=== PATIENT | male | born 1960 | race Caucasian/White ===

== ENCOUNTER 2020-07-24 06:06 | Outpatient (REF) | payer BC, SELFPAY ==
[2020-07-24 12:26] LABS: Prostate Specific Antigen 2.55 ng/mL (<0.05-4.0)
== END 2020-07-24 06:07 | disposition home or self-care (01) ==
LOC: HO.HMGCLDS 06:06
PROVIDERS: PCP Nurse Practitioner Family; Visit Provider Urology
DX: R97.20 Elevated prostate specific antigen [PSA] (principal)
CPT/HCPCS: 84153

== ENCOUNTER → 2020-08-05 09:13 | Outpatient (BNVA) | payer BC, SELFPAY | PROVIDERS: PCP Nurse Practitioner Family; Referring Provider Nurse Practitioner Family; Visit Provider Urology | DX: Z76.89 Persons encountering health services in other specified circumstances (principal) ==

== ENCOUNTER 2020-12-17 10:56 | Outpatient (REF) | payer BC, SELFPAY ==
[2020-12-17 11:29] LABS: COVID-19 Test Negative (Negative); IDNOW Serial# 55D5AD1C
== END 2020-12-17 10:57 | disposition home or self-care (01) ==
LOC: HO.LAB 10:56
PROVIDERS: Visit Provider Internal Medicine
DX: Z20.822 Contact with and (suspected) exposure to COVID-19 (principal)
CPT/HCPCS: 36415; 87635; C9803

== ENCOUNTER 2021-01-27 06:28 | Outpatient (REF) | payer BC, SELFPAY ==
[2021-01-27 11:51] LABS: Alanine Aminotransferase 32 U/L (0-40); Albumin Level 4.3 g/dL (3.5-5.0); Alkaline Phosphatase 68 U/L (39-117); Anion Gap 12 (12-20); Aspartate Amino Transferase 28 U/L (5-37); Bilirubin Total 0.9 mg/dL (0.0-1.0); Blood Urea Nitrogen 18 mg/dL (9-16); Calcium 9.1 mg/dL (8.4-10.2); Carbon Dioxide 26 mmol/L (22-29); Chloride 106 mmol/L (96-108); Cholesterol 188 mg/dL; Estimated Glomerular Filt Rate > 60; Glucose Fasting 105 mg/dL (60-99); HDL Cholesterol 64 mg/dL; LDL Cholesterol Calculated 100 mg/dl; Potassium 4.2 mmol/L (3.3-5.1); Sodium 140 mmol/L (135-145); Triglycerides 121 mg/dL
[2021-01-27 12:09] LABS: Prostate Specific Antigen 2.82 ng/mL (<0.05-4.0)
[2021-01-27 12:15] LABS: Prostate Specific Antigen Scr 2.78 ng/mL (<0.05-4.0); TSH reflex Free T4 1.97 uIU/mL (0.32-4.0)
[2021-01-27 12:16] LABS: HBS Num1 0.12 mIU/mL (0-7.99); HBc Num1 0.09 S/CO (0.00-0.79); Hepatitis A Antibody IgM 0.14 Index (0-0.79); Hepatitis B Core Antibody Nonreactive (Nonreactive); ~HepC Num1 0.07 S/CO (0.00-0.79); ~Hepatitis A Antibody IgM Nonreactive (Nonreactive); ~Hepatitis B Surface Antibody NONREACTIVE (Nonreactive); ~Hepatitis C Antibody Nonreactive (Nonreactive)
[2021-01-27 12:28] LABS: HBsAGNum1 0.19 S/CO (0.00-0.99); Hepatitis B Surface Antigen Negative (Negative)
== END 2021-01-27 06:29 | disposition home or self-care (01) ==
LOC: HO.HMGCLDS 06:28
PROVIDERS: PCP Nurse Practitioner Family; Visit Provider Urology
DX: Z00.00 Encounter for general adult medical examination without abnormal findings (principal); R97.20 Elevated prostate specific antigen [PSA]; N40.1 Benign prostatic hyperplasia with lower urinary tract symptoms; N13.8 Other obstructive and reflux uropathy; Z11.59 Encounter for screening for other viral diseases; Z12.5 Encounter for screening for malignant neoplasm of prostate
CPT/HCPCS: 36415; 80053; 80061; 84153; 84443; 86704; 86706; 86709; 86803; 87340

== ENCOUNTER → 2021-05-25 09:24 | Outpatient (BNVA) | payer BC, SELFPAY | PROVIDERS: PCP Nurse Practitioner Family; Visit Provider Urology ==

== ENCOUNTER 2021-08-04 07:42 | Outpatient (REF) | payer BC, SELFPAY | END 2021-08-04 07:43 | disposition home or self-care (01) | LOC: HO.LAB 07:42 | PROVIDERS: PCP Nurse Practitioner Family; Visit Provider Internal Medicine | DX: Z20.822 Contact with and (suspected) exposure to COVID-19 (principal) | CPT/HCPCS: C9803; U0003; U0005 ==

== ENCOUNTER 2021-11-11 08:28 | Outpatient (REF) | payer BC, SELFPAY ==
[2021-11-11 12:21] LABS: PSA,Total (Free>4and<10) 2.89 ng/mL (0.00-4.00)
== END 2021-11-11 08:29 | disposition home or self-care (01) ==
LOC: HO.HMGCLDS 08:28
PROVIDERS: PCP Nurse Practitioner Family; Visit Provider Urology
DX: Z12.5 Encounter for screening for malignant neoplasm of prostate (principal); N40.1 Benign prostatic hyperplasia with lower urinary tract symptoms; N13.8 Other obstructive and reflux uropathy
CPT/HCPCS: 36415; 84153

== ENCOUNTER → 2021-11-24 10:57 | Outpatient (BNVA) | payer BC, SELFPAY | PROVIDERS: PCP Nurse Practitioner Family; Visit Provider Urology | DX: N40.1 Benign prostatic hyperplasia with lower urinary tract symptoms (principal); N52.9 Male erectile dysfunction, unspecified; N13.8 Other obstructive and reflux uropathy ==

== ENCOUNTER 2022-01-26 06:03 | Outpatient (REF) | payer BC, SELFPAY ==
[2022-01-26 11:36] LABS: Alanine Aminotransferase 52 U/L (0-40); Albumin Level 4.2 g/dL (3.5-5.0); Alkaline Phosphatase 73 U/L (39-117); Anion Gap 11 (12-20); Aspartate Amino Transferase 43 U/L (5-37); Bilirubin Total 1.1 mg/dL (0.0-1.0); Blood Urea Nitrogen 14 mg/dL (9-16); Calcium 9.3 mg/dL (8.4-10.2); Carbon Dioxide 28 mmol/L (22-29); Chloride 106 mmol/L (96-108); Cholesterol 204 mg/dL; Estimated Glomerular Filt Rate > 60; Glucose Fasting 120 mg/dL (60-99); HDL Cholesterol 64 mg/dL; LDL Cholesterol Calculated 121 mg/dl; Potassium 4.3 mmol/L (3.3-5.1); Sodium 141 mmol/L (135-145); Total Protein 7.2 g/dL (6.5-8.0); Triglycerides 97 mg/dL
[2022-01-26 11:44] LABS: Appearance Urine CLOUDY; Color Urine YELLOW; Glucose Urine UA NEG (NEG); Leukocyte Esterase Urine NEG (NEG); Nitrite Urine NEG (NEG); Specific Gravity - Urine 1.025 (1.005-1.025); Urine Blood NEG (NEG); Urine Ketones 5 MG/DL (NEG); Urine Protein NEG (NEG-TRACE)
[2022-01-26 12:04] LABS: TSH reflex Free T4 1.97 uIU/mL (0.32-4.0)
== END 2022-01-26 06:04 | disposition home or self-care (01) ==
LOC: HO.HMGCLDS 06:03
PROVIDERS: Visit Provider Nurse Practitioner Family
DX: Z00.00 Encounter for general adult medical examination without abnormal findings (principal)
CPT/HCPCS: 36415; 80053; 80061; 81003; 84443

== ENCOUNTER 2022-06-22 06:02 | Outpatient (REF) | payer BC, SELFPAY ==
[2022-06-22 11:26] LABS: Appearance Urine Clear; Color Urine Yellow; Glucose Urine UA Negative (Negative); Leukocyte Esterase Urine Negative (Negative); Nitrite Urine Negative (Negative); PH 5.5 (5.0-9.0); Specific Gravity - Urine 1.015 (1.005-1.025); Urine Blood Negative (Negative); Urine Ketones Negative (Negative); Urine Protein Negative (Neg-Trace)
[2022-06-22 11:27] LABS: MANUAL DIFF FLAG NO
[2022-06-22 11:40] LABS: Basophils Absolute Auto 0.1 X10*3/uL (0.0-0.2); Basophils Percent Auto 1.1 % (0-2); Eosinophils Absolute Auto 0.2 X10*3/uL (0.0-0.4); Eosinophils Percent Auto 3.4 % (0-4); Hematocrit 46.4 % (42.0-52.0); Hemoglobin 16.1 g/dl (14.0-18.0); Imm Gran Abs Auto 0.01 X10*3/uL (0.00-0.03); Imm Gran Pct Auto 0.2 % (0.0-0.4); Lymphocytes Absolute Auto 1.6 X10*3/uL (1.2-4.9); Lymphocytes Percent Auto 27.7 % (20-40); Mean Corpuscular HGB Conc 34.7 g/dl (31.0-36.0); Mean Corpuscular Hemoglobin 32.2 pg (27.0-33.0); Mean Corpuscular Volume 92.8 fL (80.0-98.0); Mean Platelet Volume 10.8 fL (9.4-12.4); Monocytes Absolute Auto 0.8 X10*3/uL (0.1-1.2); Monocytes Percent Auto 13.7 % (2-11); Neutrophils Percent Auto 53.9 % (45-73); Platelet Count 178 X10*3/uL (160-400); White Blood Count 5.6 X10*3/uL (4.8-10.8)
[2022-06-22 12:00] LABS: Alanine Aminotransferase 63 U/L (0-40); Albumin Level 4.3 g/dL (3.5-5.0); Alkaline Phosphatase 67 U/L (39-117); Anion Gap 14 (12-20); Aspartate Amino Transferase 52 U/L (5-37); Bilirubin Total 0.8 mg/dL (0.0-1.0); Blood Urea Nitrogen 15 mg/dL (9-16); Calcium 9.4 mg/dL (8.4-10.2); Carbon Dioxide 26 mmol/L (22-29); Chloride 105 mmol/L (96-108); Cholesterol 221 mg/dL; Estimated Glomerular Filt Rate > 60; Glucose Fasting 137 mg/dL (60-99); HDL Cholesterol 66 mg/dL; LDL Cholesterol Calculated 132 mg/dl; Potassium 4.9 mmol/L (3.3-5.1); Sodium 140 mmol/L (135-145); Total Protein 7.2 g/dL (6.5-8.0); Triglycerides 119 mg/dL
[2022-06-22 12:05] LABS: TSH reflex Free T4 2.19 uIU/mL (0.32-4.0)
== END 2022-06-22 06:03 | disposition home or self-care (01) ==
LOC: HO.HMGCLDS 06:02
PROVIDERS: PCP Nurse Practitioner Family; Visit Provider Nurse Practitioner Family
DX: I10 Essential (primary) hypertension (principal)
CPT/HCPCS: 36415; 80053; 80061; 81003; 84443; 85025

== ENCOUNTER 2022-08-15 11:03 | Outpatient (REF) | payer BC, SELFPAY ==
[2022-08-15 14:18] LABS: Estimated Average Glucose 105 mg/dL; Hemoglobin A1c % 5.3 %
[2022-08-15 14:54] LABS: Microalbum/Creatinine Ratio Ur 13.4 ug/mg cr
[2022-08-17 09:03] LABS: Carbohydrate Antigen 19-9 <3 U/mL (<34)
== END 2022-08-15 11:04 | disposition home or self-care (01) ==
LOC: HO.HMGCLDS 11:03
PROVIDERS: PCP Nurse Practitioner Family; Visit Provider Nurse Practitioner Family
DX: E11.9 Type 2 diabetes mellitus without complications (principal); Z80.0 Family history of malignant neoplasm of digestive organs
CPT/HCPCS: 36415; 82043; 83036; 86301

== ENCOUNTER 2022-11-08 09:16 | Outpatient (REF) | payer BC, SELFPAY ==
[2022-11-08 12:32] LABS: Prostate Specific Antigen 3.29 ng/mL (<0.05-4.0)
== END 2022-11-08 09:17 | disposition home or self-care (01) ==
LOC: HO.HMGCLDS 09:16
PROVIDERS: PCP Nurse Practitioner Family; Visit Provider Urology
DX: N40.1 Benign prostatic hyperplasia with lower urinary tract symptoms (principal); N13.8 Other obstructive and reflux uropathy; R97.20 Elevated prostate specific antigen [PSA]; Z12.5 Encounter for screening for malignant neoplasm of prostate
CPT/HCPCS: 36415; 84153

== ENCOUNTER → 2022-11-25 10:21 | Outpatient (BNVA) | payer BC, SELFPAY | PROVIDERS: PCP Nurse Practitioner Family; Visit Provider Urology | DX: Z13.89 Encounter for screening for other disorder (principal) ==

== ENCOUNTER 2023-06-15 08:15 | Outpatient (AMB) | payer BC, SELFPAY ==
--- NOTE | 2023-06-15 08:19 | MHC.PC.OV ---
Vital Signs 06/15/23 08:20 Height 5 ft 8 in Weight 210 lb BMI 31.9 BP 170/92 H Blood Pressure Location Lt brachial Position Sitting Pulse 51 Pulse Source Pulse Oximeter Pulse Oximetry (%) 97 Oxygen Delivery Method Room Air Intake Visit Reasons: 6 Month follow up Allergies erythromycin base [Erythromycin Base] Allergy (Mild, Verified 06/15/23 08:23) RAH,ITCH oxycodone [From Percocet] Allergy (Mild, Verified 06/15/23 08:23) NAUSEA,DIZZINESS acetaminophen [Percocet] Allergy (Unknown, Verified 06/15/23 08:23) nausea/dizziness Medication List - Last Reconciled 06/15/23 by Hal Chacon, HUNTER TRAPPER- alcohol swabs 1 topically; NS amlodipine 10 mg PO DAILY 90 days antiarthritic combination no.2 (glucosamine-chondroitin) mg PO diclofenac sodium 3% 1 appl topical BID FreeStyle Lite Meter (blood-glucose meter) BID NS FreeStyle Lite Strips (blood sugar diagnostic) BID NS ibuprofen 600 mg PO Q6H PRN lancets bid testing lorazepam 0.5 mg PO DAILY PRN 30 days losartan 50 mg (2 x 25 mg) PO DAILY omeprazole 20 mg PO DAILY rosuvastatin (Crestor) 10 mg PO DAILY sildenafil 100 mg PO .as needed PRN 30 days Tobacco use date assessed: 06/15/23 Dental Screening Dental Screen Date: 06/15/23 Did you have a dental visit in the last 12 months?: Yes Did you have a dental problem in the last 6 months where you did not have access to dental care?: No Was dental information given to patient?: Patient has dentist HPI 6 Month follow up HPI Details Pt is a diabetic, on an ARB and a statin. A1C in office today is 5.6. Microalbumin is up to date. Denies polyuria, polydipsia, and neuropathy. Pt denies any signs and symptoms of hypoglycemia and does know how to correct it. Pt reports that his blood sugar has been in the low 100s. Eye exam is scheduled. HTN: Blood pressure is managed with amlodipine 5mg and losartan 50mg. BP is elevated in office and at home. Will increase amlodipine from 5mg to 10mg. Denies chest pain, shortness of breath, headache, dizziness, and blurred vision. Pt has several varicose veins just superior to his right knee. Will refer to vascular. [facility] Medical History (Updated 06/15/23 @ 08:36 by [facility] Osteoarthritis Bursitis of right hip Right tennis elbow PTSD (post-traumatic stress disorder) HURTADO (nonalcoholic steatohepatitis) Surgical History History of meniscectomy of left knee History of repair of rotator cuff Family History Father Cancer of pancreas Mother Cancer of pancreas Sister No problems noted. Daughter No problems noted. Son No problems noted. Son No problems noted. Social History Housing: House Alcohol intake: current Alcohol intake frequency: a few times a month Patient Tobacco Use Status: Never used Tobacco e-Cigarette/Vaping Use: Never Used Second Hand Smoke Exposure: No service: No Current occupational status: retired Cognitive needs: No Hearing needs: No Vision needs: Yes Questionnaire Thrive Questionnaire Date Thrive assessed: 09/21/22 KELLI-7 AMB Questionnaire KELLI-7 Date KELLI - 7 assessed: 09/21/22 Source: Developed by Drs. Augie Kiran, Jia Hamm, aH Pat and colleagues, with an educational cas from [employer] Physical exam (Primary Care) Vital Signs: Last Vital Signs Pulse 51 06/15/23 08:20 BP 170/92 H 06/15/23 08:20 Pulse Ox 97 06/15/23 08:20 Oxygen Delivery Method Room Air 06/15/23 08:20 BMI result Body Mass Index 31.9 Tobacco/Smoking Status: Tobacco use Status Tobacco use date assessed 06/15/23 06/15/23 08:26 Patient Tobacco Use Status Never used Tobacco 06/15/23 08:19 e-Cigarette/Vaping Use Never Used 06/15/23 08:19 Thrive Assessment: Date of Thrive Assessment Date Thrive assessed 09/21/22 06/15/23 08:19 Const General: cooperative Nutritional Appearance: obese Orientation/consciousness: patient oriented x3 Resp Effort & Inspection: normal respiratory effort Auscultation: clear to auscultation bilaterally Cardio Rate: regular rate Rhythm: regular rhythm Heart sounds: S1 normal heart sound present, S2 normal heart sound present and no murmurs Neuro General: patient oriented x3 Extrem Other: bilat feet: + sensation with use of monofilament, onychomycosis noted bilat, RLE just posterior to knee with several varicose veins, TTP Psych Appearance: grossly normal Mental Status: mental status grossly normal Speech and movement: Normal speech and movement present Affect: normal affect Attitude: cooperative Thought process: Normal thought process present Thought content: Normal thought content present Insight: Good insight present (Psych) Judgement: Good judgement present (Psych) Results AMB Hemoglobin A1c AMB Hemoglobin A1c 5.6 % Last Edit by Debbie Medellin CMA on 06/15/23 09:10 Results Reviewed Results Reviewed: Laboratory Last Values Hgb A1c (Clinic) 5.6 % (4.0-6.0) 06/15/23 09:09 Assessment and Plan Assessment & Plan (1) Varicose veins of right lower extremity: Code(s): I83.91 - Asymptomatic varicose veins of right lower extremity (2) HTN (hypertension): Code(s): I10 - Essential (primary) hypertension (3) Diabetes: Code(s): E11.9 - Type 2 diabetes mellitus without complications Plan The patient agreed to the use of a medical language specialist for this encounter. Scribed for JENA Aleman by Tania Cardenas medical language specialist, on 06/15/2023 at 08:30 EST Orders: Orders AMB Hemoglobin A1c Today E11.9 - Type 2 diabetes mellitus without complications Referrals Vascular Surgery Referral I83.91 - Asymptomatic varicose veins of right lower extremity Medications: Changed From amlodipine 5 mg PO DAILY 90 tabs 1RF To amlodipine 10 mg PO DAILY 90 tabs 1RF 90 days Coding Level of Care Code Est Pt Level 3 (53245) Diagnoses Varicose veins of right lower extremity I83.91 HTN (hypertension) I10 Diabetes E11.9
[2023-06-15 08:20] VITALS: BP 170/92; PULSE 51; O2SAT 97; BMI 31.9
== END 2023-06-15 08:54 | disposition home or self-care (01) ==
PROVIDERS: Visit Provider Nurse Practitioner Family
DX: I83.91 Asymptomatic varicose veins of right lower extremity (principal); I10 Essential (primary) hypertension; E11.9 Type 2 diabetes mellitus without complications
CPT/HCPCS: 83036; 99213

== ENCOUNTER 2023-06-19 08:12 | Outpatient (AMB) | payer BC, SELFPAY ==
--- NOTE | 2023-06-19 08:44 | AM.OFFWIN_ITS ---
Intake Vital Signs 3 06/19/23 08:52 Height 5 ft 8 in Weight 97.069 kg BMI 32.5 BP 150/80 H Blood Pressure Location Rt brachial Position Sitting Pulse 75 Pulse Source Pulse Oximeter Temp 98.2 F Temp Source Temporal Artery Scan Pulse Oximetry (%) 96 Oxygen Delivery Method Room Air Intake Visit Reasons: EP, left side of face swelling [phone] Intake Note: patient is here today for crack tooth on left side and its infected Patient Tobacco Use Status: Never used Tobacco Allergies erythromycin base [Erythromycin Base] Allergy (Mild, Verified 06/19/23 08:45) RAH,ITCH oxycodone [From Percocet] Allergy (Mild, Verified 06/19/23 08:45) NAUSEA,DIZZINESS acetaminophen [Percocet] Allergy (Unknown, Verified 06/19/23 08:45) nausea/dizziness Do you need a note to return to daycare/school/sports/work: No HPI EP, left side of face swelling [phone] 2 HPI0 Details Patient presents with pain swelling left cheek and emanating a bothersome tooth. The tooth has bothersome for several weeks but this acute pain redness cheek only been the past 2 days. He denies fever, nasal discharge, bleeding, headache, neurological symptoms. [facility] Medical History (Updated 06/15/23 @ 08:36 by EVER Bingham-[facility] J) Osteoarthritis Bursitis of right hip Right tennis elbow PTSD (post-traumatic stress disorder) HURTADO (nonalcoholic steatohepatitis) Surgical History History of meniscectomy of left knee History of repair of rotator cuff Family History Father Cancer of pancreas Mother Cancer of pancreas Sister No problems noted. Daughter No problems noted. Son No problems noted. Son No problems noted. Social History Housing: House Alcohol intake: current Alcohol intake frequency: a few times a month Patient Tobacco Use Status: Never used Tobacco e-Cigarette/Vaping Use: Never Used Second Hand Smoke Exposure: No service: No Current occupational status: retired Cognitive needs: No Hearing needs: No Vision needs: Yes Review of Systems Const Reports as per HPI and Reports no additional complaints Eyes Reports no additional complaints ENT Reports no additional complaints and Reports as per HPI Skin/Breast Denies lesions Neuro Reports no additional complaints and Reports as per HPI Physical Exam Vital Signs: Last Vital Signs Temp 98.2 F 06/19/23 08:52 Pulse 75 06/19/23 08:52 BP 150/80 H 06/19/23 08:52 Pulse Ox 96 06/19/23 08:52 Oxygen Delivery Method Room Air 06/19/23 08:52 BMI result Body Mass Index 32.5 Const General: cooperative, comfortable and no acute distress Orientation/consciousness: patient oriented x3 HEENT Face images: 2 1. Area rubor edema and tenderness Mouth: Normal oral and palatal mucosa present Teeth and gingiva: abnormal tooth and associated gingiva (Anterior two upper molars are severely decayed) Teeth image: 2 1. Significant decay of ?12. And 13 Throat: Yes posterior oropharynx normal Eyes Other: No pain with extraocular movement or evidence preseptal cellulitis Pupils: Equal, round and reactive pupils present EOM: EOMs intact bilaterally Neck Neck: Yes no lymphadenopathy Resp Effort & Inspection: normal respiratory effort Auscultation: clear to auscultation bilaterally Cardio Rate: regular rate Rhythm: regular rhythm Heart sounds: S1 normal heart sound present and S2 normal heart sound present Neuro General: patient oriented x3 Cranial nerves: Yes Equal, round and reactive pupils present Assessment & Plan Assessment & Plan (1) Facial cellulitis: Code(s): L03.211 - Cellulitis of face Plan: Will start patient on course of Augmentin for cellulitis. Strongly advised patient to call dentist today to be seen this week for treatment for tooth decay as this will continue to recur frequently until dental issue is treated. ER if fever, chills, neck stiffness, headache vision changes pain with extraocular movement or any worsening of symptoms occurs. Medications: New 2 amoxicillin-pot clavulanate 875-125 mg 1 tab PO Q12H 10 days 20 tabs 0RF Coding Level of Care Code Est Pt Level 3 (35648) Diagnoses Facial cellulitis L03.211
[2023-06-19 08:52] VITALS: BP 150/80; PULSE 75; TEMP 36.8; O2SAT 96; BMI 32.5
== END 2023-06-19 10:12 | disposition home or self-care (01) ==
PROVIDERS: PCP Nurse Practitioner Family; Visit Provider Physician Assistant
DX: L03.211 Cellulitis of face (principal)
CPT/HCPCS: 99213

== ENCOUNTER 2023-07-25 06:06 | Outpatient (REF) | payer BC, SELFPAY ==
[2023-07-25 11:16] LABS: MANUAL DIFF FLAG NO
[2023-07-25 11:24] LABS: Basophils Absolute Auto 0.1 X10*3/uL (0.0-0.2); Eosinophils Absolute Auto 0.2 X10*3/uL (0.0-0.4); Eosinophils Percent Auto 3.1 % (0-4); Hematocrit 46.1 % (42.0-52.0); Hemoglobin 16.2 g/dl (14.0-18.0); Imm Gran Abs Auto 0.02 X10*3/uL (0.00-0.03); Imm Gran Pct Auto 0.3 % (0.0-0.4); Lymphocytes Absolute Auto 1.6 X10*3/uL (1.2-4.9); Lymphocytes Percent Auto 26.7 % (20-40); Mean Corpuscular HGB Conc 35.1 g/dl (31.0-36.0); Mean Corpuscular Hemoglobin 32.3 pg (27.0-33.0); Mean Corpuscular Volume 91.8 fL (80.0-98.0); Monocytes Absolute Auto 0.7 X10*3/uL (0.1-1.2); Monocytes Percent Auto 11.2 % (2-11); Neutrophils Absolute Auto 3.5 x10*3/uL (2.0-8.3); Neutrophils Percent Auto 57.7 % (45-73); Platelet Count 193 X10*3/uL (160-400); Red Blood Count 5.02 X10*6/uL (4.60-5.80); Red Cell Distribution Width 11.7 % (11.0-16.0); White Blood Count 6.1 X10*3/uL (4.8-10.8)
[2023-07-25 11:28] LABS: Estimated Average Glucose 111 mg/dL; Hemoglobin A1c % 5.5 % (<6.0)
[2023-07-25 11:31] LABS: Appearance Urine Clear; Color Urine Yellow; Glucose Urine UA Negative (Negative); Leukocyte Esterase Urine Negative (Negative); Nitrite Urine Negative (Negative); PH 6.5 (5.0-9.0); Urine Blood Negative (Negative); Urine Ketones Negative (Negative); Urine Protein Negative (Neg-Trace)
[2023-07-25 12:00] LABS: Alanine Aminotransferase 47 U/L (0-40); Albumin Level 4.1 g/dL (3.5-5.0); Alkaline Phosphatase 66 U/L (39-117); Anion Gap 11 (12-20); Aspartate Amino Transferase 39 U/L (5-37); Blood Urea Nitrogen 14 mg/dL (9-16); Carbon Dioxide 27 mmol/L (22-29); Chloride 106 mmol/L (96-108); Cholesterol 171 mg/dL (<200); Estimated Glomerular Filt Rate > 60; Glucose Fasting 139 mg/dL (60-99); HDL Cholesterol 76 mg/dL (>40); LDL Cholesterol Calculated 78 mg/dL (<100); Potassium 3.9 mmol/L (3.3-5.1); Sodium 140 mmol/L (135-145); TSH reflex Free T4 2.84 uIU/mL (0.32-4.0); Total Protein 7.3 g/dL (6.5-8.0); Triglycerides 86 mg/dL (<150)
== END 2023-07-25 06:07 | disposition home or self-care (01) ==
LOC: HO.HMGCLDS 06:06
PROVIDERS: PCP Nurse Practitioner Family; Visit Provider Nurse Practitioner Family
DX: E11.9 Type 2 diabetes mellitus without complications (principal)
CPT/HCPCS: 36415; 80053; 80061; 81003; 83036; 84443; 85025

== ENCOUNTER 2023-09-14 09:14 | Outpatient (AMB) | payer BC, SELFPAY ==
[2023-09-14 09:32] VITALS: BMI 31.9
--- NOTE | 2023-09-14 09:32 | MHC.OFFVIS ---
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 Has not tried compression socks. 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 Complaints include pain over varicosities, swelling of lower extremities, cramping, fatigue, and heaviness of the lower extremities. 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 It is noted more so in right t leg. Patient denies any previous venous surgery or injections. Patient denies any history of DVT/ PE. Patient denies any history of phlebitis. Trial of compression includes - [id number] They now present for vascular evaluation regarding their varicose veins. [facility] Medical History Osteoarthritis Bursitis of right hip Right tennis elbow PTSD (post-traumatic stress disorder) HURTADO (nonalcoholic steatohepatitis) Surgical History History of meniscectomy of left knee History of repair of rotator cuff Family History Father Cancer of pancreas Mother Cancer of pancreas Sister No problems noted. Daughter No problems noted. Son No problems noted. Son No problems noted. Social History Housing: House Alcohol intake: current Alcohol intake frequency: a few times a month Patient Tobacco Use Status: Never used Tobacco e-Cigarette/Vaping Use: Never Used Second Hand Smoke Exposure: No service: No Current occupational status: retired Cognitive needs: No Hearing needs: No Vision needs: Yes Review of Systems Const Reports as per HPI ENT Reports no additional complaints Card Denies chest pain, Denies chest pain at rest and Denies chest pain with activity Resp Denies chest congestion and Denies cough GI Reports no additional complaints Musc Details: pain over varicosities, aching of lower extremities, swelling, cramping, heaviness and tiredness, itching Denies abnormal gait Skin/Breast Reports pruritus and Denies wounds Neuro Reports no additional complaints and Denies abnormal gait Psych Denies no additional complaints Physical Exam Vital Signs: BMI result Body Mass Index 31.9 Const General: cooperative, healthy appearing and comfortable Orientation/consciousness: oriented to person, oriented to place and oriented to time Neck Carotids: no bruits Chest Chest palpation & inspection: normal inspection of the chest and normal palpation of entire chest wall Resp Effort & Inspection: normal respiratory effort and able to speak in complete sentences Cardio Rate: regular rate Heart sounds: S1 normal heart sound present and S2 normal heart sound present Peripheral pulses: Peripheral pulses 2+ throughout GI Inspection: Yes normal to inspection Skin Other: +2 edema, large rope-like varicosities greater than 4 mm CEAP Classification C4 - skin color changes Ep - Etiology Primary As - superficial veins P - reflux General skin exam: dry skin Neuro General: oriented to person, oriented to place and oriented to time Extrem Right lower extremity: full ROM, normal capillary refill and edema Left lower extremity: full ROM, normal capillary refill and edema Psych Mental Status: mental status grossly normal Assessment & Plan Assessment & Plan (1) Varicose veins of right lower extremity with inflammation: Code(s): I83.11 - Varicose veins of right lower extremity with inflammation Plan: In short, the patient has evidence of venous insufficiency. I have discussed the pathophysiology with the patient. In addition I have provided informational material regarding venous disease to the patient. We have discussed conservative measures including compression, elevation, and exercise. I have also provided a handout regarding appropriate use of compression stockings and where to purchase good compression stockings as well. I have taken the liberty of ordering venous insufficiency testing with the patient. They will follow up with me after testing. The patient had an opportunity to ask questions regarding the treatment plan. All questions were answered. Imaging studies, laboratory studies and physical exam results were discussed and reviewed in detail. No major barriers to understanding were identified. The patient expressed understanding and agreement with the above treatment plan. The patient is aware they should contact our office by phone for worsening of the current condition or the appearance of new symptoms. Thank you for allowing me to participate in the vascular care of this patient. If you have any questions or concerns regarding the treatment for the above condition please do not hesitate to contact me. The office telephone contact is [phone]. This note is constructed using voice recognition software. While every effort has been made to ensure accuracy, crystal flat grinder errors may have been included. Thank you for allowing me to participate in the care of your patient. Yours sincerely, Kelton King MD, FACS, R.P.V.I. Orders: Orders US venous insuf bilat 1 Week I83.11 - Varicose veins of right lower extremity with inflammation Coding Level of Care Code Est Pt Level 4 (40616) Diagnoses Varicose veins of right lower extremity with inflammation I83.11
== END 2023-09-14 10:08 | disposition home or self-care (01) ==
PROVIDERS: PCP Nurse Practitioner Family; Visit Provider Surgery Vascular Surgery
DX: I83.11 Varicose veins of right lower extremity with inflammation (principal)
CPT/HCPCS: 99213

== ENCOUNTER → 2023-09-14 09:14 | Outpatient (BNVA) | payer BC, SELFPAY | PROVIDERS: PCP Nurse Practitioner Family; Visit Provider Surgery Vascular Surgery ==

== ENCOUNTER 2023-09-20 12:34 | Outpatient (REF) | payer BC, SELFPAY ==
--- NOTE | ~2023-09-20 | US_ITS ---
EXAMINATION: US LOWER EXTREMITY VENOUS (REFLUX EXAM), BILATERAL CLINICAL INDICATION: Varicose veins of the right lower extremity COMPARISON: None. TECHNIQUE: Color flow triplex imaging and compression Doppler was performed to evaluate both the deep and the superficial systems bilaterally. To evaluate the superficial system, the examination was performed in the upright position. Color-flow Doppler ultrasound and compression ultrasound were utilized. In addition, maneuvers were utilized to demonstrate reflux. FINDINGS: RIGHT: 1. DEEP VENOUS ULTRASOUND OF THE RIGHT LOWER EXTREMITY: Common Femoral Vein: Compressible, normal respiratory variation and augmented flow. Popliteal Vein: Compressible, normal augmentation. Deep Venous Reflux: There is no evidence of reflux in the deep system in either the common femoral vein or the popliteal vein. There is no evidence of a Mayers's cyst. 2. SUPERFICIAL ULTRASOUND WITH DOPPLER OF RIGHT LOWER EXTREMITY: RIGHT GREAT SAPHENOUS VEIN: Saphenofemoral Junction: 5 mm. No reflux. Proximal Thigh: 1 mm. No reflux. Mid Thigh: 1 mm. No reflux. Above Knee: 1 mm. No reflux. Below Knee: 1 mm. No reflux. Mid Calf: 2 mm. 2392 ms reflux. Ankle: 3 mm. 2800 ms reflux. DUPLICATED GREAT SAPHENOUS VEIN: Yes, with abnormal reflux noted at and below the knee. RIGHT SMALL SAPHENOUS VEIN: Proximal: 2 mm. No reflux. Distal: 2 mm. No reflux. PERFORATORS: Mid calf: 3 mm. No reflux. LEFT: 1. DEEP VENOUS ULTRASOUND OF THE LEFT LOWER EXTREMITY: Common Femoral Vein: Compressible, normal respiratory variation and augmented flow. Popliteal Vein: Compressible, normal augmentation. Deep Venous Reflux: There is no evidence of reflux in the deep system in either the common femoral vein or the popliteal vein. There is no evidence of a Mayers's cyst. 2. SUPERFICIAL ULTRASOUND WITH DOPPLER OF LEFT LOWER EXTREMITY: LEFT GREAT SAPHENOUS VEIN: Saphenofemoral Junction: 5 mm. No reflux. Proximal Thigh: 4 mm. No reflux. Mid Thigh: 3 mm. No reflux. Above Knee: 3 mm. No reflux. Below Knee: 3 mm. 2612 ms reflux. Mid Calf: 2 mm. No reflux. Ankle: 2 mm. No reflux. DUPLICATED GREAT SAPHENOUS VEIN: None LEFT SMALL SAPHENOUS VEIN: Proximal: 2 mm. No reflux. Distal: 1 mm. No reflux. PERFORATORS: None VARICOSE VEINS: Distal thigh: 3 mm. 2440 ms reflux. Proximal calf: 3 mm. 2500 ms reflux. Popliteal fossa: 5 mm. 1948 ms reflux. Distal calf: 3 mm. No reflux. US/ venous insuf bilat IMPRESSION: 1. Abnormal venous reflux within the right great saphenous vein at the mid calf and ankle. 2. Abnormal venous reflux within a right duplicated great saphenous vein at the level of the knee. 3. Left lower extremity varicose veins at the distal thigh, popliteal fossa, and catheter with abnormal reflux. Abnormal lower extremity venous reflux times: Superficial and deep calf veins: >500 ms Femoropopliteal veins: >1000 ms Perforating veins: >350 ms Labalexa N, Melinda J, Spencer L, Arleen AK, Rick SS, Sb Azeveod M, Talib WH. Definition of venous reflux in lower-extremity veins.J Vasc Surg. 2003; [phone].
== END 2023-09-20 12:35 | disposition home or self-care (01) ==
LOC: HO.US 12:34
PROVIDERS: PCP Nurse Practitioner Family; Visit Provider Surgery Vascular Surgery
DX: I83.11 Varicose veins of right lower extremity with inflammation (principal)
CPT/HCPCS: 93970

== ENCOUNTER → 2023-10-03 08:48 | Outpatient (REF) | payer BC, SELFPAY | LOC: HO.SL 08:48 | PROVIDERS: PCP Nurse Practitioner Family; Visit Provider Nurse Practitioner Family | DX: G47.33 Obstructive sleep apnea (adult) (pediatric) (principal) | CPT/HCPCS: 95806 ==

== ENCOUNTER → 2023-10-03 12:03 | Outpatient (BNV) | payer BC, SELFPAY | PROVIDERS: PCP Nurse Practitioner Family; Visit Provider Internal Medicine | DX: G47.33 Obstructive sleep apnea (adult) (pediatric) (principal) | CPT/HCPCS: 95806 ==

== ENCOUNTER 2023-10-31 09:04 | Outpatient (AMB) | payer BC, SELFPAY ==
[2023-10-31 09:06] VITALS: BMI 31.9
--- NOTE | 2023-10-31 09:06 | MHC.OFFVIS ---
Intake Vital Signs 10/31/23 09:06 Height 5 ft 8 in Weight 210 lb BMI 31.9 Intake Visit Reasons: follow up [facility] 09/20/2023 Intake Note: Patient here for a follow up done on September 20, 2023. States leg pain has gone down but is still present. No swelling , discoloration. Accompanied by: Self / Same As Patient Allergies erythromycin base [Erythromycin Base] Allergy (Mild, Verified 10/31/23 09:08) RAH,ITCH oxycodone [From Percocet] Allergy (Mild, Verified 10/31/23 09:08) NAUSEA,DIZZINESS acetaminophen [Percocet] Allergy (Unknown, Verified 10/31/23 09:08) nausea/dizziness HPI follow up [facility] 09/20/2023 HPI Details Very pleasant 63-year-old gentleman presents for follow-up regarding venous disease. Reports that he does not have any significant swelling he had more so pain down the right lower extremity. Actually received a hip injection at [facility] and appears to be doing significantly better with that. He now presents for follow-up with venous insufficiency testing. [facility] Medical History Osteoarthritis Bursitis of right hip Right tennis elbow PTSD (post-traumatic stress disorder) HURTADO (nonalcoholic steatohepatitis) Surgical History History of meniscectomy of left knee History of repair of rotator cuff Family History Father Cancer of pancreas Mother Cancer of pancreas Sister No problems noted. Daughter No problems noted. Son No problems noted. Son No problems noted. Social History Housing: House Alcohol intake: current Alcohol intake frequency: a few times a month Patient Tobacco Use Status: Never used Tobacco e-Cigarette/Vaping Use: Never Used Second Hand Smoke Exposure: No service: No Current occupational status: retired Cognitive needs: No Hearing needs: No Vision needs: Yes Review of Systems Const Reports as per HPI ENT Reports no additional complaints Card Denies chest pain, Denies chest pain at rest and Denies chest pain with activity Resp Denies chest congestion and Denies cough GI Reports no additional complaints Musc Details: pain over varicosities, aching of lower extremities, swelling, cramping, heaviness and tiredness, itching Denies abnormal gait Skin/Breast Reports pruritus and Denies wounds Neuro Reports no additional complaints and Denies abnormal gait Psych Denies no additional complaints Physical Exam Vital Signs: BMI result Body Mass Index 31.9 Const General: cooperative, healthy appearing and comfortable Orientation/consciousness: oriented to person, oriented to place and oriented to time Neck Carotids: no bruits Chest Chest palpation & inspection: normal inspection of the chest and normal palpation of entire chest wall Resp Effort & Inspection: normal respiratory effort and able to speak in complete sentences Cardio Rate: regular rate Heart sounds: S1 normal heart sound present and S2 normal heart sound present Peripheral pulses: Peripheral pulses 2+ throughout GI Inspection: Yes normal to inspection Skin Other: +1 edema CEAP Classification C4 - skin color changes Ep - Etiology Primary As - superficial veins P - reflux General skin exam: dry skin Neuro General: oriented to person, oriented to place and oriented to time Extrem Right lower extremity: full ROM, normal capillary refill and edema Left lower extremity: full ROM, normal capillary refill and edema Psych Mental Status: mental status grossly normal Results Reviewed Results Reviewed: Brief summary of venous insufficiency testing is as follows: right great saphenous vein: Minimally positive at calf right small saphenous vein: negative right accessory vein: none present left great saphenous vein: Focally positive at knee left small saphenous vein: negative left accessory vein: none present Please note there is no evidence of any venous aneurysms or significant tortuosity Assessment & Plan Assessment & Plan (1) Right leg pain: Code(s): M79.604 - Pain in right leg Plan: In short patient has right lower extremity pain and discomfort. It appears to be more orthopedic in nature. He does have palpable arterial pulses and venous insufficiency testing is essentially negative. This does not appear to be vascular in nature. We did discuss routine conservative measures including compression elevation and exercise. He will follow up with us on an as-needed basis. Thank you for allowing us to assist in his care. Coding Level of Care Code Est Pt Level 4 (77644) Diagnoses Right leg pain M79.604
== END 2023-10-31 10:00 | disposition home or self-care (01) ==
PROVIDERS: PCP Nurse Practitioner Family; Visit Provider Surgery Vascular Surgery
DX: M79.604 Pain in right leg (principal)
CPT/HCPCS: 99213

== ENCOUNTER → 2023-10-31 09:04 | Outpatient (BNVA) | payer BC, SELFPAY | PROVIDERS: PCP Nurse Practitioner Family; Visit Provider Surgery Vascular Surgery ==

== ENCOUNTER 2024-01-01 06:08 | Outpatient (REF) | payer BC, SELFPAY ==
[2024-01-01 11:45] LABS: Prostate Specific Antigen 3.79 ng/mL (<0.05-4.0)
== END 2024-01-01 06:09 | disposition home or self-care (01) ==
LOC: HO.HMGCLDS 06:08
PROVIDERS: PCP Nurse Practitioner Family; Visit Provider Urology
DX: N40.1 Benign prostatic hyperplasia with lower urinary tract symptoms (principal); N13.8 Other obstructive and reflux uropathy; Z12.5 Encounter for screening for malignant neoplasm of prostate
CPT/HCPCS: 36415; 84153

== ENCOUNTER 2024-01-05 10:06 | Outpatient (AMB) | payer BC, SELFPAY ==
--- NOTE | 2024-01-05 10:23 | MHC.OFFVIS ---
Intake Visit Reasons: 1Y PSA/PVR(pending)Confirmed Allergies erythromycin base [Erythromycin Base] Allergy (Mild, Verified 10/31/23 09:08) RAH,ITCH oxycodone [From Percocet] Allergy (Mild, Verified 10/31/23 09:08) NAUSEA,DIZZINESS acetaminophen [Percocet] Allergy (Unknown, Verified 10/31/23 09:08) nausea/dizziness PFSH Medical History Osteoarthritis Bursitis of right hip Right tennis elbow PTSD (post-traumatic stress disorder) HURTADO (nonalcoholic steatohepatitis) Surgical History History of meniscectomy of left knee History of repair of rotator cuff Family History Father Cancer of pancreas Mother Cancer of pancreas Sister No problems noted. Daughter No problems noted. Son No problems noted. Son No problems noted. Social History Housing: House Alcohol intake: current Alcohol intake frequency: a few times a month Patient Tobacco Use Status: Never used Tobacco e-Cigarette/Vaping Use: Never Used Second Hand Smoke Exposure: No service: No Current occupational status: retired Cognitive needs: No Hearing needs: No Vision needs: Yes Coding
--- NOTE | 2024-01-05 10:28 | A.OFFVIS_ITS ---
Intake Visit Reasons: 1Y PSA(SET) Intake Note: Patient is Present for Follow Up Urology Medication: Sildenafil Antibiotic Allergies: Erthromycin Blood Thinners: None Allergies erythromycin base [Erythromycin Base] Allergy (Mild, Verified 01/05/24 10:32) RAH,ITCH oxycodone [From Percocet] Allergy (Mild, Verified 01/05/24 10:32) NAUSEA,DIZZINESS acetaminophen [Percocet] Allergy (Unknown, Verified 01/05/24 10:32) nausea/dizziness Medication List - Last Reconciled 01/05/24 by Ulysses Randhawa MD alcohol swabs 1 topically; NS amlodipine 10 mg PO DAILY 90 days amoxicillin-pot clavulanate 875-125 mg 1 tab PO Q12H 10 days antiarthritic combination no.2 (glucosamine-chondroitin) mg PO diclofenac sodium 3% 1 appl topical BID finasteride 5 mg PO DAILY 90 days FreeStyle Lite Meter (blood-glucose meter) BID NS FreeStyle Lite Strips (blood sugar diagnostic) BID NS ibuprofen 600 mg PO Q6H PRN lancets bid testing lorazepam 0.5 mg PO DAILY PRN 30 days losartan 50 mg PO DAILY omeprazole 20 mg PO DAILY rosuvastatin (Crestor) 10 mg PO DAILY sildenafil 100 mg PO .as needed PRN 30 days HPI Comments Details: Vinny is a pleasant male. He is a patient of Dr. Ward. He is seen for the following urologic conditions - elevated PSA - erectile dysfunction Yearly follow-up PSA continues with slow rise Recommend trial of finasteride for six-month ALVARADO 2+ Bladder ultrasound Elevated PSA/Abnormal ALVARADO: He presents for further evaluation of rising PSA. Current management is observation. Laboratory investigations include 06/22 2.8 up from 1.4 12/22 1.9, 07/24 2.5, 12/23 1.9, 05/25 2.8, 11/23 2.9, 11/24 3.3, 11/25 3.8 Individualized Prostate Cancer Risk Calculator < 5% high risk, Would like to continue with observation and understands and accepts the risks of a possible delay in diagnosis. Overall symptoms are mild. Associated conditions diabetes No dyslipidemia Yes dysuria Yes erectile dysfunction Yes Therapeutic plan will be continued surveillance. Erectile dysfunction Prior therapy sildenafil 100 mg Medication currently effective [facility] Medical History Osteoarthritis Bursitis of right hip Right tennis elbow PTSD (post-traumatic stress disorder) HURTADO (nonalcoholic steatohepatitis) Surgical History History of meniscectomy of left knee History of repair of rotator cuff Family History Father Cancer of pancreas Mother Cancer of pancreas Sister No problems noted. Daughter No problems noted. Son No problems noted. Son No problems noted. Social History Housing: House Alcohol intake: current Alcohol intake frequency: a few times a month Patient Tobacco Use Status: Never used Tobacco e-Cigarette/Vaping Use: Never Used Second Hand Smoke Exposure: No service: No Current occupational status: retired Cognitive needs: No Hearing needs: No Vision needs: Yes Review of Systems Const Denies chills and Denies fever(s) Card Reports no additional complaints and Denies syncope Resp Denies cough GI Denies abdominal pain and Denies heartburn Reports as per HPI and Denies change in libido Neuro Denies syncope Psych Denies change in libido Endo Denies change in libido Physical Exam Const General: cooperative, healthy appearing, comfortable and no acute distress Orientation/consciousness: patient oriented x3 HEENT Face and sinus: Yes normal facial exam Mouth: moist mucous membranes Neck Neck: Yes normal visual inspection, Yes full ROM and Yes trachea midline Chest Chest palpation & inspection: normal inspection of the chest Resp Effort & Inspection: normal respiratory effort, able to speak in complete sentences and no respiratory distress GI Inspection: Yes normal to inspection Rectal Exam - Male: Yes normal sphincter tone and Yes prostate normal Male General Exam: Yes normal external exam Penis: normal penis and circumcised Meatus: meatus normal Scrotum: scrotum normal Testes: Testes normal Back/Spine/Pelvis Cervical Spine: normal cervical lordosis Thoracic/Lumbar Spine: thoracic and lumbar spine normal to inspection Skin General skin exam: no rashes or lesions noted Neuro General: patient oriented x3, gait normal, tone normal and moves all extremities Extrem General: Yes normal to inspection and Yes capillary refill normal Assessment & Plan Assessment & Plan (1) Erectile dysfunction: Code(s): N52.9 - Male erectile dysfunction, unspecified Category: Medical (2) BPH w urinary obs/LUTS: Code(s): N40.1 - Benign prostatic hyperplasia with lower urinary tract symptoms; N13.8 - Other obstructive and reflux uropathy Category: Medical Plan Six-month follow-up PSA Orders: Orders PSA,Total (Free>4and<10) 6 Months R97.20 - Elevated prostate specific antigen [PSA] US bladder Today N13.8 - Other obstructive and reflux uropathy, N40.1 - Benign prostatic hyperplasia with lower urinary tract symptoms, R39.12 - Poor urinary stream Medications: New finasteride 5 mg PO DAILY 90 tabs 1RF 90 days N13.8 - Other obstructive and reflux uropathy, N40.1 - Benign prostatic hyperplasia with lower urinary tract symptoms, R33.9 - Retention of urine, unspecified Patient Instructions: Imaging studies, laboratory and physical exam results were discussed and reviewed in detail. No major barriers to patient understanding were identified. An opportunity to ask questions regarding the treatment plan was provided. All questions were answered. The patient expressed understanding and agreement with the above treatment plan. The patient is aware they should contact our office by phone for worsening of their current condition or the appearance of new urologic symptoms. Compliance is encouraged with any medications and followup testing that is ordered. It is a privilege to participate in the urologic care of your patient. If you have any questions or concerns regarding treatment for the above conditions, or other urologic issues, please do not hesitate to contact me. The office telephone contact is [phone]. This note is constructed using voice recognition software. While every effort has been made to ensure accuracy door to door salesperson errors may have been included. Yours sincerely, Dr Ulysses Randhawa MD, [facility] - Urology Providers of Expert, Compassionate Care for the Genitourinary System Coding Level of Care Code Est Pt Level 4 (52645) Diagnoses Erectile dysfunction N52.9 BPH w urinary obs/LUTS N40.1; N13.8
== END 2024-01-05 11:02 | disposition home or self-care (01) ==
PROVIDERS: Visit Provider Urology
DX: N52.9 Male erectile dysfunction, unspecified (principal); N40.1 Benign prostatic hyperplasia with lower urinary tract symptoms; N13.8 Other obstructive and reflux uropathy
CPT/HCPCS: 99213

== ENCOUNTER → 2024-01-05 10:06 | Outpatient (BNVA) | payer BC, SELFPAY | PROVIDERS: Visit Provider Urology ==

== ENCOUNTER 2024-01-10 12:09 | Outpatient (AMB) | payer BC, SELFPAY ==
--- NOTE | 2024-01-10 12:15 | MHC.OFFWIV ---
Intake Vital Signs 01/10/24 12:16 Height 5 ft 8 in BP 140/78 H Blood Pressure Location Rt brachial Position Sitting Pulse 78 Pulse Source Pulse Oximeter Temp 98.0 F Temp Source Oral Pulse Oximetry (%) 98 Oxygen Delivery Method Room Air Intake Visit Reasons: EST/lumps on left hand/ back of neck (lobby) Intake Note: pt is here for lumps with puss, hx of mersa Patient Tobacco Use Status: Never used Tobacco Allergies erythromycin base [Erythromycin Base] Allergy (Mild, Verified 01/10/24 12:17) RAH,ITCH oxycodone [From Percocet] Allergy (Mild, Verified 01/10/24 12:17) NAUSEA,DIZZINESS acetaminophen [Percocet] Allergy (Unknown, Verified 01/10/24 12:17) nausea/dizziness Do you need a note to return to daycare/school/sports/work: No HPI HPI Comments History of Present Illness Details 63-year-old male presents today complaining of lesions present on his wrists posterior neck and anterior thigh. Patient states he was exposed to MRSA by family members. Denies any unusual exposure working in the [employer]. [facility] Medical History Osteoarthritis Bursitis of right hip Right tennis elbow PTSD (post-traumatic stress disorder) HURTADO (nonalcoholic steatohepatitis) Surgical History History of meniscectomy of left knee History of repair of rotator cuff Family History Father Cancer of pancreas Mother Cancer of pancreas Sister No problems noted. Daughter No problems noted. Son No problems noted. Son No problems noted. Social History Housing: House Alcohol intake: current Alcohol intake frequency: a few times a month Patient Tobacco Use Status: Never used Tobacco e-Cigarette/Vaping Use: Never Used Second Hand Smoke Exposure: No service: No Current occupational status: retired Cognitive needs: No Hearing needs: No Vision needs: Yes Review of Systems Const All systems reviewed & are unremarkable except as noted in HPI and below Physical Exam Vital Signs: Last Vital Signs Temp 98.0 F 01/10/24 12:16 Pulse 78 01/10/24 12:16 BP 140/78 H 01/10/24 12:16 Pulse Ox 98 01/10/24 12:16 Oxygen Delivery Method Room Air 01/10/24 12:16 Const General: healthy appearing and no acute distress Skin Rashes: rashes noted (Bilateral wrists posterior neck. Papules present) Assessment & Plan Assessment & Plan (1) MRSA (methicillin resistant Staphylococcus aureus): Code(s): A49.02 - Methicillin resistant Staphylococcus aureus infection, unspecified site Plan: The patient is put on doxycycline to treat the MRSA. I discussed hygiene and proper disposal of all close gloves etc.. He also asked for antibiotics for dental prophylaxis which was ordered. Plan See plan Medications: New doxycycline hyclate 100 mg PO BID 14 caps 0RF 7 days amoxicillin 500 mg PO ONCE 4 caps 0RF 1 day Coding Level of Care Code Est Pt Level 3 (03580) Diagnoses MRSA (methicillin resistant Staphylococcus aureus) A49.02
[2024-01-10 12:16] VITALS: BP 140/78; PULSE 78; TEMP 36.7; O2SAT 98
== END 2024-01-10 12:43 | disposition home or self-care (01) ==
PROVIDERS: PCP Nurse Practitioner Family; Visit Provider Physician Assistant Medical
DX: A49.02 Methicillin resistant Staphylococcus aureus infection, unspecified site (principal)
CPT/HCPCS: 99213

== ENCOUNTER 2024-02-07 10:22 | Outpatient (AMB) | payer BC, SELFPAY ==
--- NOTE | 2024-02-07 10:26 | MHC.PC.OV ---
Vital Signs 02/07/24 10:29 Height 5 ft 8 in Weight 208 lb 4 oz BMI 31.7 BP 120/86 Blood Pressure Location Lt brachial Position Sitting Pulse 53 Pulse Source Pulse Oximeter Pulse Oximetry (%) 97 Oxygen Delivery Method Room Air Intake Visit Reasons: Derm referral Intake Note: Patient here to discuss bumps that have been present for a few weeks. Allergies erythromycin base [Erythromycin Base] Allergy (Mild, Verified 02/07/24 11:08) RAH,ITCH oxycodone [From Percocet] Allergy (Mild, Verified 02/07/24 11:08) NAUSEA,DIZZINESS acetaminophen [Percocet] Allergy (Unknown, Verified 02/07/24 11:08) nausea/dizziness Medication List - Last Reconciled 02/07/24 by EVER Bingham-FRANCISCO J alcohol swabs 1 topically; NS amlodipine 10 mg PO DAILY 90 days amoxicillin-pot clavulanate 875-125 mg 1 tab PO Q12H 10 days antiarthritic combination no.2 (glucosamine-chondroitin) mg PO betamethasone valerate 0.1% 1 appl topical DAILY PRN cephalexin 500 mg PO BID 10 days diclofenac sodium 3% 1 appl topical BID doxycycline hyclate 100 mg PO BID 7 days finasteride 5 mg PO DAILY 90 days FreeStyle Lite Meter (blood-glucose meter) BID NS FreeStyle Lite Strips (blood sugar diagnostic) BID NS ibuprofen 600 mg PO Q6H PRN lancets bid testing lorazepam 0.5 mg PO DAILY PRN 30 days losartan 50 mg PO DAILY omeprazole 20 mg PO DAILY rosuvastatin (Crestor) 10 mg PO DAILY sildenafil 100 mg PO .as needed PRN 30 days Tobacco use date assessed: 02/07/24 Fall risk assessment: No Falls in past year Last assessed Fall Risk: 02/07/24 Dental Screening Dental Screen Date: 02/07/24 Did you have a dental visit in the last 12 months?: Yes Did you have a dental problem in the last 6 months where you did not have access to dental care?: No Was dental information given to patient?: Patient has dentist HPI Derm referral HPI Details HTN: Blood pressure is stable, managed with amlodipine 10mg and losartan 50mg. Denies chest pain, shortness of breath, headache, dizziness, and blurred vision. Pt reports skin lesions to his face, back of neck, and hands. He reports noticing these on his hand 5-6 weeks ago. Pt reports that these do periodically itch. He reports that when squeezed there is white drainage. Pt was recently treated with an antibiotic for these, with minimal relief, and they are still present. Will send cephalexin and betamethsone. Will also refer to derm. EKG shows multifocal PVCs. Will refer to cardiology. Denies any SOB, CP, dizziness, DING, or blurred vision. [facility] Medical History Osteoarthritis Bursitis of right hip Right tennis elbow PTSD (post-traumatic stress disorder) HURTADO (nonalcoholic steatohepatitis) Surgical History History of meniscectomy of left knee History of repair of rotator cuff Family History Father Cancer of pancreas Mother Cancer of pancreas Sister No problems noted. Daughter No problems noted. Son No problems noted. Son No problems noted. Social History Housing: House Alcohol intake: current Alcohol intake frequency: a few times a month Patient Tobacco Use Status: Never used Tobacco e-Cigarette/Vaping Use: Never Used Second Hand Smoke Exposure: No service: No Current occupational status: retired Cognitive needs: No Hearing needs: No Vision needs: Yes Questionnaire PHQ-9 Over the last 2 weeks, how often have you been bothered by any of the following problems? 91968 - PHQ-9 Billing: Patient declined-do not bill Source: Developed by Drs. Augie Kiran, Jia Hamm, Ha Pat and colleagues, with an educational cas from [employer]. Thrive Questionnaire Date Thrive assessed: 02/07/24 I am a: Patient What is your living situation today?: I choose not to answer this question Within the past 12 months, did the food you bought not last and you didn't have the money to get more?: I choose not to answer this question Within the past 12 months, did you worry whether your food would run out before you got money to buy more?: I choose not to answer this question Do you have trouble paying for medicines?: I choose not to answer this question Do you have trouble getting transportation to medical appointments?: I choose not to answer this question Do you have trouble paying your heating and electricity bill?: I choose not to answer this question Do you have trouble taking care of your child, family member or friend?: I choose not to answer this question Do you have trouble with day-to-day activities such as bathing, preparing meals, shopping, managing finances, etc.?: I choose not to answer this question Are you currently unemployed and looking for a job?: I choose not to answer this question Are you interested in more education?: I choose not to answer this question Currently or been in a relationship where the following occur: I choose not to answer this question THRIVE Score: 0 KELLI-7 AMB Questionnaire KELLI-7 Date KELLI - 7 assessed: 02/07/24 Source: Developed by Drs. Augie Kiran, Jia Hamm, Ha Pat and colleagues, with an educational cas from [employer]. KELLI-7 Assessment Billing KELLI-7 Assessment Tool: pt declined-do not bill Review of Systems Const Reports as per HPI Physical exam (Primary Care) Vital Signs: Last Vital Signs Pulse 53 02/07/24 10:29 BP 120/86 02/07/24 10:29 Pulse Ox 97 02/07/24 10:29 Oxygen Delivery Method Room Air 02/07/24 10:29 BMI result Body Mass Index 31.7 Tobacco/Smoking Status: Tobacco use Status Tobacco use date assessed 02/07/24 02/07/24 10:33 Patient Tobacco Use Status Never used Tobacco 02/07/24 10:28 e-Cigarette/Vaping Use Never Used 02/07/24 10:28 Thrive Assessment: Date of Thrive Assessment Date Thrive assessed 02/07/24 02/07/24 10:34 Currently or been in a relationship where the following occur: I choose not to answer this question Const General: cooperative Nutritional Appearance: obese Orientation/consciousness: patient oriented x3 Resp Effort & Inspection: normal respiratory effort Auscultation: clear to auscultation bilaterally Cardio Rate: regular rate Rhythm: regular rhythm Heart sounds: S1 normal heart sound present, S2 normal heart sound present and Murmur heart sound present systolic Skin Other: left dorsal hand with mostly singular papular lesions/pustules, very dry BLE, ankle region with excessive dry patches Neuro General: patient oriented x3 Psych Appearance: grossly normal Mental Status: mental status grossly normal Speech and movement: Normal speech and movement present Affect: normal affect Attitude: cooperative Thought process: Normal thought process present Thought content: Normal thought content present Insight: Good insight present (Psych) Judgement: Good judgement present (Psych) Assessment and Plan Assessment & Plan (1) Skin lesion: Code(s): L98.9 - Disorder of the skin and subcutaneous tissue, unspecified Plan: derm referral, oral antibiotic, betamethasone (2) Systolic murmur: Code(s): R01.1 - Cardiac murmur, unspecified Plan: echo and ekg ordered (3) HTN (hypertension): Code(s): I10 - Essential (primary) hypertension Plan: Stable, EKG done in office (4) Multifocal PVCs: Code(s): I49.3 - Ventricular premature depolarization Plan: referring to cardio Plan The patient agreed to the use of a medical office professional instructor for this encounter. Scribed for JENA Aleman by Tania Cardenas medical office professional instructor, on 02/07/2024 at 10:45 EST. Orders: Orders CA echo transthoracic complete Today R01.1 - Cardiac murmur, unspecified AMB EKG-In Office Today I10 - Essential (primary) hypertension Referrals Dermatology Referral L98.9 - Disorder of the skin and subcutaneous tissue, unspecified Cardiology Referral I49.3 - Ventricular premature depolarization Medications: New cephalexin 500 mg PO BID 10 days 20 tabs 0RF betamethasone valerate 0.1% 1 appl topical DAILY PRN 45 grams 0RF skin irritation Discontinued doxycycline hyclate Discontinued Reason: Doctor's Order 100 mg PO BID 7 days 14 caps 0RF amoxicillin-pot clavulanate 875-125 mg Discontinued Reason: Doctor's Order 1 tab PO Q12H 10 days 20 tabs 0RF Coding Level of Care Code Est Pt Level 3 (53047) Diagnoses Skin lesion L98.9 Systolic murmur R01.1 HTN (hypertension) I10 Multifocal PVCs I49.3
[2024-02-07 10:29] VITALS: BP 120/86; PULSE 53; O2SAT 97; BMI 31.7
== END 2024-02-07 12:42 | disposition home or self-care (01) ==
PROVIDERS: PCP Nurse Practitioner Family; Visit Provider Nurse Practitioner Family
DX: L98.9 Disorder of the skin and subcutaneous tissue, unspecified (principal); R01.1 Cardiac murmur, unspecified; I10 Essential (primary) hypertension; I49.3 Ventricular premature depolarization
CPT/HCPCS: 99213

== ENCOUNTER → 2024-03-04 08:47 | Outpatient (REF) | payer BC, SELFPAY ==
--- NOTE | 2024-03-04 08:50 | CA_ITS ---
Transthoracic Echocardiogram Patient (Last, First, Middle): Joe Hampton H Gender: Male Date of : 1960 Age: 63 Procedure Date: 03/04/2024 Procedure Type: Transthoracic Echocardiogram Location: OP Height: 172.72 cm Weight: 93.9 kg BSA: 2.07 m2 Heart Rate: 57 bpm BP: 128 / 65 mmHg Pressure Steamer Tender: JOSH Referring MD: Hal Chacon [facility] Symptoms: R01.1 - Cardiac murmur, unspecified Study Quality: Fair w/Contrast ECG Rhythm: Arrhythmia Conclusions: - The left ventricular systolic function is normal. The visually estimated ejection fraction is between 65-70%. - No obvious valvular pathology seen on this study. - There is mild dilatation of the ascending aorta measuring 4.00 cm. - Small plaque is seen in the sino tubular ridge. Findings Procedure Information Contrast agent, definity, is being given per protocol without apparent complications. Left Ventricle Normal left ventricular cavity size. There is mildly increased left ventricular wall thickness. The left ventricular systolic function is normal. The visually estimated ejection fraction is between 65-70%. There is no evidence of regional wall motion abnormalities. Diastolic function is normal for age. Right Ventricle Mildly increased right ventricular cavity size. There is normal right ventricular systolic function. Atria The left atrium is normal in size. The right atrium is mildly dilated. Aortic Valve There is a normal trileaflet aortic valve. There is no aortic valve stenosis. There is no aortic valve regurgitation. Mitral Valve The mitral valve appears normal. There is mild mitral annular calcification. There is no mitral valve regurgitation. There is no mitral valve stenosis. Pulmonic Valve The pulmonic valve is likely normal. Tricuspid Valve There is mild tricuspid valve regurgitation. There is no evidence of pulmonary hypertension. Great Vessels The aortic arch is normal in size. There is mild dilatation of the ascending aorta measuring 4.00 cm. Small plaque is seen in the sino tubular ridge. Venous The inferior vena cava is mildly dilated and collapses greater than 50% with inspiration. Pericardium/Pleural There is no evidence of pericardial effusion. Prior Study Comparison No significant change compared to prior study dated: 11/10/2018. Recommendations, Care & Conclusions No obvious valvular pathology seen on this study. Measurements 2D Linear Measurements IVSd: 1.07 0.6-0.9/0.6-1.0 cm LVIDd: 4.64 3.9-5.3/4.2-5.9 cm LVIDd Index: 2.24 2.4-3.2/2.2-3.1 cm/m2 LVIDs: 2.85 2.0-3.6 cm LVPWd: 1.13 0.7-1.1 cm LA Diam: 3.20 2.7-3.8/3.0-4.0 cm LAIDs Index: 1.55 1.5-2.3 cm/m2 LV Mass: 228.92 67-162/88-224 g LV Mass Index: 110.59 43-95/49-115 g/m2 LVOT Diam: 2.10 3.0+(-)1.3 cm 2D Systolic Function EF 4C: 55.10 >55% EF 2C: 57.70 >55% Mitral Valve MV Pk E: 0.90 MV PK A: 0.84 MV Decel Time: 189.00 E/A: 1.10 E'Lateral: 11.20 E'Medial: 9.03 E/E' Med: 10.00 E/E' Lat: 8.00 PHT: 55.00 MVA PHT: 4.00 Decel Wake: 4.75 Aortic Valve AoV Pk Miguel Angel: 1.90 AoV Mn Miguel Angel: 1.23 AoV VTI: 0.39 AoV Pk Grad: 14.00 Aov Mn Grad: 7.00 CHAYITO Cont.VTI: 2.36 LVOT LVOT Pk Miguel Angel: 1.26 LVOT Mn Miguel Angel: 0.88 LVOT VTI: 0.27 LVOT Pk Grad: 6.00 LVOT Mn Grad: 3.00 LVOT Diam: 2.10 LVOT Area: 3.46 Diastolic Function MV Pk E: 0.90 MV Pk A: 0.84 E/A: 1.10 E'Medial: 9.03 E/E' Med: 10.00 E' Laterial: 11.20 E/E' Lat: 8.00 Right Ventricle TAPSE (mm): 23.90 TVS' Miguel Angel: 18.50 Tricuspid Valve TR Pk Miguel Angel: 2.18 TR Pk Grad: 19.00 RA Press: 8.00 RVSP: 27.00 Great Vessels Aorta Sinus of Valsalva: 3.90 2.0-3.5 cm Ao Asc: 4.00 2.1-3.4 cm Ao Arch: 3.10 Pulmonary Valve PV Pk Miguel Angel: 1.47 Peak PV Grad: 9.00 Updated in Other Vendor System with Status of Final Myron Juarez MD electronically signed on 03/04/2024 10:26:56 AM with status of Final
== END ==
LOC: HO.CARD 08:47
PROVIDERS: PCP Nurse Practitioner Family; Visit Provider Nurse Practitioner Family
DX: R01.1 Cardiac murmur, unspecified (principal)
CPT/HCPCS: 93306; Q9957

== ENCOUNTER → 2024-03-04 08:50 | Outpatient (BNV) | payer BC, SELFPAY | PROVIDERS: PCP Nurse Practitioner Family; Visit Provider Internal Medicine | DX: I36.1 Nonrheumatic tricuspid (valve) insufficiency (principal); I34.81 Nonrheumatic mitral (valve) annulus calcification | CPT/HCPCS: 93306 ==

== ENCOUNTER 2024-03-13 07:48 | Outpatient (AMB) | payer BC, SELFPAY ==
--- NOTE | 2024-03-13 07:51 | A.OFFPC_ITS ---
Vital Signs 03/13/24 07:54 Height 5 ft 8 in Weight 214 lb BMI 32.5 BP 132/84 Blood Pressure Location Lt brachial Position Sitting Pulse 62 Pulse Source Pulse Oximeter Pulse Oximetry (%) 98 Oxygen Delivery Method Room Air Intake Visit Reasons: PE Intake Note: pt is here for annual PE. Colonoscopy 05/07/20 Allergies erythromycin base [Erythromycin Base] Allergy (Mild, Verified 03/13/24 09:10) RAH,ITCH oxycodone [From Percocet] Allergy (Mild, Verified 03/13/24 09:10) NAUSEA,DIZZINESS Medication List - Last Reconciled 03/13/24 by Hal Chacon, UPHOLSTERY CLEANER-BC alcohol swabs 1 topically; NS amlodipine 10 mg PO DAILY 90 days amoxicillin 2,000 mg (4 x 500 mg) PO ONCE 1 day antiarthritic combination no.2 (glucosamine-chondroitin) mg PO atorvastatin 20 mg PO BEDTIME betamethasone valerate 0.1% 1 appl topical DAILY PRN finasteride 5 mg PO DAILY 90 days FreeStyle Lite Meter (blood-glucose meter) BID NS FreeStyle Lite Strips (blood sugar diagnostic) BID NS ibuprofen 600 mg PO Q6H PRN lancets bid testing lorazepam 0.5 mg PO DAILY PRN 30 days losartan 50 mg PO DAILY omeprazole 20 mg PO DAILY sildenafil 100 mg PO .as needed PRN 30 days Tobacco use date assessed: 03/13/24 Fall risk assessment: No Falls in past year Last assessed Fall Risk: 03/13/24 Dental Screening Dental Screen Date: 03/13/24 Did you have a dental visit in the last 12 months?: Yes Did you have a dental problem in the last 6 months where you did not have access to dental care?: No Was dental information given to patient?: Patient has dentist HPI PE HPI Details Pt is here for a PE. Will order labs. Colon screen is up to date. PSA is up to date. Pt is a diabetic, on an ARB and a statin. A1C in office today is 5.8. Due for microalbumin. Denies polyuria, polydipsia, and neuropathy. Pt denies any signs and symptoms of hypoglycemia and does know how to correct it. Pt follows up with urology. He will be following up with cardiology next month. Family Hx of pancreatic ca: Ca 19-9 neg (2021). Will order MRI of abdomen, pt does not want a referral for possible genetic testing, currently. Dyslipidemia: Stopping rosuvastatin and adding atorvastatin. Pt has a ? scrotal cyst on exam. Will order US. [facility] Medical History Osteoarthritis Bursitis of right hip Right tennis elbow PTSD (post-traumatic stress disorder) HURTADO (nonalcoholic steatohepatitis) Surgical History History of meniscectomy of left knee History of repair of rotator cuff Family History Father Cancer of pancreas Mother Cancer of pancreas Sister No problems noted. Daughter No problems noted. Son No problems noted. Son No problems noted. Social History Housing: House Alcohol intake: current Alcohol intake frequency: a few times a month Patient Tobacco Use Status: Never used Tobacco e-Cigarette/Vaping Use: Never Used Second Hand Smoke Exposure: No service: No Current occupational status: retired Cognitive needs: No Hearing needs: No Vision needs: Yes Questionnaire PHQ-9 Over the last 2 weeks, how often have you been bothered by any of the following problems? 53479 - PHQ-9 Billing: Patient declined-do not bill Source: Developed by Drs. Augie Kiran, Ha Rivera and colleagues, with an educational cas from [email or web address]. Thrive Questionnaire Date Thrive assessed: 02/07/24 KELLI-7 AMB Questionnaire KELLI-7 Date KELLI - 7 assessed: 02/07/24 Source: Developed by Drs. Augie Kiran, Ha Rivera and colleagues, with an educational cas from [email or web address]. KELLI-7 Assessment Billing KELLI-7 Assessment Tool: pt declined-do not bill Review of Systems Const Denies chills and Denies fever(s) Eyes Denies blurry vision ENT Denies vertigo, Denies dizziness and Denies sore throat Card Denies chest pain at rest, Denies chest pain with activity, Denies diaphoresis, Denies dyspnea and Denies dyspnea on exertion Resp Denies cough, Denies dyspnea, Denies dyspnea on exertion and Denies wheezing GI Denies abdominal pain, Denies melena, Denies hematochezia, Denies constipation, Denies diarrhea and Denies loose stools Denies hematuria Musc Denies numbness and Denies tingling Skin/Breast Denies lesions Neuro Denies vertigo, Denies dizziness, Denies numbness and Denies tingling Psych Denies anxiety, Denies depression, Denies homicidal ideation, Denies suicidal ideation and Denies other (substance abuse) Aller/Immun Denies wheezing Physical exam (Primary Care) Vital Signs: Last Vital Signs Pulse 62 03/13/24 07:54 BP 132/84 03/13/24 07:54 Pulse Ox 98 03/13/24 07:54 Oxygen Delivery Method Room Air 03/13/24 07:54 BMI result Body Mass Index 32.5 Tobacco/Smoking Status: Tobacco use Status Tobacco use date assessed 03/13/24 03/13/24 07:59 Patient Tobacco Use Status Never used Tobacco 03/13/24 07:51 e-Cigarette/Vaping Use Never Used 03/13/24 07:51 Thrive Assessment: Date of Thrive Assessment Date Thrive assessed 02/07/24 03/13/24 07:51 Const General: cooperative Nutritional Appearance: well nourished Orientation/consciousness: patient oriented x3 HENMT Head: Yes normal to inspection, Yes normocephalic and Yes atraumatic Ears: TM's normal bilaterally Eyes General: appearance normal, both eyes and all related structures Alignment and Position: alignment normal and position normal Neck Neck: Yes normal visual inspection and Yes no lymphadenopathy Thyroid: Thyroid normal Resp Effort & Inspection: normal respiratory effort Auscultation: clear to auscultation bilaterally Cardio Rate: regular rate Rhythm: regular rhythm Heart sounds: S1 normal heart sound present, S2 normal heart sound present and Murmur heart sound present systolic GI Palpation (GI): Soft to palpation and nontender Auscultation: normal bowel sounds Other: ? scrotal cyst above left testicle Male General Exam: Yes normal external exam Penis: normal penis Scrotum: testes descended bilaterally and no inguinal hernias Skin Rashes: no rashes Neuro General: patient oriented x3, moves all extremities, no focal motor deficits and deep tendon reflexes 2+ bilaterally Romberg Test: Negative Extrem Other: bilat feet: + sensation with use of monofilament, feet intact, swelling to right knee, + dorsalis pedis pulses bilat Psych Appearance: grossly normal Mental Status: mental status grossly normal Speech and movement: Normal speech and movement present Affect: normal affect Attitude: cooperative Thought process: Normal thought process present Thought content: Normal thought content present Insight: Good insight present (Psych) Judgement: Good judgement present (Psych) Results AMB Hemoglobin A1c AMB Hemoglobin A1c 5.8 % Last Edit by Dani Joe CMA on 03/13/24 08:14 Assessment and Plan Assessment & Plan (1) Encounter for routine adult physical exam with abnormal findings: Code(s): Z00.01 - Encounter for general adult medical examination with abnormal findings Plan: Labs ordered (2) Diabetes: Code(s): E11.9 - Type 2 diabetes mellitus without complications Plan: Labs ordered (3) Family history of pancreatic cancer: Code(s): Z80.0 - Family history of malignant neoplasm of digestive organs Plan: MRI ordered (4) Scrotal mass: Code(s): N50.89 - Other specified disorders of the male genital organs Plan: US ordered Plan The patient agreed to the use of a medical office rep for this encounter. Scribed for JENA Aleman by Tania Cardenas medical office rep, on 03/13/2024 at 08:20 EST. Orders: Orders Complete Blood Count Auto Diff Today E11.9 - Type 2 diabetes mellitus without complications, Z00.01 - Encounter for general adult medical examination with abnormal findings UA CC w/rflx Micro + Cult Today E11.9 - Type 2 diabetes mellitus without complications, Z00.01 - Encounter for general adult medical examination with abnormal findings Microalbumin, Random (w Creat) Today E11.9 - Type 2 diabetes mellitus without complications, Z00.01 - Encounter for general adult medical examination with abnormal findings Carbohydrate Antigen 19-9 Today Z80.0 - Family history of malignant neoplasm of digestive organs MR abdomen wo/w con Today Z80.0 - Family history of malignant neoplasm of digestive organs US scrotum Today N50.89 - Other specified disorders of the male genital organs Comprehensive [place]. Panel Fast Today E11.9 - Type 2 diabetes mellitus without complications, Z00.01 - Encounter for general adult medical examination with abnormal findings TSH reflex Free T4 Today E11.9 - Type 2 diabetes mellitus without complications, Z00.01 - Encounter for general adult medical examination with abnormal findings Lipid Panel Today E11.9 - Type 2 diabetes mellitus without complications, Z00.01 - Encounter for general adult medical examination with abnormal findings AMB Hemoglobin A1c Today E11.9 - Type 2 diabetes mellitus without complications Medications: New atorvastatin 20 mg PO BEDTIME 90 tabs 0RF amoxicillin take 4 tabs approx 1 hr before any dental procedure 2,000 mg (4 x 500 mg) PO ONCE 4 caps 3RF 1 day Refilled lorazepam 0.5 mg PO DAILY PRN 30 tabs 2RF anxiety 30 days Discontinued rosuvastatin (Crestor) Discontinued Reason: Doctor's Order 10 mg PO DAILY 90 tabs 1RF Coding Level of Care Code Est Pt Prev Care 40-64y(40287) Diagnoses Encounter for routine adult physical exam with abnormal findings Z00.01 Diabetes E11.9 Family history of pancreatic cancer Z80.0 Scrotal mass N50.89
[2024-03-13 07:54] VITALS: BP 132/84; PULSE 62; O2SAT 98; BMI 32.5
== END 2024-03-13 08:43 | disposition home or self-care (01) ==
PROVIDERS: Visit Provider Nurse Practitioner Family
DX: Z00.01 Encounter for general adult medical examination with abnormal findings (principal); E11.9 Type 2 diabetes mellitus without complications; Z80.0 Family history of malignant neoplasm of digestive organs; N50.89 Other specified disorders of the male genital organs
CPT/HCPCS: 83036; 99214; 99396

== ENCOUNTER 2024-03-18 10:18 | Outpatient (REF) | payer BC, SELFPAY ==
--- NOTE | ~2024-03-18 | US_ITS ---
EXAMINATION: US SCROTUM CLINICAL INFORMATION: Evaluate for left scrotal cyst. COMPARISON: None available. TECHNIQUE: A sonogram of the scrotum was performed assessing ortega-scale appearance and color Doppler flow. Spectral Doppler analysis of the arterial and venous flow were performed in the testes bilaterally. FINDINGS: RIGHT: Right testicle measures 4.6 x 2.2 x 3.2 cm, volume 17 mL. No focal testicular parenchymal lesions are visualized. Spectral Doppler analysis of the arterial and venous flow is normal in the right testis. Right epididymal head is normal in size. No right varicocele is seen. Small right hydrocele. LEFT: Left testicle measures 4.7 x 2.1 x 3.2 cm, volume 16.5 mL. No focal testicular parenchymal lesions are visualized. Spectral Doppler analysis of the arterial and venous flow is normal in the left testis. Left epididymal head is normal in size. Left varicocele is seen. No left hydrocele. US/US scrotum IMPRESSION: Small right hydrocele. Left varicocele.
== END 2024-03-18 10:19 | disposition home or self-care (01) ==
LOC: HO.HMGCX 10:18
PROVIDERS: PCP Nurse Practitioner Family; Visit Provider Nurse Practitioner Family
DX: N50.89 Other specified disorders of the male genital organs (principal)
CPT/HCPCS: 76870

== ENCOUNTER 2024-04-09 06:39 | Outpatient (REF) | payer BC, SELFPAY ==
[2024-04-09 10:20] LABS: MANUAL DIFF FLAG NO
[2024-04-09 10:24] LABS: Appearance Urine Clear; Color Urine Yellow; Glucose Urine UA Negative (Negative); Leukocyte Esterase Urine Negative (Negative); Nitrite Urine Negative (Negative); PH 6.5 (5.0-9.0); Specific Gravity - Urine 1.015 (1.005-1.025); Urine Blood Negative (Negative); Urine Ketones Negative (Negative); Urine Protein Negative (Neg-Trace)
[2024-04-09 10:27] LABS: Basophils Percent Auto 0.3 % (0-2); Eosinophils Absolute Auto 0.1 X10*3/uL (0.0-0.4); Eosinophils Percent Auto 0.6 % (0-4); Hematocrit 44.9 % (42.0-52.0); Hemoglobin 15.8 g/dl (14.0-18.0); Imm Gran Abs Auto 0.14 X10*3/uL (0.00-0.03); Imm Gran Pct Auto 1.3 % (0.0-0.4); Lymphocytes Absolute Auto 2.3 X10*3/uL (1.2-4.9); Lymphocytes Percent Auto 20.9 % (20-40); Mean Corpuscular HGB Conc 35.2 g/dl (31.0-36.0); Mean Corpuscular Hemoglobin 32.2 pg (27.0-33.0); Mean Corpuscular Volume 91.6 fL (80.0-98.0); Mean Platelet Volume 10.7 fL (9.4-12.4); Monocytes Percent Auto 8.8 % (2-11); Neutrophils Absolute Auto 7.4 x10*3/uL (2.0-8.3); Neutrophils Percent Auto 68.1 % (45-73); Platelet Count 211 X10*3/uL (160-400); White Blood Count 10.9 X10*3/uL (4.8-10.8)
[2024-04-09 11:34] LABS: Alanine Aminotransferase 46 U/L (0-40); Albumin Level 4.2 g/dL (3.5-5.0); Alkaline Phosphatase 79 U/L (39-117); Anion Gap 14 (12-20); Aspartate Amino Transferase 24 U/L (5-37); Bilirubin Total 0.9 mg/dL (0.0-1.0); Blood Urea Nitrogen 18 mg/dL (9-16); Calcium 9.5 mg/dL (8.4-10.2); Carbon Dioxide 27 mmol/L (22-29); Chloride 104 mmol/L (96-108); Cholesterol 172 mg/dL (<200); Estimated Glomerular Filt Rate > 60; Glucose Fasting 129 mg/dL (60-99); HDL Cholesterol 88 mg/dL (>40); LDL Cholesterol Calculated 69 mg/dL (<100); Potassium 4.3 mmol/L (3.3-5.1); Sodium 141 mmol/L (135-145); TSH reflex Free T4 2.98 uIU/mL (0.32-4.0); Triglycerides 76 mg/dL (<150)
[2024-04-09 11:35] LABS: Creatinine Urine 71.43 mg/dL; Microalbum/Creatinine Ratio Ur 33.5 ug/mg cr (<30)
[2024-04-10 08:58] LABS: Carbohydrate Antigen 19-9 10 U/mL (<34)
== END 2024-04-09 06:40 | disposition home or self-care (01) ==
LOC: HO.HMGCLDS 06:39
PROVIDERS: PCP Nurse Practitioner Family; Visit Provider Nurse Practitioner Family
DX: Z00.01 Encounter for general adult medical examination with abnormal findings (principal); E11.9 Type 2 diabetes mellitus without complications; Z80.0 Family history of malignant neoplasm of digestive organs
CPT/HCPCS: 36415; 80053; 80061; 81003; 82043; 82570; 84443; 85025; 86301

== ENCOUNTER 2024-04-10 09:47 | Outpatient (REF) | payer BC, SELFPAY | END 2024-04-10 09:48 | disposition home or self-care (01) | LOC: HO.MRI 09:47 | PROVIDERS: PCP Nurse Practitioner Family; Visit Provider Nurse Practitioner Family | DX: Z13.89 Encounter for screening for other disorder (principal) ==

== ENCOUNTER 2024-04-27 07:19 | Outpatient (REF) | payer BC, SELFPAY ==
[2024-04-27 07:31] LABS: MANUAL DIFF FLAG NO
[2024-04-27 07:59] LABS: Basophils Percent Auto 0.2 % (0-2); Eosinophils Percent Auto 0.1 % (0-4); Hematocrit 45.2 % (42.0-52.0); Hemoglobin 15.9 g/dl (14.0-18.0); Imm Gran Abs Auto 0.06 X10*3/uL (0.00-0.03); Imm Gran Pct Auto 0.6 % (0.0-0.4); Lymphocytes Absolute Auto 1.3 X10*3/uL (1.2-4.9); Lymphocytes Percent Auto 12.6 % (20-40); Mean Corpuscular HGB Conc 35.2 g/dl (31.0-36.0); Mean Corpuscular Hemoglobin 32.5 pg (27.0-33.0); Mean Corpuscular Volume 92.4 fL (80.0-98.0); Monocytes Absolute Auto 0.8 X10*3/uL (0.1-1.2); Monocytes Percent Auto 7.5 % (2-11); Platelet Count 179 X10*3/uL (160-400); Red Blood Count 4.89 X10*6/uL (4.60-5.80); Red Cell Distribution Width 11.7 % (11.0-16.0); White Blood Count 10.1 X10*3/uL (4.8-10.8)
[2024-04-27 08:24] LABS: Alanine Aminotransferase 40 U/L (0-40); Albumin Level 4.3 g/dL (3.5-5.0); Alkaline Phosphatase 78 U/L (39-117); Aspartate Amino Transferase 24 U/L (5-37); Bilirubin Direct 0.2 mg/dL (0.0-0.5); Bilirubin Total 0.5 mg/dL (0.0-1.0); Total Protein 7.2 g/dL (6.5-8.0)
== END 2024-04-27 07:20 | disposition home or self-care (01) ==
LOC: HO.LAB 07:19
PROVIDERS: PCP Nurse Practitioner Family; Visit Provider Nurse Practitioner Gerontology
DX: B35.4 Tinea corporis (principal)
CPT/HCPCS: 36415; 80076; 85025

== ENCOUNTER 2024-05-02 08:17 | Outpatient (AMB) | payer BC, SELFPAY ==
[2024-05-02 08:26] VITALS: BP 128/56; PULSE 64; BMI 32.0
--- NOTE | 2024-05-02 08:26 | MHC.OFFVIS ---
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 Research Geneticist Required: No Accompanied by: Self / Same As Patient Allergies erythromycin base [Erythromycin Base] Allergy (Mild, Verified 03/13/24 09:10) RAH,ITCH oxycodone [From Percocet] Allergy (Mild, Verified 03/13/24 09:10) NAUSEA,DIZZINESS Medication List - Last Reconciled 05/02/24 by Myron Juarez MD alcohol swabs 1 topically; NS amlodipine 10 mg PO DAILY 90 days amoxicillin 2,000 mg (4 x 500 mg) PO ONCE 1 day antiarthritic combination no.2 (glucosamine-chondroitin) mg PO atorvastatin 20 mg PO BEDTIME betamethasone valerate 0.1% 1 appl topical DAILY PRN finasteride 5 mg PO DAILY 90 days FreeStyle Lite Meter (blood-glucose meter) BID NS FreeStyle Lite Strips (blood sugar diagnostic) BID NS ibuprofen 600 mg PO Q6H PRN lancets bid testing lorazepam 0.5 mg PO DAILY PRN 30 days losartan 50 mg PO DAILY omeprazole 20 mg PO DAILY sildenafil 100 mg PO .as needed PRN 30 days HPI Comments Details: Vinayak is here for consultation regarding PVCs. He does not have any known cardiac issues including coronary artery disease or myocardial infarction or cardiomyopathy or in fact any other cardiac concerns. Within limits of her activity, no anginal-type symptoms or any other symptoms of cardiac type. He seems to be on medications for hypertension. He states he is a prediabetic. Earlier this year, he underwent sleep study that showed severe sleep apnea. Then started CPAP. [facility] Medical History Osteoarthritis Bursitis of right hip Right tennis elbow PTSD (post-traumatic stress disorder) HURTADO (nonalcoholic steatohepatitis) Surgical History History of meniscectomy of left knee History of repair of rotator cuff Family History Father Cancer of pancreas Mother Cancer of pancreas Sister No problems noted. Daughter No problems noted. Son No problems noted. Son No problems noted. Social History Housing: House Alcohol intake: current Alcohol intake frequency: a few times a month Patient Tobacco Use Status: Never used Tobacco e-Cigarette/Vaping Use: Never Used Second Hand Smoke Exposure: No service: No Current occupational status: retired Cognitive needs: No Hearing needs: No Vision needs: Yes Review of Systems Const Denies chills, Denies daytime sleepiness, Denies fatigue, Denies fever(s), Denies poor appetite, Denies snoring, Denies stops breathing during sleep, Denies weakness, Denies weight gain and Denies weight loss Eyes Denies loss of vision ENT Denies dizziness and Denies hearing loss Card Denies chest pain, Denies irregular heart rhythm, Denies claudication, Denies leg edema, Denies lightheadedness, Denies palpitations, Denies dyspnea on exertion and Denies orthopnea Resp Denies cough, Denies excessive phlegm production, Denies dyspnea on exertion, Denies snoring and Denies wheezing GI Denies abdominal pain, Denies hematochezia, Denies change in bowel habits, Denies nausea and Denies vomiting Denies dysuria and Denies urinary frequency Musc Denies arthralgias, Denies muscle weakness, Denies numbness and Denies other Skin/Breast Denies nail changes and Denies rash Neuro Denies Abnormal speech present, Denies dizziness, Denies loss of vision, Denies memory loss, Denies numbness and Denies weakness Psych Denies depression and Denies memory loss Endo Denies fatigue and Denies palpitations Alfredito/Lymph Denies easy bruising Aller/Immun Denies wheezing Physical Exam Vital Signs: Last Vital Signs Pulse 64 05/02/24 08:26 BP 128/56 L 05/02/24 08:26 BMI result Body Mass Index 32.0 Const General: comfortable and no acute distress Orientation/consciousness: patient oriented x3 HEENT Other: Unremarkable Head: Yes normal to inspection Neck Neck: Yes normal visual inspection Chest Chest palpation & inspection: normal inspection of the chest Resp Auscultation: clear to auscultation bilaterally Cardio Palpation: normal PMI Heart sounds: S1 normal heart sound present, S2 normal heart sound present, no gallops, Murmur heart sound present systolic I/ and at the right sternal border and no rubs GI Palpation (GI): Soft to palpation Back/Spine/Pelvis Other: unremarkable Skin General skin exam: no rashes or lesions noted Neuro General: patient oriented x3 Speech: No Abnormal speech present Extrem General: Yes normal to inspection Psych Mental Status: mental status grossly normal Assessment & Plan Assessment & Plan (1) PVC (premature ventricular contraction): Code(s): I49.3 - Ventricular premature depolarization Category: Medical Plan EKG with underlying sinus bradycardia at 58/Min; PVCs, varying morphology; normal OH and corrected QT. Echocardiogram with LVEF of 65-70%. No wall motion abnormalities. Ascending aortic size 4 cm which may be acceptable for his body surface area. Small plaque in sinotubular ridge. Pathophysiology of premature ventricular contractions discussed. In his case, could be related to weight and obstructive sleep apnea. Fortunately, he has started CPAP which should help. Will plan on an exercise stress perfusion imaging study for further evaluation. Holter for PVC burden. Follow-up after the above. Orders: Orders CA stress test Today I49.3 - Ventricular premature depolarization, R07.2 - Precordial pain NM cardiolite stress test Today I49.3 - Ventricular premature depolarization, R07.2 - Precordial pain ECG 3 day holter monitor Today I49.3 - Ventricular premature depolarization Coding Level of Care Code New Pt Level 4 (47621) Diagnoses PVC (premature ventricular contraction) I49.3
== END 2024-05-02 08:49 | disposition home or self-care (01) ==
PROVIDERS: PCP Nurse Practitioner Family; Visit Provider Internal Medicine
DX: I49.3 Ventricular premature depolarization (principal)
CPT/HCPCS: 99214

== ENCOUNTER → 2024-05-02 08:17 | Outpatient (BNVA) | payer BC, SELFPAY | PROVIDERS: PCP Nurse Practitioner Family; Visit Provider Internal Medicine ==

== ENCOUNTER → 2024-06-11 07:44 | Outpatient (REF) | payer BC, SELFPAY ==
--- NOTE | ~2024-06-11 | NM_ITS ---
EXERCISE MYOCARDIAL PERFUSION STUDY INDICATION: Precordial chest pain to evaluate for myocardial ischemia TECHNIQUE: The patient was brought in for an exercise perfusion study on 06/11/2024. Patient performed exercise as per Prasanna protocol and was injected 30 mCi of sestamibi once target heart rate was achieved. Images were obtained using the SPECT gamma camera interlaced with the gating device. Images were obtained in supine position. Resting perfusion study was performed on 06/14/2024. Patient was administered 30 mCi of sestamibi intravenously at rest. Images were then obtained in supine position. Images obtained without without CT attenuation. Total DLP 110 mGy-cm. Images were processed with the software and compared side to side in short axis, horizontal long axis and vertical long axis views. FINDINGS: Raw images were reviewed The stress perfusion study showed nonattenuated images show mildly reduced uptake in the basal and mid inferior as well as the basal and mid anteroseptal wall of the LV myocardium. Remainder of the LV myocardium is normally perfused. Attenuated corrected images show mildly reduced uptake in the distal anterior, apical and distal septal and mid anteroseptal reduced uptake. Inferior wall uptake as normalized. Remainder of the LV myocardium is normally perfused. The gated study shows normal LV systolic function with calculated LVEF of 65%. LV cavity is normal in size. The gated study shows normal systolic wall thickening and contraction of segments. Resting study shows nonattenuated images show improved uptake in the basal and mid inferior wall as well as improved uptake in the anteroseptal wall of the LV myocardium. Attenuated corrected images show improved uptake in the distal inferior, apical as well as within the anteroseptal wall of the LV myocardium.. Gating at rest reveals normal systolic wall motion with ejection fraction at 58%. The findings are consistent with mild intensity reversible defect of the anteroseptal wall suggestive of ischemia. Reversible inferior wall defect may be due to attenuation artifact. NM/NM cardiolite stress test IMPRESSION: 1. Myocardial perfusion imaging study shows mild intensity anteroseptal wall ischemia. 2. Gated LVEF is 65%. 3. Transient ischemic dilatation not present. EKG revealed no ischemia detected but frequent PVC noted. Electronically signed by: Indra Tovar MD 06/14/2024 05:12 PM EDT
--- NOTE | 2024-06-11 07:49 | HM_ITS ---
* Total monitoring time 3 days. * Underlying rhythm is sinus with an average rate of 61/Min. About 65% of the time, rate < 60/Min. * Frequent supraventricular ectopy with a burden of 3.9%. * Frequent ventricular ectopy with a burden of 5.5%. Rare couplets, triplets, bigeminy, trigeminy. 8 short runs; longest 4 beats. * No significant pauses or high-grade AV blocks. * No patient markers or diary events. MTDD
--- NOTE | 2024-06-11 07:49 | CA_ITS ---
Acquisition Time: 2024-06-11 07:44:00 Total Exercise Time: 00:06:51 Test Indications: PVC'S Medications: SEE H Protocol: ROYAL Max HR: 137 BPM 87% of Pred: 156 BPM Max BP: 190/090 mmHG Max Work Load: 8.2 METS Exercise stress test with exercise 6 min 51 sec of Royal protocol, achieving 89% MPHR, without anginal symptoms, with frequent isolated PVCs, cuplet, and one multifocal 4 beat NSVT, with normotensive response to exercise, without EKG changes meeting criteria for ischemia. Nuclear images pending. Test reviewed with Dr Tovar Referred By: Myron Juarez Overread By: FEDERICA SOLANO
== END ==
LOC: HO.CARD 07:44
PROVIDERS: PCP Nurse Practitioner Family; Visit Provider Internal Medicine
DX: R07.2 Precordial pain (principal); I49.3 Ventricular premature depolarization
CPT/HCPCS: 78452; 93017; 93242; A9500

== ENCOUNTER → 2024-06-11 07:49 | Outpatient (BNV) | payer BC, SELFPAY | PROVIDERS: PCP Nurse Practitioner Family; Visit Provider Nurse Practitioner Family | DX: I47.10 Supraventricular tachycardia, unspecified (principal); I49.3 Ventricular premature depolarization | CPT/HCPCS: 78452; 93016; 93018; 93244 ==

== ENCOUNTER 2024-06-24 06:11 | Outpatient (REF) | payer BC, SELFPAY ==
[2024-06-24 10:55] LABS: PSA,Total (Free>4and<10) 1.73 ng/mL (0.00-4.00)
== END 2024-06-24 06:12 | disposition home or self-care (01) ==
LOC: HO.HMGCLDS 06:11
PROVIDERS: PCP Nurse Practitioner Family; Visit Provider Urology
DX: R97.20 Elevated prostate specific antigen [PSA] (principal); Z12.5 Encounter for screening for malignant neoplasm of prostate
CPT/HCPCS: 36415; 84153

== ENCOUNTER 2024-07-01 10:41 | Outpatient (REF) | payer BC, SELFPAY ==
--- NOTE | ~2024-07-01 | US_ITS ---
EXAMINATION: US PELVIS LIMITED (BLADDER) CLINICAL INFORMATION: Poor urinary stream. COMPARISON: None available. TECHNIQUE: Real-time imaging of the bladder. FINDINGS: PROSTATE: The prostate measures 2.5 x 2.5 x 3.3 cm for a volume of 10.8 cc. BLADDER: Well distended and normal. Bilateral ureteral jets are demonstrated. Prevoid bladder volume is 478 mL. Postvoid bladder volume is 40 mL. US/US bladder IMPRESSION: 1. Normal-appearing prostate. 2. 40 mL postvoid residual. Electronically signed by: Elliott Gonzalez MD 08/01/2024 11:26 PM EST
== END 2024-07-01 10:42 | disposition home or self-care (01) ==
LOC: HO.US 10:41
PROVIDERS: PCP Nurse Practitioner Family; Visit Provider Urology
DX: R39.12 Poor urinary stream (principal); N40.1 Benign prostatic hyperplasia with lower urinary tract symptoms; N13.8 Other obstructive and reflux uropathy
CPT/HCPCS: 76857

== ENCOUNTER 2024-07-05 08:28 | Outpatient (AMB) | payer BC, SELFPAY ==
--- NOTE | 2024-07-05 08:00 | MHC.OFFVIS ---
Intake Visit Reasons: 6m/US/PSA(set) Intake Note: Patient is Present for Follow Up Bladder Ultrasound/PSA Results Urology Medication: Sildenafil, Finasteride Antibiotic Allergies: Erythromycin Blood Thinners: None Bladder Ultrasound: 07/01/24 Recent PSA: 06/24/24 PSA 1.73 Laboratory Scientist Required: No Accompanied by: Self / Same As Patient Allergies erythromycin base [Erythromycin Base] Allergy (Mild, Verified 07/05/24 08:03) RAH,ITCH oxycodone [From Percocet] Allergy (Mild, Verified 07/05/24 08:03) NAUSEA,DIZZINESS HPI Comments Details: Vinny is a pleasant male. He is a patient of Dr. Ward. He is seen for the following urologic conditions - elevated PSA - erectile dysfunction Six-month follow-up PSA dropped from 3.8 to 1.7 Repeat labs in 6 months to ensure stability ALVARADO 2+ Bladder ultrasound Demonstrated penile constriction band Elevated PSA/Abnormal ALVARADO: He presents for further evaluation of rising PSA. Current management is observation. Laboratory investigations include 06/22 2.8 up from 1.4 12/22 1.9, 07/24 2.5, 12/23 1.9, 05/25 2.8, 11/23 2.9, 11/24 3.3, 11/25 3.8, 06/27 1.7 Individualized Prostate Cancer Risk Calculator < 5% high risk, Would like to continue with observation and understands and accepts the risks of a possible delay in diagnosis. Overall symptoms are mild. Associated conditions diabetes No dyslipidemia Yes dysuria Yes erectile dysfunction Yes Therapeutic plan will be continued surveillance. Erectile dysfunction Prior therapy sildenafil 100 mg Medication currently effective Does have some trouble maintaining erection Penile constriction band demonstrate PFSH Medical History Osteoarthritis Bursitis of right hip Right tennis elbow PTSD (post-traumatic stress disorder) HURTADO (nonalcoholic steatohepatitis) Surgical History History of meniscectomy of left knee History of repair of rotator cuff Family History Father Cancer of pancreas Mother Cancer of pancreas Sister No problems noted. Daughter No problems noted. Son No problems noted. Son No problems noted. Social History Housing: House Alcohol intake: current Alcohol intake frequency: a few times a month Patient Tobacco Use Status: Never used Tobacco e-Cigarette/Vaping Use: Never Used Second Hand Smoke Exposure: No service: No Current occupational status: retired Cognitive needs: No Hearing needs: No Vision needs: Yes Review of Systems Const Denies chills and Denies fever(s) Card Reports no additional complaints and Denies syncope Resp Denies cough GI Denies abdominal pain and Denies heartburn Reports as per HPI and Denies change in libido Neuro Denies syncope Psych Denies change in libido Endo Denies change in libido Physical Exam Const General: cooperative, healthy appearing, comfortable and no acute distress Orientation/consciousness: patient oriented x3 HEENT Face and sinus: Yes normal facial exam Mouth: moist mucous membranes Neck Neck: Yes normal visual inspection, Yes full ROM and Yes trachea midline Chest Chest palpation & inspection: normal inspection of the chest Resp Effort & Inspection: normal respiratory effort, able to speak in complete sentences and no respiratory distress GI Inspection: Yes normal to inspection Back/Spine/Pelvis Cervical Spine: normal cervical lordosis Thoracic/Lumbar Spine: thoracic and lumbar spine normal to inspection Skin General skin exam: no rashes or lesions noted Neuro General: patient oriented x3, gait normal, tone normal and moves all extremities Extrem General: Yes normal to inspection and Yes capillary refill normal Results AMB Urinalysis, Automated UA Leukoctes 0 Neeta/uL Last Edit by BRIANNA Servin on 07/05/24 09:19 UA Nitrite Negative Last Edit by BRIANNA Servin on 07/05/24 09:19 UA Urobilinogen 0.2 mg/dL Last Edit by BRIANNA Servin on 07/05/24 09:19 UA Protein 0 mg/dL Last Edit by BRIANNA Servin on 07/05/24 09:19 UA pH 6.0 Last Edit by BRIANNA Servin on 07/05/24 09:19 UA Blood 0 Dixon/uL Last Edit by BRIANNA Servin on 07/05/24 09:19 UA Specific [place] 1.010 Last Edit by BRIANNA Servin on 07/05/24 09:19 UA Ketone Negative Last Edit by BRIANNA Servin on 07/05/24 09:19 UA Bilirubin 0 mg/dL Last Edit by BRIANNA Servin on 07/05/24 09:19 UA Glucose 0 mg/dL Last Edit by BRIANNA Servin on 07/05/24 09:19 Assessment & Plan Assessment & Plan (1) BPH w urinary obs/LUTS: Code(s): N40.1 - Benign prostatic hyperplasia with lower urinary tract symptoms; N13.8 - Other obstructive and reflux uropathy Category: Medical (2) Erectile dysfunction: Code(s): N52.9 - Male erectile dysfunction, unspecified Category: Medical (3) Increased prostate specific antigen (PSA) velocity: Code(s): R97.20 - Elevated prostate specific antigen [PSA] Category: Medical Plan Six-month follow-up repeat PSA Orders: Orders AMB Urinalysis Automated Today Z13.9 - Encounter for screening, unspecified Prostate Specific Antigen 6 Months R97.20 - Elevated prostate specific antigen [PSA] Patient Instructions: Imaging studies, laboratory and physical exam results were discussed and reviewed in detail. No major barriers to patient understanding were identified. An opportunity to ask questions regarding the treatment plan was provided. All questions were answered. The patient expressed understanding and agreement with the above treatment plan. The patient is aware they should contact our office by phone for worsening of their current condition or the appearance of new urologic symptoms. Compliance is encouraged with any medications and followup testing that is ordered. It is a privilege to participate in the urologic care of your patient. If you have any questions or concerns regarding treatment for the above conditions, or other urologic issues, please do not hesitate to contact me. The office telephone contact is [phone]. This note is constructed using voice recognition software. While every effort has been made to ensure accuracy costing analyst errors may have been included. Yours sincerely, Dr Ulysses Randhawa MD, [facility] - Urology Providers of Expert, Compassionate Care for the Genitourinary System Coding Level of Care Code Est Pt Level 4 (83260) Diagnoses BPH w urinary obs/LUTS N40.1; N13.8 Erectile dysfunction N52.9 Increased prostate specific antigen (PSA) velocity R97.20
== END 2024-07-05 09:16 | disposition home or self-care (01) ==
LOC: HO.HUSH 08:29
PROVIDERS: PCP Nurse Practitioner Family; Visit Provider Urology
DX: N40.1 Benign prostatic hyperplasia with lower urinary tract symptoms (principal); N13.8 Other obstructive and reflux uropathy; N52.9 Male erectile dysfunction, unspecified; R97.20 Elevated prostate specific antigen [PSA]; Z13.9 Encounter for screening, unspecified
CPT/HCPCS: 99214

== ENCOUNTER → 2024-07-05 08:28 | Outpatient (BNVA) | payer BC, SELFPAY | PROVIDERS: PCP Nurse Practitioner Family; Visit Provider Urology | DX: N40.1 Benign prostatic hyperplasia with lower urinary tract symptoms (principal); N13.8 Other obstructive and reflux uropathy; R97.20 Elevated prostate specific antigen [PSA]; N52.9 Male erectile dysfunction, unspecified | CPT/HCPCS: 81003 ==

== ENCOUNTER 2024-09-11 09:49 | Outpatient (AMB) | payer BC, SELFPAY ==
--- NOTE | 2024-09-11 10:02 | A.OFFPC_ITS ---
Vital Signs 09/11/24 10:05 Height 5 ft 8 in Weight 214 lb BMI 32.5 BP 124/78 Blood Pressure Location Rt brachial Position Sitting Pulse 66 Pulse Source Pulse Oximeter Pulse Oximetry (%) 98 Intake Visit Reasons: 6M F/U Allergies erythromycin base [Erythromycin Base] Allergy (Mild, Verified 09/11/24 10:05) RAH,ITCH oxycodone [From Percocet] Allergy (Mild, Verified 09/11/24 10:05) NAUSEA,DIZZINESS Medication List - Last Reconciled 09/11/24 by JENA Bingham alcohol swabs 1 topically; NS amlodipine 10 mg PO DAILY 90 days amoxicillin 2,000 mg (4 x 500 mg) PO ONCE 1 day antiarthritic combination no.2 (glucosamine-chondroitin) mg PO atorvastatin 20 mg PO BEDTIME betamethasone valerate 0.1% 1 appl topical DAILY PRN finasteride 5 mg PO DAILY 90 days FreeStyle Lite Meter (blood-glucose meter) BID NS FreeStyle Lite Strips (blood sugar diagnostic) BID NS ibuprofen 600 mg PO Q6H PRN lancets bid testing lorazepam 0.5 mg PO DAILY PRN 30 days losartan 50 mg PO DAILY omeprazole 20 mg PO DAILY sildenafil 100 mg PO .as needed PRN 30 days Tobacco use date assessed: 09/11/24 Fall risk assessment: No Falls in past year Last assessed Fall Risk: 09/11/24 Dental Screening Dental Screen Date: 09/11/24 Did you have a dental visit in the last 12 months?: Yes Did you have a dental problem in the last 6 months where you did not have access to dental care?: No Was dental information given to patient?: Patient has dentist HPI 6M F/U HPI Details Here for follow-up for diabetes. He is currently on a statin and Arb. He currently reports intermittent neuropathy to his bilateral lower extremities. 6.5 A1c today. Patient denies any polyuria, polydipsia. [facility] Medical History Osteoarthritis Bursitis of right hip Right tennis elbow PTSD (post-traumatic stress disorder) HURTADO (nonalcoholic steatohepatitis) Surgical History History of meniscectomy of left knee History of repair of rotator cuff Family History Father Cancer of pancreas Mother Cancer of pancreas Sister No problems noted. Daughter No problems noted. Son No problems noted. Son No problems noted. Social History Housing: House Alcohol intake: current Alcohol intake frequency: a few times a month Patient Tobacco Use Status: Never used Tobacco e-Cigarette/Vaping Use: Never Used Second Hand Smoke Exposure: No service: No Current occupational status: retired Cognitive needs: No Hearing needs: No Vision needs: Yes Questionnaire PHQ-9 Over the last 2 weeks, how often have you been bothered by any of the following problems? 1. Little interest or pleasure in doing things: not at all 2. Feeling down, depressed, or hopeless: not at all 3. Trouble falling or staying asleep, or sleeping too much: not at all 4. Feeling tired or having little energy: not at all 5. Poor appetite or overeating: not at all 6. Feeling bad about yourself - or that you are a failure or have let yourself or your family down: not at all 7. Trouble concentrating on things, such as reading the newspaper or watching television: not at all 8. Moving or speaking so slowly that other people could have noticed. Or the opposite - being so fidgety or restless that you have been moving around a lot more than usual: not at all 9. Thoughts that you would be better off or of hurting yourself in some way: not at all Total score: 0 Depression Screening Interpretation: Negative Depression Screening Done: Yes 52564 - PHQ-9 Billing: Yes Source: Developed by Drs. Augie Kiran, Jia Hamm, Ha Pat and colleagues, with an educational cas from [employer]. Thrive Questionnaire Date Thrive assessed: 09/10/24 I am a: Patient What is your living situation today?: I have a steady place to live Within the past 12 months, did the food you bought not last and you didn't have the money to get more?: Never true Within the past 12 months, did you worry whether your food would run out before you got money to buy more?: Never true Do you have trouble paying for medicines?: No Do you have trouble getting transportation to medical appointments?: No Do you have trouble paying your heating and electricity bill?: No Do you have trouble taking care of your child, family member or friend?: No Do you have trouble with day-to-day activities such as bathing, preparing meals, shopping, managing finances, etc.?: No Are you currently unemployed and looking for a job?: No Are you interested in more education?: No Please select the resources that you would like help with: None Currently or been in a relationship where the following occur: No concerns reported THRIVE Score: 0 AUDIT C Alcohol Use Questionnaire (AUDIT-C) 1. How often do you have a drink containing alcohol?: 4 or more times a week 2. How many drinks containing alcohol do you have on a typical day when you are drinking?: 1 or 2 3. How often do you have six or more drinks on one occasion?: Monthly Total Score: 6 Score Reviewed/Action Taken: Yes KELLI-7 AMB Questionnaire KELLI-7 Date KELLI - 7 assessed: 09/11/24 Feeling nervous, anxious, or on edge: 0 = Not at all Not being able to stop or control worryin = Not at all Worrying too much about different things: 0 = Not at all Trouble relaxin = Not at all Being so restless that it is hard to sit still: 0 = Not at all Becoming easily annoyed or irritable: 0 = Not at all Feeling afraid as if something awful might happen: 0 = Not at all Total KELLI-7 score (0-4 normal; 5-9 mild; 10-14 moderate; 15-21 severe): 0 Source: Developed by Drs. Augie Kiran, Jia Hamm, Ha Pat and colleagues, with an educational cas from [employer]. KELLI-7 Assessment Billing KELLI-7 Assessment Tool: KELLI-7 Assessment 60117 Physical exam (Primary Care) Vital Signs: Last Vital Signs Pulse 66 09/11/24 10:05 BP 124/78 09/11/24 10:05 Pulse Ox 98 09/11/24 10:05 BMI result Body Mass Index 32.5 Tobacco/Smoking Status: Tobacco use Status Tobacco use date assessed 09/11/24 09/11/24 10:08 Patient Tobacco Use Status Never used Tobacco 09/11/24 10:08 e-Cigarette/Vaping Use Never Used 09/11/24 10:08 PHQ-9: PHQ-9 Score PHQ-9: Total score 0 09/11/24 10:52 Depression Screening Interpretation: Negative Thrive Assessment: Date of Thrive Assessment Date Thrive assessed 09/10/24 09/11/24 10:08 Currently or been in a relationship where the following occur: No concerns reported Const General: cooperative, healthy appearing, comfortable, no acute distress and well developed Resp Effort & Inspection: normal respiratory effort Auscultation: clear to auscultation bilaterally Cardio Rate: regular rate Rhythm: regular rhythm Heart sounds: S1 normal heart sound present, S2 normal heart sound present and no murmurs Extrem Other: Positive sensation and of the use of monofilament. Feet are intact bilat. Psych Appearance: grossly normal Mental Status: mental status grossly normal Speech and movement: Normal speech and movement present Affect: normal affect Attitude: cooperative Thought process: Normal thought process present Thought content: Normal thought content present Insight: Good insight present (Psych) Judgement: Good judgement present (Psych) Results AMB Hemoglobin A1c AMB Hemoglobin A1c 6.5 % Last Edit by Mukesh Pulido CMA on 09/11/24 10: 22 Results Reviewed Results Reviewed: Laboratory Last Values Hgb A1c (Clinic) 6.5 % (4.0-6.0) H 09/11/24 10:21 Coding Level of Care Code Est Pt Level 3 (19942) Diagnoses Diabetes E11.9 Additional Codes KELLI-7 Assessment Billing - KELLI-7 Assessment Tool: KELLI-7 Assessment 45942 ([id number]) PHQ-9 - 70648 - PHQ-9 Billing: Yes ([id number]) Assessment & Plan Assessment & Plan (1) Diabetes: Code(s): E11.9 - Type 2 diabetes mellitus without complications Category: Medical Plan * Patient is currently controlled. Encouraged him to get his labs in the near future fasting. Orders: Orders Comprehensive [place]. Panel Fast Today E11.9 - Type 2 diabetes mellitus without complications UA CC w/rflx Micro + Cult Today E11.9 - Type 2 diabetes mellitus without complications Lipid Panel Today E11.9 - Type 2 diabetes mellitus without complications AMB Hemoglobin A1c Today Z13.9 - Encounter for screening, unspecified Complete Blood Count Auto Diff Today E11.9 - Type 2 diabetes mellitus without complications TSH reflex Free T4 Today E11.9 - Type 2 diabetes mellitus without complications Medications: Discontinued amoxicillin take 4 tabs approx 1 hr before any dental procedure Discontinued Reason: Doctor's Order 2,000 mg (4 x 500 mg) PO ONCE 1 day 4 caps 3RF
[2024-09-11 10:05] VITALS: BP 124/78; PULSE 66; O2SAT 98; BMI 32.5
== END 2024-09-11 10:43 | disposition home or self-care (01) ==
PROVIDERS: PCP Nurse Practitioner Family; Visit Provider Nurse Practitioner Family
DX: Z13.9 Encounter for screening, unspecified (principal); E11.9 Type 2 diabetes mellitus without complications

== ENCOUNTER → 2024-09-11 09:49 | Outpatient (BNVA) | payer BC, SELFPAY | PROVIDERS: PCP Nurse Practitioner Family; Visit Provider Nurse Practitioner Family | DX: E11.9 Type 2 diabetes mellitus without complications (principal) | CPT/HCPCS: 83036; 96127 ==

== ENCOUNTER 2024-09-26 09:16 | Outpatient (AMB) | payer BC, SELFPAY ==
[2024-09-26 09:46] VITALS: BP 140/82; PULSE 78; BMI 32.9
--- NOTE | 2024-09-26 09:46 | A.OFFVIS_ITS ---
Vital Signs 09/26/24 09:46 Height 5 ft 8 in Weight 216 lb 7.903 oz BMI 32.9 BP 140/82 H Blood Pressure Location Lt brachial Position Sitting Pulse 78 Pulse Source Pulse Oximeter Intake Visit Reasons: F/U after testing Intake Note: f/up after testing Time Piece Repairer Required: No Accompanied by: Self / Same As Patient Allergies erythromycin base [Erythromycin Base] Allergy (Mild, Verified 09/11/24 10:05) RAH,ITCH oxycodone [From Percocet] Allergy (Mild, Verified 09/11/24 10:05) NAUSEA,DIZZINESS Medication List - Last Reconciled 09/26/24 by Suki Swenson, [employer] alcohol swabs 1 topically; NS amlodipine 10 mg PO DAILY 90 days antiarthritic combination no.2 (glucosamine-chondroitin) mg PO atorvastatin 20 mg PO BEDTIME betamethasone valerate 0.1% 1 appl topical DAILY PRN finasteride 5 mg PO DAILY 90 days FreeStyle Lite Meter (blood-glucose meter) BID NS FreeStyle Lite Strips (blood sugar diagnostic) BID NS ibuprofen 600 mg PO Q6H PRN lancets bid testing lorazepam 0.5 mg PO DAILY PRN 30 days losartan 50 mg PO DAILY omeprazole 20 mg PO DAILY sildenafil 100 mg PO .as needed PRN 30 days HPI HPI F/U after testing: Details: Joe is a 64-year-old male with past medical history of hypertension, obesity, severe sleep apnea treated with CPAP who has undergone cardiac evaluation for PVCs. He recently had a Holter monitor and stress test and now presents for follow-up. Today he reports he has been feeling well with no concerning symptoms. He will feel brief heart palpitations but they do not cause him concern. He says it is not often that he notices it. No chest discomfort at rest or with activity. No shortness of breath, PND, orthopnea or edema. No lightheadedness, presyncope, syncope, falls. He reports good activity tolerance and goes to the gym a few times weekly and does cardio and lifts weights. He tolerates this activity well. He takes his meds as directed. [facility] Medical History Osteoarthritis Bursitis of right hip Right tennis elbow PTSD (post-traumatic stress disorder) HURTADO (nonalcoholic steatohepatitis) Surgical History History of meniscectomy of left knee History of repair of rotator cuff Family History Father Cancer of pancreas Mother Cancer of pancreas Sister No problems noted. Daughter No problems noted. Son No problems noted. Son No problems noted. Social History Housing: House Alcohol intake: current Alcohol intake frequency: a few times a month Patient Tobacco Use Status: Never used Tobacco e-Cigarette/Vaping Use: Never Used Second Hand Smoke Exposure: No service: No Current occupational status: retired Cognitive needs: No Hearing needs: No Vision needs: Yes Review of Systems Const All systems reviewed & are unremarkable except as noted in HPI and below Denies chills, Denies fatigue, Denies fever(s), Denies frequent falls, Denies weakness, Denies weight gain and Denies weight loss ENT Denies dizziness Card Denies chest pain, Denies leg edema, Denies lightheadedness, Denies palpitations, Denies dyspnea and Denies dyspnea on exertion Resp Denies cough, Denies dyspnea and Denies dyspnea on exertion GI Denies hematochezia Musc Denies abnormal gait, Denies muscle weakness, Denies numbness, Denies radiating pain into limb and Denies tingling Neuro Denies abnormal gait, Denies dizziness, Denies frequent falls, Denies numbness, Denies tingling and Denies weakness Endo Denies fatigue and Denies palpitations Physical Exam Vital Signs: Last Vital Signs Pulse 78 09/26/24 09:46 BP 140/82 H 09/26/24 09:46 BMI result Body Mass Index 32.9 Const General: cooperative, healthy appearing, comfortable and no acute distress Orientation/consciousness: patient oriented x3 HEENT Head: Yes normal to inspection Eyes Sclerae: sclerae normal Neck Neck: Yes normal visual inspection and Yes no JVD Carotids: normal carotid upstroke Chest Chest palpation & inspection: normal inspection of the chest Resp Effort & Inspection: normal respiratory effort Auscultation: clear to auscultation bilaterally, no crackles, no rales, no rhonchi and no wheezes Cardio Jugular venous distension: no JVD Rate: regular rate Rhythm: regular rhythm Heart sounds: S1 normal heart sound present, S2 normal heart sound present, no gallops, no murmurs and no rubs Peripheral pulses: Peripheral pulses 2+ throughout GI Inspection: Yes normal to inspection Skin General skin exam: no rashes or lesions noted Neuro General: patient oriented x3 Extrem General: Yes normal to inspection, No no pedal edema and No calf tenderness Psych Appearance: grossly normal Mental Status: mental status grossly normal Speech and movement: Normal speech and movement present Assessment & Plan Assessment & Plan (1) PVC (premature ventricular contraction): Code(s): I49.3 - Ventricular premature depolarization Category: Medical Plan: Cardiac evaluation for PVCs. EKG done on 02/07/2024 showing sinus bradycardia with 2 PVCs and 1 Pac on the tracing, rate 58. Echocardiogram done 03/04/2024 showing EF 65-70%, no regional wall motion abnormalities, ascending aorta 4 cm. Holter monitor done 06/11/2024 for 3 days shows sinus rhythm with average heart rate 61, 65% less than 60 beats per minute, PACs 3.9%, PVCs 5.5% with brief runs, longest 4 beats. Nuclear stress test done 06/11/2024 showing mild intensity anterior septal wall ischemia, EF 65%. Results previously reviewed by Dr. Juarez and thought to be possibly artifact. Today he reports that he has been feeling well with no concerning symptoms. He will feel very brief palpitations periodically. He drinks 2 caffeinated beverages per day. He has good exercise tolerance and asymptomatic when doing exercises. All test results reviewed with him in detail. Will avoid the use of rate slowing medications at this time as he runs a slow average heart rate and his palpitations are not overly bothersome. Instructed to maintain good hydration, limit caffeine to 1-2 per day. Can you exercise as tolerated. Instructed to notify this office if he does start with any new chest discomfort or shortness of breath during exertion. Continue use of CPAP nightly. Cardiology follow-up 6 months, sooner if needed to reassess symptoms. (2) PAC (premature atrial contraction): Code(s): I49.1 - Atrial premature depolarization Category: Medical Plan: As above (3) Sleep apnea: Comment: using CPAP Code(s): G47.30 - Sleep apnea, unspecified Category: Medical Plan: Compliant with CPAP (4) Abnormal nuclear stress test: Code(s): R94.39 - Abnormal result of other cardiovascular function study Category: Medical Plan: As above Plan Time spent on chart review, documentation, interview and assessment Coding Level of Care Code Est Pt Level 4 (88761) Complex EM visit Add On G2211 Diagnoses PVC (premature ventricular contraction) I49.3 PAC (premature atrial contraction) I49.1 Sleep apnea G47.30 Abnormal nuclear stress test R94.39 Time Spent (min) 28
== END 2024-09-26 10:11 | disposition home or self-care (01) ==
PROVIDERS: PCP Nurse Practitioner Family; Visit Provider Nurse Practitioner Family
DX: I49.3 Ventricular premature depolarization (principal); I49.1 Atrial premature depolarization; G47.30 Sleep apnea, unspecified; R94.39 Abnormal result of other cardiovascular function study
CPT/HCPCS: 99214

== ENCOUNTER 2024-10-25 06:02 | Outpatient (REF) | payer BC, SELFPAY ==
[2024-10-25 10:06] LABS: MANUAL DIFF FLAG NO
[2024-10-25 10:10] LABS: Basophils Percent Auto 0.2 % (0-2); Hematocrit 45.8 % (42.0-52.0); Hemoglobin 16.4 g/dl (14.0-18.0); Imm Gran Abs Auto 0.09 X10*3/uL (0.00-0.03); Imm Gran Pct Auto 0.8 % (0.0-0.4); Lymphocytes Absolute Auto 1.3 X10*3/uL (1.2-4.9); Lymphocytes Percent Auto 11.8 % (20-40); Mean Corpuscular HGB Conc 35.8 g/dl (31.0-36.0); Mean Corpuscular Hemoglobin 32.5 pg (27.0-33.0); Mean Corpuscular Volume 90.7 fL (80.0-98.0); Mean Platelet Volume 10.3 fL (9.4-12.4); Monocytes Absolute Auto 1.1 X10*3/uL (0.1-1.2); Monocytes Percent Auto 9.8 % (2-11); Neutrophils Absolute Auto 8.7 x10*3/uL (2.0-8.3); Neutrophils Percent Auto 77.4 % (45-73); Platelet Count 221 X10*3/uL (160-400); Red Blood Count 5.05 X10*6/uL (4.60-5.80); Red Cell Distribution Width 12.5 % (11.0-16.0); White Blood Count 11.2 X10*3/uL (4.8-10.8)
[2024-10-25 10:30] LABS: Alanine Aminotransferase 52 U/L (0-40); Albumin Level 4.3 g/dL (3.5-5.0); Alkaline Phosphatase 81 U/L (39-117); Anion Gap 11 (12-20); Aspartate Amino Transferase 33 U/L (5-37); Bilirubin Total 0.9 mg/dL (0.0-1.0); Blood Urea Nitrogen 16 mg/dL (9-16); Calcium 9.5 mg/dL (8.4-10.2); Carbon Dioxide 27 mmol/L (22-29); Chloride 107 mmol/L (96-108); Cholesterol 179 mg/dL (<200); Estimated Glomerular Filt Rate > 60; Glucose Fasting 167 mg/dL (60-99); HDL Cholesterol 91 mg/dL (>40); LDL Cholesterol Calculated 74 mg/dL (<100); Potassium 4.5 mmol/L (3.3-5.1); Sodium 140 mmol/L (135-145); Total Protein 7.6 g/dL (6.5-8.0); Triglycerides 70 mg/dL (<150)
[2024-10-25 10:48] LABS: TSH reflex Free T4 1.69 uIU/mL (0.32-4.0)
[2024-10-25 11:17] LABS: Appearance Urine Clear; Color Urine Yellow; Glucose Urine UA 250 mg/dL (Negative); Leukocyte Esterase Urine Negative (Negative); Nitrite Urine Negative (Negative); Specific Gravity - Urine 1.015 (1.005-1.025); Urine Blood Negative (Negative); Urine Ketones Negative (Negative); Urine Protein Negative (Neg-Trace)
== END 2024-10-25 06:03 | disposition home or self-care (01) ==
LOC: HO.HMGCLDS 06:02
PROVIDERS: PCP Nurse Practitioner Family; Visit Provider Nurse Practitioner Family
DX: E11.9 Type 2 diabetes mellitus without complications (principal)
CPT/HCPCS: 36415; 80053; 80061; 81003; 84443; 85025

== ENCOUNTER 2024-11-04 10:15 | Outpatient (REF) | payer BC, SELFPAY ==
--- OUTSIDE RECORDS SUMMARY | 2024-11-04 11:48 | XMS_ITS | Data Portability ---
Author Organization [place] - [facility], [facility] Address [address] [place] [address] Care Team Providers Care Sales Developer Name Role Phone FRANCISCAJOHNY PEDRO Primary Care Provider Assessment No assessment recorded. Plan of Treatment Reminders Order Date Submit Date Provider Last Modified By Organization Details Last Modified Time Details Appointments RECHECK 15 2024 09:30A M Juliet Mckeon [email or web address] mclain Not available Not available Not available Lab None recorded. Referral None recorded. Procedures None recorded. Surgeries None recorded. Imaging XR, knee, 4 or more view - 307 4v 2023 024 [email or web address] [facility], [address] [place] [address], [address], 04/23/2024 09:25:50 Medication Orders amoxicill in 500 [address] [facility] #[id number], [address] [place], [address], 07/15/2024 09:56:50 Patient TargetsNo targets recorded. Patient InstructionsNo instructions recorded. Reason for Referral None Reported. Results Created Date Observation Date Name Description Value Unit Range Abnormal Flag Note LastModifiedBy Organization Detail LastModifiedTime 04/02/20 24 04/02/2024 XR, knee, 4 or more view [email or web address] ?Encry pted=s hAaTro YD8dLq bEUv6g %2BXZw aYqtaq 0bqfl% 2Fg9IQ a4ajBk vP9nXo QUaueC m3YtLR FvZlgJ JJ8mAn HZtai3 5n2981 AC0Koa HWAVKD eUC8mr 84%3D INTERFACE [facility] [address], [place], [address], 04/02/2024 13:06:16 04/02/20 24 04/02/2024 XR, knee, 4 or more view [email or web address] ?Encry pted=s hAaTro YD8dLq bEUv6g %2BXZw aYqtaq 0bqfl% 2Fg9IQ a4ajBk vP9nXo QUaueC m3YtLR FvZlgJ JJ8mAn HZtai3 3y0678 AC0Koa HWAVKD eUC8mr 84%3D INTERFACE [facility] [address], [place], [address], 04/02/2024 13:06:18 Result Notes None recorded. Procedures Surgical History Date Name Laterality Status Provider Name and Address Organization Details Recorded Time 10/21/19 25 Hip Kenalog 1cc Injection, L/R completed Juliet Jacobsen PA-C [address] [facility], [place], [address], [facility] 10/21/2024 09:31:04 10/21/19 25 JZKNEE INJ completed Juliet Jacobsen PA-C [address] [facility], [place], [address], [facility] 10/21/2024 09:30:48 10/21/19 25 JZ Knee Aspiration completed Juliet Jacobsen PA-C [address], [place], [address], [facility] 10/21/2024 09:30:56 07/15/20 24 JZKNEE INJ completed Juliet Jacobsen PA-C [address], [place], [address], [facility] 07/15/2024 10:03:59 07/15/20 24 JZHip Inj completed Juliet Jacobsen PA-C [address] [facility], [place], [address], [facility] 07/15/2024 10:03:41 04/26/20 24 Lateral Epicondylitis Celestone 1cc Injection, L/R completed Lino Mcneill PA-C [address] [facility], [place], [address], [facility] 04/26/2024 12:30:12 04/02/20 24 JZKNEE INJ completed Juliet Jacobsen PA-C [address] [facility], [place], [address], [facility] 04/02/2024 14:00:47 04/02/20 24 JZHip Inj completed Juliet Jacobsen PA-C [address] [facility], [place], [address], [facility] 04/02/2024 14:00:54 12/15/19 24 Hip Kenalog 2cc Injection, L/R completed Joe Liz PA-C [address] [facility], [place], [address], [facility] 12/15/2023 13:10:34 Imaging Results Imaging Date Name Status LastModified by Organiz ation Details LastModified Time 04/02/2024 XR, knee, 4 or more view completed [facility] [address], [place], [address], 04/02/2024 13:06:16 04/02/2024 XR, knee, 4 or more view completed INTERFACE [facility] [address], [place], [address], 04/02/2024 13:06:18 Procedure Notes None recorded. Medical Equipment None Reported. Allergies Allergen ID Allergen Name Allergen Category Reaction Reaction Severity Criticality Documentation Date Start Date Code Code System Note Provider Name and Address Organization Details Recorded Time 92424 acetamino phen / oxycodone medicatio n Not available Not available Not available 11/06/20232012 71502 3 RxNorm Aller gyRea ction : 'Skin React ion'; Not Available [facility] 4 15:13:15 91798 erythromy lupis medicatio n Not available Not available Not available 11/06/20232012 4053 RxNorm Aller gyRea ction : 'Skin React ion'; Not Available [facility] 4 15:13:15 Medications Name Sig Start Date Stop Date Status Note LastModified by Organization Details LastModified Time losartan 50 mg tablet TAKE 1 TABLET BY MOUTH EVERY DAY active Not Available Not Available No t Available amoxicillin 500 mg capsule TAKE 4 CAPSULES BY MOUTH 1 HOUR PRIOR TO PROCEDURE active Not Available Not Available No t Available doxycycline hyclate 100 mg capsule TAKE 1 CAPSULE BY MOUTH TWICE A DAY FOR 1 WEEK active Not Available Not Available No t Available atorvastati n 20 mg tablet TAKE 1 TABLET (20 MG) ORALLY AT BEDTIME active Not Available Not Available No t Available amlodipine 5 mg tablet Take 1 tablet every day by oral route. 12/11 completed Not Available Not Available Not Available terbinafine HCl 250 mg tablet TAKE 1 TABLET DAILY X2 WEEKS active Not Available Not Available No t Available lorazepam 0.5 mg tablet TAKE 1 TABLET BY MOUTH EVERY DAY NEEDED FOR ANXIETY FOR 30 DAYS active Not Available Not Available No t Available betamethaso ne valerate 0.1 % topical cream USE 1 APPLICATI ON TOPICALLY DAILY NEEDED FOR SKIN IRRITATIO N active Not Available Not Available No t Available amlodipine 10 mg tablet TAKE 1 TABLET BY MOUTH EVERY DAY active Not Available Not Available No t Available losartan 25 mg tablet Take 1 tablet every day by oral route. 12/11 completed Not Available Not Available Not Available cephalexin 500 mg tablet TAKE 1 TABLET BY MOUTH TWICE A DAY FOR 10 DAYS active Not Available Not Available No t Available ibuprofen 600 mg tablet TAKE 1 TABLET EVERY 6 HOURS NEEDED FOR PAIN active Not Available Not Available No t Available ketoconazol e 2 % topical cream APPLY TWICE A DAY TO AFFECTED AREAS OF RASH UNTIL RESOLVED. active Not Available Not Available No t Available finasteride 5 mg tablet TAKE 1 TABLET BY MOUTH EVERY DAY active Not Available Not Available No t Available amoxicillin 875 mg-helga m clavulanate 125 mg tablet TAKE 1 TABLET BY MOUTH EVERY 12 HOURS FOR 10 DAYS 12/11 completed Not Available Not Available Not Available rosuvastati n 10 mg tablet TAKE 1 TABLET BY MOUTH EVERY DAY active Not Available Not Available No t Available chlorhexidi ne gluconate 0.12 % mouthwash SWISH 15 ML IN MOUTH AND SPIT TWICE DAILY FOR 14 DAYS. START DAY AFTER PROCEDURE . active Not Available Not Available No t Available rosuvastati n active Not Available Not Available Not Available Flowflex COVID-19 Antigen Home Test kit FOLLOW INSTRUCTI ONS INCLUDED WITH THE PACKAGE. 12/11 completed Not Available Not Available Not Available Vitals Date Recorded Body height Body mass index (BMI) Body weight Provider Name and Address Organization Details Last Updated DateTime 12/15/2023 170.18 cm 32.9 kg/m2 98645.4 g RAMAN DESOUZA [facility] 12/15/2023 10:10:48 Date Recorded Body height Provider Name an d Address Organization Details Last Updated DateTime 04/02/2024 170.18 cm KATELYN SWANN [facility] 04/02/2024 12:55:11 Date Recorded Body height Body mass index (BMI) Body weight Provider Name and Address Organization Details Last Updated DateTime 04/26/2024 170.18 cm 33.5 kg/m2 98096.77 g GEOVANNY REYES [facility] 04/26/2024 08:43:25 Date Recorded Body height Body mass index (BMI) Body weight Provider Name and Address Organization Details Last Updated DateTime 07/15/2024 170.18 cm 33.5 kg/m2 91830.77 g CAREN BAIRES [facility] 07/15/2024 09:37:19 Date Recorded Body height Body mass index (BMI) Body weight Provider Name and Address Organization Details Last Updated DateTime 10/21/2024 170.18 cm 33.5 kg/m2 02337.77 g Vandana Huerta [facility] 10/21/2024 09:08:13 Social History None recorded. Functional Status None recorded. Mental Status None recorded. Family History Nothing Reported. Medical History No medical history recorded. Past Encounters Encounter ID Performer Location Encounter Start Date Encounter Closed Date Diagnosis/Indication Diagnosis SNOMED-CT Code Diagnosis ICD10 Code Diagnosis Note [id number] Brandon Duong PA-C [facility] [address] [place] [address] 12/12/2023 09:24:49 01/03/2024 07:38:28 Lateral epicondylitis of right humerus 2340533300 89669 M77.11 [id number] Joe Liz PA-C [facility] [address] [place] [address] 12/15/2023 09:43:51 12/15/2023 13:17:19 Trochanteric bursitis of right hip 4910149670 39710 M70.61 [id number] Juliet dee PA-C [facility] [address] [place] [address] 04/02/2024 12:43:49 04/23/2024 09:25:50 Pain of right knee joint 1596192149 81901 M25.561 Osteoarthr itis of right knee joint 9212064392 13078 M17.11 Trochanter ic bursitis of right hip 8289262855 11771 M70.61 [id number] Lino Mcneill PA-C [facility] [address] [place] [address] 04/26/2024 08:34:50 05/30/2024 12:13:54 [id number] Juliet dee PA-C [facility] [address] [place] [address] 07/15/2024 09:14:19 08/09/2024 11:41:15 History of total knee arthroplasty 5291374281 105 Z96.652 Pain of ri ght knee joint 5081967297 68441 M25.561 Osteoarthr itis of right knee joint 5594124346 20161 M17.11 Trochanter ic bursitis of right hip 0489341747 05536 M70.61 [id number] Juliet dee PA-C [facility] [address] [place] [address] 10/21/2024 08:10:47 10/29/2024 14:20:06 Osteoarthritis of right knee joint 6799831459 44522 M17.11 Trochanter ic bursitis of right hip 4191847715 87860 M70.61 Health Concerns Section Related Observation LastModified by Organization Detai ls LastModified Time None Recorded Concern Status LastModified by Organization Details LastModified Time None Recorded Advance Directives Directive None Recorded Payers Encounter Date Sequence Insurance Name Policy Number Policy Rios Covered Member ID Rios Member ID Guarantor Name 12/15/2023 1 [place] [id number] Gricelda K Sabourin [id number] [address] [place] 04/02/2024 1 [place] [id number] Gricelda K Sabourin [id number] Joe Sabgladys 04/26/2024 1 [place] [id number] Gricelda K Sabourin [id number] Joe Sabgladys 07/15/2024 1 [place] [id number] Gricelda K Sabourin [id number] Joe Sabpatrickin 10/21/2024 1 [place] [id number] Gricelda K Sabourin [id number] [place] Notes Date Note Type Note Provider Name and Address Organization Details Recorded Time 12/15/2023 text/html I am seeing the patient today under the supervision of Dr. Petersen who was available but who did not see the patient. HPI:Patient is a 63-year-old male who presents to the office today for evaluation of his right hip. Patient previously seen by 1 of the providers in our office for right hip pain. He was given a trochanteric bursal injection which provided him with good relief up until the last couple of weeks. Denies any new injuries or falls. Continues to experience pain on the lateral aspect of the hip. Denies any groin pain. Past family, medical, social history and review of systems has been reviewed, updated and is located in the patient? s chart. Examination:Well appearing 63-year-old male in no acute distress. He is alert and oriented x3. He ambulates with a symmetric gait. Right hip reveals no erythema, warmth,Ecchymosis, or swelling. Mild tenderness palpation over the greater trochanter. Near full range of motion of the hip in all directions with no discomfort. Hip strength 5/5 against resistance in all directions. Negative KP test. Negative Stinchfield test. Calf is soft and nontender. Impression:Right hip trochanteric bursitis Plan:We discussed the role of conservative management including medications, physical therapy, injection. At this point the patient was to proceed with injection. Please see procedure note.I did encouraged the patient to continue utilizing anti-inflammatory medications over the next couple of weeks to help reduce inflammation in the hip. They will follow up with us as scheduled. Joe Liz PA-C [address] [place] [address] [address], [place], [address], [facility] 12/15/2023 13:11:01 04/02/2024 text/html I am seeing the patient today under the supervision of Dr. Jose who was available but who did not see the patient.HPI: 63-year-old male presents for evaluation of right knee pain and follow-up regarding right hip pain. He has a known history of right knee osteoarthritis and right hip trochanteric bursitis. He has had excellent relief in the past with cortisone injections. He was concerned recently because he saw his PCP who noted that the right knee appeared swollen. He has remained active despite his knee and hip pain. He golfs several times per week.Past family, medical, social history and review of systems have been reviewed and updated on the medical history sheet saved to the patient's chart. Review of systems is negative except as noted above and/or on the medical history sheet.Examination: The patient is well appearing and in no apparent distress. Alert and oriented x3. Right hip exam with focal tenderness palpation over right greater trochanter. Otherwise full pain-free hip range of motion and 5/5 strength. Right knee exam with medial joint line tenderness to palpation. Mild effusion. Otherwise, 0-125? ? ? flexion ROM is full, stability intact both anterior, posterior, and varus/valgus stress at both 0 and 30 degrees of flexion. No meniscal tenderness. Negative Jyoti's maneuver. No crepitus, 5/5 strength. Peripheral vascular, lymphatic examination, skin, neurological, coordination, sensation are within normal limits unless otherwise noted above.X-rays ordered, obtained and reviewed at [facility] 4 views of the right knee demonstrate end-stage degenerative changes right knee medial and patellofemoral compartments with joint space narrowing, gxxg-mf-isgv articulation, subchondral sclerosis, osteophyte formation.Impression: 63-year-old male with end-stage right knee osteoarthritis and symptomatic right hip trochanteric bursitisPlan: Findings discussed with the patient. He would like to try cortisone injections today for his right hip trochanteric bursa and his right knee osteoarthritis. He understands that these could be repeated once every 3 months as needed. He will monitor his symptoms and follow up as needed. He did have some questions about his lateral epicondylitis today and he is going to schedule follow-up in that regard, requesting a cortisone injection for his elbow. Questions answered.Act[employer] speech recognition coffee sommelier software was used to create portions of this document. An attempt at proofreading has been made to minimize errors. Please call for corrections. Juliet Jacobsen PA-C [address] [place] [address] [address], [place], [address], [facility] 04/02/2024 14:01:42 04/26/2024 text/html I am seeing the patient today under the supervision of dr Lindsey who was available but who did not see the patient. DX: Right Lateral epicondylitis Status post cortisone injection 02/21/2023 HPI:63-year-old male here for orthopedic consultation. He is complaining of right lateral elbow pain when he plays golf. Anti-inflammatories take the edge. He had a cortisone injection previously, which helped. Past family, medical, social history and review of systems has been reviewed, updated and is located in the patient? s chart. Examination: Alert and oriented ? ? 3 . No acute distress. Nonantalgic gait.Right Elbow reveals no soft tissue swelling. The patient is tender over the lateral epicondyle. Lateral elbow pain with wrist extension, resisted wrist extension and resisted forearm supination. No Tenderness medially or over the olecranon process. Left elbow ROM full. Full pronation/supination. No evidence of varus/valgus instability. No radiocapitellar crepitus. No medial or lateral epicondylar tenderness. No evidence for effusion, no evidence of mechanical symptoms or locking. Intact median, radial and ulnar nerve both motor and sensory function. Negative Tinel at the level of the elbow. X-rays ordered, obtained and reviewed at [facility] Impression/Plan: Findings and situation were discussed with the patient. Treatment options were discussed. The patient would like to proceed with a cortisone injection. Under aseptic technique, 6 mg of Celestone, and 1 cc of 1% plain Lidocaine were injected into the right lateral epicondylar region. The patient tolerated the procedure well. Patient follow-up in 6 weeks for reexamination if no improvement. Lino Mcneill PA-C [address] [place] [address] [address], [place], [address], [facility] 04/26/2024 12:30:22 07/15/2024 text/html I am seeing the patient today under the supervision of Dr. Degroot who was available but who did not see the patient.HPI: 63-year-old male presents for evaluation of right knee pain and follow-up regarding right hip pain. He has a known history of right knee osteoarthritis and right hip trochanteric bursitis. He has had excellent relief in the past with cortisone injections. He notes that his right knee is swollen. He has had recurrent effusions. He has remained active despite his knee and hip pain. He golfs several times per week.Past family, medical, social history and review of systems have been reviewed and updated on the medical history sheet saved to the patient's chart. Review of systems is negative except as noted above and/or on the medical history sheet.Examination: The patient is well appearing and in no apparent distress. Alert and oriented x3. Right hip exam with focal tenderness palpation over right greater trochanter. Otherwise full pain-free hip range of motion and 5/5 strength. Right knee exam with medial joint line tenderness to palpation. Mild effusion. Otherwise, 0-125? ? ? flexion ROM is full, stability intact both anterior, posterior, and varus/valgus stress at both 0 and 30 degrees of flexion. No meniscal tenderness. Negative Jyoti's maneuver. No crepitus, 5/5 strength. Peripheral vascular, lymphatic examination, skin, neurological, coordination, sensation are within normal limits unless otherwise noted above.X-rays ordered, obtained and reviewed at [facility] 4 views of the right knee demonstrate end-stage degenerative changes right knee medial and patellofemoral compartments with joint space narrowing, vfsw-es-xszy articulation, subchondral sclerosis, osteophyte formation.Impression: 63-year-old male with end-stage right knee osteoarthritis and symptomatic right hip trochanteric bursitisPlan: Findings discussed with the patient. He would like to try cortisone injections today for his right hip trochanteric bursa and his right knee osteoarthritis. He would also like for his right knee to be aspirated. He understands that these could be repeated once every 3 months as needed. He will follow up in 3 months for a scheduled recheck for possible repeat cortisone injections versus further discussion of surgery. Questions answered.[employer] speech recognition coffee sommelier software was used to create portions of this document. An attempt at proofreading has been made to minimize errors. Please call for corrections. Juliet Jacobsen PA-C [address] [place] [address] [address] [facility], [place], [address], [facility] 07/15/2024 10:04:37 10/21/2024 text/html I am seeing the patient today under the supervision of Dr. Chowdhury who was available but who did not see the patient.HPI: 63-year-old male presents for evaluation of right knee pain and follow-up regarding right hip pain. He has a known history of right knee osteoarthritis and right hip trochanteric bursitis. He has had excellent relief in the past with cortisone injections. He notes that his right knee is swollen. He has had recurrent effusions. He has remained active despite his knee and hip pain. He Goes to the gym regularly and has been golfing at some indoor golf simulators.Past family, medical, social history and review of systems have been reviewed and updated on the medical history sheet saved to the patient's chart. Review of systems is negative except as noted above and/or on the medical history sheet.Examination: The patient is well appearing and in no apparent distress. Alert and oriented x3. Right hip exam with focal tenderness palpation over right greater trochanter. Otherwise full pain-free hip range of motion and 5/5 strength. Right knee exam with medial joint line tenderness to palpation. Mild effusion. Otherwise, 0-125? ? ? flexion ROM is full, stability intact both anterior, posterior, and varus/valgus stress at both 0 and 30 degrees of flexion. No meniscal tenderness. Negative Jyoti's maneuver. No crepitus, 5/5 strength. Peripheral vascular, lymphatic examination, skin, neurological, coordination, sensation are within normal limits unless otherwise noted above.X-rays ordered, obtained and reviewed at [facility] 4 views of the right knee demonstrate end-stage degenerative changes right knee medial and patellofemoral compartments with joint space narrowing, aqhv-un-oofs articulation, subchondral sclerosis, osteophyte formation.Impression: 63-year-old male with end-stage right knee osteoarthritis and symptomatic right hip trochanteric bursitisPlan: Findings discussed with the patient. He would like to try cortisone injections today for his right hip trochanteric bursa and his right knee osteoarthritis. He would also like for his right knee to be aspirated. He understands that these could be repeated once every 3 months as needed. He will follow up in 3 months for a scheduled recheck for possible repeat cortisone injections versus further discussion of surgery. Questions answered.[facility] speech recognition coffee sommelier software was used to create portions of this document. An attempt at proofreading has been made to minimize errors. Please call for corrections. Juliet Jacobsen PA-C [address], [place], [address], [facility] 10/21/2024 09:31:54
[2024-11-04 13:07] LABS: MANUAL DIFF FLAG NO
[2024-11-04 13:14] LABS: Basophils Percent Auto 0.3 % (0-2); Eosinophils Absolute Auto 0.1 X10*3/uL (0.0-0.4); Eosinophils Percent Auto 0.4 % (0-4); Hematocrit 44.3 % (42.0-52.0); Hemoglobin 15.5 g/dl (14.0-18.0); Imm Gran Abs Auto 0.13 X10*3/uL (0.00-0.03); Lymphocytes Absolute Auto 2.3 X10*3/uL (1.2-4.9); Lymphocytes Percent Auto 17.2 % (20-40); Mean Corpuscular Hemoglobin 32.2 pg (27.0-33.0); Mean Corpuscular Volume 91.9 fL (80.0-98.0); Mean Platelet Volume 10.6 fL (9.4-12.4); Monocytes Absolute Auto 1.1 X10*3/uL (0.1-1.2); Monocytes Percent Auto 7.9 % (2-11); Neutrophils Absolute Auto 9.7 x10*3/uL (2.0-8.3); Neutrophils Percent Auto 73.2 % (45-73); Platelet Count 208 X10*3/uL (160-400); Red Blood Count 4.82 X10*6/uL (4.60-5.80); White Blood Count 13.3 X10*3/uL (4.8-10.8)
== END 2024-11-04 10:16 | disposition home or self-care (01) ==
LOC: HO.HMGCLDS 10:15
PROVIDERS: PCP Nurse Practitioner Family; Visit Provider Nurse Practitioner Family
DX: D72.829 Elevated white blood cell count, unspecified (principal)
CPT/HCPCS: 36415; 85025

== ENCOUNTER 2024-11-06 10:33 | Outpatient (REF) | payer BC, SELFPAY ==
--- NOTE | ~2024-11-06 | XR_ITS ---
EXAMINATION: XR CHEST 2 VIEWS HISTORY: D72.829 - Elevated white blood cell count, unspecified COMPARISON: There are no prior studies for comparison. FINDINGS: PA and lateral views of the chest are submitted. The lungs are expanded and clear. There is no pleural effusion, pneumothorax, or pulmonary vascular congestion. The heart is normal in size. The aorta is tortuous. There is degenerative disc disease of the spine. XR/XR chest 2V IMPRESSION: Clear lungs. Electronically signed by: Augie Nguyen MD 11/08/2024 01:50 PM EST
--- OUTSIDE RECORDS SUMMARY | 2024-11-06 12:31 | XMS_ITS | Data Portability ---
Author Organization [place] - [facility] Address [address] [place] [address] Care Team Providers Care Medical Bill Processor Name Role Phone FRANCISCAJOHNY PEDRO Primary Care [...] more view - 307 4v 2023 024 [email or web address] [facility], [address] [place] [address], [id number], 04/23/2024 09:25:50 Medication Orders amoxicill in 500 mg capsule 2023 024 [facility][id number], [address] [place], [address], 07/15/2024 09:56:50 Patient TargetsNo targets recorded. Patient InstructionsNo instructions recorded. Reason for Referral None Reported. Results Created Date Observation Date Name Description Value Unit Range Abnormal Flag Note LastModifiedBy Organization Detail LastModifiedTime 04/02/20 24 04/02/2024 XR, knee, 4 or more view http:/ [email or web address] ?Encry pted=s hAaTro YD8dLq bEUv6g %2BXZw aYqtaq 0bqfl% 2Fg9IQ a4ajBk vP9nXo QUaueC m3YtLR FvZlgJ JJ8mAn HZtai3 7r1362 AC0Koa HWAVKD eUC8mr 84%3D INTERFACE [facility] [address], [place], [address], 04/02/2024 13:06:16 04/02/20 24 04/02/2024 XR, knee, 4 or more view [email or web address]:/ [email or web address] ?Encry pted=s hAaTro YD8dLq bEUv6g %2BXZw aYqtaq 0bqfl% 2Fg9IQ a4ajBk vP9nXo QUaueC m3YtLR FvZlgJ JJ8mAn HZtai3 8a1430 AC0Koa HWAVKD eUC8mr 84%3D INTERFACE [facility] [address], [place], [address], 04/02/2024 13:06:18 Result Notes None recorded. Procedures Surgical History Date Name Laterality Status Provider Name and Address Organization Details Recorded Time 10/21/19 25 Hip Kenalog 1cc Injection, L/R completed Juliet Jacobsen PA-C [address] [facility] [place], [place], [address], [facility] 10/21/2024 09:31:04 10/21/19 25 JZKNEE INJ completed Juliet Jacobsen PA-C [address] [facility] [place], [place], [address], [facility] 10/21/2024 09:30:48 10/21/19 25 JZ Knee Aspiration completed Juliet Jacobsen PA-C [address], [place], [address], [facility] 10/21/2024 09:30:56 07/15/20 24 JZKNEE INJ completed Juliet Jacobsen PA-C [address], [place], [address], [facility] 07/15/2024 10:03:59 07/15/20 24 JZHip Inj completed Juliet Jacobsen PA-C [address] [facility] [place], [place], [address], [facility] 07/15/2024 10:03:41 04/26/20 24 Lateral Epicondylitis Celestone 1cc Injection, L/R completed Lino Mcneill PA-C [address] [facility] [place], [place], [address], [facility] 04/26/2024 12:30:12 04/02/20 24 JZKNEE INJ completed Juliet Jacobsen PA-C [address] [facility] [place], [place], [address], [facility] 04/02/2024 14:00:47 04/02/20 24 JZHip Inj completed Juliet Jacobsen PA-C [address] [facility] [place], [place], [address], [facility] 04/02/2024 14:00:54 12/15/19 24 Hip Kenalog 2cc Injection, L/R completed Joe Liz PA-C [address] [facility] [place], [place], [address], [facility] 12/15/2023 13:10:34 Imaging Results Imaging Date Name Status LastModified by Organiz ation Details LastModified Time 04/02/2024 XR, knee, 4 or more view completed INTERFACE [facility] [address], [place], [address], 04/02/2024 13:06:16 04/02/2024 XR, knee, 4 or more view completed INTERFACE [facility] [address], [place], [address], 04/02/2024 13:06:18 Procedure Notes None recorded. Medical Equipment None Reported. Allergies Allergen ID Allergen Name Allergen Category Reaction Reaction Severity Criticality Documentation Date Start Date Code Code System Note Provider Name and Address Organization Details Recorded Time 02524 acetamino phen / oxycodone medicatio n Not available Not available Not available 11/06/20232012 73746 3 RxNorm Aller gyRea ction : 'Skin React ion'; Not Available [facility] 4 15:13:15 19986 erythromy lupis medicatio n Not available Not available Not available 11/06/20232012 4053 RxNorm Aller gyRea ction : 'Skin React ion'; Not Available [facility] 4 15:13:15 Medications Name Sig Start Date [...] Updated DateTime 12/15/2023 170.18 cm 32.9 kg/m2 81941.4 g RAMAN DESOUZA [facility] 12/15/2023 10:10:48 Date Recorded Body height Provider Name an d Address Organization Details Last Updated DateTime 04/02/2024 170.18 cm KATELYN SWANN [facility] 04/02/2024 12:55:11 Date Recorded Body height Body mass index (BMI) Body weight Provider Name and Address Organization Details Last Updated DateTime 04/26/2024 170.18 cm 33.5 kg/m2 91769.77 g GEOVANNY REYES [facility] 04/26/2024 08:43:25 Date Recorded Body height Body mass index (BMI) Body weight Provider Name and Address Organization Details Last Updated DateTime 07/15/2024 170.18 cm 33.5 kg/m2 70661.77 g CAREN BAIRES [facility] 07/15/2024 09:37:19 Date Recorded Body height Body mass index (BMI) Body weight Provider Name and Address Organization Details Last Updated DateTime 10/21/2024 170.18 cm 33.5 kg/m2 39326.77 g Vandana Huerta [facility] 10/21/2024 09:08:13 Social History None recorded. Functional Status None recorded. Mental Status None recorded. Family History Nothing Reported. Medical History No medical history recorded. Past Encounters Encounter ID Performer Location Encounter Start Date Encounter Closed Date Diagnosis/Indication Diagnosis SNOMED-CT Code Diagnosis ICD10 Code Diagnosis Note [id number] Brandon Duong PA-C [facility] [address] [place], [place] [address] 12/12/2023 09:24:49 01/03/2024 07:38:28 Lateral epicondylitis of right humerus 2441644194 86781 M77.11 [id number] Joe Liz PA-C [facility] [address] [place], [place] [address] 12/15/2023 09:43:51 12/15/2023 13:17:19 Trochanteric bursitis of right hip 3266693540 22643 M70.61 [id number] Juliet dee PA-C [facility] [address] [place], [place] [address] 04/02/2024 12:43:49 04/23/2024 09:25:50 Pain of right knee joint 0092456355 67630 M25.561 Osteoarthr itis of right knee joint 4018667299 42229 M17.11 Trochanter ic bursitis of right hip 9457429795 12682 M70.61 [id number] Lino Mcneill PA-C [facility] [address] [place], [place] [address] 04/26/2024 08:34:50 05/30/2024 12:13:54 [id number] Juliet dee PA-C [facility] [address] [place], [place] [address] 07/15/2024 09:14:19 08/09/2024 11:41:15 History of total knee arthroplasty 9794280369 105 Z96.652 Pain of ri ght knee joint 8158762407 61752 M25.561 Osteoarthr itis of right knee joint 6561803498 91276 M17.11 Trochanter ic bursitis of right hip 0374942969 46913 M70.61 [id number] Juliet dee PA-C [facility] [address] [place] [address] 10/21/2024 08:10:47 10/29/2024 14:20:06 Osteoarthritis of right knee joint 9843807873 42577 M17.11 Trochanter ic bursitis of right hip 9009195539 54473 M70.61 Health Concerns Section Related Observation LastModified by Organization Detai ls LastModified Time None Recorded Concern Status LastModified by Organization Details LastModified Time None Recorded Advance Directives Directive None Recorded Payers Encounter Date Sequence Insurance Name Policy Number Policy Rios Covered Member ID Rios Member ID Guarantor Name 12/15/2023 1 [place] [id number] Gricelda K Sabourin [id number] [address] [place] 04/02/2024 1 [place] [id number] Gricelda K Sabourin [id number] Joe Sabgladys 04/26/2024 1 [place] [id number] Gricelda K Sabourin [id number] Joe Sabgladys 07/15/2024 1 [place] [id number] Gricelda K Sabourin [id number] 62 Joe Sabpatrickin 10/21/2024 1 [place] [id number] Gricelda K Sabourin [id number] [address] [place] Notes Date Note Type [...] with us as scheduled. Joe Liz PA-C [address] [place] [address] [address], [place], [address], [facility] 12/15/2023 13:11:01 04/02/2024 text/html [...] line tenderness to palpation. Mild effusion. Otherwise, 0-125?? flexion ROM is full, stability intact both anterior, posterior, and varus/valgus stress at both 0 and 30 degrees of flexion. No meniscal tenderness. Negative Jyoti's maneuver. No crepitus, 5/5 strength. Peripheral vascular, lymphatic examination, skin, neurological, coordination, sensation are within normal limits unless otherwise noted above.X-rays ordered, obtained and reviewed at [facility] 4 views of the right knee demonstrate end-stage degenerative changes right knee medial and patellofemoral compartments with joint space narrowing, jrkw-dn-rcqk articulation, subchondral sclerosis, osteophyte formation.Impression: 63-year-old male [...] a cortisone injection for his elbow. Questions answered.[employer] speech recognition wine cellar worker software was used to create portions of this document. An attempt at proofreading has been made to minimize errors. Please call for corrections. Juliet Jacobsen PA-C [address] [place] [address] [address], [place], [address], [facility] [place] [facility] 04/02/2024 14:01:42 04/26/2024 text/html I am seeing [...] s chart. Examination: Alert and oriented ? 3 . No acute distress. Nonantalgic [...] elbow. X-rays ordered, obtained and reviewed at [facility] Impression/Plan: Findings and situation were discussed with [...] reexamination if no improvement. Lino Mcneill PA-C [address] [facility] [address], [place], [address], [facility] [place] [facility] 04/26/2024 12:30:22 07/15/2024 text/html I am seeing [...] line tenderness to palpation. Mild effusion. Otherwise, 0-125?? flexion ROM is full, stability intact both anterior, posterior, and varus/valgus stress at both 0 and 30 degrees of flexion. No meniscal tenderness. Negative Jyoti's maneuver. No crepitus, 5/5 strength. Peripheral vascular, lymphatic examination, skin, neurological, coordination, sensation are within normal limits unless otherwise noted above.X-rays ordered, obtained and reviewed at [facility] 4 views of the right knee demonstrate end-stage degenerative changes right knee medial and patellofemoral compartments with joint space narrowing, kxft-un-wlwa articulation, subchondral sclerosis, osteophyte formation.Impression: 63-year-old male [...] injections versus further discussion of surgery. Questions answered.[employer] speech recognition wine cellar worker software was used to create portions of this document. An attempt at proofreading has been made to minimize errors. Please call for corrections. Juliet Jacobsen PA-C [address] [place] [address] [address] [facility] [place], [place], [address], [facility] 07/15/2024 10:04:37 10/21/2024 text/html I am seeing [...] line tenderness to palpation. Mild effusion. Otherwise, 0-125?? flexion ROM is full, stability intact both anterior, posterior, and varus/valgus stress at both 0 and 30 degrees of flexion. No meniscal tenderness. Negative Jyoti's maneuver. No crepitus, 5/5 strength. Peripheral vascular, lymphatic examination, skin, neurological, coordination, sensation are within normal limits unless otherwise noted above.X-rays ordered, obtained and reviewed at [facility] 4 views of the right knee demonstrate end-stage degenerative changes right knee medial and patellofemoral compartments with joint space narrowing, jwqd-oo-nbcb articulation, subchondral sclerosis, osteophyte formation.Impression: 63-year-old male [...] injections versus further discussion of surgery. Questions answered.[employer] [facility] speech recognition wine cellar worker software was used to create portions of this document. An attempt at proofreading has been made to minimize errors. Please call for corrections. Juliet Jacobsen PA-C [address] [place] [address] [address], [place], [address], [facility] [place] [facility] 10/21/2024 09:31:54
[2024-11-06 13:20] LABS: Appearance Urine Clear; Color Urine Yellow; Glucose Urine UA Negative (Negative); Leukocyte Esterase Urine Negative (Negative); Nitrite Urine Negative (Negative); PH 6.5 (5.0-9.0); Urine Blood Negative (Negative); Urine Ketones Negative (Negative); Urine Protein Negative (Neg-Trace)
[2024-11-06 13:31] LABS: Basophils Absolute Auto 0.1 X10*3/uL (0.0-0.2); Basophils Percent Auto 0.4 % (0-2); Eosinophils Absolute Auto 0.1 X10*3/uL (0.0-0.4); Eosinophils Percent Auto 0.7 % (0-4); Hematocrit 46.4 % (42.0-52.0); Hemoglobin 16.1 g/dl (14.0-18.0); Imm Gran Abs Auto 0.12 X10*3/uL (0.00-0.03); Imm Gran Pct Auto 1.1 % (0.0-0.4); Lymphocytes Percent Auto 17.5 % (20-40); MANUAL DIFF FLAG NO; Mean Corpuscular HGB Conc 34.7 g/dl (31.0-36.0); Mean Corpuscular Hemoglobin 32.1 pg (27.0-33.0); Mean Corpuscular Volume 92.4 fL (80.0-98.0); Mean Platelet Volume 10.7 fL (9.4-12.4); Monocytes Percent Auto 8.6 % (2-11); Neutrophils Absolute Auto 8.2 x10*3/uL (2.0-8.3); Neutrophils Percent Auto 71.7 % (45-73); Platelet Count 184 X10*3/uL (160-400); Red Blood Count 5.02 X10*6/uL (4.60-5.80); Red Cell Distribution Width 12.1 % (11.0-16.0); White Blood Count 11.4 X10*3/uL (4.8-10.8)
[2024-11-06 13:53] LABS: Alanine Aminotransferase 64 U/L (0-40); Albumin Level 4.3 g/dL (3.5-5.0); Alkaline Phosphatase 69 U/L (39-117); Anion Gap 12 (12-20); Aspartate Amino Transferase 33 U/L (5-37); Blood Urea Nitrogen 21 mg/dL (9-16); Calcium 9.6 mg/dL (8.4-10.2); Carbon Dioxide 26 mmol/L (22-29); Chloride 107 mmol/L (96-108); Estimated Glomerular Filt Rate > 60; Glucose Random 140 mg/dL (60-115); Potassium 5.1 mmol/L (3.3-5.1); Sodium 140 mmol/L (135-145); Total Protein 7.6 g/dL (6.5-8.0)
== END 2024-11-06 10:34 | disposition home or self-care (01) ==
LOC: HO.HMGCX 10:33
PROVIDERS: PCP Nurse Practitioner Family; Visit Provider Nurse Practitioner Family
DX: D72.829 Elevated white blood cell count, unspecified (principal); R82.90 Unspecified abnormal findings in urine
CPT/HCPCS: 36415; 71046; 80053; 81003; 85025; 87086

== ENCOUNTER → 2024-11-06 11:02 | Outpatient (BNV) | payer BC, SELFPAY | PROVIDERS: PCP Nurse Practitioner Family; Visit Provider Radiology Diagnostic Radiology | DX: D72.829 Elevated white blood cell count, unspecified (principal) | CPT/HCPCS: 71046 ==

== ENCOUNTER 2024-11-13 11:09 | Outpatient (REF) | payer BC, SELFPAY ==
--- OUTSIDE RECORDS SUMMARY | 2024-11-13 13:09 | XMS_ITS | Data Portability ---
Author Organization [place] - [facility], [facility] Address [address] [place] [address] Care Team Providers Care Cadastral Surveyor Name Role Phone FRANCISCAJOHNY PEDRO Primary Care [...] more view - [phone] 4v 2023 024 [email or web address] [facility], [address] [place] [address], [address], 04/23/2024 09:25:50 Medication Orders amoxicill in 500 mg capsule 2023 024 [facility] #[id number], [address] [place], [address], 07/15/2024 09:56:50 Patient TargetsNo targets recorded. Patient InstructionsNo instructions recorded. Reason for Referral None Reported. Results Created Date Observation Date Name Description Value Unit Range Abnormal Flag Note LastModifiedBy Organization Detail LastModifiedTime 04/02/20 24 04/02/2024 XR, knee, 4 or more view http:/ [email or web address] ?Encry pted=s hAaTro YD8dLq bEUv6g %2BXZw aYqtaq 0bqfl% 2Fg9IQ a4ajBk vP9nXo QUaueC m3YtLR FvZlgJ JJ8mAn HZtai3 5f8794 AC0Koa HWAVKD eUC8mr 84%3D INTERFACE [facility] [address], [place], [address], 04/02/2024 13:06:16 04/02/20 24 04/02/2024 XR, knee, 4 or more view http:/ [email or web address] ?Encry pted=s hAaTro YD8dLq bEUv6g %2BXZw aYqtaq 0bqfl% 2Fg9IQ a4ajBk vP9nXo QUaueC m3YtLR FvZlgJ JJ8mAn HZtai3 3h1758 AC0Koa HWAVKD eUC8mr 84%3D INTERFACE [facility] [address], [place], [address], 04/02/2024 13:06:18 Result Notes None recorded. Procedures Surgical History Date Name Laterality Status Provider Name and Address Organization Details Recorded Time 10/21/19 25 Hip Kenalog 1cc Injection, L/R completed Juliet Jacobsen PA-C [address] [facility], [place], [address], [facility] 10/21/2024 09:31:04 10/21/19 25 JZKNEE INJ completed Juliet Jacobsen PA-C [address] [facility], [place], [address], [facility] 10/21/2024 09:30:48 10/21/19 25 JZ Knee Aspiration completed Juliet Jacobsen PA-C [address], [place], [address], [facility] 10/21/2024 09:30:56 07/15/20 24 JZKNEE INJ completed Juliet Jacobsen PA-C [address], [place], [address], [facility] 07/15/2024 10:03:59 07/15/20 24 JZHip Inj completed Juliet Jacobsen PA-C [address] [facility], [place], [address], [facility] 07/15/2024 10:03:41 04/26/20 24 Lateral Epicondylitis Celestone 1cc Injection, L/R completed Lino Mcneill PA-C [address] [facility], [place], [address], [facility] 04/26/2024 12:30:12 04/02/20 24 JZKNEE INJ completed Juliet Jacobsen PA-C [address] [facility], [place], [address], [facility] 04/02/2024 14:00:47 04/02/20 24 JZHip Inj completed Juliet Jacobsen PA-C [address] [facility], [place], [address], [facility] 04/02/2024 14:00:54 12/15/19 24 Hip Kenalog 2cc Injection, L/R completed Joe Liz PA-C [address] [facility], [place], [address], [facility] 12/15/2023 13:10:34 Imaging Results Imaging Date Name Status LastModified by Organiz ation Details LastModified Time 04/02/2024 XR, knee, 4 or more view completed INTERFACE [facility] [address], [place], [address], 04/02/2024 13:06:16 04/02/2024 XR, knee, 4 or more view completed INTERFACE [facility] [address], [place], [address], 04/02/2024 13:06:18 Procedure Notes None recorded. Medical Equipment None Reported. Allergies Allergen ID Allergen Name Allergen Category Reaction Reaction Severity Criticality Documentation Date Start Date Code Code System Note Provider Name and Address Organization Details Recorded Time 25776 acetamino phen / oxycodone medicatio n Not available Not available Not available 11/06/20232012 86520 3 RxNorm Aller gyRea ction : 'Skin React ion'; Not Available [facility] 4 15:13:15 60215 erythromy lupis medicatio n Not available Not available Not available 11/06/20232012 4053 RxNorm Aller gyRea ction : 'Skin React ion'; Not Available [facility] 4 15:13:15 Medications Name Sig Start Date [...] Updated DateTime 12/15/2023 170.18 cm 32.9 kg/m2 21653.4 g RAMAN DESOUZA [facility] 12/15/2023 10:10:48 Date Recorded Body height Provider Name an d Address Organization Details Last Updated DateTime 04/02/2024 170.18 cm KATELYN SWANN [facility] 04/02/2024 12:55:11 Date Recorded Body height Body mass index (BMI) Body weight Provider Name and Address Organization Details Last Updated DateTime 04/26/2024 170.18 cm 33.5 kg/m2 41778.77 g GEOVANNY REYES [facility] 04/26/2024 08:43:25 Date Recorded Body height Body mass index (BMI) Body weight Provider Name and Address Organization Details Last Updated DateTime 07/15/2024 170.18 cm 33.5 kg/m2 94921.77 g CAREN BAIRES [facility] 07/15/2024 09:37:19 Date Recorded Body height Body mass index (BMI) Body weight Provider Name and Address Organization Details Last Updated DateTime 10/21/2024 170.18 cm 33.5 kg/m2 61240.77 g Vandana Huerta [facility] 10/21/2024 09:08:13 Social History None recorded. Functional Status None recorded. Mental Status None recorded. Family History Nothing Reported. Medical History No medical history recorded. Past Encounters Encounter ID Performer Location Encounter Start Date Encounter Closed Date Diagnosis/Indication Diagnosis SNOMED-CT Code Diagnosis ICD10 Code Diagnosis Note [id number] Brandon Duong PA-C [facility] [address] [place] [address] 12/12/2023 09:24:49 01/03/2024 07:38:28 Lateral epicondylitis of right humerus [id number] 65763 M77.11 [id number] Joe Liz PA-C [facility] [address] [place] [address] 12/15/2023 09:43:51 12/15/2023 13:17:19 Trochanteric bursitis of right hip 3845749003 53366 M70.61 [id number] Juliet dee PA-C [facility] [address] [place] [address] 04/02/2024 12:43:49 04/23/2024 09:25:50 Pain of right knee joint 1463825967 90473 M25.561 Osteoarthr itis of right knee joint 9142779547 32557 M17.11 Trochanter ic bursitis of right hip 5844231485 89420 M70.61 [id number] Lino Mcneill PA-C [facility] [address] [place] [address] 04/26/2024 08:34:50 05/30/2024 12:13:54 [id number] Juliet dee PA-C [facility] [address] [place] [address] 07/15/2024 09:14:19 08/09/2024 11:41:15 History of total knee arthroplasty 8709822660 105 Z96.652 Pain of ri ght knee joint 1887630034 17859 M25.561 Osteoarthr itis of right knee joint 2880790994 53931 M17.11 Trochanter ic bursitis of right hip 5487908488 97843 M70.61 [id number] Juliet dee PA-C [facility] [address] [place] [address] 10/21/2024 08:10:47 10/29/2024 14:20:06 Osteoarthritis of right knee joint 4878981853 07613 M17.11 Trochanter ic bursitis of right hip 6216163324 46995 M70.61 Health Concerns Section Related Observation LastModified by Organization Detai ls LastModified Time None Recorded Concern Status LastModified by Organization Details LastModified Time None Recorded Advance Directives Directive None Recorded Payers Encounter Date Sequence Insurance Name Policy Number Policy Rios Covered Member ID Rios Member ID Guarantor Name 12/15/2023 1 [place] [id number] Gricelda K Sabourin [id number] [address] Sab[address] 04/02/2024 1 [place] [id number] Gricelda K Sabourin [id number] Joe Sabgladys 04/26/2024 1 [place] [id number] Gricelda K Sabourin [id number] Joe Sabgladys 07/15/2024 1 [place] [id number] Gricelda K Sabourin [id number] Joe Sabpatrickin 10/21/2024 1 [place] [id number] Gricelda K Sabourin [id number] Joe [place] Notes Date Note Type [...] with us as scheduled. Joe Liz PA-C [address] [place] [address] [address], [place], [address], [facility] 12/15/2023 13:11:01 04/02/2024 text/html [...] noted above.X-rays ordered, obtained and reviewed at [facility] 4 views of the right knee demonstrate end-stage degenerative changes right knee medial and patellofemoral compartments with joint space narrowing, xiak-sw-nozf articulation, subchondral sclerosis, osteophyte formation.Impression: 63-year-old male [...] a cortisone injection for his elbow. Questions answered.[employer] speech recognition maid cleaning cooking software was used to create portions of this document. An attempt at proofreading has been made to minimize errors. Please call for corrections. Juliet Jacobsen PA-C [address] [place] [address] [address], [place], [address], [facility] 04/02/2024 14:01:42 04/26/2024 text/html I am seeing [...] elbow. X-rays ordered, obtained and reviewed at [facility] Impression/Plan: Findings and situation were discussed [...] reexamination if no improvement. Lino Mcneill PA-C [address] [place] [address] [address], [place], [address], [facility] [place] 04/26/2024 12:30:22 07/15/2024 text/html [...] noted above.X-rays ordered, obtained and reviewed at [facility] 4 views of the right knee demonstrate end-stage degenerative changes right knee medial and patellofemoral compartments with joint space narrowing, fjvy-gh-bopu articulation, subchondral sclerosis, osteophyte formation.Impression: 63-year-old male [...] injections versus further discussion of surgery. Questions answered.[employer] speech recognition maid cleaning cooking software was used to create portions of this document. An attempt at proofreading has been made to minimize errors. Please call for corrections. Juliet Jacobsen PA-C [address] [place] [address] [address] [facility], [place], [address], [facility] 07/15/2024 10:04:37 10/21/2024 text/html I am seeing [...] noted above.X-rays ordered, obtained and reviewed at [facility] 4 views of the right knee demonstrate end-stage degenerative changes right knee medial and patellofemoral compartments with joint space narrowing, hihz-ld-news articulation, subchondral sclerosis, osteophyte formation.Impression: 63-year-old male [...] injections versus further discussion of surgery. Questions answered.[employer] [facility] speech recognition maid cleaning cooking software was used to create portions of this document. An attempt at proofreading has been made to minimize errors. Please call for corrections. Juliet Jacobsen PA-C [address] [facility] [address], [place], [address], [facility] 10/21/2024 09:31:54
--- OUTSIDE RECORDS SUMMARY | 2024-11-13 13:09 | XMS_ITS | Continuity of Care Document ---
Author Organization [facility], [facility] 3rd floor Address [address] [place] [address] Care Team Providers Care Thermostat Mechanic Name Role Phone DIANAPEDRO GALVAN Primary Care Provider Assessment No assessment recorded. Plan of Treatment Reminders Order Date Submit Date Provider Last Modified By Organization Details Last Modified Time Details Appointments RECHECK 15 2024 09:30A M Juliet thakur PA-C Not available Not available Not available Lab None recorded . Referral None recorded . Procedures None recorded . Surgeries None recorded . Imaging None recorded . Medication Orders None recorded . Patient TargetsNo targets recorded. Patient InstructionsNo instructions recorded. Reason for Referral None Reported. Procedures Surgical History Date Name Laterality Status Provider Name and Address Organization Details Recorded Time 10/21/19 25 Hip Kenalog 1cc Injection, L/R completed Juliet Jacobsen PA-C [address], [place], [address], [facility] 10/21/2024 09:31:04 10/21/19 25 JZKNEE INJ completed Juliet Jacobsen PA-C [address], [place], [address], [facility] 10/21/2024 09:30:48 10/21/19 25 JZ Knee Aspiration completed Juliet Jacobsen PA-C [address], [place], [address], [facility] 10/21/2024 09:30:56 07/15/20 24 JZKNEE INJ completed Juliet Jacobsen PA-C [address], [place], [address], [facility] 07/15/2024 10:03:59 07/15/20 24 JZHip Inj completed Juliet Jacobsen PA-C [address], [place], [address], [facility] 07/15/2024 10:03:41 04/26/20 24 Lateral Epicondylitis Celestone 1cc Injection, L/R completed Lino Mcneill PA-C [address], [place], [address], [facility] 04/26/2024 12:30:12 04/02/20 24 JZKNEE INJ completed Juliet Jacobsen PA-C [address], [place], [address], [facility] 04/02/2024 14:00:47 04/02/20 24 JZHip Inj completed Juliet Jacobsen PA-C [address], [place], [address], [facility] 04/02/2024 14:00:54 12/15/19 24 Hip Kenalog 2cc Injection, L/R completed Joe Liz PA-C [address], [place], [address], [facility] 12/15/2023 13:10:34 Imaging Results None recorded. Procedure Notes None recorded. Medical Equipment None Reported. Allergies Allergen ID Allergen Name Allergen Category Reaction Reaction Severity Criticality Documentation Date Start Date Code Code System Note Provider Name and Address Organization Details Recorded Time 45971 acetamino phen / oxycodone medicatio n Not available Not available Not available 11/06/20232012 51877 3 RxNorm Aller gyRea ction : 'Skin React ion'; Not Available [facility] 15:13:15 68416 erythromy lupis medicatio n Not available Not available Not available 11/06/20232012 4053 RxNorm Aller Chip ction : 'Skin React ion'; Not Available [facility] 4 15:13:15 Medications Name Sig Start Date [...] Not Available No t Available amoxicillin 875 mg-potassiu m clavulanate 125 mg tablet TAKE 1 [...] Updated DateTime 10/21/2024 170.18 cm 33.5 kg/m2 88886.77 g Vandana Huerta [place] [facility] 10/21/2024 09:08:13 Social History None recorded. Functional Status None recorded. Mental Status None recorded. Family History Nothing Reported. Medical History No medical history recorded. Past Encounters Encounter ID Performer Location Encounter Start Date Encounter Closed Date Diagnosis/Indication Diagnosis SNOMED-CT Code Diagnosis ICD10 Code Diagnosis [id number] [facility] [address] [facility] [place] [address] 10/21/2024 08:10:47 10/29/2024 14:20:06 Osteoarthritis of right knee joint [id number] 58979 M17.11 Trochanter ic bursitis of right hip 2211556465 34022 M70.61 Health Concerns Section Related Observation LastModified by Organization Detai ls LastModified Time None Recorded Concern Status LastModified by Organization Details LastModified Time None Recorded Payers Encounter Date Sequence Insurance Name Policy Number Policy Rios Covered Member ID Rios Member ID Guarantor Name 10/21/2024 1 [employer] [id number] Gricelda Hampton [id number] Joe [place] Notes Date Note Type Note Provider Name and Address Organization Details Recorded Time 10/21/2024 text/html I am seeing the patient [...] noted above.X-rays ordered, obtained and reviewed at [facility] 4 views of the right knee demonstrate end-stage degenerative changes right knee medial and patellofemoral compartments with joint space narrowing, prjp-gr-novu articulation, subchondral sclerosis, osteophyte formation.Impression : 63-year-old male with end-stage right knee osteoarthritis [...] injections versus further discussion of surgery. Questions answered.[employer] speech recognition sap business objects developer software was used to create portions of this document. An attempt at proofreading has been made to minimize errors. Please call for corrections. Juliet Jacobsen PA-C [address] [facility] [address] [facility], [place], [address], [facility] 10/21/2024 09:31:54
[2024-11-13 13:46] LABS: MANUAL DIFF FLAG NO
[2024-11-13 13:53] LABS: Basophils Percent Auto 0.3 % (0-2); Eosinophils Absolute Auto 0.1 X10*3/uL (0.0-0.4); Eosinophils Percent Auto 0.7 % (0-4); Hematocrit 43.1 % (42.0-52.0); Hemoglobin 15.2 g/dl (14.0-18.0); Imm Gran Abs Auto 0.06 X10*3/uL (0.00-0.03); Imm Gran Pct Auto 0.7 % (0.0-0.4); Lymphocytes Absolute Auto 1.8 X10*3/uL (1.2-4.9); Lymphocytes Percent Auto 19.9 % (20-40); Mean Corpuscular HGB Conc 35.3 g/dl (31.0-36.0); Mean Corpuscular Hemoglobin 31.9 pg (27.0-33.0); Mean Corpuscular Volume 90.4 fL (80.0-98.0); Mean Platelet Volume 10.6 fL (9.4-12.4); Monocytes Absolute Auto 0.8 X10*3/uL (0.1-1.2); Monocytes Percent Auto 8.7 % (2-11); Neutrophils Absolute Auto 6.4 x10*3/uL (2.0-8.3); Neutrophils Percent Auto 69.7 % (45-73); Platelet Count 158 X10*3/uL (160-400); Red Blood Count 4.77 X10*6/uL (4.60-5.80); Red Cell Distribution Width 11.9 % (11.0-16.0); White Blood Count 9.1 X10*3/uL (4.8-10.8)
[2024-11-13 14:04] LABS: Alanine Aminotransferase 57 U/L (0-40); Alkaline Phosphatase 60 U/L (39-117); Anion Gap 12 (12-20); Aspartate Amino Transferase 36 U/L (5-37); Blood Urea Nitrogen 16 mg/dL (9-16); Calcium 9.4 mg/dL (8.4-10.2); Carbon Dioxide 25 mmol/L (22-29); Chloride 107 mmol/L (96-108); Estimated Glomerular Filt Rate > 60; Glucose Random 126 mg/dL (60-115); Potassium 4.4 mmol/L (3.3-5.1); Sodium 140 mmol/L (135-145); Total Protein 7.1 g/dL (6.5-8.0)
== END 2024-11-13 11:10 | disposition home or self-care (01) ==
LOC: HO.HMGCLDS 11:09
PROVIDERS: PCP Nurse Practitioner Family; Visit Provider Nurse Practitioner Family
DX: D72.829 Elevated white blood cell count, unspecified (principal); Z80.0 Family history of malignant neoplasm of digestive organs; R74.8 Abnormal levels of other serum enzymes
CPT/HCPCS: 36415; 80053; 85025

== ENCOUNTER 2025-02-12 06:04 | Outpatient (REF) | payer BC, SELFPAY ==
[2025-02-12 11:09] LABS: Prostate Specific Antigen 5.81 ng/mL (<0.05-4.0)
== END 2025-02-12 06:05 | disposition home or self-care (01) ==
LOC: HO.HMGCLDS 06:04
PROVIDERS: PCP Nurse Practitioner Family; Visit Provider Urology
DX: R97.20 Elevated prostate specific antigen [PSA] (principal); Z12.5 Encounter for screening for malignant neoplasm of prostate
CPT/HCPCS: 36415; 84153

== ENCOUNTER 2025-02-25 09:12 | Outpatient (AMB) | payer BC, SELFPAY ==
--- NOTE | 2025-02-25 09:12 | A.OFFVIS_ITS ---
Intake Visit Reasons: follow up/PSA Intake Note: Patient is Present for Follow Up tele health follow up psa Urology Medication: Sildenafil, Finasteride Antibiotic Allergies: Erythromycin Blood Thinners: None psa 02/12/25 : 5.81 Feed Manager Required: No Accompanied by: Self / Same As Patient Allergies erythromycin base (Erythromycin Base) Allergy (Mild, Verified 09/11/24 10:05) RAH,ITCH oxycodone (From Percocet) Allergy (Mild, Verified 09/11/24 10:05) NAUSEA,DIZZINESS HPI Comments Details: Vinny is a pleasant male. He is a patient of Dr. Ward. He is seen for the following urologic conditions - elevated PSA - erectile dysfunction Telemedicine Evaluation 15 min Consultation [facility] [place] Video Six-month follow-up PSA has bounced back up to 5.8 from 1.7 ALVARADO 2+ Bladder ultrasound Elevated PSA/Abnormal ALVARADO: He presents for further evaluation of rising PSA. Current management is observation. Laboratory investigations include 06/22 2.8 up from 1.4 12/22 1.9, 07/24 2.5, 12/23 1.9, 05/25 2.8, 11/23 2.9, 11/24 3.3, 11/25 3.8, 06/27 1.7, 02/26 5.8 Individualized Prostate Cancer Risk Calculator < 5% high risk, Would like to continue with observation and understands and accepts the risks of a possible delay in diagnosis. Overall symptoms are mild. Associated conditions diabetes No dyslipidemia Yes dysuria Yes erectile dysfunction Yes Therapeutic plan will be continued surveillance. Erectile dysfunction Prior therapy sildenafil 100 mg Medication currently effective Does have some trouble maintaining erection Penile constriction band demonstrated PFSH Medical History (Updated 02/25/25 @ 09:25 by Ulysses Randhawa MD) Osteoarthritis of right knee Osteoarthritis Bursitis of right hip Right tennis elbow PTSD (post-traumatic stress disorder) HURTADO (nonalcoholic steatohepatitis) Surgical History History of meniscectomy of left knee History of repair of rotator cuff Family History Father Cancer of pancreas Mother Cancer of pancreas Sister No problems noted. Daughter No problems noted. Son No problems noted. Son No problems noted. Social History Housing: House Alcohol intake: current Alcohol intake frequency: a few times a month Patient Tobacco Use Status: Never used Tobacco e-Cigarette/Vaping Use: Never Used Second Hand Smoke Exposure: No service: No Current occupational status: retired Cognitive needs: No Hearing needs: No Vision needs: Yes Review of Systems Const All systems reviewed & are unremarkable except as noted in HPI and below Reports no additional complaints Resp Reports no additional complaints GI Reports no additional complaints Reports as per HPI Musc Reports no additional complaints Physical Exam Telemedicine evaluation Appropriate responses Regular breathing rate and rhythm HEENT Head: Yes normal to inspection Ears: hearing grossly normal bilaterally Eyes General: appearance normal, both eyes and all related structures Neck Neck: Yes normal visual inspection Chest Chest palpation & inspection: normal inspection of the chest Resp Effort & Inspection: normal respiratory effort and able to speak in complete sentences Telehealth Telehealth Telehealth Platform: [facility] Location of provider rendering services: practice address Location of patient: address on file Patient Identification confirmed using: Name, : Yes Telehealth method: video Patient verbally consented to treatment: Yes Patient verbally consented to billing insurance company: Yes Patient informed of any privacy concerns related to visit: Yes Minutes spent on Phone/Video with Pt.: 15 Assessment & Plan Assessment & Plan (1) Elevated PSA: Code(s): R97.20 - Elevated prostate specific antigen [PSA] Category: Medical Plan Prostate MRI 6 week follow-up tele Orders: Orders MR Prostate wo/w con Today R97.20 - Elevated prostate specific antigen [PSA] Patient Instructions: This note is constructed using voice recognition software. While every effort has been made to ensure accuracy chip drier errors may have been included. Imaging studies, laboratory and physical exam results were discussed and reviewed in detail. No major barriers to patient understanding were identified. An opportunity to ask questions regarding the treatment plan was provided. All questions were answered. The patient expressed understanding and agreement with the above treatment plan. The patient is aware they should contact our office by phone for worsening of their current condition or the appearance of new urologic symptoms. Compliance is encouraged with any medications and followup testing that is ordered. It is a privilege to participate in the urologic care of your patient. If you have any questions or concerns regarding treatment for the above conditions, or other urologic issues, please do not hesitate to contact me. The office telephone contact is [phone]. Sincerely, Dr Ulysses Randhawa MD, [facility] - Urology Compassionate Specialist Care for the Genitourinary System Coding Level of Care Code Tele Est Pt Level 3 (02484) Complex EM visit Add On G2211 Diagnoses Elevated PSA R97.20
--- OUTSIDE RECORDS SUMMARY | 2025-02-25 09:47 | XMS_ITS | Data Portability ---
Author Organization [place] - [facility], [facility] Address [address] [place] [address] Care Team Providers Care Supervisor [employer] Name Role Phone PEDRO FRANKS Primary Care Provider Assessment No assessment recorded. Plan of Treatment Reminders Order Date Submit Date Provider Last Modified By Organization Details Last Modified Time Details Appointments RECHECK 15 2024 08:30A Jonathan Liz PA-C Not available Not available Not available Lab None recorded. Referral None recorded. Procedures None recorded. Surgeries None recorded. Imaging XR, knee, 4 or more view - 307 4v 2023 024 [facility], [address] [place] [address] [address], [place], [address], 04/23/2024 09:25:50 Medication Orders amoxicill in 500 mg capsule 2023 024 [facility][id number], [address] [place], [address], 07/15/2024 09:56:50 Patient TargetsNo targets recorded. Patient InstructionsNo instructions recorded. Reason for Referral None Reported. Results Created Date Observation Date Name Description Value Unit Range Abnormal Flag Note LastModifiedBy Organization Detail LastModifiedTime 04/02/20 24 04/02/2024 XR, knee, 4 or more view http:/ [email or web address] ?Encry pted=s hAaTro YD8dLq bEUv6g %2BXZw aYqtaq 0bqfl% 2Fg9IQ a4ajBk vP9nXo QUaueC m3YtLR FvZlgJ JJ8mAn HZtai3 0r8835 AC0Koa HWAVKD eUC8mr 84%3D INTERFACE [facility] [address] [facility] [facility] [address] [address] [facility] [address], [place], [address], 04/02/2024 13:06:16 04/02/20 24 04/02/2024 XR, knee, 4 or more view http:/ [email or web address] ?Encry pted=s hAaTro YD8dLq bEUv6g %2BXZw aYqtaq 0bqfl% 2Fg9IQ a4ajBk vP9nXo QUaueC m3YtLR FvZlgJ JJ8mAn HZtai3 4e0057 AC0Koa HWAVKD eUC8mr 84%3D INTERFACE [facility] [address] [facility] [address], [place], [address], 04/02/2024 13:06:18 Result Notes Documentation Provider Name and Address Organization Details Recorded Time Xr, Knee, 4 Or More View : [email or web address] Encrypted=brNpLzhDZ3fXwyU Uv6g%3EPOwpUygww2foym%2Fg 4GSt9zaSaxN3uXbAXjncTk8Gt KGAhBpwXHL6sYiPRbat77p389 1YL6JsiBNGVLYtVR0gc23%3D Not Available [facility] 04/02/2024 13:0 6:16 Xr, Knee, 4 Or More View : [email or web address] Encrypted=jySeTugPO7jTefW Uv6g%2VHWwjRbljn4rmlw%2Fg 1BCd5exLbkB4vVeCZbbmAb1Zh SWJmBwlBVT2iNgIAouu12x787 6LV0RrdNWGMWSaXK0nj46%3D Not Available [facility] 04/02/2024 13:0 6:18 Problems Name Problem SNOMED Code Status Onset Date Resolution Date Notes Provider Name and Address Organization Details Recorded Time Osteoarthri tis of right knee joint 1215934042512 00 Active 2024 Juliet Mckeon tte, PA-C [address], [place], [address], [facility] 16:40:00 Trochanteri c bursitis of right hip 8869609617927 00 Active 2024 Juliet Mckeon tte, PA-C [address], [place], [address], [facility] 16:40:00 Problem Notes None recorded. Procedures Surgical History Date Name Laterality Status Provider Name and Address Organization Details Recorded Time 01/16/20 25 Hip Kenalog 1cc Injection, L/R completed Juliet Jacobsen PA-C [address], [place], [address], [facility] 01/15/2025 16:40:39 01/16/20 25 JZKNEE INJ completed Juliet Jacobsen PA-C [address], [place], [address], [facility] 01/15/2025 16:40:39 01/16/20 25 JZ Knee Aspiration completed Juliet Jacobsen PA-C [address], [place], [address], [facility] 01/15/2025 16:40:52 10/21/19 25 Hip Kenalog 1cc Injection, L/R completed Juliet Jacobsen PA-C [address], [place], [address], [facility] 10/21/2024 09:31:04 10/21/19 25 JZKNEE INJ completed Juliet Jacobsen PA-C [address], [place], [address], [facility] 10/21/2024 09:30:48 10/21/19 25 JZ Knee Aspiration completed Juliet Jacobsen PA-C [address] [facility], [place], [address], [facility] 10/21/2024 09:30:56 07/15/20 24 JZKNEE INJ completed Juliet Jacobsen PA-C [address] [facility], [place], [address], [facility] 07/15/2024 10:03:59 07/15/20 24 JZHip Inj completed Juliet Jacobsen PA-C [address] [facility], [place], [address], [facility] 07/15/2024 10:03:41 04/26/20 24 Lateral Epicondylitis Celestone 1cc Injection, L/R completed Lino Mcneill PA-C [address] [facility], [place], [address], [facility] 04/26/2024 12:30:12 04/02/20 24 JZKNEE INJ completed Juliet Jacobsen PA-C [address] [facility], [place], [address], [facility] 04/02/2024 14:00:47 04/02/20 24 JZHip Inj completed Juliet Jacobsen PA-C [address] [facility], [place], [address], [facility] 04/02/2024 14:00:54 12/15/19 24 Hip Kenalog 2cc Injection, L/R completed Joe Liz PA-C [address] [facility], [place], [address], [facility] 12/15/2023 13:10:34 Imaging Results None recorded. Procedure Notes None recorded. Medical Equipment None Reported. Allergies Allergen ID Allergen Name Allergen Category Reaction Reaction Severity Criticality Documentation Date Start Date Code Code System Note Provider Name and Address Organization Details Recorded Time 23492 acetamino phen / oxycodone medicatio n Not available Not available Not available 11/06/20232012 01585 3 RxNorm Aller gyRea ction : 'Skin React ion'; Not Available [facility] 4 15:13:15 78804 erythromy lupis medicatio n Not available Not available Not available 11/06/20232012 4053 RxNorm Aller gyRea ction : 'Skin React ion'; Not Available [facility] 4 15:13:15 Medications Name Sig Start Date [...] n 20 mg tablet TAKE 1 TABLET BY MOUTH EVERYDAY AT BEDTIME active Not Available Not Available No t Available amlodipine 5 mg tablet Take 1 tablet every day by oral route. 12/11 completed Not Available Not Available Not Available terbinafine HCl 250 mg tablet TAKE 1 TABLET DAILY X2 WEEKS active Not Available Not Available No t Available lorazepam 0.5 mg tablet TAKE 1 TABLET ORALLY DAILY NEEDED FOR ANXIETY FOR 30 DAYS active [...] Not Available Not Available No t Available metformin ER 500 mg tablet,exte nded release 24 hr TAKE 1 TABLET BY MOUTH EVERY DAY active Not Available Not Available No t Available finasteride 5 mg tablet TAKE 1 TABLET BY MOUTH EVERY DAY active Not Available Not Available No t Available amoxicillin 875 mg-helga johansen clavulanate 125 mg tablet TAKE 1 TABLET [...] Updated DateTime 10/21/2024 170.18 cm 33.5 kg/m2 60429.77 g Vandana Huerta [facility] 10/21/2024 09:08:13 Date Recorded Body height Body mass index (BMI) Body weight Provider Name and Address Organization Details Last Updated DateTime 01/15/2025 170.18 cm 33.5 kg/m2 40677.77 g TAYLER ANDRES [facility] 01/15/2025 09:25:29 Date Recorded Body height Provider Name an d Address Organization Details Last Updated DateTime 04/02/2024 170.18 cm KATELYN SWANN [facility] 04/02/2024 12:55:11 Date Recorded Body height Body mass index (BMI) Body weight Provider Name and Address Organization Details Last Updated DateTime 04/26/2024 170.18 cm 33.5 kg/m2 68070.77 g GEOVANNY REYES [facility] 04/26/2024 08:43:25 Date Recorded Body height Body mass index (BMI) Body weight Provider Name and Address Organization Details Last Updated DateTime 07/15/2024 170.18 cm 33.5 kg/m2 66971.77 g CAREN BAIRES [facility] 07/15/2024 09:37:19 Social History None recorded. Functional Status None recorded. Mental Status None recorded. Family History Nothing Reported. Medical History No medical history recorded. Past Encounters Encounter ID Performer Location Encounter Start Date Encounter Closed Date Diagnosis/Indication Diagnosis SNOMED-CT Code Diagnosis ICD10 Code Diagnosis Note [id number] Brandon Doung PA-C [facility] [address] [place], [place] [address] 12/12/2023 09:24:49 01/03/2024 07:38:28 Lateral epicondylitis of right humerus 1561041037 59753 M77.11 [id number] CARL[facility] [address] [place], [place] [address] 12/15/2023 09:43:51 12/15/2023 13:17:19 Trochanteric bursitis of right hip 1103296728 26464 M70.61 [id number] Juliet dee PA-C [facility] [address] [place], [place] [address] 04/02/2024 12:43:49 04/23/2024 09:25:50 Pain of right knee joint 7769632219 16984 M25.561 Osteoarthr itis of right knee joint 5612529880 28627 M17.11 Trochanter ic bursitis of right hip 3395638141 37274 M70.61 [id number] Lino Mcneill PA-C [facility] [address] [place] [address] 04/26/2024 08:34:50 05/30/2024 12:13:54 [id number] Juliet dee PA-C [facility] [address] [place] [address] 07/15/2024 09:14:19 08/09/2024 11:41:15 History of total knee arthroplasty 7158347637 105 Z96.652 Pain of ri ght knee joint 7882092749 53818 M25.561 Osteoarthr itis of right knee joint 1670462062 76469 M17.11 Trochanter ic bursitis of right hip 0724363309 96147 M70.61 [id number] CARLOS [facility] [address] [place] [address] 10/21/2024 08:10:47 10/29/2024 14:20:06 Osteoarthritis of right knee joint 4014422133 42482 M17.11 Trochanter ic bursitis of right hip 4941994732 62759 M70.61 [id number] CARL[facility] [address] [place] [address] 01/15/2025 09:12:32 01/23/2025 14:00:28 Osteoarthritis of right knee joint 1574482144 12200 M17.11 Trochanter ic bursitis of right hip 2279760946 71277 M70.61 Health Concerns Section Related Observation LastModified by Organization Detai ls LastModified Time None Recorded Concern Status LastModified by Organization Details LastModified Time None Recorded Advance Directives Directive None Recorded Payers Insurance Date Sequence Insurance Name Policy Number Policy Rios Covered Member ID Rios Member ID Guarantor Name 01/23/2025 1 [place] ([place]) [id number] Gricelda Hampton [id number] Joe Hampton Notes Date Note Type Note Provider Name and Address Organization Details Recorded Time 04/02/2024 text/html I am seeing the patient [...] line tenderness to palpation. Mild effusion. Otherwise, 0-125 flexion ROM is full, stability intact both anterior, posterior, and varus/valgus stress at both 0 and 30 degrees of flexion. No meniscal tenderness. Negative Jyoti's maneuver. No crepitus, 5/5 strength. Peripheral vascular, lymphatic examination, skin, neurological, coordination, sensation are within normal limits unless otherwise noted above.X-rays ordered, obtained and reviewed at [facility] 4 views of the right knee demonstrate end-stage degenerative changes right knee medial and patellofemoral compartments with joint space narrowing, voxk-yl-hqoj articulation, subchondral sclerosis, osteophyte formation.Impression: 63-year-old male [...] a cortisone injection for his elbow. Questions answered.[employer] speech recognition features editor software was used to create portions of this document. An attempt at proofreading has been made to minimize errors. Please call for corrections. Juliet Jacobsen PA-C [address] [place] [address] [address] [facility], [place], [address], [facility] 04/02/2024 14:01:42 04/26/2024 text/html I am [...] reviewed, updated and is located in the patient s chart. Examination: Alert and oriented 3. No acute distress. Nonantalgic gait.Right Elbow reveals [...] elbow. X-rays ordered, obtained and reviewed at [facility] Impression/Plan: Findings and situation were [...] reexamination if no improvement. Lino Mcneill PA-C [address] [place] [address] [address], [place], [address], [facility] 04/26/2024 12:30:22 07/15/2024 text/html [...] line tenderness to palpation. Mild effusion. Otherwise, 0-125 flexion ROM is full, stability intact both anterior, posterior, and varus/valgus stress at both 0 and 30 degrees of flexion. No meniscal tenderness. Negative Jyoti's maneuver. No crepitus, 5/5 strength. Peripheral vascular, lymphatic examination, skin, neurological, coordination, sensation are within normal limits unless otherwise noted above.X-rays ordered, obtained and reviewed at [facility] 4 views of the right knee demonstrate end-stage degenerative changes right knee medial and patellofemoral compartments with joint space narrowing, nuuy-dj-czbb articulation, subchondral sclerosis, osteophyte formation.Impression: 63-year-old male [...] injections versus further discussion of surgery. Questions answered.[employer] speech recognition features editor software was used to create portions of this document. An attempt at proofreading has been made to minimize errors. Please call for corrections. Juliet Jacobsen PA-C [address] [place] [address] [address] [facility], [place], [address], [facility] 07/15/2024 10:04:37 10/21/2024 text/html I am seeing [...] line tenderness to palpation. Mild effusion. Otherwise, 0-125 flexion ROM is full, stability intact both anterior, posterior, and varus/valgus stress at both 0 and 30 degrees of flexion. No meniscal tenderness. Negative Jyoti's maneuver. No crepitus, 5/5 strength. Peripheral vascular, lymphatic examination, skin, neurological, coordination, sensation are within normal limits unless otherwise noted above.X-rays ordered, obtained and reviewed at [facility] 4 views of the right knee demonstrate end-stage degenerative changes right knee medial and patellofemoral compartments with joint space narrowing, dbdc-rq-penn articulation, subchondral sclerosis, osteophyte formation.Impression: 63-year-old male [...] injections versus further discussion of surgery. Questions answered.[facility] speech recognition features editor software was used to create portions of this document. An attempt at proofreading has been made to minimize errors. Please call for corrections. Juliet Jacobsen PA-C [address] [place] [address] [address], [place], [address], [facility] 10/21/2024 09:31:54 01/15/2025 text/html I am seeing the patient today under the supervision of Dr. Jose who was available but who did not see the patient.HPI: 64-year-old male presents for evaluation of right knee [...] to the gym regularly and has been golfing.Past family, medical, social history and review of [...] line tenderness to palpation. Mild effusion. Otherwise, 0-125 flexion ROM is full, stability intact both anterior, posterior, and varus/valgus stress at both 0 and 30 degrees of flexion. No meniscal tenderness. Negative Jyoti's maneuver. No crepitus, 5/5 strength. Peripheral vascular, lymphatic examination, skin, neurological, coordination, sensation are within normal limits unless otherwise noted above.X-rays ordered, obtained and reviewed at [facility] 4 views of the right knee demonstrate end-stage degenerative changes right knee medial and patellofemoral compartments with joint space narrowing, glfh-xr-cjkv articulation, subchondral sclerosis, osteophyte formation.Impression: 64-year-old male with end-stage right knee osteoarthritis and [...] injections versus further discussion of surgery. Questions answered.[facility] speech recognition features editor software was used to create portions of this document. An attempt at proofreading has been made to minimize errors. Please call for corrections. Juliet Jacobsen PA-C [address] [place] [address] [address], [place], [address], [facility] 01/15/2025 16:41:03
== END 2025-02-25 14:20 | disposition home or self-care (01) ==
LOC: HO.HUSH 09:12
PROVIDERS: PCP Nurse Practitioner Family; Visit Provider Urology
DX: R97.20 Elevated prostate specific antigen [PSA] (principal)
CPT/HCPCS: 99213

== ENCOUNTER 2025-03-13 07:51 | Outpatient (AMB) | payer BC, SELFPAY ==
--- OUTSIDE RECORDS SUMMARY | 2025-03-13 07:53 | XMS_ITS | Data Portability ---
Author Organization [place] [facility], [facility] Address [address] [place] [address] Care Team Providers Care Supervisor Packing Room Name Role Phone PEDRO FRANKS Primary Care [...] more view - 307 4v 2023 024 [facility], [address] [place] [address] [address], [address], 04/23/2024 09:25:50 Medication Orders amoxicill in 500 mg capsule 2023 024 [facility] #[id number], [address] [place], [address], 07/15/2024 09:56:50 Patient TargetsNo targets recorded. Patient InstructionsNo instructions recorded. Reason for Referral None Reported. Results Created Date Observation Date Name Description Value Unit Range Abnormal Flag Note LastModifiedBy Organization Detail LastModifiedTime 04/02/20 24 04/02/2024 XR, knee, 4 or more view http:/ [email or web address] ?Encry pted=s hAaTro YD8dLq bEUv6g %2BXZw aYqtaq 0bqfl% 2Fg9IQ a4ajBk vP9nXo QUaueC m3YtLR FvZlgJ JJ8mAn HZtai3 4k6535 AC0Koa HWAVKD eUC8mr 84%3D INTERFACE [facility] [address] [facility] [address], [place], [address], 04/02/2024 13:06:16 04/02/20 24 04/02/2024 XR, knee, 4 or more view http:/ [email or web address] ?Encry pted=s hAaTro YD8dLq bEUv6g %2BXZw aYqtaq 0bqfl% 2Fg9IQ a4ajBk vP9nXo QUaueC m3YtLR FvZlgJ JJ8mAn HZtai3 1d1912 AC0Koa HWAVKD eUC8mr 84%3D INTERFACE [facility] [address] [facility] [address], [place], [address], 04/02/2024 13:06:18 Result Notes Documentation Provider Name and Address Organization Details Recorded Time Xr, Knee, 4 Or More View : [email or web address] Encrypted=bhWhCphMI8qUcoS Uv6g%2KWXqzScskh9ybhy%2Fg 7NVm9ybCbxD2jQnDKetzGq5Hb PRNrZpqTXX2sMhAEpgi94q585 1JS7EtbTBFITLdUK4lp44%3D Not Available [facility] 04/02/2024 13:0 6:16 Xr, Knee, 4 Or More View : [email or web address] Encrypted=cfNvWaaJZ4eKsaW Uv6g%2RXUjzTouid9ynll%2Fg 7AZu5mzCzhO3aSpVZgrnLb8Yz YDIiLceBBQ5xEaVEuql09a935 0UT5AcuDLUMNEaQP5vs71%3D Not Available [facility] 04/02/2024 13:0 6:18 Problems Name Problem SNOMED Code Status Onset Date Resolution Date Notes Provider Name and Address Organization Details Recorded Time Osteoarthri tis of right knee joint 3033804801922 00 Active 2024 Juliet Mckeon tte, PA-C [address], [place], [address], [facility] 16:40:00 Trochanteri c bursitis of right hip 7061102884444 00 Active 2024 Juliet Mckeon tte, PA-C [address], [place], [address], [facility] 16:40:00 Problem Notes None recorded. Procedures Surgical History Date Name Laterality Status Provider Name and Address Organization Details Recorded Time 01/16/20 25 Hip Kenalog 1cc Injection, L/R completed Juliet Jacobsen PA-C [address], [place], [address], [facility] 01/15/2025 16:40:39 01/16/20 25 JZKNEE INJ completed Juliet Jacobsen PA-C [address], [place], [address], [facility] 01/15/2025 16:40:39 01/16/20 25 JZ Knee Aspiration completed Juliet Jacobsen PA-C [address], [place], [address], [facility] 01/15/2025 16:40:52 10/21/19 25 Hip Kenalog 1cc Injection, L/R completed Juliet Jacobsen PA-C [address], [place], [address], [facility] 10/21/2024 09:31:04 10/21/19 25 JZKNEE INJ completed Juliet Jacobsen PA-C [address], [place], [address], [facility] 10/21/2024 09:30:48 10/21/19 25 JZ Knee Aspiration completed Juliet Jacobsen PA-C [address] [facility], [place], [address], [facility] 10/21/2024 09:30:56 07/15/20 24 JZKNEE INJ completed Juliet Jacobsen PA-C [address] [facility], [place], [address], [facility] 07/15/2024 10:03:59 07/15/20 24 JZHip Inj completed Juliet Jacobsen PA-C [address] [facility], [place], [address], [facility] 07/15/2024 10:03:41 04/26/20 24 Lateral Epicondylitis Celestone 1cc Injection, L/R completed Lino Mcneill PA-C [address] [facility], [place], [address], [facility] 04/26/2024 12:30:12 04/02/20 24 JZKNEE INJ completed Juliet Jacobsen PA-C [address] [facility], [place], [address], [facility] 04/02/2024 14:00:47 04/02/20 24 JZHip Inj completed Juliet Jacobsen PA-C [address] [facility], [place], [address], [facility] 04/02/2024 14:00:54 12/15/19 24 Hip Kenalog 2cc Injection, L/R completed Joe Liz PA-C [address] [facility], [place], [address], [facility] 12/15/2023 13:10:34 Imaging Results None recorded. Procedure Notes None recorded. Medical Equipment None Reported. Allergies Allergen ID Allergen Name Allergen Category Reaction Reaction Severity Criticality Documentation Date Start Date Code Code System Note Provider Name and Address Organization Details Recorded Time 10461 acetamino phen / oxycodone medicatio n Not available Not available Not available 11/06/20232012 13898 3 RxNorm Aller gyRea ction : 'Skin React ion'; Not Available [facility] 4 15:13:15 69345 erythromy lupis medicatio n Not available Not available Not available 11/06/20232012 4053 RxNorm Aller gyRea ction : 'Skin React ion'; Not Available [facility] 4 15:13:15 Medications Name Sig Start Date [...] Updated DateTime 10/21/2024 170.18 cm 33.5 kg/m2 88883.77 g Vandana Huerta [facility] 10/21/2024 09:08:13 Date Recorded Body height Body mass index (BMI) Body weight Provider Name and Address Organization Details Last Updated DateTime 01/15/2025 170.18 cm 33.5 kg/m2 77479.77 g TAYLER ANDRES [facility] 01/15/2025 09:25:29 Date Recorded Body height Provider Name an d Address Organization Details Last Updated DateTime 04/02/2024 170.18 cm KATELYN SWANN [facility] 04/02/2024 12:55:11 Date Recorded Body height Body mass index (BMI) Body weight Provider Name and Address Organization Details Last Updated DateTime 04/26/2024 170.18 cm 33.5 kg/m2 86169.77 g GEOVANNY REYES [facility] 04/26/2024 08:43:25 Date Recorded Body height Body mass index (BMI) Body weight Provider Name and Address Organization Details Last Updated DateTime 07/15/2024 170.18 cm 33.5 kg/m2 80324.77 g CAREN BAIRES [facility] 07/15/2024 09:37:19 Social History None recorded. Functional Status None recorded. Mental Status None recorded. Family History Nothing Reported. Medical History No medical history recorded. Past Encounters Encounter ID Performer Location Encounter Start Date Encounter Closed Date Diagnosis/Indication Diagnosis SNOMED-CT Code Diagnosis ICD10 Code Diagnosis Note [id number] Brandon Duong PA-C [facility] [address] [place], [place] [address] 12/12/2023 09:24:49 01/03/2024 07:38:28 Lateral epicondylitis of right humerus 6742915465 03507 M77.11 [id number] CARLOS Lopez [address] [place], [place] [address] 12/15/2023 09:43:51 12/15/2023 13:17:19 Trochanteric bursitis of right hip 2532793573 19655 M70.61 [id number] Juliet dee PA-C [facility] [address] [place], [place] [address] 04/02/2024 12:43:49 04/23/2024 09:25:50 Pain of right knee joint 4439531169 10199 M25.561 Osteoarthr itis of right knee joint 3065475777 22290 M17.11 Trochanter ic bursitis of right hip 9066542041 92180 M70.61 [id number] Lino Mcneill PA-C [facility] [address] [place] [address] 04/26/2024 08:34:50 05/30/2024 12:13:54 [id number] Juliet dee PA-C [facility] [address] [place] [address] 07/15/2024 09:14:19 08/09/2024 11:41:15 History of total knee arthroplasty 5719182874 105 Z96.652 Pain of ri ght knee joint 4224041821 87209 M25.561 Osteoarthr itis of right knee joint 0651694762 61676 M17.11 Trochanter ic bursitis of right hip 6849131263 99716 M70.61 [id number] CARLOS [facility] [address] [place] [address] 10/21/2024 08:10:47 10/29/2024 14:20:06 Osteoarthritis of right knee joint 1190924452 69109 M17.11 Trochanter ic bursitis of right hip 5438208872 64582 M70.61 [id number] CARL[facility] [address] [place] [address] 01/15/2025 09:12:32 01/23/2025 14:00:28 Osteoarthritis of right knee joint 8626179902 00915 M17.11 Trochanter ic bursitis of right hip 6183512537 59896 M70.61 Health Concerns Section Related Observation LastModified by Organization Detai ls LastModified Time None Recorded Concern Status LastModified by Organization Details LastModified Time None Recorded Advance Directives Directive None Recorded Payers Insurance Date Sequence Insurance Name Policy Number Policy Rios Covered Member ID Rios Member ID Guarantor Name 01/23/2025 1 [place] [id number] Gricelda Hampton [id number] Joe Hampton Notes Date Note Type [...] above.X-rays ordered, obtained and reviewed at [facility] 4 views of the right knee demonstrate end-stage degenerative changes right knee medial and patellofemoral compartments with joint space narrowing, cjqg-ii-pnoy articulation, subchondral sclerosis, osteophyte formation.Impression: 63-year-old male [...] a cortisone injection for his elbow. Questions answered.[employer] speech recognition bread stacker software was used to create portions of this document. An attempt at proofreading has been made to minimize errors. Please call for corrections. Juliet Jacobsen PA-C [address] [place] [address] Suite [facility], [place], [address], [facility] [address] [address] [facility] 04/02/2024 14:01:42 04/26/2024 text/html I am [...] X-rays ordered, obtained and reviewed at [facility] Impression/Plan: Findings and situation were discussed [...] reexamination if no improvement. Lino Mcneill PA-C [address] [place] [address] [address], [address], [facility] 04/26/2024 12:30:22 07/15/2024 text/html [...] above.X-rays ordered, obtained and reviewed at [facility] 4 views of the right knee demonstrate end-stage degenerative changes right knee medial and patellofemoral compartments with joint space narrowing, lkje-rx-kpam articulation, subchondral sclerosis, osteophyte formation.Impression: 63-year-old male [...] injections versus further discussion of surgery. Questions answered.[employer] speech recognition bread stacker software was used to create portions of this document. An attempt at proofreading has been made to minimize errors. Please call for corrections. Juliet Jacobsen PA-C [address] [place] [address] Suite [facility], [place], [address], [facility] [address] 07/15/2024 10:04:37 10/21/2024 text/html [...] above.X-rays ordered, obtained and reviewed at [facility] 4 views of the right knee demonstrate end-stage degenerative changes right knee medial and patellofemoral compartments with joint space narrowing, orpz-dt-wwkh articulation, subchondral sclerosis, osteophyte formation.Impression: 63-year-old male [...] versus further discussion of surgery. Questions answered.[facility] speech recognition bread stacker software was used to create portions of this document. An attempt at proofreading has been made to minimize errors. Please call for corrections. Juliet Jacobsen PA-C [address] [place] [address] [address], [place], [address], [facility] [address] 10/21/2024 09:31:54 01/15/2025 text/html [...] above.X-rays ordered, obtained and reviewed at [facility] 4 views of the right knee demonstrate end-stage degenerative changes right knee medial and patellofemoral compartments with joint space narrowing, avrm-qm-abff articulation, subchondral sclerosis, osteophyte formation.Impression: 64-year-old male [...] injections versus further discussion of surgery. Questions answered.[facility] speech recognition bread stacker software was used to create portions of this document. An attempt at proofreading has been made to minimize errors. Please call for corrections. Juliet Jacobsen PA-C [address] [place] [address] [address], [place], [address], [facility] [address] [facility] 01/15/2025 16:41:03
--- OUTSIDE RECORDS SUMMARY | 2025-03-13 07:54 | XMS_ITS | Patient Health Record ---
Author Organization [facility] Address [address] [place] [address] Care Team Providers Care Health Technician Hearing Name Role Phone Augie Toussaint Unavailable [phone] Reason For Referral No Information Plan Of Treatment No Information
--- NOTE | 2025-03-13 08:11 | A.OFFPC_ITS ---
Vital Signs 03/13/25 08:12 Height 5 ft 8 in Weight 215 lb BMI 32.7 BP 138/82 Blood Pressure Location Lt brachial Position Sitting Pulse 64 Pulse Source Pulse Oximeter Pulse Oximetry (%) 98 Oxygen Delivery Method Room Air Intake Visit Reasons: 6m follow up Mobile Crane Operator Required: No Accompanied by: Self / Same As Patient Allergies erythromycin base (Erythromycin Base) Allergy (Mild, Verified 03/13/25 08:25) RAH,ITCH oxycodone (From Percocet) Allergy (Mild, Verified 03/13/25 08:25) NAUSEA,DIZZINESS Medication List - Last Reconciled 03/13/25 by Hal Chacon, DIRECTOR [facility] alcohol swabs 1 topically; NS amlodipine 10 mg PO DAILY 90 days antiarthritic combination no.2 (glucosamine-chondroitin) mg PO atorvastatin 20 mg PO BEDTIME betamethasone valerate 0.1% 1 appl topical DAILY PRN finasteride 5 mg PO DAILY 90 days FreeStyle Lite Meter (blood-glucose meter) BID NS FreeStyle Lite Strips (blood sugar diagnostic) BID NS ibuprofen 600 mg PO Q6H PRN lancets bid testing lorazepam 0.5 mg PO DAILY PRN 30 days losartan 50 mg PO DAILY metformin ER 500 mg PO DAILY 90 days omeprazole 20 mg PO DAILY Tobacco use date assessed: 09/11/24 Fall risk assessment: No Falls in past year Last assessed Fall Risk: 03/13/25 Dental Screening Dental Screen Date: 09/11/24 HPI 6m follow up HPI Details Chief Complaint The patient presents for follow-up care for diabetes management. History of Present Illness The patient is a 64-year-old male presenting with a follow-up visit for diabetes management. He reports an A1c level of 6.5 and states that he feels well overall, maintaining an active lifestyle by golfing regularly. The patient is retired and regularly consults with a administrative processor. He experiences intermittent neuropathy sensations in his feet, which he describes as not constant but occurring occasionally. The monofilament test showed positive sensation, and his feet were intact with dorsalis pedis pulses present bilaterally. The patient has a systolic murmur, and his lungs were clear upon examination. He has been advised to undergo a microalbumin test next month as part of his prev entative care plan. Social History - Employment: Retired - Exercise: Regularly plays golf Health Maintenance - Microalbumin test scheduled for next m onth Review of Systems - Neurological: Reports intermittent viki ropathy sensations in feet Physical Exam General: Cooperative, healthy appearing, comfortable, no acute distress and well developed Orientation: Patient oriented x3 Limitations: No limitations Head: Normal to inspection Ears: Hearing grossly normal bilaterally Nose: Normal external nose present Face and sinus: Normal facial exam Eyes: Appearance normal, both eyes and all related structures Neck: Normal visual inspection and Yes full ROM Respiratory: Normal respiratory effort and able to speak in complete sentences. Clear to auscultation bilaterally Cardiovascular: Regular rate and rhythm. Normal S1 and S2. Faint Systolic murmur present GI: Normal to inspection. Soft to palpation and nontender Skin: No rashes or lesions noted Neuro: Patient oriented x3. Reports some intermittent neuropathy sensations to feet Extremities: Normal to inspection. Positive sensation with use of monofilament, feet were intact, dorsalis pedis pulses present bilaterally Results - Labs: A1c level of 6.5 Plan The patient will continue to manage diabetes with regular follow-ups and monitoring of A1c levels. A microalbumin test is scheduled for next month to assess kidney function as part of preventative care. The patient is advised to maintain his active lifestyle, including regular golfing, and to continue consulting with his administrative processor. GLP-1 agonist we did discuss and may start in the future. Discussion Notes I discussed with the patient the importance of regular monitoring of his diabetes, including A1c levels, and the need for a microalbumin test next month to evaluate kidney function. Patient Instructions - Continue regular follow-ups for diabet es management. - Schedule and complete the microalbumin test next month. - Maintain an active lifestyle, includin g regular golfing. - Continue regular consultations with elidia administrative processor. [facility] Medical History Osteoarthritis of right knee Osteoarthritis Bursitis of right hip Right tennis elbow PTSD (post-traumatic stress disorder) HURTADO (nonalcoholic steatohepatitis) Surgical History History of meniscectomy of left knee History of repair of rotator cuff Family History Father Cancer of pancreas Mother Cancer of pancreas Sister No problems noted. Daughter No problems noted. Son No problems noted. Son No problems noted. Social History Housing: House Alcohol intake: current Alcohol intake frequency: a few times a month Patient Tobacco Use Status: Never used Tobacco e-Cigarette/Vaping Use: Never Used Second Hand Smoke Exposure: No service: No Current occupational status: retired Cognitive needs: No Hearing needs: No Vision needs: Yes Questionnaire Thrive Questionnaire Date Thrive assessed: 09/10/24 I am a: Patient What is your living situation today?: I have a steady place to live Within the past 12 months, did the food you bought not last and you didn't have the money to get more?: Never true Within the past 12 months, did you worry whether your food would run out before you got money to buy more?: Never true Do you have trouble paying for medicines?: No Do you have trouble getting transportation to medical appointments?: No Do you have trouble paying your heating and electricity bill?: No Do you have trouble taking care of your child, family member or friend?: No Do you have trouble with day-to-day activities such as bathing, preparing meals, shopping, managing finances, etc.?: No Are you currently unemployed and looking for a job?: No Are you interested in more education?: No Please select the resources that you would like help with: None Currently or been in a relationship where the following occur: No concerns reported THRIVE Score: 0 KELLI-7 AMB Questionnaire KELLI-7 Date KELLI - 7 assessed: 09/11/24 Source: Developed by Drs. Augie Kiran, Jia Hamm, Ha Pat and colleagues, with an educational cas from [employer]. Physical exam (Primary Care) Vital Signs: Last Vital Signs Pulse 64 03/13/25 08:12 BP 138/82 03/13/25 08:12 Pulse Ox 98 03/13/25 08:12 Oxygen Delivery Method Room Air 03/13/25 08:12 BMI result Body Mass Index 32.7 Tobacco/Smoking Status: Tobacco use Status Tobacco use date assessed 09/11/24 03/13/25 08:14 Patient Tobacco Use Status Never used Tobacco 03/13/25 08:14 e-Cigarette/Vaping Use Never Used 03/13/25 08:14 Thrive Assessment: Date of Thrive Assessment Date Thrive assessed 09/10/24 03/13/25 08:14 Currently or been in a relationship where the following occur: No concerns reported Coding Level of Care Code Est Pt Level 3 (87431) Diagnoses Diabetes E11.9 Assessment & Plan Assessment & Plan (1) Diabetes: Code(s): E11.9 - Type 2 diabetes mellitus without complications Category: Medical Plan . Orders: Orders Complete Blood Count Auto Diff Today E11.9 - Type 2 diabetes mellitus without complications Comprehensive [place]. Panel Fast Today E11.9 - Type 2 diabetes mellitus without complications TSH reflex Free T4 Today E11.9 - Type 2 diabetes mellitus without complications UA CC w/rflx Micro + Cult Today E11.9 - Type 2 diabetes mellitus without complications Lipid Panel Today E11.9 - Type 2 diabetes mellitus without complications Microalbumin, Random (w Creat) Today E11.9 - Type 2 diabetes mellitus without complications
[2025-03-13 08:12] VITALS: BP 138/82; PULSE 64; O2SAT 98; BMI 32.7
== END 2025-03-13 08:44 | disposition home or self-care (01) ==
LOC: HO.HMCC 07:51
PROVIDERS: PCP Nurse Practitioner Family; Visit Provider Nurse Practitioner Family
DX: Z13.9 Encounter for screening, unspecified (principal); E11.9 Type 2 diabetes mellitus without complications

== ENCOUNTER → 2025-03-13 07:51 | Outpatient (BNVA) | payer BC, SELFPAY | PROVIDERS: PCP Nurse Practitioner Family; Visit Provider Nurse Practitioner Family | DX: E11.9 Type 2 diabetes mellitus without complications (principal) | CPT/HCPCS: 83036 ==

== ENCOUNTER → 2025-03-26 08:05 | Outpatient (BNV) | payer BC, SELFPAY | PROVIDERS: PCP Nurse Practitioner Family; Visit Provider Radiology Diagnostic Radiology | DX: R97.20 Elevated prostate specific antigen [PSA] (principal) | CPT/HCPCS: 72197; 76377 ==

== ENCOUNTER 2025-03-26 08:27 | Outpatient (REF) | payer BC, SELFPAY ==
--- NOTE | ~2025-03-26 | MR_ITS ---
EXAMINATION: MR PROSTATE WITHOUT THEN WITH IV CONTRAST, MR CAD HISTORY: R97.20 - Elevated prostate specific antigen [PSA] TECHNIQUE: 1.5T body coil survey of the pelvis was performed. Phase array coil imaging of the prostate was performed in multiplanar high resolution axial, coronal, sagittal fast spin echo T2 and axial T1 weighted imaging sequences. Axial diffusion imaging at intermediate and high field performed with ADC mapping. Next, 10 mL Gadavist was given by intravenous infusion, and dynamic axial imaging performed. 3-D reconstructions and post-processing were performed on an independent workstation by the radiologist for biopsy planning using image fusion. COMPARISON: There are no prior studies available for comparison. CLINICAL DATA: Most recent PSA: 5.81 ng/mL on 02/12/2025. PSA Density: 0.43 ng/mL squared Prostate Biopsy: None reported FINDINGS: Prostate size: 2.8 x 3.7 x 2.5 cm. Calculated prostate volume is 13.5 mL. Hemorrhage: None. Transitional Zone: There is mild heterogeneous nodular hypertrophy of the transitional zone. Peripheral Zone: There is an area of interest on the right with imaging characteristics as follows: Area of interest #1: Location: Right posteromedial peripheral zone at the base versus volume averaging with the fibromuscular stroma (series 7 image 16). DWI PI-RADS v2.1 score: 3 T2 PI-RADS v2.1 score: 3 DCE PI-RADS v2.1 score: - Overall PI-RADS v2.1 score: 3 Capsular contact: yes Extracapsular extension: None Seminal vesicle invasion: None Neurovascular bundle involvement: None Seminal Vesicles/Ejaculatory Ducts: Symmetric and normal in signal and caliber. Pelvic Lymph Nodes: No obturator or internal iliac lymph nodes meeting size criteria for adenopathy. Marrow Signal: Normal marrow signal and enhancement without focal lesion identified. There is enhancement in the soft tissues about the greater trochanter of the right femur which is suggestive of trochanteric bursitis. MR/MR Prostate wo/w con IMPRESSION: Equivocal focus of abnormal signal intensity in the right posteromedial peripheral zone at the base versus volume averaging with the fibromuscular stroma. If imaging guided biopsy is to be performed, sampling of this region is recommended. PI-RADS 3: Intermediate (the presence of clinically significant cancer is equivocal) PI-RADS Assessment Categories PI-RADS 1: Very low (clinically significant cancer is highly unlikely to be present) PI-RADS 2: Low (clinically significant cancer is unlikely to be present) PI-RADS 3: Intermediate (the presence of clinically significant cancer is equivocal) PI-RADS 4: High (clinically significant cancer is likely to be present) PI-RADS 5: Very high (clinically significant cancer is highly likely to be present) [employer]. MR Prostate Imaging Reporting and Data System version 2.1. [email or web address] Electronically signed by: Augie Nguyen MD 03/26/2025 10:04 AM EDT
--- OUTSIDE RECORDS SUMMARY | 2025-03-26 08:45 | XMS_ITS | Patient Health Record ---
Author Organization [facility] Address [address] [place] [address] Care Team Providers Care Fibreglass Lay Up Worker Name Role Phone Augie Toussaint Unavailable [phone] Reason For Referral No Information Plan Of Treatment No Information
--- OUTSIDE RECORDS SUMMARY | 2025-03-26 08:45 | XMS_ITS | Data Portability ---
Author Organization [place] [facility], [facility] Address [address] [place] [address] Care Team Providers Care Pipe Buffer Name Role Phone PEDRO FRANKS Primary Care [...] more view - [phone] 4v 2023 024 [email or web address] [facility], [address] [place] [address] [address], [place], [address], 04/23/2024 09:25:50 Medication Orders amoxicill in 500 mg capsule 2023 024 [facility][id number], [address] [place], [address], 07/15/2024 09:56:50 Patient TargetsNo targets recorded. Patient InstructionsNo instructions recorded. Reason for Referral None Reported. Results Created Date Observation Date Name Description Value Unit Range Abnormal Flag Note LastModifiedBy Organization Detail LastModifiedTime 04/02/20 24 04/02/2024 XR, knee, 4 or more view http:/ [email or web address] ?Encry pted=s hAaTro YD8dLq bEUv6g %2BXZw aYqtaq 0bqfl% 2Fg9IQ a4ajBk vP9nXo QUaueC m3YtLR FvZlgJ JJ8mAn HZtai3 2n4206 AC0Koa HWAVKD eUC8mr 84%3D INTERFACE [facility] [address] [facility] [address], [place], [address], 04/02/2024 13:06:16 04/02/20 24 04/02/2024 XR, knee, 4 or more view http:/ [email or web address] ?Encry pted=s hAaTro YD8dLq bEUv6g %2BXZw aYqtaq 0bqfl% 2Fg9IQ a4ajBk vP9nXo QUaueC m3YtLR FvZlgJ JJ8mAn HZtai3 6g0346 AC0Koa HWAVKD eUC8mr 84%3D INTERFACE [facility] [address] [facility] [address], [place], [address], 04/02/2024 13:06:18 Result Notes Documentation Provider Name and Address Organization Details Recorded Time Xr, Knee, 4 Or More View : [email or web address]? Encrypted=rmRsCvxMG2tBjfZ Uv6g%0MBIfpPzjzz0vuwt%2Fg 5IDa9zdGttR7hFoBQcuvUp1Vs DAHwVkqJZS5bPjIHlyq69d253 5MU4FpiJXEOOMxXT8tl80%3D Not Available [facility] 04/02/2024 13:0 6:16 Xr, Knee, 4 Or More View : [email or web address]? Encrypted=ngIpOjsWO6xSwnF Uv6g%9NVIwnLrfnm3edtn%2Fg 7ABr5etAsxP6tMhTSvwfVo4Hk ZKTnHeuZVF1uWkEXouh49i403 5II5RgkASRBJMwBN4fq72%3D Not Available [facility] 04/02/2024 13:0 6:18 Problems Name Problem SNOMED Code Status Onset Date Resolution Date Notes Provider Name and Address Organization Details Recorded Time Osteoarthri tis of right knee joint 6222586091838 00 Active 2024 Juliet Mckeon tte, PA-C [address], [place], [address], [facility] 16:40:00 Trochanteri c bursitis of right hip 1300440560176 00 Active 2024 Juliet Mckeon tte, PA-C [address], [place], [address], [facility] 16:40:00 Problem Notes None recorded. Procedures Surgical History Date Name Laterality Status Provider Name and Address Organization Details Recorded Time 01/16/20 25 Hip Kenalog 1cc Injection, L/R completed Juliet Jacobsen PA-C [address], [place], [address], [facility] 01/15/2025 16:40:39 01/16/20 25 JZKNEE INJ completed Juliet Jacobsen PA-C [address], [place], [address], [facility] 01/15/2025 16:40:39 01/16/20 25 JZ Knee Aspiration completed Juliet Jacobsen PA-C [address], [place], [address], [facility] 01/15/2025 16:40:52 10/21/19 25 Hip Kenalog 1cc Injection, L/R completed Juliet Jacobsen PA-C [address], [place], [address], [facility] 10/21/2024 09:31:04 10/21/19 25 JZKNEE INJ completed Juliet Jacobsen PA-C [address], [place], [address], [facility] 10/21/2024 09:30:48 10/21/19 25 JZ Knee Aspiration completed Juliet Jacobsen PA-C [address] [facility], [place], [address], [facility] 10/21/2024 09:30:56 07/15/20 24 JZKNEE INJ completed Juliet Jacobsen PA-C [address] [facility], [place], [address], [facility] 07/15/2024 10:03:59 07/15/20 24 JZHip Inj completed Juliet Jacobsen PA-C [address] [facility], [place], [address], [facility] 07/15/2024 10:03:41 04/26/20 24 Lateral Epicondylitis Celestone 1cc Injection, L/R completed Lino Mcneill PA-C [address] [facility], [place], [address], [facility] 04/26/2024 12:30:12 04/02/20 24 JZKNEE INJ completed Juliet Jacobsen PA-C [address] [facility], [place], [address], [facility] 04/02/2024 14:00:47 04/02/20 24 JZHip Inj completed Juliet Jacobsen PA-C [address] [facility], [place], [address], [facility] 04/02/2024 14:00:54 12/15/19 24 Hip Kenalog 2cc Injection, L/R completed Joe Liz PA-C [address] [facility], [place], [address], [facility] 12/15/2023 13:10:34 Imaging Results None recorded. Procedure Notes None recorded. Medical Equipment None Reported. Allergies Allergen ID Allergen Name Allergen Category Reaction Reaction Severity Criticality Documentation Date Start Date Code Code System Note Provider Name and Address Organization Details Recorded Time 14637 acetamino phen / oxycodone medicatio n Not available Not available Not available 11/06/20232012 28295 3 RxNorm Aller gyRea ction : 'Skin React ion'; Not Available [facility] 4 15:13:15 86211 erythromy lupis medicatio n Not available Not available Not available 11/06/20232012 4053 RxNorm Aller gyRea ction : 'Skin React ion'; Not Available [facility] 4 15:13:15 Medications Name Sig Start Date [...] Updated DateTime 10/21/2024 170.18 cm 33.5 kg/m2 77218.77 g Vandana Huerta [facility] 10/21/2024 09:08:13 Date Recorded Body height Body mass index (BMI) Body weight Provider Name and Address Organization Details Last Updated DateTime 01/15/2025 170.18 cm 33.5 kg/m2 83576.77 g TAYLER ANDRES [facility] 01/15/2025 09:25:29 Date Recorded Body height Provider Name an d Address Organization Details Last Updated DateTime 04/02/2024 170.18 cm KATELYN SWANN [facility] 04/02/2024 12:55:11 Date Recorded Body height Body mass index (BMI) Body weight Provider Name and Address Organization Details Last Updated DateTime 04/26/2024 170.18 cm 33.5 kg/m2 84800.77 g GEOVANNY REYES [facility] 04/26/2024 08:43:25 Date Recorded Body height Body mass index (BMI) Body weight Provider Name and Address Organization Details Last Updated DateTime 07/15/2024 170.18 cm 33.5 kg/m2 70715.77 g CAREN BAIRES [facility] 07/15/2024 09:37:19 Social History None recorded. Functional Status None recorded. Mental Status None recorded. Family History Nothing Reported. Medical History No medical history recorded. Past Encounters Encounter ID Performer Location Encounter Start Date Encounter Closed Date Diagnosis/Indication Diagnosis SNOMED-CT Code Diagnosis ICD10 Code Diagnosis Note [id number] Brandon Duong PA-C [facility] [address] [place], [place] [address] 12/12/2023 09:24:49 01/03/2024 07:38:28 Lateral epicondylitis of right humerus 9236898639 26165 M77.11 [id number] CARLOS Lopez [address] [place], [place] [address] 12/15/2023 09:43:51 12/15/2023 13:17:19 Trochanteric bursitis of right hip 2959409364 91703 M70.61 [id number] Juliet dee PA-C [facility] [address] [place], [place] [address] 04/02/2024 12:43:49 04/23/2024 09:25:50 Pain of right knee joint 7500647642 34421 M25.561 Osteoarthr itis of right knee joint 4005195542 81037 M17.11 Trochanter ic bursitis of right hip 7668954081 98096 M70.61 [id number] Lino Mcneill PA-C [facility] [address] [place] [address] 04/26/2024 08:34:50 05/30/2024 12:13:54 [id number] Juliet dee PA-C [facility] [address] [place] [address] 07/15/2024 09:14:19 08/09/2024 11:41:15 History of total knee arthroplasty 7243458472 105 Z96.652 Pain of ri ght knee joint 3627777797 51243 M25.561 Osteoarthr itis of right knee joint 8455076656 77026 M17.11 Trochanter ic bursitis of right hip 2642099186 33336 M70.61 [id number] CARLOS [facility] [address] [place] [address] 10/21/2024 08:10:47 10/29/2024 14:20:06 Osteoarthritis of right knee joint 8111177435 84537 M17.11 Trochanter ic bursitis of right hip 1242226370 78232 M70.61 [id number] CARLOS [facility] [address] [place] [address] 01/15/2025 09:12:32 01/23/2025 14:00:28 Osteoarthritis of right knee joint 5676543941 06194 M17.11 Trochanter ic bursitis of right hip 4180701688 21281 M70.61 Health Concerns Section Related Observation LastModified by Organization Detai ls LastModified Time None Recorded Concern Status LastModified by Organization Details LastModified Time None Recorded Advance Directives Directive None Recorded Payers Insurance Date Sequence Insurance Name Policy Number Policy Rios Covered Member ID Rios Member ID Guarantor Name 01/23/2025 1 [place] [id number] Gricelda Hampton [id number] Joe Hampton Notes Date Note Type [...] noted above.X-rays ordered, obtained and reviewed at [facility] 4 views of the right knee demonstrate end-stage degenerative changes right knee medial and patellofemoral compartments with joint space narrowing, mlxq-gq-knxd articulation, subchondral sclerosis, osteophyte formation.Impression: 63-year-old male [...] a cortisone injection for his elbow. Questions answered.goOutMap speech recognition real estate officer software was used to create portions of this document. An attempt at proofreading has been made to minimize errors. Please call for corrections. Juliet Jacobsen PA-C [address] [place] [address] [address] [facility], [place], [address], [facility] 04/02/2024 14:01:42 04/26/2024 text/html I am [...] elbow. X-rays ordered, obtained and reviewed at [facility] Impression/Plan: Findings and situation were discussed with [...] reexamination if no improvement. Lino Mcneill PA-C [address] [place] [address] [address], [place], [address], [facility] 04/26/2024 12:30:22 07/15/2024 text/html [...] noted above.X-rays ordered, obtained and reviewed at [facility] 4 views of the right knee demonstrate end-stage degenerative changes right knee medial and patellofemoral compartments with joint space narrowing, lvho-rj-vvec articulation, subchondral sclerosis, osteophyte formation.Impression: 63-year-old male [...] injections versus further discussion of surgery. Questions answered.[employer]Out[employer] speech recognition real estate officer software was used to create portions of this document. An attempt at proofreading has been made to minimize errors. Please call for corrections. Juliet Jacobsen PA-C [address] [place] [address] [address] [facility], [place], [address], [facility] 07/15/2024 10:04:37 10/21/2024 text/html [...] noted above.X-rays ordered, obtained and reviewed at [facility] 4 views of the right knee demonstrate end-stage degenerative changes right knee medial and patellofemoral compartments with joint space narrowing, nycg-uj-oimi articulation, subchondral sclerosis, osteophyte formation.Impression: 63-year-old male [...] injections versus further discussion of surgery. Questions answered.[facility] speech recognition real estate officer software was used to create portions of this document. An attempt at proofreading has been made to minimize errors. Please call for corrections. Juliet Jacobsen PA-C [address] [place] [address] [address], [place], [address], [facility] 10/21/2024 09:31:54 01/15/2025 text/html [...] noted above.X-rays ordered, obtained and reviewed at [facility] 4 views of the right knee demonstrate end-stage degenerative changes right knee medial and patellofemoral compartments with joint space narrowing, xait-hq-lhke articulation, subchondral sclerosis, osteophyte formation.Impression: 64-year-old male [...] injections versus further discussion of surgery. Questions answered.[facility] speech recognition real estate officer software was used to create portions of this document. An attempt at proofreading has been made to minimize errors. Please call for corrections. Juliet Jacobsen PA-C [address] [place] [address] [address], [place], [address], [facility] 01/15/2025 16:41:03
== END 2025-03-26 08:28 | disposition home or self-care (01) ==
LOC: HO.MRI 08:27
PROVIDERS: PCP Nurse Practitioner Family; Visit Provider Urology
DX: R97.20 Elevated prostate specific antigen [PSA] (principal)
CPT/HCPCS: 72197; 76377; A9585

== ENCOUNTER 2025-03-27 09:07 | Outpatient (AMB) | payer BC, SELFPAY ==
[2025-03-27 09:28] VITALS: BP 140/62; PULSE 59; BMI 32.4
--- NOTE | 2025-03-27 09:28 | A.OFFVIS_ITS ---
Vital Signs 03/27/25 09:28 Height 5 ft 8 in Weight 212 lb 15.465 oz BMI 32.4 BP 140/62 H Blood Pressure Location Lt brachial Position Sitting Pulse 59 Pulse Source Monitor Intake Visit Reasons: 6m follow up Intake Note: 6 mth f/up Cushion Cover Inspector Required: No Accompanied by: Self / Same As Patient Allergies erythromycin base (Erythromycin Base) Allergy (Mild, Verified 03/13/25 08:25) RAH,ITCH oxycodone (From Percocet) Allergy (Mild, Verified 03/13/25 08:25) NAUSEA,DIZZINESS Medication List - Last Reconciled 03/27/[address] CONDUCTOR-C alcohol swabs 1 topically; NS amlodipine 10 mg PO DAILY 90 days antiarthritic combination no.2 (glucosamine-chondroitin) mg PO atorvastatin 20 mg PO BEDTIME betamethasone valerate 0.1% 1 appl topical DAILY PRN finasteride 5 mg PO DAILY 90 days FreeStyle Lite Meter (blood-glucose meter) BID NS FreeStyle Lite Strips (blood sugar diagnostic) BID NS ibuprofen 600 mg PO Q6H PRN lancets bid testing lorazepam 0.5 mg PO DAILY PRN 30 days losartan 50 mg PO DAILY metformin ER 500 mg PO DAILY 90 days omeprazole 20 mg PO DAILY HPI HPI 6m follow up: Details: Joe is a 64-year-old male with past medical history of hypertension, obesity, borderline DM, severe sleep apnea treated with CPAP, frequent PVCs who presents for follow-up. Today he reports he has been feeling well with no concerning symptoms since last vsiit in Sep. He will feel occassional brief heart palpitations but they do not cause him concern. No chest discomfort at rest or with activity. No shortness of breath, PND, orthopnea or edema. No lightheadedness, presyncope, syncope, falls. He reports good activity tolerance and goes to the gym a few times weekly and does cardio and lifts weights, playing golf. He tolerates this activity well. He takes his meds as directed. [facility] Medical History Osteoarthritis of right knee Osteoarthritis Bursitis of right hip Right tennis elbow PTSD (post-traumatic stress disorder) HURTADO (nonalcoholic steatohepatitis) Surgical History History of meniscectomy of left knee History of repair of rotator cuff Family History Father Cancer of pancreas Mother Cancer of pancreas Sister No problems noted. Daughter No problems noted. Son No problems noted. Son No problems noted. Social History Housing: House Alcohol intake: current Alcohol intake frequency: a few times a month Patient Tobacco Use Status: Never used Tobacco e-Cigarette/Vaping Use: Never Used Second Hand Smoke Exposure: No service: No Current occupational status: retired Cognitive needs: No Hearing needs: No Vision needs: Yes Review of Systems Const Denies chills, Denies fatigue, Denies fever(s), Denies frequent falls, Denies weakness, Denies weight gain and Denies weight loss ENT Denies dizziness Card Denies chest pain, Denies leg edema, Denies lightheadedness, Denies palpitations, Denies dyspnea and Denies dyspnea on exertion Resp Denies cough, Denies dyspnea and Denies dyspnea on exertion GI Denies hematochezia Musc Denies abnormal gait, Denies muscle weakness, Denies numbness, Denies radiating pain into limb and Denies tingling Neuro Denies abnormal gait, Denies dizziness, Denies frequent falls, Denies numbness, Denies tingling and Denies weakness Endo Denies fatigue and Denies palpitations Physical Exam Vital Signs: BMI result Body Mass Index 32.4 Const General: cooperative, healthy appearing, comfortable and no acute distress Orientation/consciousness: patient oriented x3 HEENT Head: Yes normal to inspection Eyes Sclerae: sclerae normal Neck Neck: Yes normal visual inspection and Yes no JVD Carotids: normal carotid upstroke Chest Chest palpation & inspection: normal inspection of the chest Resp Effort & Inspection: normal respiratory effort Auscultation: clear to auscultation bilaterally, no crackles, no rales, no rhonchi and no wheezes Cardio Jugular venous distension: no JVD Rate: regular rate Rhythm: regular rhythm Heart sounds: S1 normal heart sound present, S2 normal heart sound present, no gallops, no murmurs and no rubs Peripheral pulses: Peripheral pulses 2+ throughout GI Inspection: Yes normal to inspection Skin General skin exam: no rashes or lesions noted Neuro General: patient oriented x3 Extrem General: Yes normal to inspection, No no pedal edema and No calf tenderness Psych Appearance: grossly normal Mental Status: mental status grossly normal Speech and movement: Normal speech and movement present Office Procedures EKG Details: today, read by me, sinus bradycardia, 2 PVCs on tracing, rate 59, Qtc 413ms [id number], Complete Assessment & Plan Assessment & Plan (1) PVC (premature ventricular contraction): Code(s): I49.3 - Ventricular premature depolarization Category: Medical Plan: Known hx of frequent PVCs. Echocardiogram done 03/04/2024 showing EF 65-70%, no regional wall motion abnormalities, ascending aorta 4 cm. Holter monitor done 06/11/2024 for 3 days shows sinus rhythm with average heart rate 61, 65% less than 60 beats per minute, PACs 3.9%, PVCs 5.5% with brief runs, longest 4 beats. Nuclear stress test done 06/11/2024 showing mild intensity anterior septal wall ischemia, EF 65%, asymptomatic. He was not started on beta-blockers due to low resting heart rate. EKG today showing sinus bradycardia, 2 PVCs, rate 59. Reviewed alcohol reduction, limited caffeine intake, maintain good hydration, continue use of CPAP, exercise as tolerated. Will recheck Holter prior to next visit. Cardiology follow-up 6 months, sooner if needed. (2) PAC (premature atrial contraction): Code(s): I49.1 - Atrial premature depolarization Category: Medical Plan: As above (3) Abnormal nuclear stress test: Code(s): R94.39 - Abnormal result of other cardiovascular function study Category: Medical Plan: Nuclear stress test mildly abnormal. He does have cardiac risk factors including borderline diabetes. He continues to have PVCs as seen on EKG today. Will check a CTA of the coronary arteries to evaluate for obstructive CAD. Signs and symptoms of angina reviewed with him. (4) Sleep apnea: Comment: using CPAP Code(s): G47.30 - Sleep apnea, unspecified Category: Medical Plan: Compliant with CPAP Plan Time spent on chart review, documentation, interview and assessment Orders: Orders CT Cardiac Coronary Angio Today I49.3 - Ventricular premature depolarization, R94.39 - Abnormal result of other cardiovascular function study Basic Metabolic Panel Today R94.39 - Abnormal result of other cardiovascular function study ECG 3 day holter monitor 09/08/25 I49.1 - Atrial premature depolarization, I49.3 - Ventricular premature depolarization Coding Level of Care Code Est Pt Level 4 (90148) Complex EM visit Add On G2211 Diagnoses PVC (premature ventricular contraction) I49.3 PAC (premature atrial contraction) I49.1 Abnormal nuclear stress test R94.39 Sleep apnea G47.30 CPT Codes EKG - CPT: [id number]-Cdmlkmkwzanidxkci, Complete ([id number]) Time Spent (min) 28
--- OUTSIDE RECORDS SUMMARY | 2025-03-27 09:36 | XMS_ITS | Patient Health Record ---
Author Organization [facility] Address [address] [place] [address] Care Team Providers Care Tobacco Flavorer Name Role Phone Augie Toussaint Unavailable [phone] Reason For Referral No Information Plan Of Treatment No Information
--- OUTSIDE RECORDS SUMMARY | 2025-03-27 09:36 | XMS_ITS | Data Portability ---
Author Organization [place] [facility] Address [address] [place] [address] Care Team Providers Care Dental Service Technician Name Role Phone PEDRO FRANKS Primary Care [...] more view - [phone] 4v 2023 024 [email or web address] [facility], [address] [place] [address] [address], [place], [address], 04/23/2024 09:25:50 Medication Orders amoxicill in 500 mg capsule 2023 024 [facility] #[id number], [address] [place], [address], 07/15/2024 09:56:50 Patient TargetsNo targets recorded. Patient InstructionsNo instructions recorded. Reason for Referral None Reported. Results Created Date Observation Date Name Description Value Unit Range Abnormal Flag Note LastModifiedBy Organization Detail LastModifiedTime 04/02/20 24 04/02/2024 XR, knee, 4 or more view http:/ [email or web address] ?Encry pted=s hAaTro YD8dLq bEUv6g %2BXZw aYqtaq 0bqfl% 2Fg9IQ a4ajBk vP9nXo QUaueC m3YtLR FvZlgJ JJ8mAn HZtai3 2q9252 AC0Koa HWAVKD eUC8mr 84%3D INTERFACE [facility] [address] [facility] [address] [facility] [address], [place], [address], 04/02/2024 13:06:16 04/02/20 24 04/02/2024 XR, knee, 4 or more view http:/ [email or web address] ?Encry pted=s hAaTro YD8dLq bEUv6g %2BXZw aYqtaq 0bqfl% 2Fg9IQ a4ajBk vP9nXo QUaueC m3YtLR FvZlgJ JJ8mAn HZtai3 6c6395 AC0Koa HWAVKD eUC8mr 84%3D INTERFACE [facility] [address] [facility] [address], [place], [address], 04/02/2024 13:06:18 Result Notes Documentation Provider Name and Address Organization Details Recorded Time Xr, Knee, 4 Or More View : [email or web address] Encrypted=zzLiHjvJQ3hKumN Uv6g%9XYMwuEnewf2plcy%2Fg 6PFz2hjOckF5bQfQRxblJo4Zr FKJkXwwRIQ1zJqYGnly42i762 9IK2XwkRMNHMJxSH0rc97%3D Not Available [facility] 04/02/2024 13:0 6:16 Xr, Knee, 4 Or More View : [email or web address] Encrypted=ksDrQotTZ9kEkrX Uv6g%0NQEcbClggm1pcdv%2Fg 4UGo4lsOnvG2oHzEIhmePa9Rn QLZiQipSMU3nNmLLxgt73q605 1KI1YxfFFACATgUU5vl67%3D Not Available [facility] 04/02/2024 13:0 6:18 Problems Name Problem SNOMED Code Status Onset Date Resolution Date Notes Provider Name and Address Organization Details Recorded Time Osteoarthri tis of right knee joint 6228964234931 00 Active 2024 Juliet Mckeon tte, PA-C [address], [place], [address], [facility] 16:40:00 Trochanteri c bursitis of right hip 6514381994956 00 Active 2024 Juliet Mckeon tte, PA-C [address], [place], [address], [facility] 16:40:00 Problem Notes None recorded. Procedures Surgical History Date Name Laterality Status Provider Name and Address Organization Details Recorded Time 01/16/20 25 Hip Kenalog 1cc Injection, L/R completed Juliet Jacobsen PA-C [address], [place], [address], [facility] 01/15/2025 16:40:39 01/16/20 25 JZKNEE INJ completed Juliet Jacobsen PA-C [address], [place], [address], [facility] 01/15/2025 16:40:39 01/16/20 25 JZ Knee Aspiration completed Juliet Jacobsen PA-C [address], [place], [address], [facility] 01/15/2025 16:40:52 10/21/19 25 Hip Kenalog 1cc Injection, L/R completed Juliet Jacobsen PA-C [address], [place], [address], [facility] 10/21/2024 09:31:04 10/21/19 25 JZKNEE INJ completed Juliet Jacobsen PA-C [address], [place], [address], [facility] 10/21/2024 09:30:48 10/21/19 25 JZ Knee Aspiration completed Juliet Jacobsen PA-C [address] [facility], [place], [address], [facility] 10/21/2024 09:30:56 07/15/20 24 JZKNEE INJ completed Juliet Jacobsen PA-C [address] [facility], [place], [address], [facility] 07/15/2024 10:03:59 07/15/20 24 JZHip Inj completed Juliet Jacobsen PA-C [address] [facility], [place], [address], [facility] 07/15/2024 10:03:41 04/26/20 24 Lateral Epicondylitis Celestone 1cc Injection, L/R completed Lino Mcneill PA-C [address] [facility], [place], [address], [facility] 04/26/2024 12:30:12 04/02/20 24 JZKNEE INJ completed Juliet Jacobsen PA-C [address] [facility], [place], [address], [facility] 04/02/2024 14:00:47 04/02/20 24 JZHip Inj completed Juliet Jacobsen PA-C [address] [facility], [place], [address], [facility] 04/02/2024 14:00:54 12/15/19 24 Hip Kenalog 2cc Injection, L/R completed Joe Liz PA-C [address] [facility], [place], [address], [facility] 12/15/2023 13:10:34 Imaging Results None recorded. Procedure Notes None recorded. Medical Equipment None Reported. Allergies Allergen ID Allergen Name Allergen Category Reaction Reaction Severity Criticality Documentation Date Start Date Code Code System Note Provider Name and Address Organization Details Recorded Time 65822 acetamino phen / oxycodone medicatio n Not available Not available Not available 11/06/20232012 86985 3 RxNorm Aller gyRea ction : 'Skin React ion'; Not Available [facility] 4 15:13:15 67761 erythromy lupis medicatio n Not available Not available Not available 11/06/20232012 4053 RxNorm Aller gyRea ction : 'Skin React ion'; Not Available [facility] 4 15:13:15 Medications Name Sig Start [...] Updated DateTime 10/21/2024 170.18 cm 33.5 kg/m2 19949.77 g Vandana Huerta [facility] 10/21/2024 09:08:13 Date Recorded Body height Body mass index (BMI) Body weight Provider Name and Address Organization Details Last Updated DateTime 01/15/2025 170.18 cm 33.5 kg/m2 19436.77 g TAYLER ANDRES [facility] 01/15/2025 09:25:29 Date Recorded Body height Provider Name an d Address Organization Details Last Updated DateTime 04/02/2024 170.18 cm KATELYN SWANN [facility] 04/02/2024 12:55:11 Date Recorded Body height Body mass index (BMI) Body weight Provider Name and Address Organization Details Last Updated DateTime 04/26/2024 170.18 cm 33.5 kg/m2 63225.77 g GEOVANNY REYES [facility] 04/26/2024 08:43:25 Date Recorded Body height Body mass index (BMI) Body weight Provider Name and Address Organization Details Last Updated DateTime 07/15/2024 170.18 cm 33.5 kg/m2 66996.77 g CAREN BAIRES [facility] 07/15/2024 09:37:19 Social History None recorded. Functional Status None recorded. Mental Status None recorded. Family History Nothing Reported. Medical History No medical history recorded. Past Encounters Encounter ID Performer Location Encounter Start Date Encounter Closed Date Diagnosis/Indication Diagnosis SNOMED-CT Code Diagnosis ICD10 Code Diagnosis Note [id number] Brandon Duong PA-C [facility] [address] [place], [place] [address] 12/12/2023 09:24:49 01/03/2024 07:38:28 Lateral epicondylitis of right humerus 9064917925 39259 M77.11 [id number] CARLOS [facility] [address] [place], [place] [address] 12/15/2023 09:43:51 12/15/2023 13:17:19 Trochanteric bursitis of right hip 8308590098 36857 M70.61 [id number] Juliet dee PA-C [facility] [address] [place], [place] [address] 04/02/2024 12:43:49 04/23/2024 09:25:50 Pain of right knee joint 8583820463 83336 M25.561 Osteoarthr itis of right knee joint 2155189488 39182 M17.11 Trochanter ic bursitis of right hip 6220765432 41205 M70.61 [id number] Lino Mcneill PA-C [facility] [address] [place] [address] 04/26/2024 08:34:50 05/30/2024 12:13:54 [id number] Juliet dee PA-C [facility] [address] [place] [address] 07/15/2024 09:14:19 08/09/2024 11:41:15 History of total knee arthroplasty 4916447016 105 Z96.652 Pain of ri ght knee joint 0483466796 69927 M25.561 Osteoarthr itis of right knee joint 3126180150 35529 M17.11 Trochanter ic bursitis of right hip 7836423369 33103 M70.61 [id number] CARLOS [facility] [address] [place] [address] 10/21/2024 08:10:47 10/29/2024 14:20:06 Osteoarthritis of right knee joint 9412746651 62102 M17.11 Trochanter ic bursitis of right hip 2056180712 94540 M70.61 [id number] CARLOS [facility] [address] [place] [address] 01/15/2025 09:12:32 01/23/2025 14:00:28 Osteoarthritis of right knee joint 2069106317 58668 M17.11 Trochanter ic bursitis of right hip 5522048029 96828 M70.61 Health Concerns Section Related Observation LastModified by Organization Detai ls LastModified Time None Recorded Concern Status LastModified by Organization Details LastModified Time None Recorded Advance Directives Directive None Recorded Payers Insurance Date Sequence Insurance Name Policy Number Policy Rios Covered Member ID Rios Member ID Guarantor Name 01/23/2025 1 [employer] ([place]) [id number] Gricelda Hampton [id number] Joe Hampton Notes Date Note Type Note Provider Name and Address Organization Details Recorded Time 04/02/2024 text/html ROS as noted in the HPI I am seeing the patient today under [...] noted above.X-rays ordered, obtained and reviewed at [facility] 4 views of the right knee demonstrate end-stage degenerative changes right knee medial and patellofemoral compartments with joint space narrowing, aroi-ia-bskd articulation, subchondral sclerosis, osteophyte formation.Impression: 63-year-old male [...] a cortisone injection for his elbow. Questions answered.[employer] speech recognition executive pastry chef software was used to create portions of this document. An attempt at proofreading has been made to minimize errors. Please call for corrections. Juliet Jacobsen PA-C [address] [facility] [address] [facility], [place], [address], [facility] 04/02/2024 14:01:42 04/26/2024 text/html I am [...] elbow. X-rays ordered, obtained and reviewed at [facility] Impression/Plan: Findings and situation were discussed with [...] no improvement. Lino Mcneill PA-C [address] [facility] [address], [place], [address], [facility] 04/26/2024 12:30:22 07/15/2024 text/html ROS as noted in the HPI I am seeing the patient today under [...] noted above.X-rays ordered, obtained and reviewed at [facility] 4 views of the right knee demonstrate end-stage degenerative changes right knee medial and patellofemoral compartments with joint space narrowing, usro-du-xyvu articulation, subchondral sclerosis, osteophyte formation.Impression: 63-year-old male [...] injections versus further discussion of surgery. Questions answered.[employer] speech recognition executive pastry chef software was used to create portions of this document. An attempt at proofreading has been made to minimize errors. Please call for corrections. Juliet Jacobsen PA-C [address] [place] [address] Suite [facility], [place], [address], [facility] 07/15/2024 10:04:37 10/21/2024 text/html ROS as noted in the HPI I am seeing the patient today under [...] noted above.X-rays ordered, obtained and reviewed at [facility] 4 views of the right knee demonstrate end-stage degenerative changes right knee medial and patellofemoral compartments with joint space narrowing, whje-gs-yoxg articulation, subchondral sclerosis, osteophyte formation.Impression: 63-year-old male [...] injections versus further discussion of surgery. Questions answered.[facility] speech recognition executive pastry chef software was used to create portions of this document. An attempt at proofreading has been made to minimize errors. Please call for corrections. Juliet Jacobsen PA-C [address] [facility] [address], [place], [address], [facility] 10/21/2024 09:31:54 01/15/2025 text/html ROS as noted in the HPI I am seeing the patient today under [...] noted above.X-rays ordered, obtained and reviewed at [facility] 4 views of the right knee demonstrate end-stage degenerative changes right knee medial and patellofemoral compartments with joint space narrowing, qndz-hv-rsrx articulation, subchondral sclerosis, osteophyte formation.Impression: 64-year-old male [...] injections versus further discussion of surgery. Questions answered.[employer] speech recognition executive pastry chef software was used to create portions of this document. An attempt at proofreading has been made to minimize errors. Please call for corrections. Juliet Jacobsen PA-C [address] [facility] [address], [place], [address], [facility] 01/15/2025 16:41:03
== END 2025-03-27 10:02 | disposition home or self-care (01) ==
LOC: HO.HCS 09:08
PROVIDERS: PCP Nurse Practitioner Family; Visit Provider Nurse Practitioner Family
DX: I49.3 Ventricular premature depolarization (principal); I49.1 Atrial premature depolarization; R94.39 Abnormal result of other cardiovascular function study; G47.30 Sleep apnea, unspecified
CPT/HCPCS: 93010; 99214

== ENCOUNTER → 2025-03-27 09:07 | Outpatient (BNVA) | payer BC, SELFPAY | PROVIDERS: PCP Nurse Practitioner Family; Visit Provider Nurse Practitioner Family | DX: I49.3 Ventricular premature depolarization (principal); I49.1 Atrial premature depolarization; I10 Essential (primary) hypertension; R94.39 Abnormal result of other cardiovascular function study; G47.30 Sleep apnea, unspecified; Z99.89 Dependence on other enabling machines and devices | CPT/HCPCS: 93005 ==

== ENCOUNTER 2025-04-23 15:32 | Outpatient (AMB) | payer BC, SELFPAY ==
--- NOTE | 2025-04-23 15:57 | MHC.OFFVIS ---
Intake Visit Reasons: 6w MRI Intake Note: Patient is Present for 6 mo follow up Urology Medication:Finasteride Antibiotic Allergies: Erythromycin Blood Thinners: None Imaging done : MRI 03/26/25 Odd Piece Checker Required: No Accompanied by: Self / Same As Patient Allergies erythromycin base (Erythromycin Base) Allergy (Mild, Verified 04/23/25 15:59) RAH,ITCH oxycodone (From Percocet) Allergy (Mild, Verified 04/23/25 15:59) NAUSEA,DIZZINESS HPI Comments Details: Vinny is a pleasant male. He is a patient of Dr. Ward. He is seen for the following urologic conditions - elevated PSA - erectile dysfunction PSA bounce MRI performed showing PI-RADS 3-0 equivocal lesion small Continue PSA follow-up with finasteride ALVARADO 2+ Bladder ultrasound Elevated PSA/Abnormal ALVARADO: He presents for further evaluation of rising PSA. Current management is observation. Laboratory investigations include 06/22 2.8 up from 1.4 12/22 1.9, 07/24 2.5, 12/23 1.9, 05/25 2.8, 11/23 2.9, 11/24 3.3, 11/25 3.8, 06/27 1.7, 02/26 5.8 Individualized Prostate Cancer Risk Calculator < 5% high risk, Would like to continue with observation and understands and accepts the risks of a possible delay in diagnosis. Overall symptoms are mild. Associated conditions diabetes No dyslipidemia Yes dysuria Yes erectile dysfunction Yes Therapeutic plan will be continued surveillance. Erectile dysfunction Prior therapy sildenafil 100 mg Medication currently effective Does have some trouble maintaining erection Penile constriction band demonstrated PFSH Medical History Osteoarthritis of right knee Osteoarthritis Bursitis of right hip Right tennis elbow PTSD (post-traumatic stress disorder) HURTADO (nonalcoholic steatohepatitis) Surgical History History of meniscectomy of left knee History of repair of rotator cuff Family History Father Cancer of pancreas Mother Cancer of pancreas Sister No problems noted. Daughter No problems noted. Son No problems noted. Son No problems noted. Social History Housing: House Alcohol intake: current Alcohol intake frequency: a few times a month Patient Tobacco Use Status: Never used Tobacco e-Cigarette/Vaping Use: Never Used Second Hand Smoke Exposure: No service: No Current occupational status: retired Cognitive needs: No Hearing needs: No Vision needs: Yes Review of Systems Const Denies chills and Denies fever(s) Card Reports no additional complaints and Denies syncope Resp Denies cough GI Denies abdominal pain and Denies heartburn Reports as per HPI and Denies change in libido Neuro Denies syncope Psych Denies change in libido Endo Denies change in libido Physical Exam Const General: cooperative, healthy appearing, comfortable and no acute distress Orientation/consciousness: patient oriented x3 HEENT Face and sinus: Yes normal facial exam Mouth: moist mucous membranes Neck Neck: Yes normal visual inspection, Yes full ROM and Yes trachea midline Chest Chest palpation & inspection: normal inspection of the chest Resp Effort & Inspection: normal respiratory effort, able to speak in complete sentences and no respiratory distress GI Inspection: Yes normal to inspection Back/Spine/Pelvis Cervical Spine: normal cervical lordosis Thoracic/Lumbar Spine: thoracic and lumbar spine normal to inspection Skin General skin exam: no rashes or lesions noted Neuro General: patient oriented x3, gait normal, tone normal and moves all extremities Extrem General: Yes normal to inspection and Yes capillary refill normal Assessment & Plan Assessment & Plan (1) Increased prostate specific antigen (PSA) velocity: Code(s): R97.20 - Elevated prostate specific antigen [PSA] Category: Medical Plan Six-month follow-up PSA tele Orders: Orders PSA,Total (Free>4and<10) 6 Months R97.20 - Elevated prostate specific antigen [PSA] Medications: Refilled finasteride 5 mg PO DAILY 90 tabs 1RF 90 days N13.8 - Other obstructive and reflux uropathy, N40.1 - Benign prostatic hyperplasia with lower urinary tract symptoms, R33.9 - Retention of urine, unspecified Patient Instructions: This note is constructed using voice recognition software. While every effort has been made to ensure accuracy senior outside sales representative errors may have been included. Imaging studies, laboratory and physical exam results were discussed and reviewed in detail. No major barriers to patient understanding were identified. An opportunity to ask questions regarding the treatment plan was provided. All questions were answered. The patient expressed understanding and agreement with the above treatment plan. The patient is aware they should contact our office by phone for worsening of their current condition or the appearance of new urologic symptoms. Compliance is encouraged with any medications and followup testing that is ordered. It is a privilege to participate in the urologic care of your patient. If you have any questions or concerns regarding treatment for the above conditions, or other urologic issues, please do not hesitate to contact me. The office telephone contact is [phone]. Sincerely, Dr Ulysses Randhawa MD, [facility] - Urology Compassionate Specialist Care for the Genitourinary System Coding Level of Care Code Est Pt Level 3 (43310) Diagnoses Increased prostate specific antigen (PSA) velocity R97.20
--- OUTSIDE RECORDS SUMMARY | 2025-04-23 16:21 | XMS_ITS | Patient Health Record ---
Author Organization [facility] Address [address] [place] [address] Care Team Providers Care Slot Floor Supervisor Name Role Phone Augie Toussaint Unavailable [phone] Reason For Referral No Information Plan Of Treatment No Information
== END 2025-04-23 16:36 | disposition home or self-care (01) ==
LOC: HO.HUSH 15:32
PROVIDERS: PCP Nurse Practitioner Family; Visit Provider Urology
DX: R97.20 Elevated prostate specific antigen [PSA] (principal)
CPT/HCPCS: 99213

== ENCOUNTER 2025-04-30 06:05 | Outpatient (REF) | payer BC, SELFPAY ==
--- OUTSIDE RECORDS SUMMARY | 2025-04-30 06:08 | XMS_ITS | Patient Health Record ---
Author Organization [facility] Address [address] [place] [address] Care Team Providers Care Truss Driver Helper Name Role Phone Augie Toussaint Unavailable [phone] Reason For Referral No Information Plan Of Treatment No Information
[2025-04-30 10:01] LABS: MANUAL DIFF FLAG NO
[2025-04-30 10:06] LABS: Hematocrit 45.0 % (42.0-52.0); Hemoglobin 15.6 g/dl (14.0-18.0); Imm Gran Abs Auto 0.08 X10*3/uL (0.00-0.03); Imm Gran Pct Auto 0.7 % (0.0-0.4); Lymphocytes Absolute Auto 2.1 X10*3/uL (1.2-4.9); Mean Corpuscular HGB Conc 34.7 g/dl (31.0-36.0); Mean Corpuscular Hemoglobin 31.8 pg (27.0-33.0); Mean Corpuscular Volume 91.8 fL (80.0-98.0); NRBC Abs Auto 0.000 X10*3/uL (0.0-0.012); NRBC Pct Auto 0.0 /100WBC (0.0-0.2); Platelet Count 210 X10*3/uL (160-400); Red Blood Count 4.90 X10*6/uL (4.60-5.80); White Blood Count 10.9 X10*3/uL (4.8-10.8)
[2025-04-30 10:10] LABS: Appearance Urine Clear; Glucose Urine UA Negative (Negative); PH 6.0 (5.0-9.0); Specific Gravity - Urine 1.015 (1.005-1.025)
[2025-04-30 10:34] LABS: Alanine Aminotransferase 37 U/L (0-40); Albumin Level 4.2 g/dL (3.5-5.0); Alkaline Phosphatase 80 U/L (39-117); Anion Gap 11 (12-20); Aspartate Amino Transferase 30 U/L (5-37); Blood Urea Nitrogen 14 mg/dL (9-16); Calcium 9.3 mg/dL (8.4-10.2); Carbon Dioxide 28 mmol/L (22-29); Chloride 105 mmol/L (96-108); Cholesterol 156 mg/dL (<200); Estimated Glomerular Filt Rate > 60; HDL Cholesterol 69 mg/dL (>40); Potassium 4.2 mmol/L (3.3-5.1); Sodium 140 mmol/L (135-145); Total Protein 6.8 g/dL (6.5-8.0); Triglycerides 85 mg/dL (<150)
[2025-04-30 10:47] LABS: Microalbum/Creatinine Ratio Ur 15.3 ug/mg cr (<30)
--- NOTE | 2025-06-04 10:42 | MHC.HEMONCMA ---
I gave Pet Scan order to Ni.
== END 2025-04-30 06:06 | disposition home or self-care (01) ==
LOC: HO.HMGCLDS 06:05
PROVIDERS: PCP Nurse Practitioner Family; Visit Provider Nurse Practitioner Family
DX: E11.9 Type 2 diabetes mellitus without complications (principal); D72.829 Elevated white blood cell count, unspecified
CPT/HCPCS: 36415; 80053; 80061; 81003; 82043; 82570; 84443; 85025

== ENCOUNTER 2025-05-28 15:08 | Outpatient (AMB) | payer BC, SELFPAY ==
[2025-05-28 15:12] VITALS: BP 128/86; PULSE 69; TEMP 36.8; O2SAT 97; BMI 31.2
--- NOTE | 2025-05-28 15:12 | MHC.OFFWIV ---
Intake Vital Signs 05/28/25 15:12 Height 5 ft 8 in Weight 205 lb BMI 31.2 BP 128/86 Blood Pressure Location Lt brachial Position Sitting Pulse 69 Pulse Source Pulse Oximeter Temp 98.3 F Temp Source Oral Pulse Oximetry (%) 97 Oxygen Delivery Method Room Air Intake Visit Reasons: EP-vomiting, acid reflux energy Intake Note: pt presents with worsening indigestion, unable to keep food down, burping, acid reflux with vomiting after discontinuing ozempic approximately 2.5 wks ago; was on ozempic x5 weeks Patient Tobacco Use Status: Never used Tobacco Allergies erythromycin base (Erythromycin Base) Allergy (Mild, Verified 05/28/25 15:12) RAH,ITCH oxycodone (From Percocet) Allergy (Mild, Verified 05/28/25 15:12) NAUSEA,DIZZINESS semaglutide (From Ozempic) Adverse Reaction (Severe, Verified 05/28/25 15:19) Nausea and Vomiting Do you need a note to return to daycare/school/sports/work: No HPI HPI Comments History of Present Illness Details History of Present Illness - The patient is a 64-year-old male presenting with an adverse reaction to Ozempic. - He was on Ozempic for weight loss and stopped it approximately two and a half weeks ago. - While on the medication, he experienced constipation, nausea, diarrhea, headaches, and stomach pain, which resolved after discontinuation. - Post-discontinuation, he reports persistent vomitingon and off, occurring every other day, primarily in the evenings, and difficulty digesting food. - He experiences frequent burping and bloating, with occasional shooting stomach pain. - He has been taking Prilosec daily and Pepto-Bismol tablets for symptom relief. - He reports no blood in vomit and normal stool consistency. - He has lost 14 pounds while on Ozempic. - He has been prescribed ondansetron for nausea yesterday, which provides some relief. - He denies fever, chills, dysuria, hematuria, CP, SOB, melena, or hematochezia. Physical Exam General: Cooperative, healthy appearing, comfortable, no acute distress and well developed Orientation: Patient oriented x3 Limitations: No limitations Respiratory: Normal respiratory effort and able to speak in complete sentences. Clear to auscultation bilaterally. No w/r/r noted. Cardiovascular: Regular rate and rhythm. Normal S1 and S2. No m/r/g noted. GI: Hypoactive BS noted. Normal to inspection. Soft to palpation and nontender, non-distended. No guarding or rebound tenderness noted. Negative [place] and Rovsing noted. Skin: No rashes or lesions noted Patient was informed and verbally consented to the use of an ambient scribe for clinic note documentation during this visit. [facility] Medical History Osteoarthritis of right knee Osteoarthritis Bursitis of right hip Right tennis elbow PTSD (post-traumatic stress disorder) HURTADO (nonalcoholic steatohepatitis) Surgical History History of meniscectomy of left knee History of repair of rotator cuff Family History Father Cancer of pancreas Mother Cancer of pancreas Sister No problems noted. Daughter No problems noted. Son No problems noted. Son No problems noted. Social History Housing: House Alcohol intake: current Alcohol intake frequency: a few times a month Patient Tobacco Use Status: Never used Tobacco e-Cigarette/Vaping Use: Never Used Second Hand Smoke Exposure: No service: No Current occupational status: retired Cognitive needs: No Hearing needs: No Vision needs: Yes Review of Systems Const All systems reviewed & are unremarkable except as noted in HPI and below Physical Exam Vital Signs: Last Vital Signs Temp 98.3 F 05/28/25 15:12 Pulse 69 05/28/25 15:12 BP 128/86 05/28/25 15:12 Pulse Ox 97 05/28/25 15:12 Oxygen Delivery Method Room Air 05/28/25 15:12 BMI result Body Mass Index 31.2 Assessment & Plan Assessment & Plan (1) Vomiting: Code(s): R11.10 - Vomiting, unspecified Qualifiers: Vomiting type: unspecified Nausea presence: with nausea Qualified Code(s): R11.2 - Nausea with vomiting, unspecified Plan Most likely Adverse Reaction To Ozempic vs gastritis vs PUD vs GERD vs h pylori vs pancreatitis plan - will order labs today - Prescribed ondansetron for nausea management. - Continue Prilosec daily for symptom management. - Starr diet as tolerated - drink fluids - Order H. pylori test to confirm infection. - Consider antibiotics if H. pylori infection is confirmed. - will call with the results - follow up with PCP - advised going to the ER if vomiting continues, abd pain, fever, etc. Orders: Orders H pylori Ag Stool Today R11.10 - Vomiting, unspecified Complete Blood Count Auto Diff Today R11.10 - Vomiting, unspecified Comprehensive Met. Panel Today R11.10 - Vomiting, unspecified Coding Level of Care Code Est Pt Level 4 (79478) Diagnoses Nausea and vomiting, unspecified vomiting type R11.2 Vomiting type: unspecified Nausea presence: with nausea
--- OUTSIDE RECORDS SUMMARY | 2025-05-28 17:37 | XMS_ITS | Patient Health Record ---
Author Organization [facility] Address [address] [place] [address] Care Team Providers Care Coater Brake Linings Name Role Phone Augie Toussaint Unavailable [phone] Reason For Referral No Information Plan Of Treatment No Information
== END 2025-05-28 15:45 | disposition home or self-care (01) ==
PROVIDERS: PCP Nurse Practitioner Family; Visit Provider Physician Assistant Medical
DX: R11.2 Nausea with vomiting, unspecified (principal)

== ENCOUNTER 2025-05-29 07:53 | Outpatient (REF) | payer BC, SELFPAY ==
--- OUTSIDE RECORDS SUMMARY | 2025-05-29 07:56 | XMS_ITS | Patient Health Record ---
Author Organization [facility] Address [address] [place] [address] Care Team Providers Care Arts And Crafts Instructor Name Role Phone Augie Toussaint Unavailable [phone] Reason For Referral No Information Plan Of Treatment No Information
[2025-05-29 10:17] LABS: MANUAL DIFF FLAG NO
[2025-05-29 10:27] LABS: Hematocrit 44.3 % (42.0-52.0); Hemoglobin 15.5 g/dl (14.0-18.0); Imm Gran Abs Auto 0.06 X10*3/uL (0.00-0.03); Imm Gran Pct Auto 0.6 % (0.0-0.4); Lymphocytes Absolute Auto 1.7 X10*3/uL (1.2-4.9); Mean Corpuscular HGB Conc 35.0 g/dl (31.0-36.0); Mean Corpuscular Hemoglobin 31.9 pg (27.0-33.0); Mean Corpuscular Volume 91.2 fL (80.0-98.0); NRBC Abs Auto 0.000 X10*3/uL (0.0-0.012); NRBC Pct Auto 0.0 /100WBC (0.0-0.2); Platelet Count 240 X10*3/uL (160-400); Red Blood Count 4.86 X10*6/uL (4.60-5.80); White Blood Count 10.0 X10*3/uL (4.8-10.8)
[2025-05-29 10:57] LABS: Alanine Aminotransferase 27 U/L (0-40); Albumin Level 4.4 g/dL (3.5-5.0); Alkaline Phosphatase 68 U/L (39-117); Anion Gap 12 (12-20); Aspartate Amino Transferase 27 U/L (5-37); Blood Urea Nitrogen 9 mg/dL (9-16); Calcium 9.9 mg/dL (8.4-10.2); Carbon Dioxide 35 mmol/L (22-29); Chloride 101 mmol/L (96-108); Estimated Glomerular Filt Rate > 60; Potassium 4.4 mmol/L (3.3-5.1); Sodium 144 mmol/L (135-145); Total Protein 7.0 g/dL (6.5-8.0)
== END 2025-05-29 07:54 | disposition home or self-care (01) ==
LOC: HO.HMGCLDS 07:53
PROVIDERS: PCP Nurse Practitioner Family; Visit Provider Physician Assistant Medical
DX: R11.10 Vomiting, unspecified (principal)
CPT/HCPCS: 36415; 80053; 85025

== ENCOUNTER 2025-05-29 11:27 | Inpatient (IN) | payer BC, SELFPAY ==
--- NOTE | ~2025-05-29 | CT_ITS ---
CLINICAL HISTORY: p pyloric stent, new stomach soft tissue fullness CT abdomen and pelvis with contrast Comparison: CT/VA/SR - CT ABDOMEN PELVIS WITH IV CONTRAST - 05/29/25 13:05 EDT Findings: CT abdomen: Interval development of extensive consolidation within the lower lobes bilaterally with air bronchograms. Small bilateral pleural effusions. Unilateral left L5 spondylolysis without associated spondylolisthesis. Degenerative change throughout the thoracolumbar spine without acute bony abnormality. 15 mm hypodense lesion within the right lobe of the liver is highly likely metastatic in nature. Cyst within the left lobe of the liver is unchanged. Main portal vein is patent. Spleen, pancreas, gallbladder, adrenal glands, kidneys are unchanged in appearance. Interval placement of metallic wall stent within the distal gastric body extending into the duodenal bulb. Masslike concentric wall thickening of the distal stomach measuring up to 1.8 cm in thickness. Adjacent inflammatory stranding within the mesentery. Additionally, there is a 8.5 x 7.1 cm fluid collection abutting the mid to distal aspect of the greater curvature of the stomach, increased in size since prior study when it measured 3.8 x 5.9 cm in size. This is displacing the stomach anteriorly and resulting in luminal narrowing. There is induration along the omentum with areas of nodularity within the mesentery and along the peritoneal lining concerning for peritoneal carcinomatosis. There scattered free fluid throughout the abdomen and pelvis as well. No free air. No dilated small bowel. CT pelvis: Urinary bladder is decompressed with Avery catheter in place. No colonic dilation. No free air. Small volume free pelvic fluid. IMPRESSION: 1. Metallic wall stent placement within the distal stomach extending into the duodenal bulb as above. This is presumably crossing a malignant stricture with findings concerning for peritoneal carcinomatosis as fully discussed above. 2. Interval increase in size of a fluid collection abutting the greater curvature of the stomach. This may be related to an area of peritoneal carcinomatosis or developing abscess. This document has been electronically signed by: Sixto Pennington MD on 06/06/2025 00:04:14
--- NOTE | ~2025-05-29 | CT_ITS ---
EXAMINATION: CT ABDOMEN AND PELVIS WITH CONTRAST CLINICAL INFORMATION: Epigastric pain and vomiting. COMPARISON: No prior CT. TECHNIQUE: Multidetector volumetric images were obtained from the superior aspect of the liver through the pubic symphysis following administration 85 mL of Omnipaque 350 intravenous contrast. Sagittal and coronal reformatted images were obtained on the technologist's workstation. Oral contrast: No This CT examination was performed using dose optimization techniques as appropriate, variously including the following: *Automated exposure control *Adjustment of mA and/or kV according to patient size (this includes techniques or standardized protocols for targeted exams where dose is matched to indication/reason for exam; i.e. extremities or head) *Use of iterative reconstruction technique FINDINGS: LUNG BASES: Trace right effusion is present. Lung bases are otherwise clear with only minimal dependent atelectasis present. Heart size is normal. No pericardial effusion. Moderate coronary calcifications. The distal esophagus is mildly distended with fluid. There is a 4 mm nodule abutting the major fissure (series 6, image 6). LIVER, GALLBLADDER, AND BILIARY TREE: The liver is normal in size, shape, and attenuation. No intrahepatic biliary ductal dilatation is present. There is a tiny indeterminant hypoattenuating focus in segment 2. Tiny lesion in the dome of the right lobe. There is an indeterminate oval hypoattenuating 1.5 cm lesion in segment 8 (series 3, image 19). No additional hepatic lesions. The gallbladder is unremarkable with no evidence of radiopaque gallstones, gallbladder wall thickening, or obvious pericholecystic inflammatory changes. There is perihepatic ascites. PANCREAS: Mild atrophy. No lesions. SPLEEN: Normal. Mild surrounding ascites noted. Small splenule. ADRENAL GLANDS: Normal. KIDNEYS AND URETERS: The kidneys are normal in size, shape, and attenuation. No hydronephrosis, hydroureter, or calculi seen. No perinephric stranding. There are a few tiny subcentimeter cysts. BLADDER: Normal. GASTROINTESTINAL TRACT: The distal esophagus is mildly distended with fluid. The stomach is very dilated and fluid-filled, with obstruction evident level of the distal antrum and pylorus where there is severe wall thickening and edema present, with a small amount of surrounding fluid and inflammation. Findings are consistent with gastric outlet obstruction. The duodenum is decompressed. There are mild infiltrative changes of the omentum, just inferior to the stomach. The remainder of the small bowel is decompressed and normal in caliber and course. A normal appendix is visualized. The colon is normal in caliber, and course, and demonstrates a few scattered diverticula. There is no rectal abnormality. PERITONEUM: There is no free intraperitoneal air. There is small volume ascites present. There are mild infiltrative changes in the anterior omentum just inferior to the stomach, with minimal nodularity. Early carcinomatosis is not excluded. ABDOMINAL WALL: There are tiny fat-containing inguinal hernias. LYMPH NODES: No abnormal lymphadenopathy is evident. VASCULAR: Mild atheromatous calcification of the aorta and iliac vessels. No aneurysm. PELVIC VISCERA: The prostate and seminal vesicles are unremarkable. OSSEOUS STRUCTURES: No lytic or blastic bone lesions evident. There are mild degenerative changes throughout the spine, most significant at L5-S1. CT/CT abdomen pelvis w IV con IMPRESSION: 1. Gastric outlet obstruction, with severe wall thickening, inflammation and edema of the distal antrum and pylorus. Given the appearance, neoplasm is suspected. This could potentially also represent localized inflammation from peptic disease although this is considered less likely. 2. Small volume ascites surrounding the liver, spleen, and abutting the lesser curvature of the stomach. 3. There are mild infiltrative changes in the anterior omentum just inferior to the stomach, with minimal nodularity. Early carcinomatosis is a consideration. 4. Indeterminate 1.5 cm lesion in segment 8 of the liver, and in segment 2 of the liver. 5. Ancillary findings as discussed. Electronically signed by: Michael Armenta MD 05/29/2025 01:46 PM EDT
--- NOTE | ~2025-05-29 | XR_ITS ---
CLINICAL HISTORY: ET Tube Position 1 view chest x-ray Comparison: CR - XR CHEST 1V - 06/05/25 17:46 EDT Findings: There is consolidation within the right lower lung without change and milder airspace disease within the left lower lung without change. The endotracheal tube tip is 5 cm above the qi. Normal size heart. A right-sided PICC and left-sided central venous port remain in place. No acute fracture. There is soft tissue fullness within the central upper abdomen with possible mass effect on the greater curvature of the stomach. IMPRESSION: 1. The endotracheal tube tip is 5 cm above the qi. 2. Soft tissue fullness within the central upper abdomen with possible mass effect on the greater curvature of the stomach, evaluated in limited fashion. Recommend correlation with physical examination findings and attention to this area at follow-up. CT evaluation may be indicated when appropriate. This document has been electronically signed by: Qi Nick MD on 06/05/2025 20:20:54
--- NOTE | ~2025-05-29 | FL_ITS ---
EXAMINATION: FL GUIDANCE ONLY HISTORY: EGD W/ PLYORIC STENT COMPARISON: Correlation is made with a CT of the abdomen with contrast dated 05/29/2025. TECHNIQUE: Fluoroscopy time: 4 minutes, 0.9 seconds. Cumulative Dose: 90.551 mGy. DAP: 39.389 Gycm2 Images: 6. FINDINGS: Fluoroscopic spot films of the abdomen demonstrate placement of a pyloric stent. FL/FL guidance in OR IMPRESSION: Fluoroscopy during procedure. Please see procedure report for additional information. Electronically signed by: Augie Nguyen MD 06/06/2025 07:09 AM EDT
--- NOTE | ~2025-05-29 | XR_ITS ---
EXAMINATION: XR CHEST CLINICAL INFORMATION: PICC line insertion COMPARISON: None available. TECHNIQUE: Frontal view of the chest was obtained. FINDINGS: AP and oblique views of right chest were obtained. The enteric tube is in stomach. There is a right PICC line that appears coiled in the subclavian/brachiocephalic venous junction. The catheter is functional and can be used. The lungs are expanded and clear. Size enlarged. Pulmonary vascularity is normal. No gross bony vascularity. XR/XR chest 1V IMPRESSION: New right PICC line tip is coiled in the brachiocephalic vein but can be used. The enteric tube tip is in the stomach. Electronically signed by: Claudio Romero MD 06/03/2025 04:16 PM EDT
--- NOTE | ~2025-05-29 | CT_ITS ---
EXAMINATION: CT ABDOMEN PELVIS WITHOUT IV CONTRAST HISTORY: Abdominal pain, decreased bowel sounds lower quadrant COMPARISON: Comparison is made with prior examinations dated 06/05/2025 and 06/06/2025. TECHNIQUE: CT scan of the abdomen and pelvis was performed without contrast using standard departmental protocol. Coronal and sagittal reformatted images were generated and reviewed. Oral contrast material was not administered at the request of the referring physician. This CT exam was performed with one or more of the following dose reduction techniques: automated exposure control, adjustment of the mA and/or kV according to patient size, use of iterative reconstruction technique. DLP: 664 mGy-cm FINDINGS: LOWER CHEST: There are small bilateral pleural effusions with adjacent atelectasis or pneumonia. CARDIOVASCULATURE: The heart is normal in size. There is no pericardial effusion. LIVER: The liver is normal in size and contour. Again seen is a probable 9 mm cyst in the left lobe of the liver. A more ill-defined 1.7 cm hypodensity in the right lobe is suspicious for metastatic disease. GALLBLADDER / BILE DUCTS: There is hyperdense material in the gallbladder likely representing vicarious excretion of contrast material. There is no intra or extrahepatic biliary ductal dilatation. SPLEEN: The spleen is normal in size and has an unremarkable unenhanced appearance. PANCREAS: The pancreas has an unremarkable unenhanced appearance. ADRENAL GLANDS: Unremarkable. KIDNEYS/RETROPERITONEUM: No renal calculi are identified. There is no hydronephrosis. LYMPH NODES: No retroperitoneal lymphadenopathy is identified in the abdomen or pelvis. VASCULATURE: The abdominal aorta is normal in caliber. MESENTERY/PERITONEUM: There is a small amount of ascites in the abdomen and pelvis as seen previously. Infiltration of the omental fat in the upper abdomen is again noted, suspicious for omental caking. There is no free intraperitoneal gas. STOMACH: A stent is again noted in the pylorus. There is a drainage catheter present with its tip in the previously seen perigastric collection. Minimal residual fluid is seen around the catheter tip. The residual collection measures approximately 3.2 x 2.3 x 2.9 cm. SMALL BOWEL: The small bowel is normal in caliber. COLON: The colon is unremarkable. APPENDIX: Normal. URINARY BLADDER/PELVIC ORGANS: There is gas in the urinary bladder which may be due to recent instrumentation or Avery catheter placement. The prostate is normal in size. BONES / SOFT TISSUES: There is degenerative disc disease of the spine. There is bilateral spondylolysis of L5 on the left without spondylolisthesis. CT/CT abdomen pelvis wo IV con IMPRESSION: 1. Pyloric stent in place. Interval placement of a drainage catheter in the previously noted perigastric collection. Minimal residual fluid is seen around the catheter tip. 2. Again seen is a small amount of ascites in the abdomen and pelvis. Infiltration of the omental fat in the upper abdomen is highly suspicious for peritoneal carcinomatosis. 3. 1.7 cm hypodensity in the right lobe of the liver suspicious for metastatic disease. Electronically signed by: Augie Nguyen MD 06/09/2025 08:11 AM EDT
--- NOTE | ~2025-05-29 | CT_ITS ---
CLINICAL HISTORY: Gastric outlet obstruction by posterior gastric mass. PROCEDURES: 1. Limited preprocedure CT of the abdomen. Permanent images saved in PACS. 2. CT-guided drainage of a posterior gastric fluid collection 3. Limited post procedure CT of the abdomen. Permanent images saved in PACS. CLINICIANS: Jeronimo Tristan NP Preprocedural imaging reviewed with Roshan Bashir M.D. MEDICATIONS: -Sedation per field application engineer, and lidocaine 1% 10 mL SQ -Antibiotics: None -For additional details, please see nursing flowsheet. COMPLICATIONS: None ESTIMATED BLOOD LOSS: < 5 ml CONTRAST: None SPECIMENS: A specimen was sent for culture. MODERATE SEDATION TIME: Not applicable. PROCEDURE NOTE: The procedure, risks, benefits, and alternatives were carefully explained to the patient's proxy and written informed consent was obtained. The patient was placed supine on the CT table. A timeout was performed. A limited CT of the abdomen was performed to localize the fluid collection and choose appropriate needle entry and trajectory. The patient was prepped and draped in usual sterile fashion. The skin and subcutaneous tissues were anesthetized with lidocaine. Under CT guidance, a trocar was advanced to the fluid collection through the anterior and posterior stomach wall. Yellow fluid was immediately aspirated. A 0.0035 J wire was inserted through the the trocar needle and coiled in the fluid collection. The trocar needle was then removed over the wire. The tract was then serially dilated. Over the wire, a 6 fr all-purpose drainage catheter was advanced and coiled into the fluid collection under CT guidance. The wire was then removed. A total of 70 ml of yellow ascitic-like fluid was removed and sent for culture. The catheter was secured to the skin with a 2-0 nylon suture and with slack. A DEB bulb was then attached to the drainage catheter. A limited postprocedure CT was then obtained. The patient was stable after the procedure and was transferred to the intensive care unit. The procedure was done with a dedicated nurse for monitoring of vital signs. CT/CT drain peritoneum Impression: CT guided drainage of posterior gastric fluid collection. PLAN: The catheter is to remain in the fluid collection attached to continuous DEB bulb drainage. There was slack left on the catheter so that as the fluid collection and stomach decompressed, the catheter is able to follow the fluid collection as the stomach moves posteriorly. We can attempt to have the patient trial a catheter capping to see the trajectory of the fluid reaccumulating. If there is reaccumulation in a short period of time, we can discuss leaving the catheter in or utilizing an ineternalized catheter communicating from the fluid collection into the stomach itself. This should also be done after a tract has been established from the entry site of the catheter to the stomach which can take anywhere from 7-14 days. This procedure was performed by Jeronimo Tristan NP and supervised by Roshan Bashir M.D.. Electronically signed by: Roshan Bashir MD 06/12/2025 05:52 PM EDT Workstation: [id number]
--- NOTE | ~2025-05-29 | US_ITS ---
History: Patient presents with abdominal mass and suspected metastatic liver pathology. PROCEDURES: 1. Limited preprocedure ultrasound of the abdomen. Permanent images saved in PACS. 2. Ultrasound-guided biopsy of the right liver lesion. 3. Limited preprocedure ultrasound of the abdomen. Permanent images saved in PACS. CLINICIANS: Jeronimo Tristan NP MEDICATIONS: -Sedation per engine oiler, and lidocaine 1% 10 mL SQ -Antibiotics: None -For additional details, please see nursing flowsheet. COMPLICATIONS: None ESTIMATED BLOOD LOSS: < 5 ml CONTRAST: None SPECIMENS: 7 x 20 g cores were sent to pathology MODERATE SEDATION TIME: Not applicable PROCEDURE NOTE: The procedure, risks, benefits, and alternatives were carefully explained to the patient's proxy and written informed consent was obtained. The patient was placed supine on the exam table. A timeout was performed. A limited ultrasound of the abdomen was performed to localize the right-sided liver lesion and choose appropriate needle entry and trajectory. The patient was prepped and draped in usual sterile fashion. The skin and deeper soft tissues were anesthetized with lidocaine. Under ultrasound guidance, a 19 gague trocar needle was advanced to the liver lesion. A 20 gauge biopsy device was inserted through the trocar needle advanced into the liver lesion. A total of 7, 20 gauge cores were performed. The specimens were placed in formalin. A total of 2 Gelfoam torpedoes were then administered through the trocar needle into the biopsy tract and at the level of the liver capsule. The needle was removed. A limited post procedure ultrasound was then performed. Images were saved in PACS. A dry dressing was applied and secured with Tegaderm. There were no immediate complications. The patient was stable after the procedure and was transferred to the intensive care unit. The procedure was done with a dedicated nurse for monitoring of vital signs. US/US biopsy liver Impression: Ultrasound-guided biopsy of a right liver lesion. This procedure was performed by Jeronimo Tristan NP and supervised by oRshan Bashir M.D.. Electronically signed by: Roshan Bashir MD 06/12/2025 05:52 PM EDT Workstation: [id number]
--- NOTE | ~2025-05-29 | IR_ITS ---
CLINICAL HISTORY: Gastric cancer. The patient presents to interventional radiology for placement of a port for chemotherapy. The patient also has a right-sided PICC line. PROCEDURES: 1. Real-time ultrasound-guided access into the left internal jugular vein after documentation of selected vessel patency, and permanent image storing in the patient records. 2. Placement of a 6.6 German single-lumen port. CLINICIAN: Jeronimo Tristan NP MEDICATIONS: - Versed , Fentanyl , Lidocaine 1% SQ -Antibiotics: Ancef 2g -For additional details, please see nursing flowsheet. Complications: None. Estimated blood loss: <5 ml Specimens: None. Contrast: None. Fluoroscopy time: 41 min MODERATE SEDATION TIME: 2.7 min PROCEDURE NOTE: The procedure, risks, benefits, and alternatives were carefully explained to the patient and written informed consent was obtained. The patient was placed supine on the fluoroscopy table. A timeout was performed. The left neck and chest was prepped and draped in usual sterile fashion. Maximum barrier technique was utilized. Local anesthesia was administered to the access site with 1% lidocaine. Under ultrasound guidance, the left internal jugular vein was accessed with a 5 fr micropuncture set. A 0.035 in wire was attempted to be advanced into the IVC however this proved to be greatly difficult. A peel-away sheath was advanced over the wire and into the brachiocephalic/SVC junction, and the wire was removed. Next, subcutaneous lidocaine was administered to the chest. The port pocket was created after the skin incision, utilizing blunt dissection. Using blunt dissection, a subcutaneous tunnel was created that connects from the port pocket to the venotomy site. Through the peel-away sheath, the 6.6 German port catheter was placed. The catheter position was verified with fluoroscopy to be at the brachiocephalic/superior vena cava.The port was connected to the catheter and was placed in the pocket. The port incision site was closed with interrupted 3-0 Vicryl subcutaneous sutures and surgical glue. Prior to closing the skin, 1 g of Ancef solution was placed in the pocket. The port was tested, flushed, and packed with heparin per routine protocol. The patient tolerated the procedure well. The patient was stable after the procedure and was transferred to the PACU. The procedure was performed under moderate sedation and with a dedicated nurse with continuous monitoring of vital signs. A permanent image of the ultrasound the neck and fluoroscopic image of the chest was saved and sent to PACS. FINDINGS: 1. Patent left internal jugular vein 2. Placement of a 6.6 German single lumen port. 3. Port flushes and aspirates very well with a 10 mL syringe. No pneumothorax. IR/IR cvc insert tunnel w prt/gis software engineer IMPRESSION: Placement of a 6.6 German single-lumen port. PLAN: - Port may be used immediately. - Interventional radiology may be contacted if there is difficulty using the port. With the great difficulty intraprocedurally in navigating the central vasculature, there could be some form of stenosis and/or extrinsic compression. This was communicated to the hospitalist and will be managed at their discretion. This procedure was performed by Jeronimo Tristan NP and directly supervised by Roshan Bashir M.D. Electronically signed by: Roshan Bashir MD 06/12/2025 05:52 PM EDT Workstation: [id number]
--- NOTE | ~2025-05-29 | XR_ITS ---
CLINICAL HISTORY: NG Tube placement Single view of the chest. COMPARISON: XR chest dated 11/06/24 at 11:19 EST FINDINGS: Enteric tube extends into the abdomen with tip visualized below the diaphragm and side hole at the GE junction. Recommend advancement by minimally 4 cm. Normal heart and mediastinal contours. Low lung volumes. Crowding of the bronchovascular markings likely secondary to low lung volumes. No focal consolidation. No pleural effusion or pneumothorax. No fracture identified. Mild spondylosis. IMPRESSION: 1. Enteric tube (NG) side hole is at the GE junction. Recommend advancement by minimally 4 cm. This document has been electronically signed by: Arnold Manzanares MD on 05/29/2025 18:04:24
--- NOTE | ~2025-05-29 | XR_ITS ---
CLINICAL HISTORY: Possible aspiration-low O2 sats 1 view chest x-ray Comparison: CR/GA/SR - XR CHEST 1 VIEW - 06/03/25 15:42 EDT Findings: There is a new large area of dense consolidation within the right lower lung. There is also mild airspace opacity within the left lower lung. Heart size is normal. The nasogastric tube has been removed. A right-sided PICC is now at the level of the superior vena cava. There is a new left-sided Port-A-Cath with its tip at the junction between the left innominate vein and the superior vena cava. No acute fracture. IMPRESSION: New large area of consolidation within the right lower lung, compatible with pneumonia. This could be secondary to aspiration. Additional milder infiltrate within the left lower lung. This document has been electronically signed by: Qi Nick MD on 06/05/2025 18:32:43
--- NOTE | ~2025-05-29 | CT_ITS ---
EXAMINATION: CT CHEST WITH CONTRAST CLINICAL INFORMATION: Difficulty navigating wire/catheter during pack and port placement. Rule out extrinsic compression or metastases. Patient with known gastric antral mass. COMPARISON: No prior chest CT. Correlation made with CT abdomen and pelvis 06/05/2025, and 05/29/2025. TECHNIQUE: Multidetector volumetric CT imaging of the chest was obtained after the administration of 65 mL of Omnipaque 350 intravenous contrast without immediate adverse reactions. Axial MIP volume rendering provided. Sagittal and coronal reformatted images were obtained. This CT examination was performed using dose optimization techniques as appropriate, variously including the following: *Automated exposure control *Adjustment of mA and/or kV according to patient size (this includes techniques or standardized protocols for targeted exams where dose is matched to indication/reason for exam; i.e. extremities or head) *Use of iterative reconstruction technique FINDINGS: LINES/TUBES: A left-sided chest port is in place with tip terminating in the left brachiocephalic vein just proximal to the SVC. A right sided PICC is in place, with tip terminating at the cavoatrial junction, in good position. An endotracheal tube is in place, approximately 4 cm above the qi, in good position. LUNGS: There are small layering pleural effusions with associated airspace consolidations of the majority of both lower lobes. There are associated air bronchograms present. The upper lobes are grossly pneumatized. There is subsegmental consolidative opacity in the posterior left upper lobe, as well as the posterolateral right middle lobe. There is some associated groundglass opacity in the right middle lobe and posterior left upper lobe. There is a nodular focus of consolidation measuring 1.3 cm in the superior segment of the left lower lobe, indeterminate (series 6, image 39). Cannot exclude a pulmonary metastasis. No definite additional nodules or masses in the aerated lungs. There is no pneumothorax. MEDIASTINUM: Endotracheal tube in place. There are no abnormal lymph nodes or masses in the mediastinum. Thyroid demonstrates a tiny 4 mm nodule in the right lobe. Thyroid otherwise grossly normal. Aorta is normal in caliber and course. No aneurysm. Main pulmonary artery is mildly prominent but otherwise normal in caliber. Heart size is mildly enlarged. There is no pericardial effusion. There are moderate coronary calcifications. Esophagus is normal in appearance. AXILLA/CHEST WALL: No masses or abnormal lymph nodes. Left-sided chest port. Right-sided PICC UPPER ABDOMEN: There has been a stent placed in the gastric antrum, traversing the mass like opacity previously causing gastric outlet obstruction. Similar ovoid fluid collection abutting the lesser curvature of the inferior stomach, currently spanning 8.1 x 7.1 cm in axial diameter. Small volume upper abdominal ascites. Suspicious 1.5 cm mass in hepatic segment 8, as well as a small hypoattenuating focus in segment 2, and a tiny hypoattenuating focus in the dome of the liver. Findings are suspicious for metastases. Partially imaged infiltrative changes of the omentum suggestive of carcinomatosis. OSSEOUS STRUCTURES: No suspicious lytic or blastic bone lesions evident. CT/CT chest w IV con IMPRESSION: 1. Lines and tubes in satisfactory position as detailed. 2. Small bilateral pleural effusions with associated consolidations of the majority of both lower lobes. Cannot exclude pneumonia, versus atelectasis. 3. In the superior segment of the left lower lobe, there is a 1.3 cm nodule or nodular consolidation abutting the pleura. Cannot exclude a pulmonary metastasis given the appearance. Alternatively, this could be part of the consolidative process in the lower lobes. 4. No definite additional pulmonary nodule or metastasis in the aerated lungs. 5. No mediastinal lymphadenopathy or mass. 6. Mild cardiac enlargement. Prominence of the main pulmonary artery, could suggest elevated pulmonary pressures. 7. Upper abdominal findings unchanged from CT abdomen pelvis of prior day. 8. Additional findings as discussed in the body of the report. Electronically signed by: Michael Armenta MD 06/06/2025 11:54 AM EDT
--- NOTE | 2025-05-29 11:32 | ED.NAVMDI ---
HPI - Nausea/Vomiting/Diarrhea General Chief complaint: Nausea/Vomiting/Diarrhea Stated complaint: Vomiting, abd pain Time Seen by Provider: 05/29/25 11:43 Source: patient and family Mode of arrival: ambulatory Limitations: no limitations History of Present Illness ED Provider: DR. Estevez HPI Narrative: 64-year-old male brought in with his for evaluation of epigastric pain, feels bloated, nonstop vomiting of a dark vomits, no diarrhea last bowel movement was this morning and was dark bowel with no obvious blood in the stool, no black stool, no fever, no chills, no diarrhea, passing flatus, no history of intra-abdominal surgery. No history of alcohol abuse. Related Data Home Medications ?Medication ?Instructions ?Recorded ?Confirmed ibuprofen 600 mg tablet 600 mg PO Q6H PRN Pain 12/14/22 05/29/25 omeprazole 20 mg capsule,delayed 20 mg PO DAILY@0630 05/28/25 05/29/25 release Previous Rx's ?Medication ?Instructions ?Recorded FreeStyle Lite Meter #1 ea 07/12/22 (blood-glucose meter) FreeStyle Lite Strips (blood sugar #100 ea 07/12/22 diagnostic) lancets 30 gauge #200 ea 07/12/22 losartan 50 mg tablet 50 mg PO DAILY #90 tabs 02/25/25 finasteride 5 mg tablet 5 mg PO DAILY 90 days #90 tabs 04/23/25 atorvastatin 20 mg tablet 20 mg PO BEDTIME #90 tabs 05/22/25 amlodipine 10 mg tablet 10 mg PO DAILY 90 days #90 tabs 05/23/25 ondansetron HCl 4 mg tablet 4 mg PO Q8H PRN nausea and 05/27/25 vomiting 7 days #14 tabs Allergies Allergy/AdvReac Type Severity Reaction Status Date / Time erythromycin base Allergy Mild RAH,ITCH Verified 05/29/25 11:35 (Erythromycin Base) oxycodone (From Percocet) Allergy Mild NAUSEA,DIZZ Verified 05/29/25 11:35 INESS semaglutide (From Ozempic) AdvReac Severe Nausea and Verified 05/29/25 11:35 Vomiting Review of Systems Review of Systems: All other systems are reviewed and are negative Constitutional: Reports as per HPI and Reports no additional constitutional complaints Eyes: Reports as per HPI and Reports no additional eye complaints Reports system reviewed and no additional complaints, except as documented Cardiovascular: Reports as per HPI and Reports no additional cardiovascular complaints Respiratory: Reports as per HPI and Reports no additional respiratory complaints Gastrointestinal: Reports as per HPI and Reports no additional gastrointestinal complaints Genitourinary: Reports no additional female genitourinary complaints Musculoskeletal: Reports no additional musculoskeletal complaints Skin/Breast: Reports system reviewed and no additional complaints, except as docu Psychiatric: Reports no additional psychiatric complaints Endocrine: Reports no additional endocrine complaints Hematologic/Lymphatic: Reports no additional hematologic/lymphatic complaints Allergic/Immunologic: Reports no additional allergic/immunologic complaints Reports system reviewed and no additional complaints, except as documented and Reports Abnormal speech present [facility] Past Medical History Medical History Borderline diabetes mellitus Sleep apnea HTN (hypertension) Osteoarthritis of right knee Osteoarthritis Bursitis of right hip Right tennis elbow PTSD (post-traumatic stress disorder) HURTADO (nonalcoholic steatohepatitis) Surgical History H/O total knee replacement History of meniscectomy of left knee History of repair of rotator cuff Family History Family History Father Cancer of pancreas Mother Cancer of pancreas Sister No problems noted. Daughter No problems noted. Son No problems noted. Son No problems noted. Social History Social History Household Members: Family Housing: House Do you presently have visiting nurse or other home services: No Alcohol intake: current Alcohol intake frequency: a few times a month Patient Tobacco Use Status: Never used Tobacco e-Cigarette/Vaping Use: Never Used Second Hand Smoke Exposure: No service: No Current occupational status: retired Cognitive needs: No Hearing needs: No Vision needs: Yes Physical Exam Vital Signs: Vital Signs: Last Vital Signs Temp 98.5 F 05/30/25 14:39 Pulse 72 05/30/25 14:39 Resp 16 05/30/25 14:39 BP 139/87 05/30/25 14:39 Pulse Ox 93 05/30/25 14:39 O2 Del Method Room Air 05/30/25 14:39 BMI result Body Mass Index 30.6 Vital signs have been reviewed and appear to be correct. Blood pressure elevated. Heart rate normal. Respiratory rate normal. Temperature normal. Oxygen saturation normal. Appearance: Alert. Oriented X3. No acute distress. Head: Normal external exam. Normocephalic. Atraumatic. No Lacey signs noted. No raccoon eyes noted Eyes: PERRLA. EOMI. Conjunctiva and sclera normal. Eyelids normal. ENT: TM's Normal. Pharynx normal. Uvula midline. Moist mucous membranes. No trismus noted. No drooling noted. No muffled voice noted. Neck: Normal inspection. Neck supple. FROM. No adenopathy. Thyroid Normal. No meningeal signs. No neck mass noted. CVS: Normal heart rate and rhythm. Heart sound normal. No murmurs noted. Pulses normal throughout. Respiratory: No respiratory distress. Painless inspiration. Breath sounds normal. No wheezes/rales/rhonchi noted. Chest nontender. No accessory muscle usage noted or decreased air movement noted. Abdomen: Soft and nontender. Bowel sounds normal in all 4 quadrants. No distention noted. No organomegaly noted. No visible injury noted. Back: No CVA tenderness. Full range of motion noted. Skin: Skin warm and dry. Normal skin color. Normal skin turgor. No rashes/lesions/lacerations noted. Extremities: No lower extremity edema. Extremities exhibit normal range of motion. Extremities nontender. Neuro: Oriented X 3. Cranial nerve exam: II-XII are grossly intact No motor deficit. No sensory deficit. Reflexes normal. Course Course Course Narrative: This is an RME: Additional HPI, ROS, PE not included below will be deferred to primary provider. RME assessment and note performed by: Samantha Sanabria PA-C This is a 28-mmou-tqo-male, hx of HTN, HLD, GERD, and BPH, who presents to the ER with a complaint of nausea, vomiting, and belching. Was seen at , saw Samantha Dodson as he was having indigestion, unable to keep food down, burping, acid reflux with vomiting after discontinuing ozempic approximately 2.5 weeks ago. Progressively worsening. Was on ozempic 5 weeks, been off for 2 weeks. Now noticing brown vomit for the last week and a half. Drink 3-4 times per week (drinking beers/cocktails). Takes Ibuprofen 4 times a week. Plan: labs, further ER eval needed Medications Administered Generic Name Dose Route Start Last Admin Trade Name Nel PRN Reason Stop Dose Admin Benzocaine 1 lozenge 05/29/25 22:08 05/29/25 22:40 Throat Lozenge, Medicated Lozenge MUCOUS MEM 1 lozenge Q2H PRN Administration Sore Throat Lactated Ringer's 1,000 mls @ 125 mls/hr 05/29/25 16:45 05/30/25 14:15 Lr IVCONT 0 mls/hr .Q8H AGUEDA Infusion Lactated Ringer's 1,000 mls @ 50 mls/hr 05/30/25 14:45 05/30/25 14:45 Lr IVCONT 50 mls/hr .Q20H AGUEDA Administration Morphine Sulfate 4 mg 05/29/25 16:46 05/30/25 11:49 Morphine Sulfate 4 Mg/Ml Cartridge IVPUSH 4 mg Q4H PRN Administration Pain, Moderate(Pain Scale 4-6) Protocol Pantoprazole Sodium 40 mg 05/30/25 06:30 05/30/25 06:09 Pantoprazole Sodium 40 Mg/10 Ml Vial IVPUSH 40 mg BID@0630,1630 AGUEDA Administration Sodium Chloride 3 ml 05/30/25 00:00 05/30/25 09:07 0.9 % Sodium Chloride Flush 3 Ml Syringe IVFLUSH 3 ml QSHIFT AGUEDA Administration Discontinued Medications Generic Name Dose Route Start Last Admin Trade Name Nel PRN Reason Stop Dose Admin Al Hydroxide/Mg Hydroxide 30 ml 05/29/25 11:54 05/29/25 12:46 Magnesium Hydrox/Alum Hydrox 30 Ml Oral.Susp PO 05/29/25 11:55 30 ml ONCE ONE Administration Diphenhydramine HCl 25 mg 05/29/25 22:08 05/29/25 23:49 Diphenhydramine Hcl 25 Mg Capsule PO 05/29/25 22:09 Not Given ONCE ONE Diphenhydramine HCl 25 mg 05/29/25 22:08 05/29/25 22:40 Diphenhydramine Hcl 50 Mg/Ml Vial IVPUSH 05/29/25 22:09 25 mg ONCE ONE Administration Lactated Ringer's 1,000 mls @ 999 mls/hr 05/29/25 12:00 05/29/25 14:29 Lr IV 05/29/25 13:00 Infused .Q1H1M AGUEDA Infusion Influenza Virus Vaccine 0.5 ml 05/29/25 20:19 05/29/25 21:29 Flu Vacc [id number](6mo Up)/Pf 0.5 Ml Syringe IM 05/29/25 20:20 0.5 ml .ONCE ONE Administration Iohexol 100 ml 05/29/25 13:21 05/29/25 13:22 Iohexol 350 Mg/Ml 100 Ml Infus..Btl IV 05/29/25 13:22 85 ml ONCE ONE Administration Lidocaine HCl 1 appl 05/29/25 16:43 05/29/25 17:00 Lidocaine Hcl 4 % Mpf W/Madgic 5 Ml Ampul TOPICAL 05/29/25 16:44 1 appl ONCE ONE Administration Protocol Lorazepam 1 mg 05/29/25 15:58 05/29/25 16:04 Lorazepam 1 Mg Tablet PO 05/29/25 15:59 1 mg ONCE ONE Administration Metoclopramide HCl 10 mg 05/29/25 13:19 05/29/25 13:25 Metoclopramide Hcl 10 Mg/2 Ml Vial IVPUSH 05/29/25 13:20 10 mg ONCE ONE Administration Ondansetron HCl 4 mg 05/29/25 11:54 05/29/25 12:40 Ondansetron Hcl 4 Mg/2 Ml Vial IVPUSH 05/29/25 11:55 4 mg ONCE ONE Administration Pantoprazole Sodium 80 mg 05/29/25 11:54 05/29/25 12:40 Pantoprazole Sodium 40 Mg/10 Ml Vial IVPUSH 05/29/25 11:55 80 mg ONCE ONE Administration Medical Decision Making Differential Diagnosis Differential Diagnoses: The differential diagnosis associated with the presentation includes (Small-bowel obstruction, pancreatitis, colitis, gastritis, gastroenteritis, diverticulitis, acute appendicitis, electrolyte derangement, severe anemia, dehydration.) Admission/Observation Consideration of admission/observation: Escalation of care including admission/observation considered Consult Healthcare Provider Management of the patient was discussed with: Hospitalist and Casing Cleaner (Dr. Frazier) Lab Data MDM Lab Attestation statement: I reviewed the patient's lab results. 05/30/25 05:37 05/30/25 05:37 Labs: Lab Results 05/29/25 Range/Units 11:50 WBC 11.6 H (4.8-10.8) X10*3/uL RBC 5.14 (4.60-5.80) X10*6/uL Hgb 16.3 (14.0-18.0) g/dl Hct 46.1 (42.0-52.0) % MCV 89.7 (80.0-98.0) fL MCH 31.7 (27.0-33.0) pg MCHC 35.4 (31.0-36.0) g/dl RDW 11.9 (11.0-16.0) % Plt Count 243 (160-400) X10*3/uL MPV 9.5 (9.4-12.4) fL Immature Gran % (Auto) 0.4 (0.0-0.4) % Neut % (Auto) 75.8 H (45-73) % Lymph % (Auto) 14.8 L (20-40) % Boone % (Auto) 7.7 (2-11) % Eos % (Auto) 0.6 (0-4) % Baso % (Auto) 0.7 (0-2) % Lymph # (Auto) 1.7 (1.2-4.9) X10*3/uL [place]one # (Auto) 0.9 (0.1-1.2) X10*3/uL Eos # (Auto) 0.1 (0.0-0.4) X10*3/uL Baso # (Auto) 0.1 (0.0-0.2) X10*3/uL Abs Immat Gran (auto) 0.05 H (0.00-0.03) X10*3/uL Absolute Neuts (auto) 8.8 H (2.0-8.3) x10*3/uL Absolute Nucleated RBC 0.000 (0.0-0.012) X10*3/uL Nucleated RBC % (auto) 0.0 (0.0-0.2) /100WBC ESR 17 H (0-15) MM/HR Sodium 143 (135-145) mmol/L Potassium 3.9 (3.3-5.1) mmol/L Chloride 100 (96-108) mmol/L Carbon Dioxide 30 H (22-29) mmol/L Anion Gap 17 (12-20) BUN 10 (9-16) mg/dL Creatinine 0.89 (0.5-1.4) mg/dL Estim Creat Clear Calc 90.7 Estimated GFR > 60 Random Glucose 112 (60-115) mg/dL Calcium 10.1 (8.4-10.2) mg/dL Magnesium 2.4 (1.6-2.6) mg/dL Total Bilirubin 1.0 (0.0-1.0) mg/dL Direct Bilirubin 0.4 (0.0-0.5) mg/dL AST 41 H (5-37) U/L ALT 32 (0-40) U/L Alkaline Phosphatase 77 (39-117) U/L C-Reactive Protein 2.25 H (< or = 0.50) mg/dL Total Protein 7.6 (6.5-8.0) g/dL Albumin 4.6 (3.5-5.0) g/dL Lipase 34 (8-78) U/L Independent Interpretation I performed an independent interpretation of an: CT Scan (Abdomen pelvis:. Gastric outlet obstruction, with severe wall thickening, inflammation and edema of the distal antrum and pylorus. Given the appearance, neoplasm is suspected. This could potentially also represent localized inflammation from peptic disease although this is considered less likely) Radiology Impression Discussion of test interpretation with radiology: I have reviewed the radiologist's reading. Discharge Plan Discharge Clinical Impression: Gastric outlet obstruction Patient Disposition: Admitted As Inpatient Interventions: Admission Worksheet (ED) Last Done: 05/29/25 16:26 Discharge Date/Time: 05/29/25 20:17
[2025-05-29 11:33] VITALS: BP 146/86; PULSE 76; RESP 18; TEMP 36.6; O2SAT 95; BMI 30.6
[2025-05-29 11:54] LABS: MANUAL DIFF FLAG NO
[2025-05-29 11:56] LABS: Hematocrit 46.1 % (42.0-52.0); Hemoglobin 16.3 g/dl (14.0-18.0); Imm Gran Abs Auto 0.05 X10*3/uL (0.00-0.03); Imm Gran Pct Auto 0.4 % (0.0-0.4); Lymphocytes Absolute Auto 1.7 X10*3/uL (1.2-4.9); Mean Corpuscular HGB Conc 35.4 g/dl (31.0-36.0); Mean Corpuscular Hemoglobin 31.7 pg (27.0-33.0); Mean Corpuscular Volume 89.7 fL (80.0-98.0); NRBC Abs Auto 0.000 X10*3/uL (0.0-0.012); NRBC Pct Auto 0.0 /100WBC (0.0-0.2); Platelet Count 243 X10*3/uL (160-400); Red Blood Count 5.14 X10*6/uL (4.60-5.80); White Blood Count 11.6 X10*3/uL (4.8-10.8)
[2025-05-29 12:11] VITALS: BP 140/87; PULSE 54; RESP 18; O2SAT 96
[2025-05-29 12:12] LABS: Alanine Aminotransferase 32 U/L (0-40); Albumin Level 4.6 g/dL (3.5-5.0); Alkaline Phosphatase 77 U/L (39-117); Anion Gap 17 (12-20); Aspartate Amino Transferase 41 U/L (5-37); Blood Urea Nitrogen 10 mg/dL (9-16); Calcium 10.1 mg/dL (8.4-10.2); Carbon Dioxide 30 mmol/L (22-29); Chloride 100 mmol/L (96-108); Creatinine Clr Calc Pharmacy 90.7; Estimated Glomerular Filt Rate > 60; Lipase 34 U/L (8-78); Magnesium 2.4 mg/dL (1.6-2.6); Potassium 3.9 mmol/L (3.3-5.1); Sodium 143 mmol/L (135-145); Total Protein 7.6 g/dL (6.5-8.0)
--- NOTE | 2025-05-29 12:14 | PC.NURSE ---
Pt presents to ED with lower abdominal pain x 2 weeks with n/v, brown vomit, dark stools. Pt sts was on ozempic for 5 weeks, recently got off of it. RR even and unlabored, denies CP or SOB. Pt is A+Ox4, calm,cooperative, and ambulatory. Bowel sounds noted to be a bit hypoactive, having regular BMS and pt denies any difficulty urinating but sts urine cloydy for last couple of days.
[2025-05-29] MEDS: Lactated Ringers 1,000 ML 999 ML IV (12:40)
[2025-05-29] MEDS: Magnesium Hydrox/Alum Hydrox 30 ML ORAL.SUSP PO (12:46)
[2025-05-29] MEDS: iohexoL 350 MG/ML 100 ML INFUS..BTL IV (13:22)
[2025-05-29 14:00] VITALS: BP 134/82; PULSE 60; RESP 16; TEMP 36.6; O2SAT 98
--- NOTE | 2025-05-29 16:03 | PM.CNGS ---
History of Present Illness Consult details Consult date: 05/29/25 <Sarita Pinzon PA-C - Last Filed: 05/29/25 16:36> Requesting physician: Nito Estevez <Sarita Pinzon PA-C - Last Filed: 05/29/25 16:36> Narrative: 64 year old male with PMH of hypertension, obesity, borderline DM, sleep apnea, frequent PVCs who presented to the ED with complains of epigastric abdominal pain and vomiting. He reports for the past several weeks he has been intermittently vomiting after eating. He reports the emesis is dark brown in nature and nonbloody. Over the past week, he reports his symptoms worsened and he developed epigastric abdominal pain and has been vomiting after everything he eats with frequent belching. He does report beginning ozempic 5 weeks ago but stopped it two weeks ago due to his symptoms. He did have diarrhea during that time but it has gotten better with the ozempic cessation. He denies frequent NSAID use, steroids, blood in his stools, weight loss, prior abdominal surgery. He has passed a small amount of flatus and last BM was yesterday. Work up in the ED included CBC, BMP, LFTs with leukocytosis of 11.6. CT scan abd pelvis was performed which showed mildly distended distal esophagus with a very dilated and fluid filled stomach with obstruction at the level of the distal antrum and pylorus with severe wall thickening and edema present consistent with gastric outlet obstruction. There are mild infiltrative changes of the omentum, just inferior to the stomach. <Sarita Pinzon PA-C - Last Filed: 05/29/25 16:36> Review of Systems Review of Systems: Yes all other systems are reviewed and are negative <CARLOS Wilder Last Filed: 05/29/25 16:36> [facility] Past Medical History Medical History: Medical History Borderline diabetes mellitus Sleep apnea HTN (hypertension) Osteoarthritis of right knee Osteoarthritis Bursitis of right hip Right tennis elbow PTSD (post-traumatic stress disorder) HURTADO (nonalcoholic steatohepatitis) <CARLOS Wilder Last Filed: 05/29/25 16:36> Family History Family History: Family History Father Cancer of pancreas Mother Cancer of pancreas Sister No problems noted. Daughter No problems noted. Son No problems noted. Son No problems noted. <Sarita Pinzon PA-C - Last Filed: 05/29/25 16:36> Surgical History Surgical History: Surgical History H/O total knee replacement History of meniscectomy of left knee History of repair of rotator cuff <Sarita Pinzon PA-C - Last Filed: 05/29/25 16:36> Social History Social History: Social History Household Members: Family Housing: House Do you presently have visiting nurse or other home services: No Alcohol intake: current Alcohol intake frequency: a few times a month Patient Tobacco Use Status: Never used Tobacco e-Cigarette/Vaping Use: Never Used Second Hand Smoke Exposure: No service: No Current occupational status: retired Cognitive needs: No Hearing needs: No Vision needs: Yes <Sarita Pinzon PA-C - Last Filed: 05/29/25 16:36> Meds Allergies/Adverse reactions: Allergies Allergy/AdvReac Type Severity Reaction Status Date / Time erythromycin base Allergy Mild RAH,ITCH Verified 05/29/25 11:35 (Erythromycin Base) oxycodone (From Percocet) Allergy Mild NAUSEA,DIZZ Verified 05/29/25 11:35 INESS semaglutide (From Ozempic) AdvReac Severe Nausea and Verified 05/29/25 11:35 Vomiting <Sarita Pinzon PA-C - Last Filed: 05/29/25 16:36> Home medications: Home Medications ?Medication ?Instructions ?Recorded ?Confirmed ?Last Taken ?Type ibuprofen 600 mg tablet 600 mg PO Q6H PRN Pain 12/14/22 05/29/25 Unknown History omeprazole 20 mg capsule,delayed 20 mg PO DAILY@0630 05/28/25 05/29/25 05/29/25 History release <CARLOS Wilder Last Filed: 05/29/25 16:36> Physical Exam Vital Signs: Vital Signs: Last Vital Signs Temp 97.8 F 05/29/25 14:00 Pulse 60 05/29/25 14:00 Resp 16 05/29/25 14:00 BP 134/82 05/29/25 14:00 Pulse Ox 98 05/29/25 14:00 O2 Del Method Room Air 05/29/25 14:00 BMI result Body Mass Index 30.6 <Sarita Pinzon PA-C [employer] Last Filed: 05/29/25 16:36> Const: General: comfortable, no acute distress and alert <Sarita Pinzon PA-C - Last Filed: 05/29/25 16:36> Orientation/consciousness: patient oriented x3 <Sarita Pinzon PA-C Last Filed: 05/29/25 16:36> Resp: Effort & Inspection: normal respiratory effort and able to speak in complete sentences <CARLOS Wilder Last Filed: 05/29/25 16:36> GI: Other: distended, protuberant abdomen moderate epigastric tenderness <CARLOS Wilder Last Filed: 05/29/25 16:36> Inspection: Yes distended and No scar <HOLLY Wilder [employer] Last Filed: 05/29/25 16:36> Palpation (GI): Soft to palpation, no guarding and not rigid <Sarita Pinzon PA-C [employer] Last Filed: 05/29/25 16:36> Percussion: Yes tympanic to percussion <CARLOS Wilder Last Filed: 05/29/25 16:36> Skin: General skin exam: no rashes or lesions noted <Sarita Pinzon PA-C [employer] Last Filed: 05/29/25 16:36> Neuro: General: patient oriented x3 and moves all extremities <Sarita Pinzon PA-C [employer] Last Filed: 05/29/25 16:36> Results Labs Result diagrams: 05/30/25 05:37 05/30/25 05:37 <Sarita Pinzon PA-C [employer] Last Filed: 05/29/25 16:36> Labs: Abnormal lab results 05/29/25 Range/Units 11:50 WBC 11.6 H (4.8-10.8) X10*3/uL Neut % (Auto) 75.8 H (45-73) % Lymph % (Auto) 14.8 L (20-40) % Abs Immat Gran (auto) 0.05 H (0.00-0.03) X10*3/uL Absolute Neuts (auto) 8.8 H (2.0-8.3) x10*3/uL ESR 17 H (0-15) MM/HR Carbon Dioxide 30 H (22-29) mmol/L AST 41 H (5-37) U/L C-Reactive Protein 2.25 H (< or = 0.50) mg/dL Short CBC 05/29/25 Range/Units 11:50 WBC 11.6 H (4.8-10.8) X10*3/uL Hgb 16.3 (14.0-18.0) g/dl Hct 46.1 (42.0-52.0) % Plt Count 243 (160-400) X10*3/uL BMP 05/29/25 11:50 Sodium 143 Potassium 3.9 Chloride 100 Carbon Dioxide 30 H BUN 10 Creatinine 0.89 Calcium 10.1 Liver Function 05/29/25 Range/Units 11:50 Total Bilirubin 1.0 (0.0-1.0) mg/dL Direct Bilirubin 0.4 (0.0-0.5) mg/dL AST 41 H (5-37) U/L ALT 32 (0-40) U/L Alkaline Phosphatase 77 (39-117) U/L Albumin 4.6 (3.5-5.0) g/dL All other labs normal. <CARLOS Wilder Last Filed: 05/29/25 16:36> Imaging Abdomen CT scan report/results: report reviewed and image reviewed <CARLOS Wilder Last Filed: 05/29/25 16:36> Additional studies: labs reviewed <CARLOS Wilder Last Filed: 05/29/25 16:36> Assessment and Plan (1) Gastric outlet obstruction: Status: Acute <CARLOS Wilder Last Filed: 05/29/25 16:36> 64-year-old male, otherwise healthy, with vomiting for weeks now He has been unable to oral intake down he says especially for the past few days Abdomen is soft and benign However his CAT scan shows a distended stomach with narrowing of the pylorus with significant infiltrative changes surrounding the duodenum and the antrum Findings are suspicious for a neoplastic process There is also significant infiltration of the an omentum anteriorly suggestive of omental caking with carcinomatosis He will need upper GI endoscopy were diagnosis He may benefit from NG tube placement if with repeated of vomiting Should be hydrated adequately Electrolytes should be monitored Consult GI Explained above to family <Son Frazier MD - Last Filed: 05/30/25 15:43> 64 year old male with PMH of hypertension, obesity, borderline DM, sleep apnea, frequent PVCs presenting with epigastric pain and vomiting for several weeks. CT scan shows a very dilated and fluid filled stomach with obstruction at the level of the distal antrum and pylorus with severe wall thickening and edema present consistent with gastric outlet obstruction with mild infiltrative changes in the anterior omentum and liver lesions suggestive of carcinomatosis. Overall picture suggestive of gastric outlet obstruction secondary to neoplasm. Discussed with ED provider that he would need an endoscopy for diagnosis. Would benefit from NGT placement as well. Further plan dependent on work up but may need transfer to tertiary center pending endoscopy findings. <Sarita Pinzon PA-C - Last Filed: 05/29/25 16:36> Procedures Date of Service Date of Service: 05/29/25 <Sarita Pinzon PA-C - Last Filed: 05/29/25 16:36> 05/30/25 <Son Frazier MD - Last Filed: 05/30/25 15:43>
--- NOTE | 2025-05-29 16:14 | P.HPHOSP_ITS ---
History of Present Illness Date of Service: 05/29/25 Chief Complaint: Abdominal pain 64-year-old male with past medical history significant for hypertension, diabetes type 2 presents with approximately 2 weeks of worsening bloating and nonstop vomiting over the past several days of dark vomitus. He states he has had black stools but no heather bleeding. He also states he was on Ozempic for approximately 4 weeks but DC 2 weeks ago secondary to side effects. Workup in the emergency room including CAT scan is consistent with gastric outlet obstruction Review of Systems 2 Review of Systems: Denies chest pain Denies shortness of breath Admits nausea vomiting without diarrhea Denies fever chills [facility] Medical History (Updated 05/29/25 @ 16:24 by Neo Swift DO) Osteoarthritis of right knee Osteoarthritis Bursitis of right hip Right tennis elbow PTSD (post-traumatic stress disorder) HURTADO (nonalcoholic steatohepatitis) Family History Father Cancer of pancreas Mother Cancer of pancreas Sister No problems noted. Daughter No problems noted. Son No problems noted. Son No problems noted. Surgical History History of meniscectomy of left knee History of repair of rotator cuff Social History Housing: House Alcohol intake: current Alcohol intake frequency: a few times a month Patient Tobacco Use Status: Never used Tobacco Smoked in Last 30 Days: No e-Cigarette/Vaping Use: Never Used Second Hand Smoke Exposure: No Use of substances other than those prescribed or required for medical reasons: No Advance Directives: No Advance Directives Information Provided: No Do you have a plan to hurt others: No Plan service: No Current occupational status: retired Cognitive needs: No Hearing needs: No Vision needs: Yes Meds Allergies Allergy/AdvReac Type Severity Reaction Status Date / Time erythromycin base Allergy Mild RAH,ITCH Verified 05/29/25 11:35 (Erythromycin Base) oxycodone (From Percocet) Allergy Mild NAUSEA,DIZZ Verified 05/29/25 11:35 INESS semaglutide (From Ozempic) AdvReac Severe Nausea and Verified 05/29/25 11:35 Vomiting Active Medications: Current Medications Acetaminophen (Acetaminophen 325 Mg Tablet) 650 mg PO Q6H PRN PRN Reason: Pain, Mild 1-3,fever,headache Calcium Carbonate (Calcium Carbonate 750 Mg Tab.Chew) 750 mg PO Q4H PRN PRN Reason: Heartburn Lorazepam (Lorazepam 1 Mg Tablet) 1 mg PO Q6H PRN PRN Reason: Anxiety Magnesium Hydroxide (Milk Of Magnesia 30 Ml Oral.Susp) 30 ml PO DAILY PRN PRN Reason: Constipation Melatonin (Melatonin 3 Mg Tablet) 6 mg PO BEDTIME PRN PRN Reason: Insomnia Ondansetron HCl (Ondansetron Hcl 4 Mg/2 Ml Vial) 4 mg IVPUSH Q8H PRN PRN Reason: Nausea and Vomiting Oxycodone HCl (Oxycodone Hcl Immed Release 5 Mg Tablet) 5 mg PO Q4H PRN PRN Reason: Pain, Moderate(Pain Scale 4-6) Sodium Chloride (0.9 % Sodium Chloride Flush 3 Ml Syringe) [facility] Medications ?Medication ?Instructions ?Recorded ?Confirmed ?Last Taken ?Type ibuprofen 600 mg tablet 600 mg PO Q6H PRN Pain 12/1405/29/25 Unknown History omeprazole 20 mg capsule,delayed 20 mg PO DAILY@0630 0 05/28/25 05/29/25 05/29/25 History release Physical Exam 2 Vital Signs and Narrative: Vital Signs: Last Vital Signs Temp 97.8 F 05/29/25 14:00 Pulse 60 05/29/25 14:00 Resp 16 05/29/25 14:00 BP 134/82 05/29/25 14:00 Pulse Ox 98 05/29/25 14:00 O2 Del Method Room Air 05/29/25 14:00 BMI result Body Mass Index 30.6 Const: Other: Awake alert oriented x3 in no acute distress Resp: Other: Clear to auscultation bilaterally no rales rhonchi or wheezes Cardio: Other: No S4; positive S1-S2; no S3 murmurs rubs or gallops GI: Other: Soft nontender nondistended normoactive bowel sounds Extrem: Other: No edema bilaterally Results Labs 05/29/25 11:50 05/29/25 11:50 Labs: Laboratory Results - last 24 hr 05/29/25 11:50 MCV 89.7 MCH 31.7 MCHC 35.4 RDW 11.9 Plt Count 243 MPV 9.5 Immature Gran % (Auto) 0.4 Neut % (Auto) 75.8 H Lymph % (Auto) 14.8 L Rush % (Auto) 7.7 Eos % (Auto) 0.6 Baso % (Auto) 0.7 Lymph # (Auto) 1.7 Rush # (Auto) 0.9 Eos # (Auto) 0.1 Baso # (Auto) 0.1 Abs Immat Gran (auto) 0.05 H Absolute Neuts (auto) 8.8 H Absolute Nucleated RBC 0.000 Nucleated RBC % (auto) 0.0 ESR 17 H Anion Gap 17 Estim Creat Clear Calc 90.7 Estimated GFR > 60 Random Glucose 112 Calcium 10.1 Magnesium 2.4 Total Bilirubin 1.0 Direct Bilirubin 0.4 AST 41 H ALT 32 Alkaline Phosphatase 77 C-Reactive Protein 2.25 H Total Protein 7.6 Albumin 4.6 Lipase 34 Imaging Radiologist's Impressions: Impressions Abdomen/Pelvis CT 05/29/25 13:05 IMPRESSION: 1. Gastric outlet obstruction, with severe wall thickening, inflammation and edema of the distal antrum and pylorus. Given the appearance, neoplasm is suspected. This could potentially also represent localized inflammation from peptic disease although this is considered less likely. 2. Small volume ascites surrounding the liver, spleen, and abutting the lesser curvature of the stomach. 3. There are mild infiltrative changes in the anterior omentum just inferior to the stomach, with minimal nodularity. Early carcinomatosis is a consideration. 4. Indeterminate 1.5 cm lesion in segment 8 of the liver, and in segment 2 of the liver. 5. Ancillary findings as discussed. Electronically signed by: Michael Armenta MD 05/29/2025 01:46 PM EDT Assessment and Plan (1) Gastric outlet obstruction: Status: Acute (2) HTN (hypertension): Qualifiers: Hypertension type: primary hypertension Qualified Code(s): I10 - Essential (primary) hypertension Status: Acute Plan 64-year-old male with a history of hypertension and newly diagnosed diabetes presents with a proximally 2 weeks of persistent vomiting of dark material. States he has had abdominal pain and bloating during the same time but over the last few days it has become worse. Workup in ER with CTA demonstrates gastric outlet obstruction. 1. Gastric outlet obstruction -NG tube to decompress stomach -NPO -GI consult appreciated. . . EGD tomorrow -morphine for pain -Zofran for nausea and vomiting 2. Hypertension -acceptable control on current therapies -utilize IV therapies if needed for blood pressure control 3. Anxiety -worsened by diagnosis -IV Ativan as needed until taking adequate p.o. Full code Pneumatics Patient will require 2 midnights of inpatient stay going forward to decompress stomach NG-tube; GI consultation for EGD and supplemental fluids. This can not be achieved a lesser acute setting Quality Stroke Does the patient have a stroke diagnosis?: No VTE Prior VTE?: No VTE Risk Level:: Medical - moderate - high VTE Device Contraindication: N/A - Device Ordered VTE Drug Contraindication: Treatment Not Indicated
[2025-05-29 16:20] VITALS: BP 142/83; PULSE 75; TEMP 36.9; O2SAT 95
--- NOTE | 2025-05-29 16:31 | PHA.MEDREC ---
Addendum entered by Jagruti Parra RPh 05/29/25 16:44: reviewed by [facility] Original Note: Pharmacy Consult ? Medication Reconciliation Pharmacy has completed the medication reconciliation. Spoke with pt and he confirmed his medications. Pt states he stopped Ozempic 3 weeks ago due to having a bad reaction to that medication.
[2025-05-29] MEDS: Lidocaine HCl 4 % MPF w/MADgic 5 ML AMPUL 1 APPL TOPICAL (17:00)
--- NOTE | 2025-05-29 17:05 | PC.NURSE ---
NG tube placed per MD order, CXR ordered. Pt tolerated well. NG in R nare.
[2025-05-29] MEDS: Lactated Ringers 1,000 ML 125 ML IVCONT (17:24)
--- NOTE | 2025-05-29 18:15 | MHC.EDTECH ---
@181 Suction canister exchanged, 1,100 mL emptied of Brown fluid from NG tube, RN aware
--- NOTE | 2025-05-29 18:31 | HO.NURTONUR ---
64 M presents to ED with lower abdominal pain x 2 weeks with n/v, brown vomit, dark stools. Pt sts was on ozempic for 5 weeks, recently got off of it. RR even and unlabored, denies CP or SOB. Pt is A+Ox4, calm,cooperative, and ambulatory. Bowel sounds noted to be a bit hypoactive, having regular BMs and pt denies any difficulty urinating but sts urine cloudy for last couple of days. Pt c/o ongoing acid reflux feeling, has improved along with less nausea after being medicated here. 20G LFA. Labs: WBC 11.6, AST 41, C-reactive protein 2.25 abd/pelv CT: 1. Gastric outlet obstruction, with severe wall thickening, inflammation and edema of the distal antrum and pylorus. Given the appearance, neoplasm is suspected. This could potentially also represent localized inflammation from peptic disease although this is considered less likely. 2. Small volume ascites surrounding the liver, spleen, and abutting the lesser curvature of the stomach. 3. There are mild infiltrative changes in the anterior omentum just inferior to the stomach, with minimal nodularity. Early carcinomatosis is a consideration. 4. Indeterminate 1.5 cm lesion in segment 8 of the liver, and in segment 2 of the liver. 5. Ancillary findings as discussed. Surgery consult, note pending. Admit For Abdomen pain [ End ]
--- NOTE | 2025-05-29 18:35 | PC.NURSE ---
spoke to dr shipman about the chest x-ray stating to advance the ng tube about 4cm, ng tube draining well at this time, emptied 1100 so far, verbal order by dr shipman not to advance at this time
[2025-05-29 19:42] VITALS: BP 151/89; PULSE 76; TEMP 36.4; O2SAT 94
[2025-05-29 20:15] VITALS: BMI 30.7
--- NOTE | 2025-05-29 21:03 | PC.NURSE ---
pt's NG tube order stated continuous suction but per Dr. Gifford it needs to be intermittent suction. Order changed but unable to remove the continuous suction order, but it now states intermittent too.
[2025-05-29] MEDS: Flu Vacc TS2025-26(6mo up)/PF 0.5 ML SYRINGE IM (21:29)
[2025-05-29] MEDS: Throat Lozenge, Medicated LOZENGE 1 LOZENGE MUCOUS MEM (22:40)
[2025-05-30] VITALS (9 sets, daily range): BP systolic 132–178; BP diastolic 79–90; PULSE 64–72; RESP 16–18; TEMP 36.4–37.1; O2SAT 93–100
[2025-05-30] MEDS: Lactated Ringers 1,000 ML 125 ML IVCONT ×3 (01:17→20:52)
[2025-05-30 06:24] LABS: MANUAL DIFF FLAG NO
[2025-05-30 06:51] LABS: Hematocrit 43.7 % (42.0-52.0); Hemoglobin 14.9 g/dl (14.0-18.0); Imm Gran Abs Auto 0.06 X10*3/uL (0.00-0.03); Imm Gran Pct Auto 0.6 % (0.0-0.4); Lymphocytes Absolute Auto 1.2 X10*3/uL (1.2-4.9); Mean Corpuscular HGB Conc 34.1 g/dl (31.0-36.0); Mean Corpuscular Hemoglobin 31.0 pg (27.0-33.0); Mean Corpuscular Volume 90.9 fL (80.0-98.0); NRBC Abs Auto 0.000 X10*3/uL (0.0-0.012); NRBC Pct Auto 0.0 /100WBC (0.0-0.2); Platelet Count 207 X10*3/uL (160-400); Red Blood Count 4.81 X10*6/uL (4.60-5.80); White Blood Count 9.3 X10*3/uL (4.8-10.8)
[2025-05-30 06:59] LABS: Alanine Aminotransferase 22 U/L (0-40); Albumin Level 3.9 g/dL (3.5-5.0); Alkaline Phosphatase 68 U/L (39-117); Anion Gap 13 (12-20); Aspartate Amino Transferase 21 U/L (5-37); Blood Urea Nitrogen 9 mg/dL (9-16); Calcium 8.9 mg/dL (8.4-10.2); Carbon Dioxide 31 mmol/L (22-29); Chloride 104 mmol/L (96-108); Creatinine Clr Calc Pharmacy 95.1; Estimated Glomerular Filt Rate > 60; Potassium 4.0 mmol/L (3.3-5.1); Sodium 144 mmol/L (135-145); Total Protein 6.3 g/dL (6.5-8.0)
[2025-05-30 07:17] LABS: Carcinoembryonic Antigen 2.60 ng/mL
--- NOTE | 2025-05-30 08:32 | P.CNGI_ITS ---
History of Present Illness Data of Consult Service Date: 05/30/25 Requesting physician: Noe Swift Primary Care Provider: Hal Chacon [facility] HPI Reason for consult: Gastric outlet obstruction 64 YM with hypertension, diabetes type 2 seen at [facility] ED on 05/29/25 with approximately 2 weeks of worsening bloating and vomiting (per pt vomitus was dark in color. Pt noted early satiety for the past few weeks and postprandial indigestion followed by vomiting. He also reports RUQ pain which has improved. He states he has had black stools but no heather bleeding. Patient has gastroesophageal reflux disease and has been taking Prilosec for the past 10 years. Pt reports he was on Ozempic for approximately 4 weeks and DC 2 weeks ago secondary to side effects. Patient denies smoking and drinks alcohol 3 to 4 times a week in a social setting FAMILY HISTORY: Both parents with pancreatic cancer - Dad in his 70's and Mom in her 80's 05/29/[address] SCAN SHOWED: 1. Gastric outlet obstruction, with severe wall thickening, inflammation and edema of the distal antrum and pylorus. Given the appearance, neoplasm is suspected. This could potentially also represent localized inflammation from peptic disease although this is considered less likely. 2. Small volume ascites surrounding the liver, spleen, and abutting the lesser curvature of the stomach. 3. There are mild infiltrative changes in the anterior omentum just inferior to the stomach, with minimal nodularity. Early carcinomatosis is a consideration. 4. Indeterminate 1.5 cm lesion in segment 8 of the liver, and in segment 2 of the liver. 5. Ancillary findings as discussed. Review of Systems 2 Review of Systems: Yes all other systems are reviewed and are negative [facility] Past Medical History Medical History Borderline diabetes mellitus Sleep apnea HTN (hypertension) Osteoarthritis of right knee Osteoarthritis Bursitis of right hip Right tennis elbow PTSD (post-traumatic stress disorder) HURTADO (nonalcoholic steatohepatitis) Family History Family History Father Cancer of pancreas Mother Cancer of pancreas Sister No problems noted. Daughter No problems noted. Son No problems noted. Son No problems noted. Surgical History Surgical History H/O total knee replacement History of meniscectomy of left knee History of repair of rotator cuff Social History Social History Household Members: Family Housing: House Do you presently have visiting nurse or other home services: No Alcohol intake: current Alcohol intake frequency: a few times a month Patient Tobacco Use Status: Never used Tobacco e-Cigarette/Vaping Use: Never Used Second Hand Smoke Exposure: No service: No Current occupational status: retired Cognitive needs: No Hearing needs: No Vision needs: Yes Meds Allergies Allergy/AdvReac Type Severity Reaction Status Date / Time erythromycin base Allergy Mild RAH,ITCH Verified 05/29/25 11:35 (Erythromycin Base) oxycodone (From Percocet) Allergy Mild NAUSEA,DIZZ Verified 05/29/25 11:35 INESS semaglutide (From Ozempic) AdvReac Severe Nausea and Verified 05/29/25 11:35 Vomiting Active Medications: Current Medications Benzocaine (Throat Lozenge, Medicated Lozenge) 1 lozenge MUCOUS MEM Q2H PRN PRN Reason: Sore Throat Last Admin: 05/29/25 22:40 Dose: 1 lozenge Diazepam (Diazepam 10 Mg/2 Ml Cartridge) 5 mg IVPUSH Q4H PRN PRN Reason: Anxiety Lactated Ringer's (Lr) 1,000 mls @ 125 mls/hr IVCONT .Q8H [facility] Last Admin: 05/30/25 01:17 Dose: 125 mls/hr Magnesium Hydroxide (Milk Of Magnesia 30 Ml Oral.Susp) 30 ml PO DAILY PRN PRN Reason: Constipation Melatonin (Melatonin 3 Mg Tablet) 6 mg PO BEDTIME PRN PRN Reason: Insomnia Morphine Sulfate (Morphine Sulfate 4 Mg/Ml Cartridge) 4 mg IVPUSH Q4H PRN; Protocol PRN Reason: Pain, Moderate(Pain Scale 4-6) Ondansetron HCl (Ondansetron Hcl 4 Mg/2 Ml Vial) 4 mg IVPUSH Q8H PRN PRN Reason: Nausea and Vomiting Pantoprazole Sodium (Pantoprazole Sodium 40 Mg/10 Ml Vial) 40 mg IVPUSH BID@0630,1630 [facility] Last Admin: 05/30/25 06:09 Dose: 40 mg Sodium Chloride (0.9 % Sodium Chloride Flush 3 Ml Syringe) 3 ml IVFLUSH QSHIFT [facility] Last Admin: 05/30/25 06:10 Dose: Not Given Home Medications ?Medication ?Instructions ?Recorded ?Confirmed ?Last Taken ?Type ibuprofen 600 mg tablet 600 mg PO Q6H PRN Pain 12/1405/29/25 Unknown History omeprazole 20 mg capsule,delayed 20 mg PO DAILY@0630 0 05/28/25 05/29/25 05/29/25 History release Physical Exam 2 Vital Signs: Vital Signs: Last Vital Signs Temp 97.6 F 05/30/25 07:18 Pulse 64 05/30/25 07:18 Resp 16 05/30/25 07:18 BP 138/87 05/30/25 07:18 Pulse Ox 94 05/30/25 07:18 O2 Del Method Room Air 05/30/25 07:18 BMI result Body Mass Index 30.7 Const: General: no acute distress, in distress (Due to persistent nausea) and anxious Nutritional Appearance: obese Orientation/consciousness: patient oriented x3 Limitations: no limitations HEENT: Head: Yes normal to inspection Ears: hearing grossly normal bilaterally Mouth: Normal oral and palatal mucosa present Eyes: Sclerae: sclerae normal Pupils: Equal, round and reactive pupils present Neck: Neck: Yes normal visual inspection Chest: Chest palpation & inspection: normal inspection of the chest Resp: Effort & Inspection: normal respiratory effort Auscultation: clear to auscultation bilaterally Cardio: Palpation: normal PMI Rate: regular rate Rhythm: regular rhythm Heart sounds: S1 normal heart sound present, S2 normal heart sound present and no murmurs GI: Palpation (GI): Soft to palpation, nontender and No hepatosplenomegaly present Auscultation: normal bowel sounds Rectal Exam - Male: Yes deferred Skin: General skin exam: no rashes or lesions noted Neuro: General: patient oriented x3, gait normal and moves all extremities Cranial nerves: Yes Equal, round and reactive pupils present Psych: Appearance: grossly normal Mental Status: mental status grossly normal Results Labs 06/02/25 05:29 06/04/25 05:42 Labs: Short CBC 05/29/25 05/30/25 Range/Units 11:50 05:37 WBC 11.6 H 9.3 (4.8-10.8) X10*3/uL Hgb 16.3 14.9 (14.0-18.0) g/dl Hct 46.1 43.7 (42.0-52.0) % Plt Count 243 207 (160-400) X10*3/uL BMP 05/29/25 05/30/25 11:50 05:37 Sodium 143 144 Potassium 3.9 4.0 Chloride 100 104 Carbon Dioxide 30 H 31 H BUN 10 9 Creatinine 0.89 0.85 Calcium 10.1 8.9 D Liver Function 05/29/25 05/30/25 Range/Units 11:50 05:37 Total Bilirubin 1.0 0.9 (0.0-1.0) mg/dL Direct Bilirubin 0.4 (0.0-0.5) mg/dL AST 41 H 21 (5-37) U/L ALT 32 22 (0-40) U/L Alkaline Phosphatase 77 68 (39-117) U/L Albumin 4.6 3.9 (3.5-5.0) g/dL Assessment and Plan (1) Gastric outlet obstruction: Status: Acute (2) Elevated liver enzymes: Status: Acute Plan Unfortunate 64 YM with hypertension, diabetes type 2 admitted to [facility] on 05/29/25 with approximately 2 weeks of worsening bloating and vomiting (per pt vomitus was dark in color. Patient denies smoking and drinks alcohol 3 to 4 times a week in a social setting FAMILY HISTORY: Both parents with pancreatic cancer - Dad in his 70's and Mom in her 80's Abdominal CT scan showed gastric outlet obstruction with severe wall thickening, inflammation edema of distal antrum and pylorus worrisome for gastric cancer. Small volume ascites surrounding the liver spleen and abutting the lesser curvature of the stomach with infiltrative changes in the anterior omentum. Indeterminate 1.5 cm lesion in the liver. RECOMMENDATIONS: 1. Agree with IV antiemetics and PPI. 2. Keep NPO, IV fluids and place an NG tube and connect to intermittent low wall suction. 3. CEA and CA 19-9 - Normal CEA and CA 19-9 elevated at 166. 4. Oncology consult 5. Proceed with upper endoscopy for further evaluation. EGD procedure and potential complications including bleeding, perforation, reaction to anesthetic and aspiration were reviewed with the patient and his . Procedures Date of Service Date of Service: 06/04/25
[2025-05-30] MEDS: 0.9 % Sodium Chloride Flush 3 ML SYRINGE IVFLUSH (09:07)
--- NOTE | 2025-05-30 10:48 | PM.PNGS ---
Subjective Subjective Date of Service: 05/30/25 Interval history: Says he feels much better after NG tube was placed Denies abdominal pain No events overnight Physical Exam Vital Signs: Vital Signs: Last Vital Signs Temp 97.6 F 05/30/25 07:18 Pulse 64 05/30/25 07:18 Resp 16 05/30/25 07:18 BP 138/87 05/30/25 07:18 Pulse Ox 94 05/30/25 07:18 O2 Del Method Room Air 05/30/25 07:18 BMI result Body Mass Index 30.7 Const: General: comfortable and no acute distress Resp: Effort & Inspection: normal respiratory effort Cardio: Rate: regular rate GI: Palpation (GI): Soft to palpation, not firm, nontender and no guarding Objective Data Active Medications Benzocaine (Throat Lozenge, Medicated Lozenge) 1 lozenge MUCOUS MEM Q2H PRN PRN Reason: Sore Throat Last Admin: 05/29/25 22:40 Dose: 1 lozenge Documented By: ATIYA Diazepam (Diazepam 10 Mg/2 Ml Cartridge) 5 mg IVPUSH Q4H PRN PRN Reason: Anxiety Lactated Ringer's (Lr) 1,000 mls @ 125 mls/hr IVCONT .Q8H [facility] Last Admin: 05/30/25 09:07 Dose: 125 mls/hr Documented By: PRABHAKAR Magnesium Hydroxide (Milk Of Magnesia 30 Ml Oral.Susp) 30 ml PO DAILY PRN PRN Reason: Constipation Melatonin (Melatonin 3 Mg Tablet) 6 mg PO BEDTIME PRN PRN Reason: Insomnia Morphine Sulfate (Morphine Sulfate 4 Mg/Ml Cartridge) 4 mg IVPUSH Q4H PRN; Protocol PRN Reason: Pain, Moderate(Pain Scale 4-6) Ondansetron HCl (Ondansetron Hcl 4 Mg/2 Ml Vial) 4 mg IVPUSH Q8H PRN PRN Reason: Nausea and Vomiting Pantoprazole Sodium (Pantoprazole Sodium 40 Mg/10 Ml Vial) 40 mg IVPUSH BID@0630,1630 [facility] Last Admin: 05/30/25 06:09 Dose: 40 mg Documented By: NIMA Sodium Chloride (0.9 % Sodium Chloride Flush 3 Ml Syringe) 3 ml IVFLUSH QSHIFT [facility] Last Admin: 05/30/25 09:07 Dose: 3 ml Documented By: PRABHAKAR Labs 05/30/25 05:37 05/30/25 05:37 Labs: Laboratory Results - last 24 hr 05/29/25 05/30/25 11:50 05:37 MCV 89.7 90.9 MCH 31.7 31.0 MCHC 35.4 34.1 RDW 11.9 11.9 Plt Count 243 207 MPV 9.5 10.3 Immature Gran % (Auto) 0.4 0.6 H Neut % (Auto) 75.8 H 76.5 H Lymph % (Auto) 14.8 L 12.6 L [place] % (Auto) 7.7 9.2 Eos % (Auto) 0.6 0.6 Baso % (Auto) 0.7 0.5 Lymph # (Auto) 1.7 1.2 Thomas # (Auto) 0.9 0.9 Eos # (Auto) 0.1 0.1 Baso # (Auto) 0.1 0.1 Abs Immat Gran (auto) 0.05 H 0.06 H Absolute Neuts (auto) 8.8 H 7.1 Absolute Nucleated RBC 0.000 0.000 Nucleated RBC % (auto) 0.0 0.0 ESR 17 H Anion Gap 17 13 Estim Creat Clear Calc 90.7 95.1 Estimated GFR > 60 > 60 Random Glucose 112 93 Calcium 10.1 8.9 D Magnesium 2.4 Total Bilirubin 1.0 0.9 Direct Bilirubin 0.4 AST 41 H 21 ALT 32 22 Alkaline Phosphatase 77 68 C-Reactive Protein 2.25 H Total Protein 7.6 6.3 L Albumin 4.6 3.9 Lipase 34 Carcinoembryonic Ag 2.60 Procedures Date of Service Date of Service: 05/30/25 Progress Note: A&P Assessment and plan (1) Gastric outlet obstruction: Status: Acute Assessment and Plan: CAT scan findings suspicious for neoplastic process Patient is for EGD today NG-tube in place IV fluids Looks well overall Rest of care depends on endoscopy findings Time Spent With Patient Time: Total time managing care of this patient today ____ minutes. Quality Stroke Does the patient have a stroke diagnosis?: No VTE Prior VTE?: No VTE Risk Level:: Medical - moderate - high VTE Device Contraindication: N/A - Device Ordered VTE Drug Contraindication: Treatment Not Indicated
--- NOTE | 2025-05-30 12:53 | MHC.CM.PN ---
Patient lives in a home w/ . Functionally independent. Uses CPAP - supplies through [facility]. PCP Hal Chacon No HCP. CM provided education and offered assistance. Patient declined. DP: Home self care. transport. CM will continue to follow.
--- NOTE | 2025-05-30 14:06 | HO.ANESPROP2 ---
[facility] Active Problems Active Problems: All Active Problems (Updated 05/30/25 @ 05:53 by Kathy Arnett RN) Gastric outlet obstruction (Acute) Elevated PSA (Acute) Trochanteric bursitis, right hip (Acute) Hip pain (Acute) Leukocytosis (Acute) Elevated liver enzymes (Acute) Lower back pain (Acute) Abnormal nuclear stress test (Acute) PAC (premature atrial contraction) (Acute) PVC (premature ventricular contraction) (Acute) Hydrocele (Acute) Varicocele (Acute) Scrotal mass (Acute) Encounter for routine adult physical exam with abnormal findings (Acute) Multifocal PVCs (Acute) Systolic murmur (Acute) MRSA (methicillin resistant Staphylococcus aureus) (Acute) Right leg pain (Acute) Varicose veins of right lower extremity with inflammation (Acute) Sleep apnea (Acute) Varicose veins of right lower extremity (Acute) Right elbow pain (Acute) Diabetes (Acute) Family history of pancreatic cancer (Acute) Newly diagnosed diabetes (Acute) Fatty liver (Acute) Skin lesion (Acute)l HTN (hypertension) (Acute) Physical exam (Acute) Increased prostate specific antigen (PSA) velocity (Acute) Skin lesion (Acute) Encounter for hepatitis C screening test for low risk patient (Acute) Screening PSA (prostate specific antigen) (Acute) Physical exam (Acute) Erectile dysfunction (Acute) BPH w urinary obs/LUTS (Acute) HURTADO (nonalcoholic steatohepatitis) (Acute) Past Medical History Medical History Borderline diabetes mellitus Sleep apnea HTN (hypertension) Osteoarthritis of right knee Osteoarthritis Bursitis of right hip Right tennis elbow PTSD (post-traumatic stress disorder) HURTADO (nonalcoholic steatohepatitis) Family History Family History Father Cancer of pancreas Mother Cancer of pancreas Sister No problems noted. Daughter No problems noted. Son No problems noted. Son No problems noted. Surgical History Surgical History H/O total knee replacement History of meniscectomy of left knee History of repair of rotator cuff History of Problems with Anesthesia: No Social History Social History Household Members: Family Housing: House Do you presently have visiting nurse or other home services: No Alcohol intake: current Alcohol intake frequency: a few times a month Patient Tobacco Use Status: Never used Tobacco e-Cigarette/Vaping Use: Never Used Second Hand Smoke Exposure: No service: No Current occupational status: retired Cognitive needs: No Hearing needs: No Vision needs: Yes Meds Allergies Allergy/AdvReac Type Severity Reaction Status Date / Time erythromycin base Allergy Mild RAH,ITCH Verified 05/29/25 11:35 (Erythromycin Base) oxycodone (From Percocet) Allergy Mild NAUSEA,DIZZ Verified 05/29/25 11:35 INESS semaglutide (From Ozempic) AdvReac Severe Nausea and Verified 05/29/25 11:35 Vomiting Active Medications: Current Medications Benzocaine (Throat Lozenge, Medicated Lozenge) 1 lozenge MUCOUS MEM Q2H PRN PRN Reason: Sore Throat Last Admin: 05/29/25 22:40 Dose: 1 lozenge Diazepam (Diazepam 10 Mg/2 Ml Cartridge) 5 mg IVPUSH Q4H PRN PRN Reason: Anxiety Lactated Ringer's (Lr) 1,000 mls @ 125 mls/hr IVCONT .Q8H [facility] Last Admin: 05/30/25 09:07 Dose: 125 mls/hr Magnesium Hydroxide (Milk Of Magnesia 30 Ml Oral.Susp) 30 ml PO DAILY PRN PRN Reason: Constipation Melatonin (Melatonin 3 Mg Tablet) 6 mg PO BEDTIME PRN PRN Reason: Insomnia Morphine Sulfate (Morphine Sulfate 4 Mg/Ml Cartridge) 4 mg IVPUSH Q4H PRN; Protocol PRN Reason: Pain, Moderate(Pain Scale 4-6) Last Admin: 05/30/25 11:49 Dose: 4 mg Ondansetron HCl (Ondansetron Hcl 4 Mg/2 Ml Vial) 4 mg IVPUSH Q8H PRN PRN Reason: Nausea and Vomiting Pantoprazole Sodium (Pantoprazole Sodium 40 Mg/10 Ml Vial) 40 mg IVPUSH BID@0630,1630 [facility] Last Admin: 05/30/25 06:09 Dose: 40 mg Sodium Chloride (0.9 % Sodium Chloride Flush 3 Ml Syringe) 3 ml IVFLUSH QSHIFT [facility] Last Admin: 05/30/25 09:07 Dose: 3 ml Home Medications ?Medication ?Instructions ?Recorded ?Confirmed ?Last Taken ?Type ibuprofen 600 mg tablet 600 mg PO Q6H PRN Pain 12/14/22 05/29/25 Unknown History omeprazole 20 mg capsule,delayed 20 mg PO DAILY@0630 05/28/25 05/29/25 05/29/25 History release Exam Height,Weight and Vital Signs: Height 5 ft 8 in Weight 91.5 kg Last Vital Signs Temp 97.6 F 05/30/25 07:18 Pulse 64 05/30/25 07:18 Resp 16 05/30/25 07:18 BP 138/87 05/30/25 07:18 Pulse Ox 94 05/30/25 07:18 O2 Del Method Room Air 05/30/25 07:18 Pertinent Lab Results Pertinent Lab Results: Laboratory Tests 05/29/25 05/30/25 11:50 05:37 WBC 11.6 H 9.3 RBC 5.14 4.81 Hgb 16.3 14.9 Hct 46.1 43.7 MCV 89.7 90.9 MCH 31.7 31.0 MCHC 35.4 34.1 RDW 11.9 11.9 Plt Count 243 207 MPV 9.5 10.3 Immature Gran % (Auto) 0.4 0.6 H Neut % (Auto) 75.8 H 76.5 H Lymph % (Auto) 14.8 L 12.6 L [place] % (Auto) 7.7 9.2 Eos % (Auto) 0.6 0.6 Baso % (Auto) 0.7 0.5 Lymph # (Auto) 1.7 1.2 [place] # (Auto) 0.9 0.9 Eos # (Auto) 0.1 0.1 Baso # (Auto) 0.1 0.1 Abs Immat Gran (auto) 0.05 H 0.06 H Absolute Neuts (auto) 8.8 H 7.1 Absolute Nucleated RBC 0.000 0.000 Nucleated RBC % (auto) 0.0 0.0 ESR 17 H Sodium 143 144 Potassium 3.9 4.0 Chloride 100 104 Carbon Dioxide 30 H 31 H Anion Gap 17 13 BUN 10 9 Creatinine 0.89 0.85 Estim Creat Clear Calc 90.7 95.1 Estimated GFR > 60 > 60 Random Glucose 112 93 Calcium 10.1 8.9 D Magnesium 2.4 Total Bilirubin 1.0 0.9 Direct Bilirubin 0.4 AST 41 H 21 ALT 32 22 Alkaline Phosphatase 77 68 C-Reactive Protein 2.25 H Total Protein 7.6 6.3 L Albumin 4.6 3.9 Lipase 34 Carcinoembryonic Ag 2.60 Airway Mallampati Class: III TM Dist: >3cm Neck ROM: Full Loose/Missing/Broken Teeth: No Heart: RRR Lungs: CTA Assessment and Plan Assessment Anesthesia Assessment: Anesthesia Plan Discussed and Chart Reviewed Final Anesthetic Review History of Problems with Anesthesia: No NPO: Yes ASA Class: III Final Preanesthetic Review: Meds/Allgs Chart Reviewed, Consent Obtained/Reviewed and Anes Risks/Benef Reviewed Patient Risk: Intermediate Procedure Risk: Intermediate Anesthetic Plan Anesthetic Plan: GA Disposition: Standard PACU
--- NOTE | 2025-05-30 14:42 | PC.NURSE ---
20g left wrist. patent and no leaking.
[2025-05-30] MEDS: Lactated Ringers 1,000 ML 50 ML IVCONT (14:45)
--- NOTE | 2025-05-30 14:48 | PC.NURSE ---
applied low intermittant suction.
--- NOTE | 2025-05-30 15:06 | HO.PM.IMPN ---
Subjective Subjective Date of Service: 05/30/25 Interval History: No acute issues overnight. NG tube continues to drain brown liquid Review of Systems Denies chest pain Denies shortness of breath Admits nausea vomiting without diarrhea Denies fever chills Physical Exam Vital Signs: Vital Signs: Last Vital Signs Temp 98.5 F 05/30/25 14:39 Pulse 72 05/30/25 14:39 Resp 16 05/30/25 14:39 BP 139/87 05/30/25 14:39 Pulse Ox 93 05/30/25 14:39 O2 Del Method Room Air 05/30/25 14:39 BMI result Body Mass Index 30.7 Const: Other: Awake alert oriented x3 in no acute distress Resp: Other: Clear to auscultation bilaterally no rales rhonchi or wheezes Cardio: Other: No S4; positive S1-S2; no S3 murmurs rubs or gallops GI: Other: Soft nontender nondistended normoactive bowel sounds Extrem: Other: No edema bilaterally Objective Data Active Medications Benzocaine (Throat Lozenge, Medicated Lozenge) 1 lozenge MUCOUS MEM Q2H PRN PRN Reason: Sore Throat Last Admin: 05/29/25 22:40 Dose: 1 lozenge Documented By: ATIYA Diazepam (Diazepam 10 Mg/2 Ml Cartridge) 5 mg IVPUSH Q4H PRN PRN Reason: Anxiety Lactated Ringer's (Lr) 1,000 mls @ 125 mls/hr IVCONT .Q8H [facility] Last Infusion: 05/30/25 14:15 Dose: 0 mls/hr Documented By: PRABHAKAR Lactated Ringer's (Lr) 1,000 mls @ 50 mls/hr IVCONT .Q20H [facility] Last Admin: 05/30/25 14:45 Dose: 50 mls/hr Documented By: CARLITO Magnesium Hydroxide (Milk Of Magnesia 30 Ml Oral.Susp) 30 ml PO DAILY PRN PRN Reason: Constipation Melatonin (Melatonin 3 Mg Tablet) 6 mg PO BEDTIME PRN PRN Reason: Insomnia Morphine Sulfate (Morphine Sulfate 4 Mg/Ml Cartridge) 4 mg IVPUSH Q4H PRN; Protocol PRN Reason: Pain, Moderate(Pain Scale 4-6) Last Admin: 05/30/25 11:49 Dose: 4 mg Documented By: PRABHAKAR Ondansetron HCl (Ondansetron Hcl 4 Mg/2 Ml Vial) 4 mg IVPUSH Q8H PRN PRN Reason: Nausea and Vomiting Pantoprazole Sodium (Pantoprazole Sodium 40 Mg/10 Ml Vial) 40 mg IVPUSH BID@0630,1630 [facility] Last Admin: 05/30/25 06:09 Dose: 40 mg Documented By: NIMA Sodium Chloride (0.9 % Sodium Chloride Flush 3 Ml Syringe) 3 ml IVFLUSH QSHIFT [facility] Last Admin: 05/30/25 09:07 Dose: 3 ml Documented By: PRABHAKAR Labs 05/30/25 05:37 05/30/25 05:37 Labs: Laboratory Results - last 24 hr 05/30/25 05:37 MCV 90.9 MCH 31.0 MCHC 34.1 RDW 11.9 Plt Count 207 MPV 10.3 Immature Gran % (Auto) 0.6 H Neut % (Auto) 76.5 H Lymph % (Auto) 12.6 L [place] % (Auto) 9.2 Eos % (Auto) 0.6 Baso % (Auto) 0.5 Lymph # (Auto) 1.2 [place] # (Auto) 0.9 Eos # (Auto) 0.1 Baso # (Auto) 0.1 Abs Immat Gran (auto) 0.06 H Absolute Neuts (auto) 7.1 Absolute Nucleated RBC 0.000 Nucleated RBC % (auto) 0.0 Anion Gap 13 Estim Creat Clear Calc 95.1 Estimated GFR > 60 Random Glucose 93 Calcium 8.9 D Total Bilirubin 0.9 AST 21 ALT 22 Alkaline Phosphatase 68 Total Protein 6.3 L Albumin 3.9 Carcinoembryonic Ag 2.60 Assessment and Plan (1) Gastric outlet obstruction: Status: Acute (2) HTN (hypertension): Status: Acute Plan 64-year-old male with a history of hypertension and newly diagnosed diabetes presents with a proximally 2 weeks of persistent vomiting of dark material. States he has had abdominal pain and bloating during the same time but over the last few days it has become worse. Workup in ER with CTA demonstrates gastric outlet obstruction. 1. Gastric outlet obstruction -NG tube decompression -NPO -EGD today -morphine for pain -Zofran for nausea and vomiting 2. Hypertension -acceptable control on current therapies -utilize IV therapies if needed for blood pressure control 3. Anxiety -worsened by diagnosis -IV Ativan as needed until taking adequate p.o. Full code Pneumatics Patient will require ongoing hospitalization for NG decompression an EGD to determine cause of outlet obstruction. Quality Stroke Does the patient have a stroke diagnosis?: No VTE Prior VTE?: No VTE Risk Level:: Medical - moderate - high VTE Device Contraindication: N/A - Device Ordered VTE Drug Contraindication: Treatment Not Indicated
--- NOTE | 2025-05-30 15:21 | PC.NURSE ---
no output with low suction clear frothy gastric secretions in tube. md campa stated i could clamp the ngt at this time. no complaints. denies abd pain and nausea. hob 45 degrees.
--- NOTE | 2025-05-30 17:31 | W.PM.OPN ---
Operative Note Operative Note Date of Service: 05/30/25 Narrative: FLEXIBLE TRANSORAL UPPER GASTROINTESTINAL ENDOSCOPY WITH BIOPSIES Pre-op diagnosis: GERD, gastric outlet obstruction Post-op diagnosis: GERD, Gastric mass with gastric outlet obstruction Endoscopist:? Sofia Easley MD Anesthesia:?GA with endotracheal tube (Dr Murillo) UPPER ENDOSCOPY Consent: Indications for the procedure and potential complications of bleeding, perforation, reaction to medications and missed diagnosis were discussed with the patient and informed consent was obtained. Instrument: Olympus GIF H 190 mid size upper endoscope Monitoring: Vital signs and clinical assessment, continuous EKG monitoring, Pulse oximetry, Carbon Dioxide monitoring and blood pressure monitoring were done throughout the procedure. Procedure: The patient was placed in the left lateral decubitis position and pre-procedure medications were administered and a bite block was placed. The endoscope was inserted into the mouth and advanced under direct vision to the third part of duodenum. A careful inspection was made as the upper endoscope was withdrawn including a retroflexed examination of the proximal stomach; Findings and interventions are described below. Findings: Larynx: Normal Esophagus: GE junction at 40 cms with focal esophagitis at the GE junction. 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 A polypoidal and ulcerated mass involving the antrum and pylorus with gastric outlet obstruction - multiple biopsies were obtained. A mid-size upper endoscope was passed through the mass into the duodenum with moderate resistance. Grade 2 flap valve on retroflexed examination of the cardia. Duodenum: Normal bulb and descending duodenum Intervention: Biopsies as noted above Impression and Post Procedure Diagnosis: Endoscopy Findings: ESOPHAGUS: Focal esophagitis at the GE junction. 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 Extrinsic compression of the stomach along the lesser curvature Small amount of retained food noted in the stomach. A mid-size upper endoscope was passed through the mass into the duodenum with moderate resistance. DUODENUM: Normal Plan: 1. Continue NG with intermittent low wall suction 2. Ok to start clear liquid diet. 3. Oncology consult. Above findings were reviewed with the patient. BIOPSIES SHOWED: A. Stomach, mass, biopsy: - Small foci of adenocarcinoma involving gastric mucosa. - Fragment of small intestinal mucosa within normal limits. - Negative for H.pylori. See comment. B. Stomach, antrum, biopsy: Oxyntic mucosa with mild chronic inactive inflammation; no Helicobacter organisms seen. C. Stomach, body, biopsy: Oxyntic mucosa with mild chronic inactive inflammation; no Helicobacter organisms seen. D. 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 - No dysplasia seen. - No squamous epithelium present Biopsy results were reviewed with the patient and his .
--- NOTE | 2025-05-30 19:40 | PC.NURSE ---
1849- Pt had a broth and a lemon icy- c/o nausea. Stated I'm not sure if I ate it too fast Zofran given with pending effect. Reported to oncoming MIR Cullen
--- NOTE | 2025-05-31 02:09 | PC.NURSE ---
Pt started on clear liquids after upper endo. Drank flakito teagan earlier states no staying down.Vomited small amt .Pt hooked back up to suction via NG tube drained 700cc dark brown liquid immediately.Pt states feels better.
[2025-05-31 03:46] VITALS: BP 142/81; PULSE 57; RESP 16; TEMP 36.6; O2SAT 92
[2025-05-31] MEDS: Lactated Ringers 1,000 ML 125 ML IVCONT ×3 (03:47→21:46)
[2025-05-31 07:58] VITALS: BP 147/71; PULSE 58; RESP 16; TEMP 36.9; O2SAT 91
--- NOTE | 2025-05-31 09:39 | P.CNHO_ITS ---
Subjective - Subjective Chief complaint: Consult for: Gastric outlet obstruction due to mass. Patient: new to practice Consult date: 05/31/25 Requesting Physician: Neo shipman. Primary Care Provider: JENA Segundo Family Provider: JENA Segundo Medical Summary: DIAGNOSIS: GASTRIC OUTLET OBSTRUCTION. [employer] Utilized?: No - Latvian Speaking HPI - Consult Narrative Reason for consult: Consult for: Gastric outlet obstruction. Narrative: Joe Hampton is a 64 year old gentleman with past medical history significant for hypertension, diabetes type 2. He presented with approximately 2 weeks of worsening bloating and nonstop vomiting over the past several days of dark vomitus. He had black stools but no heather bleeding. He was on Ozempic for approximately 4 weeks but discontinued 2 weeks ago secondary to side effects. Workup in the emergency room including CAT scan is consistent with gastric outlet obstruction 2 [facility] Medical History: Osteoarthritis of right knee Osteoarthritis Bursitis of right hip Right tennis elbow PTSD (post-traumatic stress disorder) HURTADO (nonalcoholic steatohepatitis). Surgical History:) History of meniscectomy of left knee History of repair of rotator cuff. Family History:) Father from cancer of pancreas Mother Cancer of pancreas Sister No problems noted. Daughter No problems noted. Son No problems noted. Son No problems noted. 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 He is . Has 3 kids. Housing: House Patient Tobacco Use Status: Never used Tobacco Smoked in Last 30 Days: No e-Cigarette/Vaping Use: Never Used Second Hand Smoke Exposure: No Alcohol intake: current Alcohol intake frequency: a few times a month Use of substances other than those prescribed or required for medical reasons: No. Review of Systems Review of Systems: Easy fatiguability. No fever, chills not night sweats. Apetite is down, hw has lost weight. Denies chest pain, Denies shortness of breath He does admits to having had nausea and vomiting, heartburn and indigestion. No diarrhea No dysuria. Review of Systems - Constitutional Reports system reviewed and no additional complaints, except as documented, Reports fatigue, Reports lack of energy, Reports malaise, Reports poor appetite - Eyes Reports system reviewed and no additional complaints, except as documented - ENT Reports system reviewed and no additional complaints, except as documented - Cardiovascular Reports system reviewed and no additional complaints, except as documented - Respiratory Reports no additional respiratory complaints - Gastrointestinal Reports system reviewed and no additional complaints, except as documented, Reports abdominal pain, Reports feeling full early, Reports dyspepsia, Reports heartburn, Reports nausea - Genitourinary Genitourinary: Reports no additional male genitourinary complaints - Musculoskeletal Reports system reviewed and no additional complaints, except as documented - Integumentary/Breasts Skin/Breast: Reports no additional skin complaints - Neurologic Reports system reviewed and no additional complaints, except as documented - Psychiatric Reports system reviewed and no additional complaints, except as documented - Endocrine Reports no additional endocrine complaints - Hematologic/Lymphatic Reports system reviewed and no additional complaints, except as documented - Allergic/Immunologic Reports system reviewed and no additional complaints, except as documented Oncology Screenings - ECOG Performance Status ECOG Performance Status: 0 PMFSH Medical History: Medical History (Last Reviewed 05/30/25 @ 15:12 by Sasha Murillo MD) Borderline diabetes mellitus Bursitis of right hip HTN (hypertension) HURTADO (nonalcoholic steatohepatitis) Osteoarthritis Osteoarthritis of right knee PTSD (post-traumatic stress disorder) Right tennis elbow Sleep apnea Functional capacity: independent ambulation Patient : No Family History: Family History (Last Reviewed 05/30/25 @ 15:12 by Sasha Murillo MD) Father Cancer of pancreas Mother Cancer of pancreas Sister No problems noted. Daughter No problems noted. Son No problems noted. Son No problems noted. Surgical History: Surgical History (Last Reviewed 05/30/25 @ 15:12 by Sasha Murillo MD) H/O total knee replacement History of meniscectomy of left knee History of repair of rotator cuff Social History: Social History (Last Reviewed 05/30/25 @ 15:12 by Sasha Murillo MD) Living Situation History: Household Members: Family Housing: House Do you presently have visiting nurse or other home services: No Tobacco History: Patient Tobacco Use Status: Never used Tobacco e-Cigarette/Vaping Use: Never Used Second Hand Smoke Exposure: No Occupation Assessmet: service: No Current occupational status: retired Home Medications and Allergies Current Medications: Current Medications Benzocaine (Throat Lozenge, Medicated Lozenge) 1 lozenge MUCOUS MEM Q2H PRN PRN Reason: Sore Throat Last Admin: 05/29/25 22:40 Dose: 1 lozenge Diazepam (Diazepam 10 Mg/2 Ml Cartridge) 5 mg IVPUSH Q4H PRN PRN Reason: Anxiety Lactated Ringer's (Lr) 1,000 mls @ 125 mls/hr IVCONT .Q8H [facility] Last Admin: 05/31/25 03:47 Dose: 125 mls/hr Lactated Ringer's (Lr) 1,000 mls @ 50 mls/hr IVCONT .Q20H [facility] Last Infusion: 05/31/25 07:45 Dose: 0 mls/hr Magnesium Hydroxide (Milk Of Magnesia 30 Ml Oral.Susp) 30 ml PO DAILY PRN PRN Reason: Constipation Melatonin (Melatonin 3 Mg Tablet) 6 mg PO BEDTIME PRN PRN Reason: Insomnia Last Admin: 05/30/25 20:58 Dose: 6 mg Morphine Sulfate (Morphine Sulfate 4 Mg/Ml Cartridge) 4 mg IVPUSH Q4H PRN; Protocol PRN Reason: Pain, Moderate(Pain Scale 4-6) Last Admin: 05/31/25 05:38 Dose: 4 mg Naloxone HCl (Naloxone Hcl 0.4 Mg/Ml Vial) 0.04 mg IVPUSH Q5M PRN PRN Reason: Excessive sedation or RR < 8 Ondansetron HCl (Ondansetron Hcl 4 Mg/2 Ml Vial) 4 mg IVPUSH Q8H PRN PRN Reason: Nausea and Vomiting Last Admin: 05/30/25 18:50 Dose: 4 mg Pantoprazole Sodium (Pantoprazole Sodium 40 Mg/10 Ml Vial) 40 mg IVPUSH BID@0630,1630 [facility] Last Admin: 05/31/25 05:38 Dose: 40 mg Sodium Chloride (0.9 % Sodium Chloride Flush 3 Ml Syringe) 3 ml IVFLUSH QSHIFT [facility] Last Admin: 05/31/25 07:45 Dose: Not Given Home Medications ?Medication ?Instructions ?Recorded ?Confirmed ?Type ibuprofen 600 mg tablet 600 mg PO Q6H PRN Pain 12/14/22 05/29/25 History omeprazole 20 mg capsule,delayed 20 mg PO DAILY@0630 05/28/25 05/29/25 Hi story release Allergies Allergy/AdvReac Type Severity Reaction Status Date / Time erythromycin base Allergy Mild RAH,ITCH Verified 05/29/25 11:35 (Erythromycin Base) oxycodone (From Percocet) Allergy Mild NAUSEA,DIZZ Verified 05/29/25 11:35 INESS semaglutide (From Ozempic) AdvReac Severe Nausea and Verified 05/29/25 11:35 Vomiting Physical Exam Vital signs: Vital Signs Temp 98.4 F 05/31/25 07:58 Pulse 58 05/31/25 07:58 Resp 16 05/31/25 07:58 BP 147/71 H 05/31/25 07:58 Pulse Ox 91 L 05/31/25 07:58 O2 Del Method Room Air 05/31/25 07:58 O2 Flow Rate 6 05/30/25 17:33 Intake & Output 05/30/25 05/31/25 05/31/25 18:59 06:59 18:59 Intake Total 2320.834 / 3857.917 1537.083 / 3857.917 850 / 850 Output Total 1000 / 1200 200 / 1200 Balance 1320.834 / 2657.917 1337.083 / 2657.917 850 / 850 Urine Output (Average ml/kg/hr) 0.46 0.18 0.18 Intake: Intake, Oral Amount 0 / 360 360 / 360 IV Intake, Intraoperative 700 / 700 Amount Intake, IV Amount 1620.834 / 2797.917 1177.083 / 2797.917 850 / 850 Lactated Ringers 1,000 ml @ 50 1620.834 / 2797.917 1177.083 / 2797.917 850 / 850 mls/hr IVCONT .Q20H [facility] Rx#: [id number] Output: Output, Urine Amount 500 / 700 200 / 700 Output, Gastric Drainage Amount 500 / 500 Right Nare 500 / 500 Other: NPO Yes Eating (Feeding) Ability Independent Number of Unmeasured Voids 1 Number of Bowel Movements 0 Urine Urinal Bathroom Urine Color Yellow Last Bowel Movement 05/28/25 Weight 91.5 kg - Constitutional Present: moderate distress - Routine HEENT Exam Head: Present: normal inspection, normocephalic Eye: Present: normal appearance ENT: Present: mucous membranes moist - Routine Neck Exam Present: supple Hem/Onc Consult Result - Labs CBC & Chem 7: 06/02/25 05:29 06/04/25 05:42 Assessment and Plan Patient Active problem list reviewed?: Yes (1) Gastric outlet obstruction Status: Acute Assessment and plan: 64-year-old gentleman admitted to [facility] on 05/29 with symptoms of 2 weeks of worsening bloating and persistent vomiting of dark vomitus. CAT scan of the abdomen pelvis from 05/29 revealed: 1. Gastric outlet obstruction, with severe wall thickening, inflammation and edema of the distal antrum and pylorus. Given the appearance, neoplasm is suspected. This could potentially also represent localized inflammation from peptic disease although this is considered less likely. 2. Small volume ascites surrounding the liver, spleen, and abutting the lesser curvature of the stomach. 3. There are mild infiltrative changes in the anterior omentum just inferior to the stomach, with minimal nodularity. Early carcinomatosis is a consideration. 4. Indeterminate 1.5 cm lesion in segment 8 of the liver, and in segment 2 of the liver. Upper endoscopy from 05/30 revealed: ESOPHAGUS: Focal esophagitis at the GE junction. 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 Extrinsic compression of the stomach along the lesser curvature Small amount of retained food noted in the stomach. A mid-size upper endoscope was passed through the mass into the duodenum with moderate resistance. CEA level: 2.60. CA 19-9: 166. Concern is Metastatic Gastric Cancer. Other possibility is for pancreatic cancer given his strong family history. Differential diagnosis includes lymphoproliferative disorder IE lymphoma. PLAN: Will wait for the final pathology results. Then make further treatment decisions. I will get a PET scan for staging, as an outpatient. Will add LDH to the labs.: 172. He is a candidate for stent placement, for maintaining nutrition. Meanwhile he will continue on: NG suction, morphine for pain, and Zofran for nausea/vomiting. Thank you for the consult, CC: Dr. Hal Chacon. - Time Spent With Patient Time Spent with Patient (in minutes): 30
--- NOTE | 2025-05-31 13:31 | P.PNIM_ITS ---
Subjective Subjective Date of Service: 05/31/25 Interval History: No acute issues overnight. Did not tolerate clamping of NG-tube Review of Systems Denies chest pain Denies shortness of breath Admits nausea vomiting without diarrhea Denies fever chills Physical Exam 2 Vital Signs: Vital Signs: Last Vital Signs Temp 98.4 F 05/31/25 07:58 Pulse 58 05/31/25 07:58 Resp 16 05/31/25 07:58 BP 147/71 H 05/31/25 07:58 Pulse Ox 91 L 05/31/25 07:58 O2 Del Method Room Air 05/31/25 07:58 O2 Flow Rate 6 05/30/25 17:33 BMI result Body Mass Index 30.7 Const: Other: Awake alert oriented x3 in no acute distress Resp: Other: Clear to auscultation bilaterally no rales rhonchi or wheezes Cardio: Other: No S4; positive S1-S2; no S3 murmurs rubs or gallops GI: Other: Soft nontender nondistended normoactive bowel sounds Extrem: Other: No edema bilaterally Objective Data Active Medications Benzocaine (Throat Lozenge, Medicated Lozenge) 1 lozenge MUCOUS MEM Q2H PRN PRN Reason: Sore Throat Last Admin: 05/29/25 22:40 Dose: 1 lozenge Documented By: ATIYA Diazepam (Diazepam 10 Mg/2 Ml Cartridge) 5 mg IVPUSH Q4H PRN PRN Reason: Anxiety Lactated Ringer's (Lr) 1,000 mls @ 125 mls/hr IVCONT .Q8H [facility] Last Admin: 05/31/25 12:22 Dose: 125 mls/hr Documented By: BRANDIN Magnesium Hydroxide (Milk Of Magnesia 30 Ml Oral.Susp) 30 ml PO DAILY PRN PRN Reason: Constipation Melatonin (Melatonin 3 Mg Tablet) 6 mg PO BEDTIME PRN PRN Reason: Insomnia Last Admin: 05/30/25 20:58 Dose: 6 mg Documented By: STEFANIA Morphine Sulfate (Morphine Sulfate 4 Mg/Ml Cartridge) 4 mg IVPUSH Q4H PRN; Protocol PRN Reason: Pain, Moderate(Pain Scale 4-6) Last Admin: 05/31/25 10:21 Dose: 4 mg Documented By: BRANDIN Naloxone HCl (Naloxone Hcl 0.4 Mg/Ml Vial) 0.04 mg IVPUSH Q5M PRN PRN Reason: Excessive sedation or RR < 8 Ondansetron HCl (Ondansetron Hcl 4 Mg/2 Ml Vial) 4 mg IVPUSH Q8H PRN PRN Reason: Nausea and Vomiting Last Admin: 05/31/25 10:21 Dose: 4 mg Documented By: BRANDIN Pantoprazole Sodium (Pantoprazole Sodium 40 Mg/10 Ml Vial) 40 mg IVPUSH BID@0630,1630 [facility] Last Admin: 05/31/25 05:38 Dose: 40 mg Documented By: STEFANIA Sodium Chloride (0.9 % Sodium Chloride Flush 3 Ml Syringe) 3 ml IVFLUSH QSHIFT [facility] Last Admin: 05/31/25 07:45 Dose: Not Given Documented By: BRANDIN Non-Admin Reason: IV Running Labs 05/30/25 05:37 05/30/25 05:37 Labs: Laboratory Results - last 24 hr 05/30/25 05:37 Lactate Dehydrogenase 172 CA 19-9 Antigen 166 H Assessment and Plan (1) Gastric outlet obstruction: Status: Acute (2) HTN (hypertension): Status: Acute Plan 64-year-old male with a history of hypertension and newly diagnosed diabetes presents with a proximally 2 weeks of persistent vomiting of dark material. States he has had abdominal pain and bloating during the same time but over the last few days it has become worse. Workup in ER with CTA demonstrates gastric outlet obstruction. 1. Gastric outlet obstruction -NG tube clamp unsuccessful; returned to wall suction -NPO -EGD done; await biopsy -appreciate oncology input -morphine for pain -Zofran for nausea and vomiting 2. Hypertension -acceptable control on current therapies -utilize IV therapies if needed for blood pressure control 3. Anxiety -worsened by diagnosis -IV Ativan as needed until taking adequate p.o. Full code Pneumatics Patient will require ongoing hospitalization for NG decompression an EGD to determine cause of outlet obstruction. Quality Stroke Does the patient have a stroke diagnosis?: No VTE Prior VTE?: No VTE Risk Level:: Medical - moderate - high VTE Device Contraindication: N/A - Device Ordered VTE Drug Contraindication: Treatment Not Indicated
[2025-05-31 15:31] VITALS: BP 143/76; PULSE 57; RESP 19; TEMP 36.7; O2SAT 94
[2025-05-31] MEDS: 0.9 % Sodium Chloride Flush 3 ML SYRINGE IVFLUSH (15:57)
[2025-05-31 19:53] VITALS: BP 140/81; PULSE 64; RESP 19; TEMP 36.8; O2SAT 94
--- NOTE | 2025-05-31 20:52 | HO.POSTANES ---
Post Anesthesia Evaluation Post Anesthesia Evaluation Date of Service: 05/31/25 Vital Signs: Vital Signs Temp Pulse Resp BP Pulse Ox O2 Del Method 05/31/25 19:53 98.3 F 64 19 140/81 H 94 Room Air 05/31/25 15:31 98.0 F 57 19 143/76 H 94 Room Air Anesthesia: General Endotracheal-GETA Mental Status: Awake Pain Control: Satisfactory Nausea/Vomiting: None Hydration: Adequate Anesthesia-Related Issues: No Anes. Related Issues
[2025-06-01] MEDS: Lactated Ringers 1,000 ML 125 ML IVCONT ×3 (02:54→18:42)
[2025-06-01 03:22] VITALS: BP 148/72; PULSE 54; RESP 20; TEMP 36.9; O2SAT 92
[2025-06-01 07:36] VITALS: BP 171/87; PULSE 58; RESP 16; TEMP 36.6; O2SAT 92
[2025-06-01 08:46] LABS: MANUAL DIFF FLAG NO
[2025-06-01 08:50] LABS: Hematocrit 38.3 % (42.0-52.0); Hemoglobin 13.5 g/dl (14.0-18.0); Imm Gran Abs Auto 0.03 X10*3/uL (0.00-0.03); Imm Gran Pct Auto 0.4 % (0.0-0.4); Lymphocytes Absolute Auto 0.9 X10*3/uL (1.2-4.9); Mean Corpuscular HGB Conc 35.2 g/dl (31.0-36.0); Mean Corpuscular Hemoglobin 31.5 pg (27.0-33.0); Mean Corpuscular Volume 89.3 fL (80.0-98.0); NRBC Abs Auto 0.000 X10*3/uL (0.0-0.012); NRBC Pct Auto 0.0 /100WBC (0.0-0.2); Platelet Count 169 X10*3/uL (160-400); Red Blood Count 4.29 X10*6/uL (4.60-5.80); White Blood Count 8.4 X10*3/uL (4.8-10.8)
[2025-06-01 09:09] LABS: Alanine Aminotransferase 13 U/L (0-40); Albumin Level 3.6 g/dL (3.5-5.0); Alkaline Phosphatase 65 U/L (39-117); Anion Gap 12 (12-20); Aspartate Amino Transferase 25 U/L (5-37); Blood Urea Nitrogen 11 mg/dL (9-16); Calcium 8.5 mg/dL (8.4-10.2); Carbon Dioxide 26 mmol/L (22-29); Chloride 106 mmol/L (96-108); Creatinine Clr Calc Pharmacy 113.9; Estimated Glomerular Filt Rate > 60; Potassium 3.9 mmol/L (3.3-5.1); Sodium 140 mmol/L (135-145); Total Protein 5.9 g/dL (6.5-8.0)
[2025-06-01 10:15] VITALS: BP 158/86; PULSE 63; RESP 16; TEMP 36.8; O2SAT 95
--- NOTE | 2025-06-01 12:42 | HO.PM.IMPN ---
Subjective Subjective Date of Service: 06/01/25 Interval History: No acute issues overnight. NG-tube consistently draining greater than a L per day. Pain control adequate Review of Systems Denies chest pain Denies shortness of breath Admits nausea vomiting without diarrhea Denies fever chills Physical Exam Vital Signs: Vital Signs: Last Vital Signs Temp 98.2 F 06/01/25 10:15 Pulse 63 06/01/25 10:15 Resp 16 06/01/25 10:15 BP 158/86 H 06/01/25 10:15 Pulse Ox 95 06/01/25 10:15 O2 Del Method Room Air 06/01/25 10:15 O2 Flow Rate 6 05/30/25 17:33 BMI result Body Mass Index 30.7 Const: Other: Awake alert oriented x3 in no acute distress Resp: Other: Clear to auscultation bilaterally no rales rhonchi or wheezes Cardio: Other: No S4; positive S1-S2; no S3 murmurs rubs or gallops GI: Other: Soft nontender nondistended normoactive bowel sounds Extrem: Other: No edema bilaterally Objective Data Active Medications Benzocaine (Throat Lozenge, Medicated Lozenge) 1 lozenge MUCOUS MEM Q2H PRN PRN Reason: Sore Throat Last Admin: 05/29/25 22:40 Dose: 1 lozenge Documented By: ATIYA Diazepam (Diazepam 10 Mg/2 Ml Cartridge) 5 mg IVPUSH Q4H PRN PRN Reason: Anxiety Lactated Ringer's (Lr) 1,000 mls @ 125 mls/hr IVCONT .Q8H [facility] Last Admin: 06/01/25 10:32 Dose: 125 mls/hr Documented By: JASSON Magnesium Hydroxide (Milk Of Magnesia 30 Ml Oral.Susp) 30 ml PO DAILY PRN PRN Reason: Constipation Melatonin (Melatonin 3 Mg Tablet) 6 mg PO BEDTIME PRN PRN Reason: Insomnia Last Admin: 05/30/25 20:58 Dose: 6 mg Documented By: STEFANIA Morphine Sulfate (Morphine Sulfate 4 Mg/Ml Cartridge) 4 mg IVPUSH Q4H PRN; Protocol PRN Reason: Pain, Moderate(Pain Scale 4-6) Last Admin: 06/01/25 10:30 Dose: 4 mg Documented By: JASSON Naloxone HCl (Naloxone Hcl 0.4 Mg/Ml Vial) 0.04 mg IVPUSH Q5M PRN PRN Reason: Excessive sedation or RR < 8 Ondansetron HCl (Ondansetron Hcl 4 Mg/2 Ml Vial) 4 mg IVPUSH Q8H PRN PRN Reason: Nausea and Vomiting Last Admin: 05/31/25 10:21 Dose: 4 mg Documented By: BRANDIN Pantoprazole Sodium (Pantoprazole Sodium 40 Mg/10 Ml Vial) 40 mg IVPUSH BID@0630,1630 [facility] Last Admin: 06/01/25 05:45 Dose: 40 mg Documented By: STEFANIA Sodium Chloride (0.9 % Sodium Chloride Flush 3 Ml Syringe) 3 ml IVFLUSH QSHIFT [facility] Last Admin: 06/01/25 07:37 Dose: Not Given Documented By: BRANDIN Non-Admin Reason: IV Running Labs 06/01/25 08:35 06/01/25 08:35 Labs: Laboratory Results - last 24 hr 06/01/25 06/01/25 08:35 08:37 MCV 89.3 MCH 31.5 MCHC 35.2 RDW 11.9 Plt Count 169 MPV 9.7 Immature Gran % (Auto) 0.4 Neut % (Auto) 77.1 H Lymph % (Auto) 11.2 L [place] % (Auto) 9.4 Eos % (Auto) 1.3 Baso % (Auto) 0.6 Lymph # (Auto) 0.9 L [place] # (Auto) 0.8 Eos # (Auto) 0.1 Baso # (Auto) 0.1 Abs Immat Gran (auto) 0.03 Absolute Neuts (auto) 6.5 Absolute Nucleated RBC 0.000 Nucleated RBC % (auto) 0.0 Hold Purple Top SEE NOTE Anion Gap 12 Estim Creat Clear Calc 113.9 Estimated GFR > 60 Random Glucose 83 Calcium 8.5 Total Bilirubin 0.8 AST 25 ALT 13 Alkaline Phosphatase 65 Total Protein 5.9 L Albumin 3.6 Assessment and Plan (1) Gastric outlet obstruction: Status: Acute (2) HTN (hypertension): Status: Acute Plan 64-year-old male with a history of hypertension and newly diagnosed diabetes presents with a proximally 2 weeks of persistent vomiting of dark material. States he has had abdominal pain and bloating during the same time but over the last few days it has become worse. Workup in ER with CTA demonstrates gastric outlet obstruction. 1. Gastric outlet obstruction -continuous wall suction -morphine for pain -Zofran for nausea and vomiting -await further GI input in a.m. ... Question pyloric stent if appropriate 2. Hypertension -acceptable control on current therapies -utilize IV therapies if needed for blood pressure control 3. Anxiety -worsened by diagnosis -IV Ativan as needed until taking adequate p.o. Full code Pneumatics Patient will require ongoing hospitalization for NG decompression an EGD to determine cause of outlet obstruction. Quality Stroke Does the patient have a stroke diagnosis?: No VTE Prior VTE?: No VTE Risk Level:: Medical - moderate - high VTE Device Contraindication: N/A - Device Ordered VTE Drug Contraindication: Treatment Not Indicated
[2025-06-01] MEDS: Throat Lozenge, Medicated LOZENGE 1 LOZENGE MUCOUS MEM ×2 (13:52→18:42)
[2025-06-01 15:22] VITALS: BP 143/76; PULSE 55; RESP 18; TEMP 36.3; O2SAT 94
[2025-06-01 19:37] VITALS: BP 155/83; PULSE 55; RESP 16; TEMP 36.3; O2SAT 95
--- NOTE | 2025-06-01 22:59 | PC.RT ---
NOC Oximetry started at 2300 pt on RA; states he uses CPAP at home
[2025-06-02] MEDS: Lactated Ringers 1,000 ML 125 ML IVCONT ×3 (02:11→16:59)
[2025-06-02 03:36] VITALS: BP 170/98; PULSE 63; RESP 18; TEMP 36.5; O2SAT 98
[2025-06-02 05:55] LABS: MANUAL DIFF FLAG NO
[2025-06-02 05:58] LABS: Hematocrit 39.6 % (42.0-52.0); Hemoglobin 13.9 g/dl (14.0-18.0); Imm Gran Abs Auto 0.05 X10*3/uL (0.00-0.03); Imm Gran Pct Auto 0.6 % (0.0-0.4); Lymphocytes Absolute Auto 1.0 X10*3/uL (1.2-4.9); Mean Corpuscular HGB Conc 35.1 g/dl (31.0-36.0); Mean Corpuscular Hemoglobin 31.4 pg (27.0-33.0); Mean Corpuscular Volume 89.6 fL (80.0-98.0); NRBC Abs Auto 0.000 X10*3/uL (0.0-0.012); NRBC Pct Auto 0.0 /100WBC (0.0-0.2); Platelet Count 195 X10*3/uL (160-400); Red Blood Count 4.42 X10*6/uL (4.60-5.80); White Blood Count 9.0 X10*3/uL (4.8-10.8)
[2025-06-02 06:06] VITALS: BP 165/85; PULSE 58
[2025-06-02 06:12] LABS: Alanine Aminotransferase 15 U/L (0-40); Albumin Level 3.5 g/dL (3.5-5.0); Alkaline Phosphatase 66 U/L (39-117); Anion Gap 14 (12-20); Aspartate Amino Transferase 23 U/L (5-37); Blood Urea Nitrogen 8 mg/dL (9-16); Calcium 8.5 mg/dL (8.4-10.2); Carbon Dioxide 22 mmol/L (22-29); Chloride 106 mmol/L (96-108); Creatinine Clr Calc Pharmacy 128.3; Estimated Glomerular Filt Rate > 60; Potassium 3.7 mmol/L (3.3-5.1); Sodium 138 mmol/L (135-145); Total Protein 5.9 g/dL (6.5-8.0)
[2025-06-02 06:13] VITALS: BP 165/85
--- NOTE | 2025-06-02 06:25 | PC.NURSE ---
Dr. Gifford notified at 0342 of BP 170/98. Pt at this time is asymptomatic. Denying blurred vision or headache. Awaiting response.
--- NOTE | 2025-06-02 06:26 | PC.NURSE ---
0411 Dr Gifford repaged regarding BP with no orders received.
--- NOTE | 2025-06-02 06:28 | PC.NURSE ---
3128 Dr Gifford paged again; spoke to provider on phone who verbalized ok to give Hydralazine 5mg IV now.
[2025-06-02 08:00] VITALS: BP 173/95; PULSE 65; RESP 18; TEMP 36.8; O2SAT 96
--- NOTE | 2025-06-02 10:32 | MHC.CM.PN ---
Per MD rounds patient not medically cleared for dc. CM will continue to follow.
--- NOTE | 2025-06-02 13:13 | P.PNIM_ITS ---
Subjective Subjective Date of Service: 06/02/25 Interval History: Anxious. Copious NG tube liquid outpt. Minimal abd discomfort but he is not eating. Review of Systems Review of Systems: Yes all other systems are reviewed and are negative Physical Exam 2 Vital Signs: Vital Signs: Last Vital Signs Temp 98.3 F 06/02/25 08:00 Pulse 65 06/02/25 08:00 Resp 18 06/02/25 08:00 BP 173/95 H 06/02/25 08:00 Pulse Ox 96 06/02/25 08:00 O2 Del Method Room Air 06/02/25 08:00 O2 Flow Rate 6 05/30/25 17:33 BMI result Body Mass Index 30.7 Gen: in no acute distress HEENT: sclera anicteric, moist mucus membranes Neck: supple Lungs: clear to auscultation bilaterally Heart: regular rate and rhythm, no murmurs Abd: soft, non-tender, NG tube to suction with clear liquid in canister Ext: no edema Skin: warm/well-perfused Neuro: alert and oriented x3, no focal findings Psych: appropriate affect Objective Data Active Medications Benzocaine (Throat Lozenge, Medicated Lozenge) 1 lozenge MUCOUS MEM Q2H PRN PRN Reason: Sore Throat Last Admin: 06/01/25 18:42 Dose: 1 lozenge Documented By: BRANDIN Diazepam (Diazepam 10 Mg/2 Ml Cartridge) 5 mg IVPUSH Q4H PRN PRN Reason: Anxiety Lactated Ringer's (Lr) 1,000 mls @ 125 mls/hr IVCONT .Q8H AGUEDA Last Admin: 06/02/25 10:14 Dose: 125 mls/hr Documented By: AMANDEEP Magnesium Hydroxide (Milk Of Magnesia 30 Ml Oral.Susp) 30 ml PO DAILY PRN PRN Reason: Constipation Melatonin (Melatonin 3 Mg Tablet) 6 mg PO BEDTIME PRN PRN Reason: Insomnia Last Admin: 05/30/25 20:58 Dose: 6 mg Documented By: STEFANIA Morphine Sulfate (Morphine Sulfate 4 Mg/Ml Cartridge) 4 mg IVPUSH Q4H PRN; Protocol PRN Reason: Pain, Moderate(Pain Scale 4-6) Last Admin: 06/02/25 06:16 Dose: 4 mg Documented By: NIMA Naloxone HCl (Naloxone Hcl 0.4 Mg/Ml Vial) 0.04 mg IVPUSH Q5M PRN PRN Reason: Excessive sedation or RR < 8 Ondansetron HCl (Ondansetron Hcl 4 Mg/2 Ml Vial) 4 mg IVPUSH Q8H PRN PRN Reason: Nausea and Vomiting Last Admin: 06/02/25 08:05 Dose: 4 mg Documented By: AMANDEEP Sodium Chloride (0.9 % Sodium Chloride Flush 3 Ml Syringe) 3 ml IVFLUSH QSHIFT AGUEDA Last Admin: 06/02/25 04:18 Dose: Not Given Documented By: NIMA Non-Admin Reason: IV Running Labs 06/02/25 05:29 06/02/25 05:29 Labs: Laboratory Results - last 24 hr 06/02/25 05:29 MCV 89.6 MCH 31.4 MCHC 35.1 RDW 11.7 Plt Count 195 MPV 10.1 Immature Gran % (Auto) 0.6 H Neut % (Auto) 77.0 H Lymph % (Auto) 10.6 L [place] % (Auto) 9.9 Eos % (Auto) 1.2 Baso % (Auto) 0.7 Lymph # (Auto) 1.0 L [place] # (Auto) 0.9 Eos # (Auto) 0.1 Baso # (Auto) 0.1 Abs Immat Gran (auto) 0.05 H Absolute Neuts (auto) 6.9 Absolute Nucleated RBC 0.000 Nucleated RBC % (auto) 0.0 Anion Gap 14 Estim Creat Clear Calc 128.3 Estimated GFR > 60 Fasting Glucose 84 Calcium 8.5 Total Bilirubin 0.9 AST 23 ALT 15 Alkaline Phosphatase 66 Total Protein 5.9 L Albumin 3.5 Assessment and Plan (1) Gastric outlet obstruction: Status: Acute (2) HTN (hypertension): Status: Acute Plan d5, 64yo M with HTN + newly diagnosed DM2 [A1c 6.5] presenting with 2 wk of worsening dark vomitus, abd pain and bloating found to have gastric outlet obstruction with severe wall thickening, inflammation and edema of the distal antrum and pylorus gastric mass with outlet obstruction - other concerning findings on CT: small volume ascites, mild infiltrative chnages of anterior omentum with minimal nodulariy, indeterminate liver lesions x2 - EGD 05/30: focal esophagitis at [facility], multiple tongues of Wilhelm's metaplasia, polypoidal/ulcerated antral/polyric mass with GOO suspicious for gastric adenoCA vs lymphoma, extrinsic compression of stomach along lesser curvature. Awaiting biopsy results before decision regarding stenting. GI and Oncology following. Continue NG tube. HTN - hold amlodipine + losartan HLD - hold atorvastatin BPH - hold finasteride DM2 - A1c only 6.5, BGs under control VTE ppx: SCDs dispo: TBD In my clinical judgment, the patient requires continued inpatient hospitalization for the following reasons: NG decompression, gastric outlet obstruction that may require stenting Total time managing care of this patient today: 45 minutes. Quality Stroke Does the patient have a stroke diagnosis?: No VTE Prior VTE?: No VTE Risk Level:: Medical - moderate - high VTE Device Contraindication: N/A - Device Ordered VTE Drug Contraindication: Treatment Not Indicated
[2025-06-02 15:14] VITALS: BP 163/88; PULSE 56; RESP 16; TEMP 36.9; O2SAT 95
--- NOTE | 2025-06-02 15:15 | PC.NURSE ---
Pt oob independent in mouth care. Ambulated in the hallway with standby assist . NG tube remains to intermittent suction pt continues to take clears for comfort
[2025-06-02 19:15] VITALS: BP 164/82; PULSE 56; RESP 18; TEMP 36.3; O2SAT 96
[2025-06-03] MEDS: Lactated Ringers 1,000 ML 125 ML IVCONT ×3 (00:37→17:59)
[2025-06-03 03:28] VITALS: BP 158/87; PULSE 59; RESP 18; TEMP 36.7; O2SAT 95
[2025-06-03 07:20] LABS: Anion Gap 16 (12-20); Blood Urea Nitrogen 8 mg/dL (9-16); Calcium 8.9 mg/dL (8.4-10.2); Carbon Dioxide 23 mmol/L (22-29); Chloride 107 mmol/L (96-108); Creatinine Clr Calc Pharmacy 124.4; Estimated Glomerular Filt Rate > 60; Potassium 4.0 mmol/L (3.3-5.1); Sodium 142 mmol/L (135-145)
[2025-06-03 07:47] VITALS: RESP 15
[2025-06-03] MEDS: Milk of Magnesia 30 ML ORAL.SUSP PO (07:47)
--- NOTE | 2025-06-03 07:52 | PC.NURSE ---
NG tube clamped for PRN medication administration.
[2025-06-03 08:07] VITALS: BP 178/86; PULSE 79; RESP 18; TEMP 36.6; O2SAT 96
--- NOTE | 2025-06-03 09:11 | PC.NURSE ---
NG tube placed back on low intermittent suction.
[2025-06-03 10:02] VITALS: BP 170/91; PULSE 53
--- NOTE | 2025-06-03 14:13 | P.PNIM_ITS ---
Subjective Subjective Date of Service: 06/03/25 Interval History: biopsy suggestive of adenoCA at deep margin pt wants NGT out DERRELL denies abd pain Review of Systems Review of Systems: Yes all other systems are reviewed and are negative Physical Exam 2 Vital Signs: Vital Signs: Last Vital Signs Temp 97.9 F 06/03/25 08:07 Pulse 53 06/03/25 10:02 Resp 18 06/03/25 08:07 BP 170/91 H 06/03/25 10:02 Pulse Ox 96 06/03/25 08:07 O2 Del Method Room Air 06/03/25 08:07 O2 Flow Rate 6 05/30/25 17:33 BMI result Body Mass Index 30.7 Gen: in no acute distress HEENT: sclera anicteric, moist mucus membranes Neck: supple Lungs: clear to auscultation bilaterally Heart: regular rate and rhythm, no murmurs Abd: soft, non-tender, NG tube to suction with clear liquid in canister Ext: no edema Skin: warm/well-perfused Neuro: alert and oriented x3, no focal findings Psych: appropriate affect Objective Data Active Medications Benzocaine (Throat Lozenge, Medicated Lozenge) 1 lozenge MUCOUS MEM Q2H PRN PRN Reason: Sore Throat Last Admin: 06/01/25 18:42 Dose: 1 lozenge Documented By: BRANDIN Diazepam (Diazepam 10 Mg/2 Ml Cartridge) 5 mg IVPUSH Q4H PRN PRN Reason: Anxiety Lactated Ringer's (Lr) 1,000 mls @ 125 mls/hr IVCONT .Q8H AGUEDA Last Admin: 06/03/25 07:42 Dose: 125 mls/hr Documented By: JOSELUIS Magnesium Hydroxide (Milk Of Magnesia 30 Ml Oral.Susp) 30 ml PO DAILY PRN PRN Reason: Constipation Last Admin: 06/03/25 07:47 Dose: 30 ml Documented By: JOSELUIS Melatonin (Melatonin 3 Mg Tablet) 6 mg PO BEDTIME PRN PRN Reason: Insomnia Last Admin: 06/02/25 21:00 Dose: 6 mg Documented By: CHELI Morphine Sulfate (Morphine Sulfate 4 Mg/Ml Cartridge) 4 mg IVPUSH Q4H PRN; Protocol PRN Reason: Pain, Moderate(Pain Scale 4-6) Last Admin: 06/03/25 07:47 Dose: 4 mg Documented By: JOSELUIS Naloxone HCl (Naloxone Hcl 0.4 Mg/Ml Vial) 0.04 mg IVPUSH Q5M PRN PRN Reason: Excessive sedation or RR < 8 Ondansetron HCl (Ondansetron Hcl 4 Mg/2 Ml Vial) 4 mg IVPUSH Q8H PRN PRN Reason: Nausea and Vomiting Last Admin: 06/02/25 08:05 Dose: 4 mg Documented By: AMANDEEP Pharmacy Consult (Consult Rx Parenteral Nutrition Ordering) 1 each MISCELLANE DAILY PRN PRN Reason: Consult order Sodium Chloride (0.9 % Sodium Chloride Flush 3 Ml Syringe) 3 ml IVFLUSH QSHIFT AGUEDA Last Admin: 06/03/25 07:47 Dose: Not Given Documented By: JOSELUIS Non-Admin Reason: IV Running Labs 06/02/25 05:29 06/03/25 06:47 Labs: Laboratory Results - last 24 hr 06/03/25 06:47 Hold Purple Top SEE NOTE Anion Gap 16 Estim Creat Clear Calc 124.4 Estimated GFR > 60 Random Glucose 94 Calcium 8.9 Assessment and Plan (1) Gastric outlet obstruction: Status: Acute (2) HTN (hypertension): Status: Acute Plan d6, 64yo M with HTN + newly diagnosed DM2 [A1c 6.5] presenting with 2 wk of worsening dark vomitus, abd pain and bloating found to have gastric outlet obstruction with severe wall thickening, inflammation and edema of the distal antrum and pylorus gastric mass with outlet obstruction - other concerning findings on CT: small volume ascites, mild infiltrative chnages of anterior omentum with minimal nodulariy, indeterminate liver lesions x2 - EGD 05/30: focal esophagitis at [facility], multiple tongues of Wilhelm's metaplasia, polypoidal/ulcerated antral/polyric mass with GOO 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 GI and Oncology following. Continue NG tube. Place PICC for TPN and port for eventual chemotherapy. Molecular studies/immunostains pending. Outpt PET/CT HTN - hold amlodipine + losartan while NPO HLD - hold atorvastatin; NPO BPH - hold finasteride; NPO DM2 - A1c only 6.5, BGs under control VTE ppx: SCDs dispo: eventual home In my clinical judgment, the patient requires continued inpatient hospitalization for the following reasons: NG decompression, gastric outlet obstruction requiring stenting Total time managing care of this patient today: 55 minutes. Quality Stroke Does the patient have a stroke diagnosis?: No VTE Prior VTE?: No VTE Risk Level:: Medical - moderate - high VTE Device Contraindication: N/A - Device Ordered VTE Drug Contraindication: Treatment Not Indicated
--- NOTE | 2025-06-03 15:03 | HO.WOUND ---
Wound Care Note: NG Tube Securement assessment 64yr old [place] [facility] [place] 15:59 - see H&P for detailed history. Patient has NG tube in place with 3M Securement device in use. Patient reports comfort and was assessed to be in place. Skin able to be assessed under device intact. 3M Device securement secured to tube no irregular movement noted. No interventions needed.
--- NOTE | 2025-06-03 16:38 | PC.NURSE ---
14:25 - Patient returned from IR with triple lumen PICC in place - confirmed placement reported from [facility] via [employer] that [facility]emnet was confirmed by CXR and Dr. Romero. Red port lumen has positive blood return and flushed with ease.
--- NOTE | 2025-06-03 17:08 | HO.PICC ---
PICC Line Insertion NPICC Diagnosis: gastric obstruction Indication: TPN Pertinent Labs: reviewed Technique: Following informed consent including risks, benefits and alternatives and using sterile technique including cap and mask, sterile gown, glove and drape, the right arm was prepped and draped in the usual sterile fashion of full barrier technique with G. Following completion of [employer] Protocol the skin and soft tissues were anesthetized with 1% Lidocaine plain. Using ultrasound guidance, right brachial vein access was obtained. Over an 0.018 wire through peel-away sheath, a 5fr triple lumen PASV PICC line was positioned. Catheter length is 45cm internal length, 5cm external length, for a total trimmed length of 45cm. The procedure was performed in [facility]. Dr Romero was called to bedside d/t difficulty placing catheter past 40cm. CXR was obtained and catheter was pulled back to 40cm Ultrasound was used to document vein patency and for needle entry. A formal ultrasound picture was obtained. has released the line for use and it is currently dressed with a StatLock, Tegaderm, and CHG disc. Verification has been performed for blood return and line patency. Arm Circumference: 30cm Equipment: [employer] POWERPICC SOLO HF catheter with sherlock 3cg Catheter Type: 5FR triple lumen PASV Lot #: [id number]
[2025-06-03 17:25] VITALS: BP 173/96; PULSE 56; RESP 20; TEMP 36.8; O2SAT 97
[2025-06-03 19:20] VITALS: BP 174/78; PULSE 61; RESP 18; TEMP 37.1; O2SAT 95
[2025-06-04] VITALS (14 sets, daily range): BP systolic 153–180; BP diastolic 86–108; PULSE 57–72; RESP 15–18; TEMP 36.7–37.4; O2SAT 95–97; BMI 30.7
[2025-06-04] MEDS: Lactated Ringers 1,000 ML 125 ML IVCONT ×3 (00:08→17:15)
[2025-06-04 06:13] LABS: Albumin Level 3.5 g/dL (3.5-5.0); Anion Gap 15 (12-20); Blood Urea Nitrogen 8 mg/dL (9-16); Calcium 8.6 mg/dL (8.4-10.2); Carbon Dioxide 23 mmol/L (22-29); Chloride 106 mmol/L (96-108); Creatinine Clr Calc Pharmacy 126.3; Estimated Glomerular Filt Rate > 60; Magnesium 2.0 mg/dL (1.6-2.6); Potassium 3.9 mmol/L (3.3-5.1); Sodium 140 mmol/L (135-145)
--- NOTE | 2025-06-04 10:05 | P.PNHO-ONC_ITS ---
Medical Summary - Medical Summary Date of Service: 06/03/25 Chief complaint: F/U for: Gastric Carcinoma. Primary Care Provider: LAWSON Segundo Medical Summary: DIAGNOSIS: GASTRIC OUTLET OBSTRUCTION. Adenocarcinoma. Promotions Assistant Sales Marketing Utilized?: No - Telugu Speaking Interval History Interval history: Joe Hampton is a 64 year old gentleman not feeling too well. He is taking full liquids po. However, that gets out with NG suctioning. Denies chest pain Denies shortness of breath Admits nausea vomiting without diarrhea Denies fever chills. HPI: He presented with approximately 2 weeks of worsening bloating and nonstop vomiting over the past several days of dark vomitus. He had black stools but no heather bleeding. He was on Ozempic for approximately 4 weeks but DC 2 weeks ago secondary to side effects. Workup in the emergency room including CAT scan is consistent with gastric outlet obstruction 2 [facility] Medical History: hypertension, Diabetes type 2. Osteoarthritis of right knee Osteoarthritis Bursitis of right hip Right tennis elbow PTSD (post-traumatic stress disorder) HURTADO (nonalcoholic steatohepatitis). Surgical History:) History of meniscectomy of left knee History of repair of rotator cuff. Family History:) Father from cancer of pancreas Mother Cancer of pancreas Sister No problems noted. Daughter No problems noted. Son No problems noted. Son No problems noted. 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 He is . Has 3 kids. Housing: House Patient Tobacco Use Status: Never used Tobacco Smoked in Last 30 Days: No e-Cigarette/Vaping Use: Never Used Second Hand Smoke Exposure: No Alcohol intake: current Alcohol intake frequency: a few times a month Use of substances other than those prescribed or required for medical reasons: No. Review of Systems - Constitutional Reports no additional constitutional complaints - Eyes Reports no additional eye complaints - ENT Reports no additional ear, nose, mouth, and throat complaints - Cardiovascular Reports no additional cardiovascular complaints - Respiratory Reports no additional respiratory complaints - Gastrointestinal Reports no additional gastrointestinal complaints - Genitourinary Genitourinary: Reports no additional male genitourinary complaints - Musculoskeletal Reports no additional musculoskeletal complaints - Integumentary/Breasts Skin/Breast: Reports no additional skin complaints - Neurologic Reports no additional neurologic complaints - Psychiatric Reports no additional psychiatric complaints - Endocrine Reports no additional endocrine complaints - Hematologic/Lymphatic Reports no additional hematologic/lymphatic complaints - Allergic/Immunologic Reports no additional allergic/immunologic complaints [facility] Medical History: Medical History (Last Reviewed 05/30/25 @ 15:12 by Sasha Murillo MD) Borderline diabetes mellitus Bursitis of right hip HTN (hypertension) HURTADO (nonalcoholic steatohepatitis) Osteoarthritis Osteoarthritis of right knee PTSD (post-traumatic stress disorder) Right tennis elbow Sleep apnea Functional capacity: independent ambulation Patient : No Family History: Family History (Last Reviewed 05/30/25 @ 15:12 by Sasha Murillo MD) Father Cancer of pancreas Mother Cancer of pancreas Sister No problems noted. Daughter No problems noted. Son No problems noted. Son No problems noted. Surgical History: Surgical History (Last Reviewed 05/30/25 @ 15:12 by Sasha Murillo MD) H/O total knee replacement History of meniscectomy of left knee History of repair of rotator cuff Social History: Social History (Last Reviewed 05/30/25 @ 15:12 by Sasha Murillo MD) Living Situation History: Household Members: Family Housing: House Do you presently have visiting nurse or other home services: No Tobacco History: Patient Tobacco Use Status: Never used Tobacco e-Cigarette/Vaping Use: Never Used Second Hand Smoke Exposure: No Occupation Assessmet: service: No Current occupational status: retired Oncology Screenings - ECOG Performance Status ECOG Performance Status: 0 Home Medications and Allergies Current Medications: Current Medications Benzocaine (Throat Lozenge, Medicated Lozenge) 1 lozenge MUCOUS MEM Q2H PRN PRN Reason: Sore Throat Last Admin: 06/01/25 18:42 Dose: 1 lozenge Diazepam (Diazepam 10 Mg/2 Ml Cartridge) 5 mg IVPUSH Q4H PRN PRN Reason: Anxiety Lactated Ringer's (Lr) 1,000 mls @ 125 mls/hr IVCONT .Q8H AGU[facility]A Last Admin: 06/04/25 07:44 Dose: 125 mls/hr Magnesium Hydroxide (Milk Of Magnesia 30 Ml Oral.Susp) 30 ml PO DAILY PRN PRN Reason: Constipation Last Admin: 06/03/25 07:47 Dose: 30 ml Melatonin (Melatonin 3 Mg Tablet) 6 mg PO BEDTIME PRN PRN Reason: Insomnia Last Admin: 06/03/25 20:37 Dose: 6 mg Naloxone HCl (Naloxone Hcl 0.4 Mg/Ml Vial) 0.04 mg IVPUSH Q5M PRN PRN Reason: Excessive sedation or RR < 8 Ondansetron HCl (Ondansetron Hcl 4 Mg/2 Ml Vial) 4 mg IVPUSH Q8H PRN PRN Reason: Nausea and Vomiting Last Admin: 06/02/25 08:05 Dose: 4 mg Pharmacy Consult (Consult Rx Parenteral Nutrition Ordering) 1 each MISCELLANE DAILY PRN PRN Reason: Consult order Sodium Chloride (0.9 % Sodium Chloride Flush 3 Ml Syringe) 3 ml IVFLUSH [facility] Last Admin: 06/04/25 07:48 Dose: Not Given Sodium Chloride (0.9 % Sodium Chloride Flush 10 Ml Syringe) 10 ml IVFLUSH [facility] Home Medications ?Medication ?Instructions ?Recorded ?Confirmed ?Type ibuprofen 600 mg tablet 600 mg PO Q6H PRN Pain 12/14/22 05/29/25 History omeprazole 20 mg capsule,delayed 20 mg PO DAILY@0630 05/28/25 05/29/25 Hi story release Allergies Allergy/AdvReac Type Severity Reaction Status Date / Time erythromycin base Allergy Mild RAH,ITCH Verified 05/29/25 11:35 (Erythromycin Base) oxycodone (From Percocet) Allergy Mild NAUSEA,DIZZ Verified 05/29/25 11:35 INESS semaglutide (From Ozempic) AdvReac Severe Nausea and Verified 05/29/25 11:35 Vomiting Exam Vital signs: Vital Signs Temp 99.4 F 06/04/25 07:23 Pulse 60 06/04/25 07:23 Resp 18 06/04/25 07:23 BP 159/86 H 06/04/25 07:23 Pulse Ox 95 06/04/25 07:23 O2 Del Method Room Air 06/04/25 07:23 O2 Flow Rate 6 05/30/25 17:33 Intake & Output 06/03/25 06/04/25 06/04/25 18:59 06:59 18:59 Intake Total 2305.417 / 3314.167 1008.75 / 3314.167 950 / 950 Output Total 1100 / 3825 2725 / 3825 Balance 1205.417 / -510.833 -1716.25 / -510.833 950 / 950 Urine Output (Average ml/kg/hr) 0.46 1.30 1.30 Intake: Intake, Oral Amount 420 / 660 240 / 660 Intake, IV Amount 1885.417 / 2654.167 768.75 / 2654.167 950 / 950 Lactated Ringers 1,000 ml @ 125 1885.417 / 2654.167 768.75 / 2654.167 950 / 950 mls/hr IVCONT .Q8H [facility] Rx#: [id number] Output: Output, Urine Amount 500 / 1925 1425 / 1925 Output, Gastric Drainage Amount 600 / 1900 1300 / 1900 Right Nare 600 / 1900 1300 / 1900 Other: Breakfast % Eaten 25% Lunch % Eaten 0% Dinner % Eaten 25% Eating (Feeding) Ability Independent Independent Number of Unmeasured Voids 1 Urine Urinal Urine Color Yellow Last Bowel Movement 06/03/25 06/03/25 06/03/25 Stool 1 Stool Amount Small Weight 91.5 kg BMI result Body Mass Index 30.7 - Constitutional Present: mild distress, moderate distress - Routine HEENT Exam Head: Present: normal inspection, normocephalic Eye: Present: normal appearance ENT: Present: mucous membranes moist - Routine Neck Exam Present: full ROM - Routine Respiratory Exam Present: CTAB - Routine Cardiovascular Exam Cardiovascular: Present: RRR, S1, S2 - Routine Abdominal Exam Present: soft, nontender - Routine Extremities Exam Present: nontender - Routine Back/Spine/Pelvis Exam Back/Spine: Present: full ROM - Routine Skin Exam Present: intact - Routine Neurological Exam Present: alert, oriented X3 - Routine Psychiatric Exam Present: normal affect Data - Labs CBC & Chem 7: 06/02/25 05:29 06/04/25 05:42 Labs: Laboratory Last Values WBC 9.0 X10*3/uL (4.8-10.8) 06/02/25 05: RBC 4.42 X10*6/uL (4.60-5.80) L 06/02/25 05:29 Hgb 13.9 g/dl (14.0-18.0) L 06/02/25 05: Hct 39.6 % (42.0-52.0) L 06/02/25 05:29 MCV 89.6 fL (80.0-98.0) 06/02/25 05:29 MCH 31.4 pg (27.0-33.0) 06/02/25 05: MCHC 35.1 g/dl (31.0-36.0) 06/02/25 05: RDW 11.7 % (11.0-16.0) 06/02/25 05: Plt Count 195 X10*3/uL (160-400) 06/02/25 05:29 MPV 10.1 fL (9.4-12.4) 06/02/25 05:29 Immature Gran % (Auto) 0.6 % (0.0-0.4) H 06/02/25 05: Neut % (Auto) 77.0 % (45-73) H 06/02/25 05:29 Lymph % (Auto) 10.6 % (20-40) L 06/02/25 05:29 Hitchcock % (Auto) 9.9 % (2-11) 06/02/25 05: Eos % (Auto) 1.2 % (0-4) 06/02/25 05: Baso % (Auto) 0.7 % (0-2) 06/02/25 05:29 Lymph # (Auto) 1.0 X10*3/uL (1.2-4.9) L 06/02/25 05:29 Hitchcock # (Auto) 0.9 X10*3/uL (0.1-1.2) 06/02/25 05:29 Eos # (Auto) 0.1 X10*3/uL (0.0-0.4) 06/02/25 05:29 Baso # (Auto) 0.1 X10*3/uL (0.0-0.2) 06/02/25 05:29 Abs Immat Gran (auto) 0.05 X10*3/uL (0.00-0.03) H 06/02/25 05:29 Absolute Neuts (auto) 6.9 x10*3/uL (2.0-8.3) 06/02/25 05: Absolute Nucleated RBC 0.000 X10*3/uL (0.0-0.012) 06/02/25 05:29 Nucleated RBC % (auto) 0.0 /100WBC (0.0-0.2) 06/02/25 05:29 ESR 17 MM/HR (0-15) H 05/29/25 11:50 Hold Purple Top SEE NOTE 06/04/25 05:42 Sodium 140 mmol/L (135-145) 06/04/25 05:42 Potassium 3.9 mmol/L (3.3-5.1) 06/04/25 05:42 Chloride 106 mmol/L (96-108) 06/04/25 05:42 Carbon Dioxide 23 mmol/L (22-29) 06/04/25 05:42 Anion Gap 15 (12-20) 06/04/25 05:42 BUN 8 mg/dL (9-16) L 06/04/25 05:42 Creatinine 0.64 mg/dL (0.5-1.4) 06/04/25 05:42 Estim Creat Clear Calc 126.3 06/04/25 05:42 Estimated GFR > 60 06/04/25 05:42 Random Glucose 96 mg/dL (60-115) 06/04/25 05:42 Fasting Glucose 84 mg/dL (60-99) 06/02/25 05:29 Calcium 8.6 mg/dL (8.4-10.2) 06/04/25 05:42 Phosphorus 2.4 mg/dL (2.7-4.5) L 06/04/25 05:42 Magnesium 2.0 mg/dL (1.6-2.6) 06/04/25 05:42 Total Bilirubin 0.9 mg/dL (0.0-1.0) 06/02/25 05:29 Direct Bilirubin 0.4 mg/dL (0.0-0.5) 05/29/25 11:50 AST 23 U/L (5-37) 06/02/25 05:29 ALT 15 U/L (0-40) 06/02/25 05:29 Alkaline Phosphatase 66 U/L (39-117) 06/02/25 05:29 Lactate Dehydrogenase 172 U/L (118-273) 05/30/25 05:37 C-Reactive Protein 2.25 mg/dL (< or = 0.50) H 05/29/25 11:50 Total Protein 5.9 g/dL (6.5-8.0) L 06/02/25 05:29 Albumin 3.5 g/dL (3.5-5.0) 06/04/25 05:42 Lipase 34 U/L (8-78) 05/29/25 11:50 Carcinoembryonic Ag 2.60 ng/mL 05/30/25 05:37 CA 19-9 Antigen 166 U/mL (<34) H 05/30/25 05:37 - Imaging Radiologist's impression: ITS Impressions Abdomen/Pelvis CT 05/29/25 13:05 IMPRESSION: 1. Gastric outlet obstruction, with severe wall thickening, inflammation and edema of the distal antrum and pylorus. Given the appearance, neoplasm is suspected. This could potentially also represent localized inflammation from peptic disease although this is considered less likely. 2. Small volume ascites surrounding the liver, spleen, and abutting the lesser curvature of the stomach. 3. There are mild infiltrative changes in the anterior omentum just inferior to the stomach, with minimal nodularity. Early carcinomatosis is a consideration. 4. Indeterminate 1.5 cm lesion in segment 8 of the liver, and in segment 2 of the liver. 5. Ancillary findings as discussed. Electronically signed by: Michael Armenta MD 05/29/2025 01:46 PM EDT RP Chest X-Ray 06/03/25 15:42 IMPRESSION: New right PICC line tip is coiled in the brachiocephalic vein but can be used. The enteric tube tip is in the stomach. Electronically signed by: Claudio oRmero MD 06/03/2025 04:16 PM EDT RP Assessment and Plan Patient Active problem list reviewed?: Yes (1) Gastric outlet obstruction Status: Acute Assessment and plan: 64-year-old gentleman admitted [place] [facility] [place] with symptoms of 2 weeks of worsening bloating and persistent vomiting of dark vomitus. CAT scan of the abdomen pelvis from 05/29 revealed: 1. Gastric outlet obstruction, with severe wall thickening, inflammation and edema of the distal antrum and pylorus. Given the appearance, neoplasm is suspected. This could potentially also represent localized inflammation from peptic disease although this is considered less likely. 2. Small volume ascites surrounding the liver, spleen, and abutting the lesser curvature of the stomach. 3. There are mild infiltrative changes in the anterior omentum just inferior to the stomach, with minimal nodularity. Early carcinomatosis is a consideration. 4. Indeterminate 1.5 cm lesion in segment 8 of the liver, and in segment 2 of the liver. Upper endoscopy from 05/30 revealed: ESOPHAGUS: Focal esophagitis at the GE junction. 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 Extrinsic compression of the stomach along the lesser curvature Small amount of retained food noted in the stomach. A mid-size upper endoscope was passed through the mass into the duodenum with moderate resistance. CEA level: 2.60. CA 19-9: 166. LDH to the labs.: 172. Concern is metastatic gastric cancer. Other possibility is for pancreatic cancer given his strong family history. Differential diagnosis includes lymphoproliferative disorder IE lymphoma. Preliminary pathology results: Adenocarcinoma. Upon discussing with Dr. Lozano the sample was small, he did add special immunostains which are pending. Then make further treatment decisions, regarding chemotherapy regimen. Meanwhile, he is a candidate for stent placement. I discussed with Dr. Fung. He placed the order for the stent with the sluice tender. By requested Dr. Fung if he could take more tissue samples, so special studies can be done:MSI, HER2, PD-L1, NTRK. These will help determine eligibility for immunotherapy with check point inhibitors like pembrolizumab. MMR proteins (for microsatellite instability.) Predict response to immunotherapy.) PLAN: The stenting procedure is scheduled for morning. Will arrange for a PICC line to start TPN. He will have a Port-A-Cath placed on Monday, facilitate chemotherapy. Will arrange for a PET scan for initial staging as an outpatient. Meanwhile he will continue on: NG suction, morphine for pain, and Zofran for nausea/vomiting. Thank you for the consult, CC: Dr. Hal hCacon. - Time Spent With Patient Time Spent with Patient (in minutes): 30
--- NOTE | 2025-06-04 10:27 | HO.PM.IMPN ---
Subjective Subjective Date of Service: 06/04/25 Interval History: no abd pain NGT to suction eager to get chemo port and then stent and then advance diet and leave hospital DERRELL undecided re: transfer to [place] Review of Systems Review of Systems: Yes all other systems are reviewed and are negative Physical Exam Vital Signs: Vital Signs: Last Vital Signs Temp 99.4 F 06/04/25 07:23 Pulse 60 06/04/25 07:23 Resp 18 06/04/25 07:23 BP 159/86 H 06/04/25 07:23 Pulse Ox 95 06/04/25 07:23 O2 Del Method Room Air 06/04/25 07:23 O2 Flow Rate 6 05/30/25 17:33 BMI result Body Mass Index 30.7 Gen: in no acute distress HEENT: sclera anicteric, moist mucus membranes Neck: supple Lungs: clear to auscultation bilaterally Heart: regular rate and rhythm, no murmurs Abd: soft, non-tender, NG tube to suction with clear liquid in canister Ext: no edema, PICC RUE Skin: warm/well-perfused Neuro: alert and oriented x3, no focal findings Psych: appropriate affect Objective Data Active Medications Benzocaine (Throat Lozenge, Medicated Lozenge) 1 lozenge MUCOUS MEM Q2H PRN PRN Reason: Sore Throat Last Admin: 06/01/25 18:42 Dose: 1 lozenge Documented By: BRANDIN Diazepam (Diazepam 10 Mg/2 Ml Cartridge) 5 mg IVPUSH Q4H PRN PRN Reason: Anxiety Lactated Ringer's (Lr) 1,000 mls @ 125 mls/hr IVCONT .Q8H [facility] Last Admin: 06/04/25 07:44 Dose: 125 mls/hr Documented By: JOSELUIS Magnesium Hydroxide (Milk Of Magnesia 30 Ml Oral.Susp) 30 ml PO DAILY PRN PRN Reason: Constipation Last Admin: 06/03/25 07:47 Dose: 30 ml Documented By: JOSELUIS Melatonin (Melatonin 3 Mg Tablet) 6 mg PO BEDTIME PRN PRN Reason: Insomnia Last Admin: 06/03/25 20:37 Dose: 6 mg Documented By: STEFANIA Naloxone HCl (Naloxone Hcl 0.4 Mg/Ml Vial) 0.04 mg IVPUSH Q5M PRN PRN Reason: Excessive sedation or RR < 8 Ondansetron HCl (Ondansetron Hcl 4 Mg/2 Ml Vial) 4 mg IVPUSH Q8H PRN PRN Reason: Nausea and Vomiting Last Admin: 06/02/25 08:05 Dose: 4 mg Documented By: AMANDEEP Pharmacy Consult (Consult Rx Parenteral Nutrition Ordering) 1 each MISCELLANE DAILY PRN PRN Reason: Consult order Sodium Chloride (0.9 % Sodium Chloride Flush 3 Ml Syringe) 3 ml IVFLUSH [facility] Last Admin: 06/04/25 07:48 Dose: Not Given Documented By: JOSELUIS Non-Admin Reason: IV Running Sodium Chloride (0.9 % Sodium Chloride Flush 10 Ml Syringe) 10 ml IVFLUSH QSHIFT [facility] Labs 06/02/25 05:29 06/04/25 05:42 Labs: Laboratory Results - last 24 hr 06/04/25 05:42 Hold Purple Top SEE NOTE Anion Gap 15 Estim Creat Clear Calc 126.3 Estimated GFR > 60 Random Glucose 96 Calcium 8.6 Phosphorus 2.4 L Magnesium 2.0 Albumin 3.5 Assessment and Plan (1) Gastric outlet obstruction: Status: Acute (2) HTN (hypertension): Status: Acute Plan d7, 64yo M with HTN + newly diagnosed DM2 [A1c 6.5] presenting with 2 wk of worsening dark vomitus, abd pain and bloating found to have gastric outlet obstruction with severe wall thickening, inflammation and edema of the distal antrum and pylorus gastric mass with outlet obstruction - other concerning findings on CT: small volume ascites, mild infiltrative chnages of anterior omentum with minimal nodulariy, indeterminate liver lesions x2 - EGD 05/[address] Easley: focal esophagitis at GEJ, multiple tongues of Wilhelm's metaplasia, polypoidal/ulcerated antral/polyric mass with GOO 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 GI and Oncology following. Continue NG tube. Placed PICC for TPN and will get port today for eventual chemotherapy. Molecular studies/immunostains pending. Outpt PET/CT. Will follow up with Dr Antoine at [facility] Oncology. Discussed possible transfer to [place] but pt has not decided on this. HTN: hold amlodipine + losartan while NPO HLD: hold atorvastatin while NPO BPH: hold finasteride while NPO DM2: A1c only 6.5, BGs under control without insulin VTE ppx: SCDs dispo: eventual home In my clinical judgment, the patient requires continued inpatient hospitalization for the following reasons: NG decompression, gastric outlet obstruction requiring stenting Total time managing care of this patient today: 40 minutes. Quality Stroke Does the patient have a stroke diagnosis?: No VTE Prior VTE?: No VTE Risk Level:: Medical - moderate - high VTE Device Contraindication: N/A - Device Ordered VTE Drug Contraindication: Treatment Not Indicated
--- NOTE | 2025-06-04 11:04 | MHC.CLN ---
NUTRITION PATIENT WITH NGT FOR OUTPUT. PICC PLACED 06/03 DIET RX NPO REQUIRES TPN FOR NUTRITION/HYDRATION REVIEWED LABS COMMUNICATED WITH PHARMACY RECOMMEND START TPN AT 40 ML PER HOUR TO PROVIDE 48 G PROTEIN, 144 G DEXTROSE, 682 KCALS REPLETE LYTES NEEDED, CHECK TRIGLYCERIDES FOLLOW FOR TPN TOLERANCE AND LABS
--- NOTE | 2025-06-04 12:18 | HO.ANESPROP2 ---
Documented by User: Zara Maria NP 06/04/25 12:25 HPI - Anesthesia Eval Consult details Narrative: 64 yr old female for Upper Endoscopy with Pyloric Stent with Fluro s/p upper endoscopy with bxs 05/30/25 with GA, ETT 7.5 Newly diagnosed Type 2 DM, A1C 7.08 March 2025 [facility] Active Problems Active Problems: All Active Problems Gastric outlet obstruction (Acute) Elevated PSA (Acute) Trochanteric bursitis, right hip (Acute) Hip pain (Acute) Leukocytosis (Acute) Elevated liver enzymes (Acute) Lower back pain (Acute) Abnormal nuclear stress test (Acute) PAC (premature atrial contraction) (Acute) PVC (premature ventricular contraction) (Acute) Hydrocele (Acute) Varicocele (Acute) Scrotal mass (Acute) Encounter for routine adult physical exam with abnormal findings (Acute) Multifocal PVCs (Acute) Systolic murmur (Acute) MRSA (methicillin resistant Staphylococcus aureus) (Acute) Right leg pain (Acute) Varicose veins of right lower extremity with inflammation (Acute) Sleep apnea (Acute) Varicose veins of right lower extremity (Acute) Right elbow pain (Acute) Diabetes (Acute) Family history of pancreatic cancer (Acute) Newly diagnosed diabetes (Acute) Fatty liver (Acute) Skin lesion (Acute) HTN (hypertension) (Acute) Physical exam (Acute) Increased prostate specific antigen (PSA) velocity (Acute) Skin lesion (Acute) Encounter for hepatitis C screening test for low risk patient (Acute) Screening PSA (prostate specific antigen) (Acute) Physical exam (Acute) Erectile dysfunction (Acute) BPH w urinary obs/LUTS (Acute) HURTADO (nonalcoholic steatohepatitis) (Acute) Past Medical History Medical History Borderline diabetes mellitus Sleep apnea HTN (hypertension) Osteoarthritis of right knee Osteoarthritis Bursitis of right hip Right tennis elbow PTSD (post-traumatic stress disorder) HURTADO (nonalcoholic steatohepatitis) Functional capacity: independent ambulation Family History Family History Father Cancer of pancreas Mother Cancer of pancreas Sister No problems noted. Daughter No problems noted. Son No problems noted. Son No problems noted. Surgical History Surgical History H/O total knee replacement History of meniscectomy of left knee History of repair of rotator cuff History of Problems with Anesthesia: No Social History Social History Household Members: Family Housing: House Are you a primary rn wound care to a significant other at home: No Do you presently have visiting nurse or other home services: No Alcohol intake: current Alcohol intake frequency: 0-2 drinks per day Patient Tobacco Use Status: Never used Tobacco e-Cigarette/Vaping Use: Never Used Second Hand Smoke Exposure: No service: No Current occupational status: retired Cognitive needs: No Hearing needs: No Vision needs: Yes Meds Allergies Allergy/AdvReac Type Severity Reaction Status Date / Time erythromycin base Allergy Mild RAH,ITCH Verified 06/05/25 11:27 (Erythromycin Base) oxycodone (From Percocet) Allergy Mild NAUSEA,DIZZ Verified 06/05/25 11:27 INESS semaglutide (From Ozempic) AdvReac Severe Nausea and Verified 06/05/25 11:27 Vomiting Active Medications: Current Medications Benzocaine (Throat Lozenge, Medicated Lozenge) 1 lozenge MUCOUS MEM Q2H PRN PRN Reason: Sore Throat Last Admin: 06/01/25 18:42 Dose: 1 lozenge Diazepam (Diazepam 10 Mg/2 Ml Cartridge) 5 mg IVPUSH Q4H PRN PRN Reason: Anxiety Lactated Ringer's (Lr) 1,000 mls @ 125 mls/hr IVCONT .Q8H [facility] Last Admin: 06/04/25 07:44 Dose: 125 mls/hr Nutrition (Parenteral) (Parenteral Nutrition) 960 mls @ 40 mls/hr IV .Q24H [facility]; Protocol Stop: 06/05/25 20:59 Magnesium Hydroxide (Milk Of Magnesia 30 Ml Oral.Susp) 30 ml PO DAILY PRN PRN Reason: Constipation Last Admin: 06/03/25 07:47 Dose: 30 ml Melatonin (Melatonin 3 Mg Tablet) 6 mg PO BEDTIME PRN PRN Reason: Insomnia Last Admin: 06/03/25 20:37 Dose: 6 mg Naloxone HCl (Naloxone Hcl 0.4 Mg/Ml Vial) 0.04 mg IVPUSH Q5M PRN PRN Reason: Excessive sedation or RR < 8 Ondansetron HCl (Ondansetron Hcl 4 Mg/2 Ml Vial) 4 mg IVPUSH Q8H PRN PRN Reason: Nausea and Vomiting Last Admin: 06/02/25 08:05 Dose: 4 mg Pharmacy Consult (Consult Rx Parenteral Nutrition Ordering) 1 each MISCELLANE DAILY PRN PRN Reason: Consult order Sodium Chloride (0.9 % Sodium Chloride Flush 3 Ml Syringe) 3 ml IVFLUSH [facility] Last Admin: 06/04/25 07:48 Dose: Not Given Sodium Chloride (0.9 % Sodium Chloride Flush 10 Ml Syringe) 10 ml IVFLUSH [facility] Last Admin: 06/04/25 11:27 Dose: Not Given Home Medications ?Medication ?Instructions ?Recorded ?Confirmed ?Last Taken ?Type ibuprofen 600 mg tablet 600 mg PO Q6H PRN Pain 12/14/22 05/29/25 Unknown History omeprazole 20 mg capsule,delayed 20 mg PO DAILY@0630 05/28/25 05/29/25 05/29/25 History release Exam Height,Weight and Vital Signs: Height 5 ft 8 in Weight 91.5 kg Last Vital Signs Temp 99.4 F 06/04/25 07:23 Pulse 60 06/04/25 07:23 Resp 18 06/04/25 07:23 BP 159/86 H 06/04/25 07:23 Pulse Ox 95 06/04/25 07:23 O2 Del Method Room Air 06/04/25 07:23 O2 Flow Rate 6 05/30/25 17:33 Pertinent Lab Results Pertinent Lab Results: Laboratory Tests 05/29/25 05/30/25 06/01/25 11:50 05:37 08:35 WBC 11.6 H 9.3 8.4 RBC 5.14 4.81 4.29 L Hgb 16.3 14.9 13.5 L Hct 46.1 43.7 38.3 L MCV 89.7 90.9 89.3 MCH 31.7 31.0 31.5 MCHC 35.4 34.1 35.2 RDW 11.9 11.9 11.9 Plt Count 243 207 169 MPV 9.5 10.3 9.7 Immature Gran % (Auto) 0.4 0.6 H 0.4 Neut % (Auto) 75.8 H 76.5 H 77.1 H Lymph % (Auto) 14.8 L 12.6 L 11.2 L [place] % (Auto) 7.7 9.2 9.4 Eos % (Auto) 0.6 0.6 1.3 Baso % (Auto) 0.7 0.5 0.6 Lymph # (Auto) 1.7 1.2 0.9 L [place] # (Auto) 0.9 0.9 0.8 Eos # (Auto) 0.1 0.1 0.1 Baso # (Auto) 0.1 0.1 0.1 Abs Immat Gran (auto) 0.05 H 0.06 H 0.03 Absolute Neuts (auto) 8.8 H 7.1 6.5 Absolute Nucleated RBC 0.000 0.000 0.000 Nucleated RBC % (auto) 0.0 0.0 0.0 ESR 17 H Hold Purple Top Sodium 143 144 140 Potassium 3.9 4.0 3.9 Chloride 100 104 106 Carbon Dioxide 30 H 31 H 26 Anion Gap 17 13 12 BUN 10 9 11 Creatinine 0.89 0.85 0.71 Estim Creat Clear Calc 90.7 95.1 113.9 Estimated GFR > 60 > 60 > 60 Random Glucose 112 93 83 Fasting Glucose Calcium 10.1 8.9 D 8.5 Phosphorus Magnesium 2.4 Total Bilirubin 1.0 0.9 0.8 Direct Bilirubin 0.4 AST 41 H 21 25 ALT 32 22 13 Alkaline Phosphatase 77 68 65 Lactate Dehydrogenase 172 C-Reactive Protein 2.25 H Total Protein 7.6 6.3 L 5.9 L Albumin 4.6 3.9 3.6 Lipase 34 Carcinoembryonic Ag 2.60 CA 19-9 Antigen 166 H 06/01/25 06/02/25 06/03/25 08:37 05:29 06:47 WBC 9.0 RBC 4.42 L Hgb 13.9 L Hct 39.6 L MCV 89.6 MCH 31.4 MCHC 35.1 RDW 11.7 Plt Count 195 MPV 10.1 Immature Gran % (Auto) 0.6 H Neut % (Auto) 77.0 H Lymph % (Auto) 10.6 L [place] % (Auto) 9.9 Eos % (Auto) 1.2 Baso % (Auto) 0.7 Lymph # (Auto) 1.0 L [place] # (Auto) 0.9 Eos # (Auto) 0.1 Baso # (Auto) 0.1 Abs Immat Gran (auto) 0.05 H Absolute Neuts (auto) 6.9 Absolute Nucleated RBC 0.000 Nucleated RBC % (auto) 0.0 ESR Hold Purple Top SEE NOTE SEE NOTE Sodium 138 142 Potassium 3.7 4.0 Chloride 106 107 Carbon Dioxide 22 23 Anion Gap 14 16 BUN 8 L 8 L Creatinine 0.63 0.65 Estim Creat Clear Calc 128.3 124.4 Estimated GFR > 60 > 60 Random Glucose 94 Fasting Glucose 84 Calcium 8.5 8.9 Phosphorus Magnesium Total Bilirubin 0.9 Direct Bilirubin AST 23 ALT 15 Alkaline Phosphatase 66 Lactate Dehydrogenase C-Reactive Protein Total Protein 5.9 L Albumin 3.5 Lipase Carcinoembryonic Ag CA 19-9 Antigen 06/04/25 05:42 WBC RBC Hgb Hct MCV MCH MCHC RDW Plt Count MPV Immature Gran % (Auto) Neut % (Auto) Lymph % (Auto) [place] % (Auto) Eos % (Auto) Baso % (Auto) Lymph # (Auto) [place] # (Auto) Eos # (Auto) Baso # (Auto) Abs Immat Gran (auto) Absolute Neuts (auto) Absolute Nucleated RBC Nucleated RBC % (auto) ESR Hold Purple Top SEE NOTE Sodium 140 Potassium 3.9 Chloride 106 Carbon Dioxide 23 Anion Gap 15 BUN 8 L Creatinine 0.64 Estim Creat Clear Calc 126.3 Estimated GFR > 60 Random Glucose 96 Fasting Glucose Calcium 8.6 Phosphorus 2.4 L Magnesium 2.0 Total Bilirubin Direct Bilirubin AST ALT Alkaline Phosphatase Lactate Dehydrogenase C-Reactive Protein Total Protein Albumin 3.5 Lipase Carcinoembryonic Ag CA 19-9 Antigen Assessment and Plan Final Anesthetic Review History of Problems with Anesthesia: No Documented by User: Sasha Murillo MD 06/05/25 13:57 [facility] Past Medical History Medical History Borderline diabetes mellitus Sleep apnea HTN (hypertension) Osteoarthritis of right knee Osteoarthritis Bursitis of right hip Right tennis elbow PTSD (post-traumatic stress disorder) HURTADO (nonalcoholic steatohepatitis) Family History Family History Father Cancer of pancreas Mother Cancer of pancreas Sister No problems noted. Daughter No problems noted. Son No problems noted. Son No problems noted. Family history of problems with anesthesia: No Surgical History Surgical History H/O total knee replacement History of meniscectomy of left knee History of repair of rotator cuff Social History Social History Household Members: Family Housing: House Are you a primary rn wound care to a significant other at home: No Do you presently have visiting nurse or other home services: No Alcohol intake: current Alcohol intake frequency: 0-2 drinks per day Patient Tobacco Use Status: Never used Tobacco e-Cigarette/Vaping Use: Never Used Second Hand Smoke Exposure: No service: No Current occupational status: retired Cognitive needs: No Hearing needs: No Vision needs: Yes Meds Allergies Allergy/AdvReac Type Severity Reaction Status Date / Time erythromycin base Allergy Mild RAH,ITCH Verified 06/05/25 11:27 (Erythromycin Base) oxycodone (From Percocet) Allergy Mild NAUSEA,DIZZ Verified 06/05/25 11:27 INESS semaglutide (From Ozempic) AdvReac Severe Nausea and Verified 06/05/25 11:27 Vomiting Home Medications ?Medication ?Instructions ?Recorded ?Confirmed ?Last Taken ?Type ibuprofen 600 mg tablet 600 mg PO Q6H PRN Pain 12/14/22 05/29/25 Unknown History omeprazole 20 mg capsule,delayed 20 mg PO DAILY@0630 05/28/25 05/29/25 05/29/25 History release Assessment and Plan Assessment Anesthesia Assessment: Anesthesia Plan Discussed and Chart Reviewed Final Anesthetic Review Family History of Problems with Anesthesia: No NPO: Yes ASA Class: III Final Preanesthetic Review: Meds/Allgs Chart Reviewed, Consent Obtained/Reviewed and Anes Risks/Benef Reviewed Patient Risk: Intermediate Procedure Risk: Intermediate Anesthetic Plan Anesthetic Plan: GA Disposition: Standard PACU
--- NOTE | 2025-06-04 13:12 | PC.NURSE ---
Patient was expressing frustration about communication among different provider (GI, Oncology, Hospitalist) and wondering why the stent was being placed this week when they new a few days ago I needed one . Education provider to patient to the best of the nurse's ability and understanding, patient listened to and confirmed plans for stent placement tomorrow. Provider Vikram notified via [employer] of patient's concerns and frustrations and provider voiced the reasons behind the timeline of events.
--- NOTE | 2025-06-04 13:59 | MHC.CM.PN ---
CM met with patient to discuss dc planning. Patient awaiting line placement for TPN/eventual chemo. He hopes to dc by end of week and doesn't feel he will need any services at home. Though, is agreeable to a VNA referral in case he changes his mind, [facility] preferred. CM will continue to follow.
--- NOTE | 2025-06-04 14:09 | PC.NURSE ---
Patient off unit for port placement.
--- NOTE | 2025-06-04 16:03 | PC.NURSE ---
Patient returned from procedure, NG tube placed on suction. IV fluids running. Dressing of left port placement, clean dry and intact gauze and tape.
[2025-06-04] MEDS: Parenteral Nutrition 960 ML 40 ML IV (20:43)
[2025-06-05] VITALS (30 sets, daily range): BP systolic 83–147; BP diastolic 59–93; PULSE 51–150; RESP 14–45; TEMP 25–37.6; O2SAT 85–96
[2025-06-05] MEDS: Lactated Ringers 1,000 ML 125 ML IVCONT ×3 (00:03→20:13)
[2025-06-05 06:36] LABS: Albumin Level 3.1 g/dL (3.5-5.0); Anion Gap 11 (12-20); Blood Urea Nitrogen 9 mg/dL (9-16); Calcium 8.1 mg/dL (8.4-10.2); Carbon Dioxide 25 mmol/L (22-29); Chloride 106 mmol/L (96-108); Creatinine Clr Calc Pharmacy 147.0; Estimated Glomerular Filt Rate > 60; Magnesium 2.0 mg/dL (1.6-2.6); Potassium 3.1 mmol/L (3.3-5.1); Sodium 139 mmol/L (135-145); Triglycerides 102 mg/dL (<150)
--- NOTE | 2025-06-05 11:15 | MHC.CLN ---
F/U DIET RX: NPO REQUIRES TPN FOR NUTRITION/HYDRATION REVIEWED LABS COMMUNICATED WITH PHARMACY RECOMMEND INCREASING TPN TO 60ML/HR TO PROVIDE 1022KCALS, 72G PROTEIN, 216G DEXTROSE REPLETE LYTES NEEDED
--- NOTE | 2025-06-05 12:59 | P.PNIM_ITS ---
Subjective Subjective Date of Service: 06/05/25 Interval History: No acute issues overnight. Remains NPO pending scope. NG tube continues to drain Review of Systems Denies chest pain Denies shortness of breath Admits nausea vomiting without diarrhea Denies fever chills Physical Exam 2 Vital Signs: Vital Signs: Last Vital Signs Temp 98.2 F 06/05/25 11:08 Pulse 70 06/05/25 11:08 Resp 14 06/05/25 11:08 BP 136/84 06/05/25 11:08 Pulse Ox 95 06/05/25 11:08 O2 Del Method Room Air 06/05/25 11:08 O2 Flow Rate 2 06/04/25 15:30 BMI result Body Mass Index 30.7 Const: Other: Awake alert oriented x3 in no acute distress Resp: Other: Clear to auscultation bilaterally no rales rhonchi or wheezes Cardio: Other: No S4; positive S1-S2; no S3 murmurs rubs or gallops GI: Other: Soft nontender nondistended normoactive bowel sounds Extrem: Other: No edema bilaterally Objective Data Active Medications Acetaminophen (Acetaminophen 325 Mg Tablet) 975 mg PO Q6H PRN PRN Reason: Pain, Mild 1-3,fever,headache Last Admin: 06/04/25 19:41 Dose: 650 mg Documented By: STEFANIA Comments: pt only wanted 2 tylenol Benzocaine (Throat Lozenge, Medicated Lozenge) 1 lozenge MUCOUS MEM Q2H PRN PRN Reason: Sore Throat Last Admin: 06/01/25 18:42 Dose: 1 lozenge Documented By: BRANDIN Diazepam (Diazepam 10 Mg/2 Ml Cartridge) 5 mg IVPUSH Q4H PRN PRN Reason: Anxiety Lactated Ringer's (Lr) 1,000 mls @ 125 mls/hr IVCONT .Q8H [facility] Last Infusion: 06/05/25 11:01 Dose: 0 mls/hr Documented By: LITZY Nutrition (Parenteral) (Parenteral Nutrition) 960 mls @ 40 mls/hr IV .Q24H [facility]; Protocol Stop: 06/05/25 20:59 Last Infusion: 06/05/25 11:01 Dose: 0 mls/hr Documented By: LITZY Nutrition (Parenteral) (Parenteral Nutrition) 1,440 mls @ 60 mls/hr IV .Q24H [facility]; Protocol Stop: 06/06/25 20:59 Lactated Ringer's (Lr) 1,000 mls @ 80 mls/hr IVCONT .[id number] [facility] Magnesium Hydroxide (Milk Of Magnesia 30 Ml Oral.Susp) 30 ml PO DAILY PRN PRN Reason: Constipation Last Admin: 06/03/25 07:47 Dose: 30 ml Documented By: JOSELUIS Melatonin (Melatonin 3 Mg Tablet) 6 mg PO BEDTIME PRN PRN Reason: Insomnia Last Admin: 06/05/25 00:02 Dose: 6 mg Documented By: STEFANIA Morphine Sulfate (Morphine Sulfate 4 Mg/Ml Cartridge) 4 mg IVPUSH Q4H PRN; Protocol PRN Reason: Pain, Severe (Pain Scale 7-10) Last Admin: 06/05/25 06:41 Dose: 4 mg Documented By: STEFANIA Naloxone HCl (Naloxone Hcl 0.4 Mg/Ml Vial) 0.04 mg IVPUSH Q5M PRN PRN Reason: Excessive sedation or RR < 8 Ondansetron HCl (Ondansetron Hcl 4 Mg/2 Ml Vial) 4 mg IVPUSH Q8H PRN PRN Reason: Nausea and Vomiting Last Admin: 06/04/25 21:40 Dose: 4 mg Documented By: STEFANIA Pharmacy Consult (Consult Rx Parenteral Nutrition Ordering) 1 each MISCELLANE DAILY PRN PRN Reason: Consult order Sodium Chloride (0.9 % Sodium Chloride Flush 3 Ml Syringe) 3 ml IVFLUSH QSHIFT [facility] Last Admin: 06/05/25 07:12 Dose: Not Given Documented By: LITZY Non-Admin Reason: PICC Sodium Chloride (0.9 % Sodium Chloride Flush 10 Ml Syringe) 10 ml IVFLUSH QSHIFT [facility] Last Admin: 06/05/25 07:13 Dose: Not Given Documented By: LITZY Non-Admin Reason: IV Running Labs 06/02/25 05:29 06/05/25 05:29 Labs: Laboratory Results - last 24 hr 06/05/25 05:29 Anion Gap 11 L Estim Creat Clear Calc 147.0 Estimated GFR > 60 Random Glucose 137 H Calcium 8.1 L Phosphorus 2.4 L Magnesium 2.0 Albumin 3.1 L Triglycerides 102 Assessment and Plan (1) Gastric outlet obstruction: Status: Acute (2) HTN (hypertension): Status: Acute Plan 64-year-old male with a history of hypertension and newly diagnosed diabetes presents with a proximally 2 weeks of persistent vomiting of dark material. States he has had abdominal pain and bloating during the same time but over the last few days it has become worse. Workup in ER with CTA demonstrates gastric outlet obstruction. 1. Gastric outlet obstruction -for pyloric stent today -morphine for pain -Zofran for nausea and vomiting 2. Hypertension -acceptable control on current therapies -utilize IV therapies if needed for blood pressure control 3. Anxiety -worsened by diagnosis -IV Ativan as needed until taking adequate p.o. Full code Pneumatics Patient will require ongoing hospitalization for placement of pyloric stent Quality Stroke Does the patient have a stroke diagnosis?: No VTE Prior VTE?: No VTE Risk Level:: Medical - moderate - high VTE Device Contraindication: N/A - Device Ordered VTE Drug Contraindication: Treatment Not Indicated
--- NOTE | 2025-06-05 13:36 | P.PNGI_ITS ---
Subjective Subjective Date of Service: 06/05/25 Interval History: denies abdominal pain no n/v passing gas feels hungry Critical Care Time (minutes): 0 Physical Exam 2 Exam: Exam: EXAM: GENERAL: The patient is relaxed VITAL SIGNS:see workflow HEENT: Nonicteric sclerae, PERRLA, EOMI. Oropharynx clear. Moist mucous membranes. Conjunctivae appear well perfused. No thyroid mass. CHEST: Chest wall is nontender. HEART: Regular rate and rhythm without murmurs. LUNGS: Clear to auscultation bilaterally. ABDOMEN: Soft, positive bowel sounds, nontender, no organomegaly.no flank tenderness SKIN: No rash, no excessive bruising, petechiae, or purpura. NEUROLOGIC: Cranial nerves II-XII intact without motor/sensory deficit. Psych: normal affect Vital Signs: Vital Signs: Last Vital Signs Temp 98.2 F 06/05/25 11:08 Pulse 70 06/05/25 11:08 Resp 14 06/05/25 11:08 BP 136/84 06/05/25 11:08 Pulse Ox 95 06/05/25 11:08 O2 Del Method Room Air 06/05/25 11:08 O2 Flow Rate 2 06/04/25 15:30 BMI result Body Mass Index 30.7 Objective Data Labs 06/02/25 05:29 06/05/25 05:29 Labs: Laboratory Results - last 24 hr 06/05/25 05:29 Sodium 139 Potassium 3.1 L D Chloride 106 Carbon Dioxide 25 Anion Gap 11 L BUN 9 Creatinine 0.55 Estim Creat Clear Calc 147.0 Estimated GFR > 60 Random Glucose 137 H Calcium 8.1 L Phosphorus 2.4 L Magnesium 2.0 Albumin 3.1 L Triglycerides 102 Procedures Date of Service Date of Service: 06/05/25 Progress Note: A&P Assessment and plan (1) Gastric outlet obstruction: Status: Acute Assessment and Plan: 1/ malignant GOO, PLAN: /1 - plan for stent today, will use covered stent using wire and fluoroscopy, endoscopic guidance Time Spent With Patient Time: Total time managing care of this patient today ____ minutes. Quality Stroke Does the patient have a stroke diagnosis?: No VTE Prior VTE?: No VTE Risk Level:: Medical - moderate - high VTE Device Contraindication: N/A - Device Ordered VTE Drug Contraindication: Treatment Not Indicated
--- NOTE | 2025-06-05 15:57 | W.PM.OPN ---
Operative Note Operative Note Date of Service: 06/05/25 Narrative: Procedure Description: EGD Indication: Stent placement Anesthesia: GA FLEXIBLE TRANSORAL UPPER GASTROINTESTINAL ENDOSCOPY UPPER ENDOSCOPY Consent: Indications for the procedure and potential complications of bleeding, perforation, reaction to medications and missed diagnosis were discussed with the patient and informed consent was obtained. Instrument: Olympus GIF H 190 J mid size upper endoscope Monitoring: Vital signs and clinical assessment, continuous EKG monitoring, Pulse oximetry, Carbon Dioxide monitoring and blood pressure monitoring were done throughout the procedure. Procedure: The patient was placed in the left lateral decubitis position and pre-procedure medications were administered and a bite block was placed. The endoscope was inserted into the mouth and advanced under direct vision to the third part of duodenum. A careful inspection was made as the upper endoscope was withdrawn including a retroflexed examination of the proximal stomach; Findings and interventions are described below. Findings: Larynx:normal Esophagus: GE junction at 40 cm, diaphragm hiatus at 40 cm, normal mucosa Stomach: Friable tissue with stricture and severe edema noted at pre antral area. The scope could not be advanced through the outlet which was the size of a pin hole. A soft tipped biliary balloon was passed through and contrast was injected to confirm the location, and a biliary wire was wire was then passed under fluoro guidance. Using endoscopic and fluoroscopic guidance a 14 mm x 60 mm covered stent was then placed. The proximal ends were locked into the place using 3 mantis clips. Grade 2 flap valve on retroflexed examination of the cardia. Biopsies were not taken due to friable tissue and bleeding which impeded stent placement initially. Duodenum: not visualized Intervention: stent placement Impression/Findings: malignant stricture, s/p stent placement PLAN: Liquid diet ONLY for the next 48 hours After that can have diet with restrictions, will give patient leaflet, basically soft moist foods, small meals, and chew thoroughly. GERD precautions Can replace stent depending on clinical course
[2025-06-05 18:00] LABS: Base Excess Bedside Calculated -3 mmol/L (-3-3); Glucose, i-STAT 206 mg/dL (60-115); HCO3 Bedside Calculated 25 mmol/L (22-26); Hematocrit Bedside 50 %PCV (42-52); Hemoglobin Bedside 17.0 g/dL (14.0-18.0); Potassium Bedside 4.3 mmol/L (3.3-5.1); Sodium Bedside 138 mmol/L (135-145); TCO2 Bedside 26 mmol/L (24-29); pCO2 Bedside 62 mmhg (35-48); pH Bedside 7.21 (7.35-7.45)
--- NOTE | 2025-06-05 18:23 | PC.NURSE ---
told by this editorial writer that patient will be transferred to ICU, Pt spoke with anesthesiology on the phone. Waiting for a room.
--- NOTE | 2025-06-05 18:36 | PM.EVENT ---
Event Note Date of Service: 06/05/25 Event Note: Pt in the PACU about 45 min to 1 hour after having EGD and pyloric stent placement bu Dr. Fung, under GETA. He seems very tachypnic 45 min, the breathing is shallow,, a little obtunded but oriented, tachycardic to 135/min, with systolic BP around 105. Auscultation showed diminished breating sound bilaterally. Chest X-ray was obtained DERRELL showing lower right lobe patchy consolidation that may be consistent with aspiration. Venous BG Ph 7.21, PCO2 62, Po2 22, Bicarb 24.3. ICU was contacted and the transfer arranged. Meanwhile patrient desaturated to O2sat 84 on high flow O2. Intubation in PACU by rayray with IV propofol 80 mg, AGUEDA 80 mg, Glydoscope mac#3. uneventful aroun 18:05. Patients was transferred to the ICU with the stable VS. Time Spent With Patient Time: Total time managing care of this patient today _60___ minutes.
[2025-06-05] MEDS: fentaNYL citrate/NS 1,000 MCG/100 ML PLAST..BAG 2.5 MCG IVCONT (18:38)
[2025-06-05] MEDS: 0.9 % Sodium Chloride Flush 3 ML SYRINGE IVFLUSH (18:49)
--- NOTE | 2025-06-05 20:16 | P.CONCC_ITS ---
History of Present Illness Data of Consult Service Date: 06/05/25 Requesting physician: Ulysses Muñoz Primary Care Provider: Hal Chacon, [facility] Reason for consult: Hypoxic respiratory failure 64-year-old patient with history of hypertension, type 2 diabetes, arthritis, PTSD, HURTADO, who had been admitted to the hospitalist service on 05/29/2025 due to complaints of 2 weeks' worth of abdominal bloating, nausea and vomiting.? Reportedly the patient was on Ozempic for 4 weeks but this was discontinued the side effects.? At the time of admission his CT abdominal and pelvis showed evidence of gastric outlet obstruction.? NG tube had been placed for decompression.? The patient was seen by Hematology Oncology given that the findings of the CT were not only consistent with a gastric outlet obstruction but also with severe wall thickening, inflammation and edema of the distal antrum and pylorus concerning for neoplasm.? Subsequent CA levels and cancer 19- 9 markers were obtained at 2.6 and 166 respectively; concerning for metastatic gastric carcinoma; preliminary pathology reports showed Adenocarcinoma.? The patient was also seen by scheduling analyst Dr. Fung for pyloric stent placement.?A PICC line had been placed for TPN. Reportedly today June 05 around 18:30, (45 minutes to 1 hour after undergoing an EGD and pyloric stent placement by Dr. Fung, the patient became tachypneic, breathing shallow, obtunded, tachycardic and with diminished lung sounds.? Bedside x-ray showed right patchy consolidation.? Venous pH 7.2 pCO2 62, PO2 22, bicarb 24.? The patient desaturated to 84% while on high-flow requiring intubation in the PACU, placed on propofol and transferred to the ICU for further care. Review of Systems 2 Review of Systems: Yes unobtainable due to endotracheal tube PMFSH Past Medical History Medical History Borderline diabetes mellitus Sleep apnea HTN (hypertension) Osteoarthritis of right knee Osteoarthritis Bursitis of right hip Right tennis elbow PTSD (post-traumatic stress disorder) HURTADO (nonalcoholic steatohepatitis) Family History Family History Father Cancer of pancreas Mother Cancer of pancreas Sister No problems noted. Daughter No problems noted. Son No problems noted. Son No problems noted. Surgical History Surgical History H/O total knee replacement History of meniscectomy of left knee History of repair of rotator cuff Social History Social History Household Members: Family Housing: House Are you a primary after school caregiver to a significant other at home: No Do you presently have visiting nurse or other home services: No Alcohol intake: current Alcohol intake frequency: 0-2 drinks per day Patient Tobacco Use Status: Never used Tobacco e-Cigarette/Vaping Use: Never Used Second Hand Smoke Exposure: No service: No Current occupational status: retired Cognitive needs: No Hearing needs: No Vision needs: Yes Meds Allergies Allergy/AdvReac Type Severity Reaction Status Date / Time erythromycin base Allergy Mild RAH,ITCH Verified 06/05/25 11:27 (Erythromycin Base) oxycodone (From Percocet) Allergy Mild NAUSEA,DIZZ Verified 06/05/25 11:27 INESS semaglutide (From Ozempic) AdvReac Severe Nausea and Verified 06/05/25 11:27 Vomiting Active Medications: Current Medications Acetaminophen (Acetaminophen 325 Mg Tablet) 975 mg PO Q6H PRN PRN Reason: Pain, Mild 1-3,fever,headache Last Admin: 06/04/25 19:41 Dose: 650 mg Benzocaine (Throat Lozenge, Medicated Lozenge) 1 lozenge MUCOUS MEM Q2H PRN PRN Reason: Sore Throat Last Admin: 06/01/25 18:42 Dose: 1 lozenge Diazepam (Diazepam 10 Mg/2 Ml Cartridge) 5 mg IVPUSH Q4H PRN PRN Reason: Anxiety Lactated Ringer's (Lr) 1,000 mls @ 125 mls/hr IVCONT .Q8H AGUEDA Last Admin: 06/05/25 20:13 Dose: 125 mls/hr Nutrition (Parenteral) (Parenteral Nutrition) 960 mls @ 40 mls/hr IV .Q24H AGUEDA; Protocol Stop: 06/05/25 20:59 Last Infusion: 06/05/25 11:01 Dose: 0 mls/hr Nutrition (Parenteral) (Parenteral Nutrition) 1,440 mls @ 60 mls/hr IV .Q24H AGUEDA; Protocol Stop: 06/06/25 20:59 Lactated Ringer's (Lr) 1,000 mls @ 80 mls/hr IVCONT .[id number] AGUEDA Propofol (Diprivan) 1,000 mg in 100 mls @ 0 mls/hr IVCONT .Q0M AGUEDA; Protocol Last Titration: 06/05/25 18:56 Dose: 50 mcg/kg/min, 27.45 mls/hr Fentanyl (Sublimaze/Ns) 1,000 mcg in 100 mls @ 0 mls/hr IVCONT .Q0M AGUEDA; Protocol Last Titration: 06/05/25 19:38 Dose: 0 mcg/hr, 0 mls/hr Piperacillin Sod/Tazobactam (Sod 3.375 gm/ Sodium Chloride) 50 mls @ 100 mls/hr IV Q6H AGUEDA Norepinephrine Bitartrate (Levophed) 8 mg in 250 mls @ 0 mls/hr IVCONT .Q0M AGUEDA; Protocol Albumin Human (Kedbumin 25 %) 100 mls @ 133.333 mls/hr IV Q1H AGUEDA Stop: 06/05/25 21:59 Magnesium Hydroxide (Milk Of Magnesia 30 Ml Oral.Susp) 30 ml PO DAILY PRN PRN Reason: Constipation Last Admin: 06/03/25 07:47 Dose: 30 ml Melatonin (Melatonin 3 Mg Tablet) 6 mg PO BEDTIME PRN PRN Reason: Insomnia Last Admin: 06/05/25 00:02 Dose: 6 mg Morphine Sulfate (Morphine Sulfate 4 Mg/Ml Cartridge) 4 mg IVPUSH Q4H PRN; Protocol PRN Reason: Pain, Severe (Pain Scale 7-10) Last Admin: 06/05/25 06:41 Dose: 4 mg Naloxone HCl (Naloxone Hcl 0.4 Mg/Ml Vial) 0.04 mg IVPUSH Q5M PRN PRN Reason: Excessive sedation or RR < 8 Naloxone HCl (Naloxone Hcl 0.4 Mg/Ml Vial) 0.04 mg IVPUSH Q5M PRN PRN Reason: Excessive sedation or RR < 8 Naloxone HCl (Naloxone Hcl 0.4 Mg/Ml Vial) 0.2 mg IVPUSH Q2M PRN PRN Reason: Excessive sedation or RR < 8 Ondansetron HCl (Ondansetron Hcl 4 Mg/2 Ml Vial) 4 mg IVPUSH Q8H PRN PRN Reason: Nausea and Vomiting Last Admin: 06/04/25 21:40 Dose: 4 mg Pharmacy Consult (Consult Rx Parenteral Nutrition Ordering) 1 each MISCELLANE DAILY PRN PRN Reason: Consult order Sodium Chloride (0.9 % Sodium Chloride Flush 3 Ml Syringe) 3 ml IVFLUSH [facility] Last Admin: 06/05/25 18:49 Dose: 3 ml Sodium Chloride (0.9 % Sodium Chloride Flush 10 Ml Syringe) 10 ml IVFLUSH [facility] Last Admin: 06/05/25 18:50 Dose: Not Given Home Medications ?Medication ?Instructions ?Recorded ?Confirmed ?Last Taken ?Type ibuprofen 600 mg tablet 600 mg PO Q6H PRN Pain 12/1405/29/25 Unknown History omeprazole 20 mg capsule,delayed 20 mg PO DAILY@0630 0 05/28/25 05/29/25 05/29/25 History release Physical Exam 2 Vital Signs: Vital Signs: Last Vital Signs Temp 98.4 F 06/05/25 17:40 Pulse 88 06/05/25 20:00 Resp 22 H 06/05/25 20:00 BP 85/62 L 06/05/25 20:00 Pulse Ox 90 L 06/05/25 20:00 O2 Del Method Mechanical Ventil ation 06/05/25 20:00 O2 Flow Rate 10 06/05/25 17:50 FiO2 100 06/05/25 20:00 BMI result Body Mass Index 30.7 Sepsis exam done at 1958 p.m. General:? Intubated, sedated Skin:? Thin, Intact, no lesions, edema, erythema, clubbing or cyanosis.? No ulcers. HEENT:? Head is normocephalic, atraumatic, pupils equal. Buccal mucosa is dry.? Endotracheal tube at 24 cm at the lip Cardiac:? Clear S1-S2, no murmurs rubs or gallops. Pulmonary:? Diminished lung sounds bilaterally fine expiratory wheezing bilaterally .? No crackles, rales or rhonchi. Abdomen:? Protuberant, positive bowel sounds in all 4 quadrants.? Soft, nontender, no rebound or guarding.? Musculoskeletal:? Passive range of motion of upper and lower extremities at the major joints reveal no cogwheeling, no crepitus, there is no leg edema, no asymmetry. Neurologic:? As above.? No focal deficits noted. Vascular:? 2+ pulses upper and lower extremities distally.? Less than 2nd capillary refill of fingers and toes bilaterally upper and lower extremities Results Labs 06/06/25 04:50 06/06/25 04:50 Labs: BMP 06/05/25 05:29 Sodium 139 Potassium 3.1 L D Chloride 106 Carbon Dioxide 25 BUN 9 Creatinine 0.55 Calcium 8.1 L Liver Function 06/05/25 Range/Units 05:29 Albumin 3.1 L (3.5-5.0) g/dL Imaging Chest x-ray: Radiologist's impression: IMPRESSION: 1. The endotracheal tube tip is 5 cm above the qi. 2. Soft tissue fullness within the central upper abdomen with possible mass effect on the greater curvature of the stomach, evaluated in limited fashion. Recommend correlation with physical examination findings and attention to this area at follow-up. CT evaluation may be indicated when appropriate. Assessment and Plan (1) Acute respiratory failure with hypoxia and hypercarbia: Status: Acute Plan ASSESSMENT : 1. Acute hypoxic /hypercarbic respiratory failure with respiratory acidosis 2. Acute aspiration pneumonitis of the right lung 3. Acute early sepsis 4. Acute metabolic and lactic acidosis due to the above 5. Reactive hyperbilirubinemia 6. Acute hypoalbuminemia 7. New soft tissue fullness at the greater curvature of the stomach in need of further evaluation 8. Acute urinary retention 9. Postop day 0. status post pyloric 14 mm x 60mm covered stent in the setting of malignant GOO PLAN OF CARE: The patient had been transferred to the ICU sedated with propofol and fentanyl which soon cause hypotension, started him on some fluids and Levophed.? He was satting 84-86% with 100% FiO2 on the vent, full set of laboratories obtained.? Continue with I's and O's, vital signs, Avery catheter placement for urinary retention follow-up chest x-ray to my view showed the tip of the endotracheal tube to be at the level of the clavicle, this was advanced 2 cm, he was suctioned and lavaged, DuoNeb administered and O2 sat did improve to 92 and 94% respectively.? Blood culture x2 requested, lactic acid, start him on Zosyn and albumin ordered. Subsequently lactic acid elevated at 3.1, 30 mL/kilos ordered.? Bladder scan reveals urinary retention and a Avery catheter will be placed. Laboratories reviewed, renal function is normal, CT abdomen and pelvis with IV contrast will be ordered.? Insulin sliding scale. GI PROPHYLAXIS:? IV Protonix DVT PROPHYLAXIS:? Pneumatic stockings while in bed Follow up Sepsis exam done at 2200 p.m. General:? Intubated, sedated Skin:? No changes Cardiac:? Clear S1-S2, no murmurs rubs or gallops. Pulmonary:? Diminished lung sounds bilaterally fine expiratory wheezing bilaterally .? No crackles, rales or rhonchi. Neurologic:? As above.? No focal deficits noted. Vascular:? 2+ pulses upper and lower extremities distally.? Less than 2nd capillary refill of fingers and toes bilaterally upper and lower extremities CT abdomen and pelvis with IVC pending. Continue with current treatment plan. Lactic acid pending as pt is in CT. REPEAT ct ABDOMEN AND PELVIS WITH IVC IMPRESSION: 1. Metallic wall stent placement within the distal stomach extending into the duodenal bulb as above. This is presumably crossing a malignant stricture with findings concerning for peritoneal carcinomatosis as fully discussed above. 2. Interval increase in size of a fluid collection abutting the greater curvature of the stomach. This may be related to an area of peritoneal carcinomatosis or developing abscess. This patient counter and care had a high probability of a clinically significant, sudden, or life threatening deterioration of this patient's condition which required my full and direct attention, intervention and personal management. Critical care time used for critical evaluation of this patient, diagnosis, treatment and coordination of care, review her records and documentation TOTAL CRITICAL CARE TIME 120 MIN . discussion and coordination with consultants, completely separate from any procedures performed. Patient's care was discussed in detail with Dr. Scwharz who is aware of all the above as well as the plan of care for this patient.
[2025-06-05] MEDS: Albumin Human 25 % 100 ML 133.33 ML IV ×2 (20:28→21:23)
[2025-06-05 20:41] LABS: MANUAL DIFF FLAG NO
[2025-06-05] MEDS: Albuterol/Iprat 2.5/0.5MG 3 ML AMPUL.NEB INHALE (20:43)
[2025-06-05 21:00] LABS: Alanine Aminotransferase 14 U/L (0-40); Albumin Level 3.0 g/dL (3.5-5.0); Alkaline Phosphatase 59 U/L (39-117); Anion Gap 18 (12-20); Aspartate Amino Transferase 27 U/L (5-37); Blood Urea Nitrogen 16 mg/dL (9-16); Calcium 8.4 mg/dL (8.4-10.2); Carbon Dioxide 18 mmol/L (22-29); Chloride 106 mmol/L (96-108); Creatinine Clr Calc Pharmacy 80.0; Estimated Glomerular Filt Rate > 60; Magnesium 1.8 mg/dL (1.6-2.6); Potassium 3.7 mmol/L (3.3-5.1); Sodium 138 mmol/L (135-145); Total Protein 5.6 g/dL (6.5-8.0)
[2025-06-05 21:01] LABS: Hematocrit 45.6 % (42.0-52.0); Hemoglobin 16.4 g/dl (14.0-18.0); Imm Gran Abs Auto 0.02 X10*3/uL (0.00-0.03); Imm Gran Pct Auto 0.6 % (0.0-0.4); Lymphocytes Absolute Auto 0.2 X10*3/uL (1.2-4.9); Mean Corpuscular HGB Conc 36.0 g/dl (31.0-36.0); Mean Corpuscular Hemoglobin 31.1 pg (27.0-33.0); Mean Corpuscular Volume 86.4 fL (80.0-98.0); NRBC Abs Auto 0.000 X10*3/uL (0.0-0.012); NRBC Pct Auto 0.0 /100WBC (0.0-0.2); Platelet Count 243 X10*3/uL (160-400); Red Blood Count 5.28 X10*6/uL (4.60-5.80); White Blood Count 3.4 X10*3/uL (4.8-10.8)
[2025-06-05 21:19] LABS: VBG HCO3 17 mmol/L (22-26); VBG O2 % Saturation 93.0 %
[2025-06-05] MEDS: LACTATED RINGERS 2745 ML IV (21:58)
[2025-06-05 22:39] LABS: Reflex Lactate? Lactic Acid Added
[2025-06-05 22:45] LABS: Venous Blood Gas Refer to POC result
[2025-06-05] MEDS: iohexoL 350 MG/ML 100 ML INFUS..BTL 85 ML IV (23:27)
[2025-06-06] VITALS (55 sets, daily range): BP systolic 82–199; BP diastolic 51–107; PULSE 44–76; RESP 16–20; TEMP 35–37.6; O2SAT 91–100
[2025-06-06] MEDS: 0.9 % Sodium Chloride Flush 3 ML SYRINGE IVFLUSH ×2 (00:09→08:08)
[2025-06-06 00:17] LABS: ~Lactic Acid-LAB USE ONLY 2.0 mmol/L (0.5-2.0)
--- NOTE | 2025-06-06 01:12 | PC.NURSE ---
Administered Rocoronium at 1944. Unable to correct administration time in NOV. Medication had good effect.
--- NOTE | 2025-06-06 03:46 | PC.NURSE ---
Lactic acid drawn 1 hour late. Due at 2230 on 06/[address] Scan at that time. Lactic drawn at 2330 when patient returned.
[2025-06-06 05:15] LABS: Hematocrit 37.0 % (42.0-52.0); Hemoglobin 13.0 g/dl (14.0-18.0); Mean Corpuscular HGB Conc 35.1 g/dl (31.0-36.0); Mean Corpuscular Hemoglobin 31.3 pg (27.0-33.0); Mean Corpuscular Volume 88.9 fL (80.0-98.0); NRBC Abs Auto 0.000 X10*3/uL (0.0-0.012); NRBC Pct Auto 0.0 /100WBC (0.0-0.2); Platelet Count 147 X10*3/uL (160-400); Red Blood Count 4.16 X10*6/uL (4.60-5.80)
[2025-06-06 05:18] LABS: VBG HCO3 28 mmol/L (22-26); VBG O2 % Saturation 90.0 %
[2025-06-06 05:31] LABS: WBC ABN SCTR FOR CBC 1; White Blood Count 8.3 X10*3/uL (4.8-10.8)
--- NOTE | 2025-06-06 05:31 | HE.ICUCC ---
ICU Critical Care Nursing Note Patient admitted to ICU for respiratory failure S/P EGD with pyloric stent placement intubated for procedure. Patient extubated and following became tachypneic, tachycardic, obtunded requiring reintubation. ICU Day #:1 Vent Day #:1 Neuro: Unable to assess orientation, intubated/sedated. Cardiac: SB-SR on telemetry/ no edema noted. Resp: LS diminished/Intubated / sedated on ventilator. GI/: Avery draining CYU Endocrine:Patient diabetic / POC Q6H Integumentary/Musculoskeletal: Dressing left chest CDI from incision of port placement. Psychosocial (family etc.): Patient lives at home with family Central Lines: TLC PICC to right upper arm.
[2025-06-06 05:35] LABS: Albumin Level 3.5 g/dL (3.5-5.0); Anion Gap 14 (12-20); Blood Urea Nitrogen 11 mg/dL (9-16); Calcium 8.3 mg/dL (8.4-10.2); Carbon Dioxide 26 mmol/L (22-29); Chloride 106 mmol/L (96-108); Creatinine Clr Calc Pharmacy 95.1; Estimated Glomerular Filt Rate > 60; Magnesium 1.7 mg/dL (1.6-2.6); Potassium 3.3 mmol/L (3.3-5.1); Sodium 143 mmol/L (135-145)
[2025-06-06 05:56] LABS: Band Neutrophils Percent 40 % (3-5); Lymphocytes Absolute Manual 0.1 X10*3/uL (1.2-4.9); Lymphocytes Percent Manual 1 % (20-40); Metamyelocytes Absolute 0.2 X10*3/uL; Metamyelocytes Percent 2 %; Monocytes Absolute Manual 0.5 X10*3/uL (0.1-1.2); Monocytes Percent Manual 6 % (2-11); Neutrophils Absolute Manual 7.6 X10*3/uL (2.0-8.3); Neutrophils Percent Manual 51 % (45-73)
[2025-06-06 05:57] LABS: RBC Morphology NOTED
[2025-06-06 05:58] LABS: Burr Cells 1+ (0-2) /OIF; Ovalocytes 1+ (5-14) /OIF; Toxic Vacuolation PRESENT
[2025-06-06 07:27] LABS: Venous Blood Gas Refer to POC result
--- NOTE | 2025-06-06 08:46 | PM.CCPN ---
Subjective Subjective Date of Service: 06/06/25 Interval History: Continues to be on ventilator support Critical Care Time (minutes): 35 Physical Exam Vital Signs: Vital Signs: Last Vital Signs Temp 98.6 F 06/06/25 08:00 Pulse 76 06/06/25 08:00 Resp 19 06/06/25 08:00 BP 126/81 06/06/25 08:00 Pulse Ox 94 06/06/25 08:00 O2 Del Method Mechanical Ventil ation 06/06/25 07:00 O2 Flow Rate 10 06/05/25 17:50 FiO2 50 06/06/25 08:13 BMI result Body Mass Index 30.7 General: Elderly male in severe acute distress, ill appearing and tired appearing Nutritional Appearance: well nourished and overweight Eyes: appearance normal, both eyes and all related structures; Alignment and Position: alignment normal and position normal Neck: No lymphadenopathy, no thyromegaly Resp: bilateral air entry equal, occasional added sounds present Cardio: Regular rate, regular rhythm; Heart sounds: S1 normal heart sound present and S2 normal heart sound present GI: soft, nontender, no guarding, no hepatosplenomegaly : bladder normal to inspection, bladder normal to palpation, no renal angle tenderness Skin: no rashes or lesions noted and elasticity normal Neuro: Sedated, no focal deficits Objective Data Labs 06/06/25 04:50 06/06/25 04:50 Labs: Laboratory Results - last 24 hr 06/05/25 06/05/25 06/05/25 14:32 17:54 20:10 WBC 3.4 L RBC 5.28 Hgb 16.4 POC Hgb (Calc) 17.0 Hct 45.6 POC Hct 50 MCV 86.4 MCH 31.1 MCHC 36.0 RDW 12.2 Plt Count 243 MPV 10.2 Immature Gran % (Auto) 0.6 H Neut % (Auto) 76.0 H Lymph % (Auto) 6.8 L [place] % (Auto) 16.3 H Eos % (Auto) 0.0 Baso % (Auto) 0.3 Lymph # (Auto) 0.2 L [place] # (Auto) 0.6 Eos # (Auto) 0.0 Baso # (Auto) 0.0 Abs Immat Gran (auto) 0.02 Absolute Neuts (auto) 2.6 Absolute Nucleated RBC 0.000 Nucleated RBC % (auto) 0.0 Neutrophils % (Manual) Band Neutrophils % Lymphocytes % (Manual) Monocytes % (Manual) Metamyelocytes % Abs Neuts (Manual) Lymphocytes # (Manual) Monocytes # (Manual) Metamyelocytes # Toxic Vacuolation Platelet Estimate Plt Morphology Comment RBC Morphology Ovalocytes [place] Cells POC Std Base Excess -3 POC ABG Total CO2 26 VBG pH VBG pCO2 VBG pO2 VBG HCO3 VBG O2 Saturation VBG Base Excess POC Capillary pH 7.21 L POC Capillary pCO2 62 H* POC Cap HCO3 (Calc) 25 POC Sodium 138 Sodium 138 POC Potassium 4.3 Potassium 3.7 Chloride 106 Carbon Dioxide 18 L Anion Gap 18 BUN 16 Creatinine 1.01 Estim Creat Clear Calc 80.0 Estimated GFR > 60 POC Glucose 206 H Random Glucose 160 H Lactic Acid Lactic Acid F/U @ 2Hr Calcium 8.4 Phosphorus 3.3 Magnesium 1.8 Total Bilirubin 1.7 H AST 27 ALT 14 Alkaline Phosphatase 59 Total Protein 5.6 L Albumin 3.0 L Blood Type A Positive Antibody Screen NEGATIVE 06/05/25 06/05/25 06/05/25 20:29 21:15 23:32 WBC RBC Hgb POC Hgb (Calc) Hct POC Hct MCV MCH MCHC RDW Plt Count MPV Immature Gran % (Auto) Neut % (Auto) Lymph % (Auto) [place] % (Auto) Eos % (Auto) Baso % (Auto) Lymph # (Auto) [place] # (Auto) Eos # (Auto) Baso # (Auto) Abs Immat Gran (auto) Absolute Neuts (auto) Absolute Nucleated RBC Nucleated RBC % (auto) Neutrophils % (Manual) Band Neutrophils % Lymphocytes % (Manual) Monocytes % (Manual) Metamyelocytes % Abs Neuts (Manual) Lymphocytes # (Manual) Monocytes # (Manual) Metamyelocytes # Toxic Vacuolation Platelet Estimate Plt Morphology Comment RBC Morphology Ovalocytes Narinder Cells POC Std Base Excess POC ABG Total CO2 VBG pH 7.38 VBG pCO2 30 VBG pO2 67 VBG HCO3 17 L VBG O2 Saturation 93.0 VBG Base Excess -5.7 POC Capillary pH POC Capillary pCO2 POC Cap HCO3 (Calc) POC Sodium Sodium POC Potassium Potassium Chloride Carbon Dioxide Anion Gap BUN Creatinine Estim Creat Clear Calc Estimated GFR POC Glucose Random Glucose Lactic Acid 3.2 H* Lactic Acid F/U @ 2Hr 2.0 Calcium Phosphorus Magnesium Total Bilirubin AST ALT Alkaline Phosphatase Total Protein Albumin Blood Type Antibody Screen 06/06/25 06/06/25 04:50 05:14 WBC 8.3 RBC 4.16 L D Hgb 13.0 L D POC Hgb (Calc) Hct 37.0 L POC Hct MCV 88.9 MCH 31.3 MCHC 35.1 RDW 12.2 Plt Count 147 L D MPV 10.1 Immature Gran % (Auto) Cancelled Neut % (Auto) Cancelled Lymph % (Auto) Cancelled [place] % (Auto) Cancelled Eos % (Auto) Cancelled Baso % (Auto) Cancelled Lymph # (Auto) Cancelled [place] # (Auto) Cancelled Eos # (Auto) Cancelled Baso # (Auto) Cancelled Abs Immat Gran (auto) Cancelled Absolute Neuts (auto) Cancelled Absolute Nucleated RBC 0.000 Nucleated RBC % (auto) 0.0 Neutrophils % (Manual) 51 Band Neutrophils % 40 H Lymphocytes % (Manual) 1 L Monocytes % (Manual) 6 Metamyelocytes % 2 Abs Neuts (Manual) 7.6 Lymphocytes # (Manual) 0.1 L Monocytes # (Manual) 0.5 Metamyelocytes # 0.2 Toxic Vacuolation PRESENT Platelet Estimate SLIGHTLY DECREASED Plt Morphology Comment NORMAL RBC Morphology NOTED Ovalocytes 1+ (5-14) Narinder Cells 1+ (0-2) POC Std Base Excess POC ABG Total CO2 VBG pH 7.43 VBG pCO2 41 VBG pO2 61 VBG HCO3 28 H VBG O2 Saturation 90.0 VBG Base Excess 3.6 POC Capillary pH POC Capillary pCO2 POC Cap HCO3 (Calc) POC Sodium Sodium 143 POC Potassium Potassium 3.3 Chloride 106 Carbon Dioxide 26 Anion Gap 14 BUN 11 Creatinine 0.85 Estim Creat Clear Calc 95.1 Estimated GFR > 60 POC Glucose Random Glucose 174 H Lactic Acid Lactic Acid F/U @ 2Hr Calcium 8.3 L Phosphorus 3.7 Magnesium 1.7 Total Bilirubin AST ALT Alkaline Phosphatase Total Protein Albumin 3.5 Blood Type Antibody Screen Progress Note: A&P Assessment and plan (1) HTN (hypertension): Status: Acute (2) Gastric outlet obstruction: Status: Acute (3) Acute respiratory failure with hypoxia and hypercarbia: Status: Acute (4) Cardiogenic shock: Status: Acute Plan Neuro: Acute encephalopathy possibly due to metabolic encephalopathy On propofol for sedation, as needed fentanyl for analgesia, will switch to Precedex Close neurological status monitoring in the ICU every hour Cardiac: Shock: Possibly secondary to sedation and positive pressure ventilation On Levophed support, titrate Levophed to keep map above 65 mm Hg Respiratory: Acute hypoxemic respiratory failure due to aspiration pneumonia Currently on ventilator support On PRVC mode FiO2 50%, PEEP 8, TV400, RR 20, will place him on pressure support trials to see how he does Peak pressures and plateau pressures are under the curve Ventilator management bundle with head end elevation, aspiration precaution, chlorhexidine mouthwash, daily awakening trials, daily spontaneous breathing trials GI: Metastatic gastric carcinoma: Past patient was admitted with nausea and vomiting found to have severe gastric outlet obstruction with thickening of the fink and his tumor markers are positive suggestive of malignancy. Patient underwent metallic stent placement for gastric outlet obstruction yesterday. We will wait on GI before starting tube feeds, oncology on board. Has a 8x 7cms fluid collection which might be paramalignant vs abscess collection, will discuss with GI and IR about drainage/ sampling. will start him on TPN He is planned for a liver biopsy, drainage of the fluid collection behind the greater curvature of stomach, possible evaluation of DVT in the subclavian vein by IR this afternoon. We will add Versed drip and we will optimize his ventilator settings for the procedure. Renal: Baseline creatinine normal We will closely monitor I's and O's Avoid nephrotoxic medications Heme: Chronic anemia, closely monitor H&H, transfuse for hemoglobin less than 7 grams/deciliter Endocrine: Blood sugars under control Sliding scale insulin as needed Infectious disease: Pending pancultures On Zosyn for aspiration pneumonia Musculoskeletal: Decubitus ulcer prevention protocol Lines: peripheral port in left subclavian Prophylaxis: Lovenox, pantoprazole Update: Patient has an episode of bradycardia with heart rate down to 40s along with hypotension, propofol. Patient closely monitored, heart rate slowly came up, we will add ketamine to assist with sympathomimetic activity. Total critical care time spent is about 60 minutes on managing this critically ill patient on ventilator support support, changing ventilator settings, sedation management, changing different sedatives, managing episodes of bradycardia, optimizing the patient's for multiple procedures planned for the day, vasopressor management, close hemodynamic monitoring at this time is excluding any procedural time Quality Stroke Does the patient have a stroke diagnosis?: No VTE Prior VTE?: No VTE Risk Level:: Medical - moderate - high VTE Device Contraindication: N/A - Device Ordered VTE Drug Contraindication: Treatment Not Indicated
--- NOTE | 2025-06-06 09:45 | HO.POSTANES ---
Post Anesthesia Evaluation Post Anesthesia Evaluation Date of Service: 06/06/25 Vital Signs: Vital Signs Temp Pulse Resp BP Pulse Ox O2 Del Method FiO2 06/06/25 09:00 98.2 F 61 16 103/61 95 Mechanical Ventilation 50 06/06/25 08:13 50 06/06/25 08:00 94 50 06/06/25 08:00 98.6 F 76 19 126/81 95 06/06/25 07:00 98.4 F 66 16 117/78 96 Mechanical Ventilation 60 06/06/25 06:00 98.2 F 67 16 142/83 H 96 Mechanical Ventilation 60 06/06/25 05:40 70 06/06/25 05:00 98.1 F 68 20 152/75 H 98 Mechanical Ventilation 70 06/06/25 04:00 99 70 06/06/25 04:00 97.9 F 56 16 119/76 99 Mechanical Ventilation 70 06/06/25 04:00 98.1 F 55 16 119/76 96 Mechanical Ventilation 70 06/06/25 03:00 98.1 F 59 16 109/74 95 Mechanical Ventilation 70 06/06/25 02:00 98.1 F 57 16 105/77 93 Mechanical Ventilation 70 06/06/25 01:00 98.2 F 55 16 108/72 93 Mechanical Ventilation 70 06/06/25 00:39 70 06/06/25 00:00 99.7 F 69 17 107/72 91 L Mechanical Ventilation 70 06/06/25 00:00 94 70 06/05/25 23:45 68 128/82 06/05/25 23:40 73 120/76 06/05/25 23:00 99.7 F 70 20 120/76 91 L Mechanical Ventilation 70 06/05/25 21:57 99.5 F 72 18 132/87 96 Mechanical Ventilation 80 Anesthesia: General Endotracheal-GETA Mental Status: Sedated Pain Control: Satisfactory Nausea/Vomiting: None Hydration: Adequate Anesthesia-Related Issues: No Anes. Related Issues (see below) Comments: Intubated and sedated for aspiration pneumonitis. Brief BP support with Levophed upon ICU admission, but has been D/C'd since last night. Plan to lighten sedation this afternoon and try pressure support ventilation. Fluid collection near greater curvature of stomach to be evaluated by IR.
--- NOTE | 2025-06-06 10:12 | MHC.CLN ---
F/U PT TRANSFERRED TO ICU PT IS INTUBATED AND SEDATED DISCUSSED AT ROUNDS WITH DIET RX: NPO REQUIRES TPN FOR NUTRITION/HYDRATION-PT DID NOT RECEIVE TPN LAST EVENING PER NSG REVIEWED LABS COMMUNICATED WITH PHARMACY RECOMMEND TPN AT 60ML/HR TO PROVIDE 1022KCALS (1747 TOTAL KCALS WITH SEDATION; 25KCALS/KG), 72G PROTEIN (1.03G/KG), 216G DEXTROSE REPLETE LYTES NEEDED RD CAN BE REACHED VIA TIGER CONNECT DURING OFF HOURS IF NEEDED
[2025-06-06] MEDS: fentaNYL citrate/NS 1,000 MCG/100 ML PLAST..BAG 5 MCG IVCONT (10:34)
[2025-06-06] MEDS: iohexoL 350 MG/ML 100 ML INFUS..BTL IV (11:17)
[2025-06-06 12:16] LABS: Glucose, Whole Blood 156 mg/dL (60-115)
[2025-06-06] MEDS: Ketamine HCl 500 MG in 0.9 % Sodium Chloride 250 ML 14 MG IVCONT (12:40)
[2025-06-06] MEDS: Midazolam HCl/NS 50 MG/50 ML PLAST..BAG IVCONT (13:05)
[2025-06-06 14:33] LABS: SO2 Bedside Calculated < 35 %; pO2 Bedside < 50 mmhg (83-108)
--- NOTE | 2025-06-06 15:30 | MHC.CM.PN ---
EMR REVIEWED AND PER MD ROUNDS, PT REMAINS ON VENTILATORY/PRESSOR SUPPORT IN ICU. CM WILL CONTINUE TO FOLLOW FOR DC PLAN/NEEDS.
[2025-06-06 17:29] LABS: Glucose, Whole Blood 129 mg/dL (60-115)
[2025-06-06] MEDS: fentaNYL citrate/NS 1,000 MCG/100 ML PLAST..BAG 10 MCG IVCONT (18:16)
--- NOTE | 2025-06-06 18:40 | PC.NURSE ---
Assumed care at 0700- pt. vented and initially sedated on propofol. Pt taken for stat chest CT at approx 1100-see report. Fentanyl gtt added per MAR per MD. at approx. 1230 pt. with HR in the low 40s and SBP 80s with MAPs<65- levophed titrated per MAR. MD aware and at bedside- sedation switched from propofol to ketamine and versed. At 1430 pt. transported to IR for liver biopsy and drain placement- see report. Pt. back to ICU at approx. 1545. Pt. opens eyes to voice, tracks, follows commands, nods head in response to questions, SHOEMAKER. SR/SB on tele, HR 50s-60s with PACs. Tolerating ACVC settings- see vent assessment. TPN ordered to start 06/06 @2100. Avery remains in place draining dark yellow urine. Q2 repositioning and oral care performed. Family at bedside, updated by this RN and MD. Plan of care ongoing.
[2025-06-06] MEDS: Chlorhexidine Gluc Oral Rinse 15 ML MOUTHWASH BUCCAL (21:45)
[2025-06-06] MEDS: Parenteral Nutrition 1,440 ML 60 ML IV (21:46)
[2025-06-06 23:52] LABS: Glucose, Whole Blood 192 mg/dL (60-115)
[2025-06-07] VITALS (30 sets, daily range): BP systolic 94–162; BP diastolic 54–93; PULSE 55–85; RESP 14–26; TEMP 34.5–38.7; O2SAT 90–97; BMI 30.7
[2025-06-07] MEDS: Ketamine HCl 500 MG in 0.9 % Sodium Chloride 250 ML 14 MG IVCONT (03:43)
[2025-06-07] MEDS: fentaNYL citrate/NS 1,000 MCG/100 ML PLAST..BAG 7.5 MCG IVCONT (04:25)
[2025-06-07] MEDS: Midazolam HCl/NS 50 MG/50 ML PLAST..BAG IVCONT (04:27)
[2025-06-07 05:35] LABS: VBG HCO3 29 mmol/L (22-26); VBG O2 % Saturation 80.0 %; Venous Blood Gas Refer to POC result
[2025-06-07 05:37] LABS: Hematocrit 33.0 % (42.0-52.0); Hemoglobin 11.4 g/dl (14.0-18.0); Mean Corpuscular HGB Conc 34.5 g/dl (31.0-36.0); Mean Corpuscular Hemoglobin 31.1 pg (27.0-33.0); Mean Corpuscular Volume 89.9 fL (80.0-98.0); NRBC Abs Auto 0.000 X10*3/uL (0.0-0.012); NRBC Pct Auto 0.0 /100WBC (0.0-0.2); Platelet Count 130 X10*3/uL (160-400); Red Blood Count 3.67 X10*6/uL (4.60-5.80); White Blood Count 9.6 X10*3/uL (4.8-10.8)
[2025-06-07 05:58] LABS: Alanine Aminotransferase 17 U/L (0-40); Albumin Level 3.1 g/dL (3.5-5.0); Alkaline Phosphatase 41 U/L (39-117); Anion Gap 11 (12-20); Aspartate Amino Transferase 43 U/L (5-37); Blood Urea Nitrogen 18 mg/dL (9-16); Calcium 8.5 mg/dL (8.4-10.2); Carbon Dioxide 26 mmol/L (22-29); Chloride 110 mmol/L (96-108); Creatinine Clr Calc Pharmacy 126.3; Estimated Glomerular Filt Rate > 60; Magnesium 2.2 mg/dL (1.6-2.6); Potassium 3.2 mmol/L (3.3-5.1); Sodium 144 mmol/L (135-145); Total Protein 5.0 g/dL (6.5-8.0)
[2025-06-07 06:05] LABS: Band Neutrophils Percent 23 % (3-5); Eosinophils Absolute Manual 0.1 X10*3/uL (0.0-0.4); Eosinophils Percent Manual 1 % (0-4); Lymphocytes Absolute Manual 1.2 X10*3/uL (1.2-4.9); Lymphocytes Percent Manual 13 % (20-40); Monocytes Absolute Manual 0.3 X10*3/uL (0.1-1.2); Monocytes Percent Manual 3 % (2-11); Neutrophils Absolute Manual 8.0 X10*3/uL (2.0-8.3); Neutrophils Percent Manual 60 % (45-73)
[2025-06-07 06:06] LABS: RBC Morphology NOTED
[2025-06-07 06:12] LABS: Burr Cells 3+ (>5) /OIF; Large Platelet PRESENT; Ovalocytes 1+ (5-14) /OIF
[2025-06-07 06:13] LABS: Dohle Bodies PRESENT; Toxic Vacuolation PRESENT
--- NOTE | 2025-06-07 07:35 | PC.NURSE ---
On initial assessment at 1999- patient sedated on ketamine, Versed, and fentanyl infusions; RASS -2 to -3, titrated down as tolerated. Afebrile. NSR/SB on tele, HR 50?60s with prolonged QT. SBP > 90, MAP > 65. ETT #7.5 at 24 cm at lip. On VCV; FiO2 titrated down as tolerated. NPO. TPN initiated per NOV. LUQ DEB drain in place with total output 320 mL brown liquid drainage. No BM. Indwelling urinary catheter in place; UOP 20?30 mL/hr. Skin overall intact; lap site to RUQ WNL. Repositioned q2h with pillows. Family updated and aware of patient status and plan of care. Bed locked in lowest position, alarm on. See EMR/flowsheet for further details.
[2025-06-07] MEDS: Potassium Phosphate/NS 15 MMOL/250 ML PLAST..BAG 62.5 MMOL IV (08:33)
[2025-06-07] MEDS: Chlorhexidine Gluc Oral Rinse 15 ML MOUTHWASH BUCCAL (08:33)
--- NOTE | 2025-06-07 10:34 | PM.CCPN ---
Subjective Subjective Date of Service: 06/07/25 Interval History: Continues to be on ventilator support, on Versed and ketamine for sedation, fentanyl for analgesia Critical Care Time (minutes): 35 Physical Exam Vital Signs: Vital Signs: Last Vital Signs Temp 99.9 F 06/07/25 09:00 Pulse 59 06/07/25 09:00 Resp 16 06/07/25 09:00 BP 113/71 06/07/25 09:00 Pulse Ox 92 06/07/25 09:00 O2 Del Method Mechanical Ventil ation 06/07/25 09:00 O2 Flow Rate 10 06/06/25 15:50 FiO2 40 06/07/25 09:00 BMI result Body Mass Index 30.7 General: Elderly male in mild acute distress, ill appearing and tired appearing Nutritional Appearance: well nourished and overweight Eyes: appearance normal, both eyes and all related structures; Alignment and Position: alignment normal and position normal Neck: No lymphadenopathy, no thyromegaly Resp: bilateral air entry equal, occasional crackles heard bilaterally Cardio: Regular rate, regular rhythm; Heart sounds: S1 normal heart sound present and S2 normal heart sound present GI: soft, nontender, no guarding, no hepatosplenomegaly : bladder normal to inspection, bladder normal to palpation, no renal angle tenderness Skin: no rashes or lesions noted and elasticity normal Neuro: oriented to person, oriented to place, oriented to time and moves all extremities Objective Data Labs 06/07/25 05:27 06/07/25 05:27 Labs: Laboratory Results - last 24 hr 06/05/25 06/06/25 06/06/25 17:54 12:12 17:25 WBC RBC Hgb Hct MCV MCH MCHC RDW Plt Count MPV Immature Gran % (Auto) Neut % (Auto) Lymph % (Auto) [place] % (Auto) Eos % (Auto) Baso % (Auto) Lymph # (Auto) [place] # (Auto) Eos # (Auto) Baso # (Auto) Abs Immat Gran (auto) Absolute Neuts (auto) Absolute Nucleated RBC Nucleated RBC % (auto) Neutrophils % (Manual) Band Neutrophils % Lymphocytes % (Manual) Monocytes % (Manual) Eosinophils % (Manual) Abs Neuts (Manual) Lymphocytes # (Manual) Monocytes # (Manual) Eosinophils # (Manual) Toxic Vacuolation Dohle Bodies Platelet Estimate Large Platelets Plt Morphology Comment RBC Morphology Ovalocytes Narinder Cells POC O2 Sat (Calc) < 35 POC ABG pO2 < 50 L* VBG pH VBG pCO2 VBG pO2 VBG HCO3 VBG O2 Saturation VBG Base Excess Sodium Potassium Chloride Carbon Dioxide Anion Gap BUN Creatinine Estim Creat Clear Calc Estimated GFR POC Glucose 156 H 129 H Random Glucose Calcium Phosphorus Magnesium Total Bilirubin AST ALT Alkaline Phosphatase Total Protein Albumin 06/06/25 06/07/25 06/07/25 23:48 05:27 05:30 WBC 9.6 RBC 3.67 L Hgb 11.4 L Hct 33.0 L MCV 89.9 MCH 31.1 MCHC 34.5 RDW 12.2 Plt Count 130 L MPV 10.5 Immature Gran % (Auto) Cancelled Neut % (Auto) Cancelled Lymph % (Auto) Cancelled [place] % (Auto) Cancelled Eos % (Auto) Cancelled Baso % (Auto) Cancelled Lymph # (Auto) Cancelled [place] # (Auto) Cancelled Eos # (Auto) Cancelled Baso # (Auto) Cancelled Abs Immat Gran (auto) Cancelled Absolute Neuts (auto) Cancelled Absolute Nucleated RBC 0.000 Nucleated RBC % (auto) 0.0 Neutrophils % (Manual) 60 Band Neutrophils % 23 H Lymphocytes % (Manual) 13 L Monocytes % (Manual) 3 Eosinophils % (Manual) 1 Abs Neuts (Manual) 8.0 Lymphocytes # (Manual) 1.2 Monocytes # (Manual) 0.3 Eosinophils # (Manual) 0.1 Toxic Vacuolation PRESENT Dohle Bodies PRESENT Platelet Estimate SLIGHTLY DECREASED Large Platelets PRESENT Plt Morphology Comment NOTED RBC Morphology NOTED Ovalocytes 1+ (5-14) Narinder Cells 3+ (>5) POC O2 Sat (Calc) POC ABG pO2 VBG pH 7.55 H VBG pCO2 33 VBG pO2 49 VBG HCO3 29 H VBG O2 Saturation 80.0 VBG Base Excess 7.5 Sodium 144 Potassium 3.2 L Chloride 110 H Carbon Dioxide 26 Anion Gap 11 L BUN 18 H Creatinine 0.64 Estim Creat Clear Calc 126.3 Estimated GFR > 60 POC Glucose 192 H Random Glucose 205 H Calcium 8.5 Phosphorus 2.2 L Magnesium 2.2 Total Bilirubin 0.9 AST 43 H ALT 17 Alkaline Phosphatase 41 Total Protein 5.0 L Albumin 3.1 L Microbiology Microbiology Results: Microbiology 06/06/25 15:56 Abscess Intra-abdominal Routine Culture - Preliminary No growth to date. 06/05/25 20:10 Blood - Venous Blood Culture - Preliminary No growth after 24 hours. 06/05/25 20:10 Blood - Venous Blood Culture - Preliminary No growth after 24 hours. 06/05/25 20:20 Sputum - Induced Gram Stain - Final 06/05/25 20:20 Sputum - Induced Sputum Culture - Preliminary Culture in progress. Progress Note: A&P Assessment and plan (1) Cardiogenic shock: Status: Acute (2) Acute respiratory failure with hypoxia and hypercarbia: Status: Acute (3) HURTADO (nonalcoholic steatohepatitis): Status: Acute (4) Acute encephalopathy: Status: Acute Plan Neuro: Acute encephalopathy possibly due to metabolic encephalopathy On Versed and ketamine for sedation, fentanyl drip for analgesia, will turn off Versed and fentanyl for weaning from ventilator Close neurological status monitoring in the ICU every hour Cardiac: Shock: Possibly secondary to sedation and positive pressure ventilation On Levophed support, titrate Levophed to keep map above 65 mm Hg Respiratory: Acute hypoxemic respiratory failure due to aspiration pneumonia Currently on ventilator support On PRVC mode FiO2 50%, PEEP 8, TV400, RR 20, will place him on pressure support trials to weaning from ventilator Peak pressures and plateau pressures are under the curve Ventilator management bundle with head end elevation, aspiration precaution, chlorhexidine mouthwash, daily awakening trials, daily spontaneous breathing trials GI: Metastatic gastric carcinoma: Past patient was admitted with nausea and vomiting found to have severe gastric outlet obstruction with thickening of the fink and his tumor markers are positive suggestive of malignancy. Patient underwent metallic stent placement for gastric outlet obstruction on 06/05/2025. We will wait on GI before starting tube feeds, oncology on board. Has a 8x 7cms fluid collection which might be paramalignant vs abscess collection, status post IR about drainage on 06/06/2025. Sent for cultures and cytology on TPN Underwent for a liver biopsy on 06/06/2025 Renal: Baseline creatinine normal We will closely monitor I's and O's Avoid nephrotoxic medications Acute hypokalemia: We will replace as per protocol Heme: Chronic anemia, closely monitor H&H, transfuse for hemoglobin less than 7 grams/deciliter Endocrine: Blood sugars under control Sliding scale insulin as needed Infectious disease: Negative pancultures so far On Zosyn for aspiration pneumonia Musculoskeletal: Decubitus ulcer prevention protocol Lines: peripheral port in left subclavian Has a right-sided PICC Prophylaxis: Lovenox, pantoprazole Quality Stroke Does the patient have a stroke diagnosis?: No VTE Prior VTE?: No VTE Risk Level:: Medical - moderate - high VTE Device Contraindication: N/A - Device Ordered VTE Drug Contraindication: Treatment Not Indicated
--- NOTE | 2025-06-07 11:29 | PC.NURSE ---
Addendum entered by Farzad Ornelas RN 06/07/25 17:03: md informed of pt's increased temp Original Note: pt extubated around 1112 without incident. at bedside.
[2025-06-07 12:11] LABS: Glucose, Whole Blood 165 mg/dL (60-115)
[2025-06-07 18:28] LABS: Glucose, Whole Blood 165 mg/dL (60-115)
[2025-06-07] MEDS: Parenteral Nutrition 1,440 ML 60 ML IV (22:00)
[2025-06-07] MEDS: 0.9 % Sodium Chloride Flush 10 ML SYRINGE IVFLUSH (22:09)
[2025-06-07 23:49] LABS: Glucose, Whole Blood 181 mg/dL (60-115)
[2025-06-08] VITALS (18 sets, daily range): BP systolic 138–162; BP diastolic 80–103; PULSE 55–80; RESP 16–72; TEMP 36.4–37.6; O2SAT 89–94; BMI 30.7
[2025-06-08 05:00] LABS: Glucose, Whole Blood 152 mg/dL (60-115)
[2025-06-08 05:18] LABS: MANUAL DIFF FLAG NO
[2025-06-08 05:21] LABS: Hematocrit 35.9 % (42.0-52.0); Hemoglobin 12.2 g/dl (14.0-18.0); Imm Gran Abs Auto 0.59 X10*3/uL (0.00-0.03); Imm Gran Pct Auto 4.9 % (0.0-0.4); Lymphocytes Absolute Auto 0.8 X10*3/uL (1.2-4.9); Mean Corpuscular HGB Conc 34.0 g/dl (31.0-36.0); Mean Corpuscular Hemoglobin 31.2 pg (27.0-33.0); Mean Corpuscular Volume 91.8 fL (80.0-98.0); NRBC Abs Auto 0.000 X10*3/uL (0.0-0.012); NRBC Pct Auto 0.0 /100WBC (0.0-0.2); Platelet Count 153 X10*3/uL (160-400); Red Blood Count 3.91 X10*6/uL (4.60-5.80); White Blood Count 12.1 X10*3/uL (4.8-10.8)
[2025-06-08 05:42] LABS: Albumin Level 2.9 g/dL (3.5-5.0); Anion Gap 9 (12-20); Blood Urea Nitrogen 15 mg/dL (9-16); Calcium 7.9 mg/dL (8.4-10.2); Carbon Dioxide 24 mmol/L (22-29); Chloride 113 mmol/L (96-108); Creatinine Clr Calc Pharmacy 149.7; Estimated Glomerular Filt Rate > 60; Magnesium 1.8 mg/dL (1.6-2.6); Potassium 3.1 mmol/L (3.3-5.1); Sodium 143 mmol/L (135-145)
--- NOTE | 2025-06-08 07:14 | PC.NURSE ---
Upon initial assessment at 1999 ? patient A&Ox3?4, vague/forgetful to situation but easily reoriented. Tmax 101.3 ?F via core bladder probe. NSR with occasional PVCs on tele, HR 60?70s. SBP > 90, MAP > 65. Oxygen titrated down to 2 L NC to maintain SpO2 > 92%. Nonproductive cough noted; encouraged TCDB. TPN infusing. Tolerating small sips of water and ice chips; c/o nausea ?1, PRN Zofran administered per NOV with good effect per patient report. Passing flatus; scant liquid BM on BSC. PRN Colace given per NOV. PRN Dilaudid administered ?2 for right-sided abdominal pain with good effect. LUQ DEB with minimal drainage. Indwelling urinary catheter removed; voided 200 mL via male external PureWick. Skin overall intact. Patient and updated and aware of plan of care and current status. Bed locked in lowest position, alarm on, call cooper within reach. See EMR/flowsheet for additional details.
[2025-06-08] MEDS: Potassium Chloride/H20 40 MEQ/100 ML PIGGYBACK 100 MEQ IV (07:53)
--- NOTE | 2025-06-08 08:14 | MHC.CLN ---
F/U PT EXTUBATED 06/07 DIET RX: NPO REVIEWED LABS COMMUNICATED WITH PHARMACY RECOMMEND INCREASE TPN TO 70ML/HR WITH 77G LIPIDS TO PROVIDE 1963 TOTAL KCALS (28KCALS/KG), 84G PROTEIN (1.2G/KG), 252G DEXTROSE REPLETE LYTES NEEDED RD CAN BE REACHED VIA TIGER CONNECT DURING OFF HOURS IF NEEDED
[2025-06-08 12:29] LABS: Glucose, Whole Blood 177 mg/dL (60-115)
--- NOTE | 2025-06-08 14:28 | PM.EVENT ---
Event Note Date of Service: 06/08/25 Event Note: Patient downgraded from the ICU Patient currently hemodynamically stable, not hypoxic on room air, we will likely need PTOT , ongoing hospitalization indicated secondary to metastatic gastric carcinoma and recent septic shock Patient is currently on regular medical floor 385 bed 1 Time Spent With Patient Time: Total time managing care of this patient today ____ minutes.
--- NOTE | 2025-06-08 14:51 | P.PNCC_ITS ---
Subjective Subjective Date of Service: 06/08/25 Interval History: Extubated yesterday, tolerating liberation from ventilator very well Diet advanced as tolerated/liquid diet. Hemodynamically stable Critical Care Time (minutes): 35 Physical Exam 2 Vital Signs: Vital Signs: Last Vital Signs Temp 97.6 F 06/08/25 13:04 Pulse 75 06/08/25 13:04 Resp 18 06/08/25 13:04 BP 158/96 H 06/08/25 13:04 Pulse Ox 94 06/08/25 13:04 O2 Del Method Nasal Cannula 06/08/25 13:04 O2 Flow Rate 2 06/08/25 13:04 FiO2 40 06/07/25 10:51 BMI result Body Mass Index 30.7 General: Elderly male in mild acute distress, comfortably sitting in the bed Nutritional Appearance: well nourished and overweight Eyes: appearance normal, both eyes and all related structures; Alignment and Position: alignment normal and position normal Neck: No lymphadenopathy, no thyromegaly Resp: bilateral air entry equal, occasional added sounds present Cardio: Regular rate, regular rhythm; Heart sounds: S1 normal heart sound present and S2 normal heart sound present GI: soft, nontender, no guarding, no hepatosplenomegaly : bladder normal to inspection, bladder normal to palpation, no renal angle tenderness Skin: no rashes or lesions noted and elasticity normal Neuro: oriented to person, oriented to place, oriented to time and moves all extremities Objective Data Labs 06/08/25 04:52 06/08/25 04:52 Labs: Laboratory Results - last 24 hr 06/07/25 06/07/25 06/08/25 18:08 23:45 04:52 WBC 12.1 H RBC 3.91 L Hgb 12.2 L Hct 35.9 L MCV 91.8 MCH 31.2 MCHC 34.0 RDW 12.6 Plt Count 153 L MPV 10.1 Immature Gran % (Auto) 4.9 H Neut % (Auto) 81.2 H Lymph % (Auto) 6.4 L [place] % (Auto) 6.4 Eos % (Auto) 0.7 Baso % (Auto) 0.4 Lymph # (Auto) 0.8 L [place] # (Auto) 0.8 Eos # (Auto) 0.1 Baso # (Auto) 0.1 Abs Immat Gran (auto) 0.59 H Absolute Neuts (auto) 9.8 H Absolute Nucleated RBC 0.000 Nucleated RBC % (auto) 0.0 Sodium 143 Potassium 3.1 L Chloride 113 H Carbon Dioxide 24 Anion Gap 9 L BUN 15 Creatinine 0.54 Estim Creat Clear Calc 149.7 Estimated GFR > 60 POC Glucose 165 H 181 H Random Glucose 146 H Calcium 7.9 L D Phosphorus 2.7 Magnesium 1.8 Albumin 2.9 L 06/08/25 06/08/25 04:55 12:19 WBC RBC Hgb Hct MCV MCH MCHC RDW Plt Count MPV Immature Gran % (Auto) Neut % (Auto) Lymph % (Auto) [place] % (Auto) Eos % (Auto) Baso % (Auto) Lymph # (Auto) [place] # (Auto) Eos # (Auto) Baso # (Auto) Abs Immat Gran (auto) Absolute Neuts (auto) Absolute Nucleated RBC Nucleated RBC % (auto) Sodium Potassium Chloride Carbon Dioxide Anion Gap BUN Creatinine Estim Creat Clear Calc Estimated GFR POC Glucose 152 H 177 H Random Glucose Calcium Phosphorus Magnesium Albumin Microbiology Microbiology Results: Microbiology 06/06/25 15:56 Abscess Intra-abdominal Gram Stain - Final 06/06/25 15:56 Abscess Intra-abdominal Routine Culture - Final No growth after 2 days 06/06/25 15:56 Abscess Intra-abdominal Anaerobic Culture - Preliminary No growth to date. 06/05/25 20:20 Sputum - Induced Gram Stain - Final 06/05/25 20:20 Sputum - Induced Sputum Culture - Final 06/05/25 20:10 Blood - Venous Blood Culture - Preliminary No growth after 48 hours. 06/05/25 20:10 Blood - Venous Blood Culture - Preliminary No growth after 48 hours. Progress Note: A&P Assessment and plan (1) Cardiogenic shock: Status: Acute (2) Systolic murmur: Status: Acute (3) Gastric outlet obstruction: Status: Acute Plan Respiratory: Acute hypoxemic respiratory failure due to aspiration pneumonia Extubated yesterday, tolerating liberation from ventilator very well; currently sats stable on nasal cannula GI: Metastatic gastric adeno-carcinoma: Past patient was admitted with nausea and vomiting found to have severe gastric outlet obstruction with thickening of the fink and his tumor markers are positive suggestive of malignancy as well as the biopsy showing adenocarcinoma. Patient underwent metallic stent placement for gastric outlet obstruction on 06/05/2025. Oncology on board, possibly wants to be treated at [facility] once he is discharged from hospital. Has a 8x 7cms fluid collection which might be paramalignant vs abscess collection, status post IR about drainage on 06/06/2025. Sent for cultures and cytology On TPN, we will advance diet to liquid diet, if eventually the calorie requirements are met can discontinue TPN Underwent for a liver biopsy on 06/06/2025, results pending Renal: Baseline creatinine normal We will closely monitor I's and O's Avoid nephrotoxic medications Acute hypokalemia: We will replace as per protocol Heme: Chronic anemia, closely monitor H&H, transfuse for hemoglobin less than 7 grams/deciliter Endocrine: Blood sugars under control Sliding scale insulin as needed Infectious disease: Negative pancultures so far On Zosyn for aspiration pneumonia Musculoskeletal: Decubitus ulcer prevention protocol Lines: peripheral port in left subclavian Has a right-sided PICC Prophylaxis: Lovenox, pantoprazole Quality Stroke Does the patient have a stroke diagnosis?: No VTE Prior VTE?: No VTE Risk Level:: Medical - moderate - high VTE Device Contraindication: N/A - Device Ordered VTE Drug Contraindication: Treatment Not Indicated
[2025-06-08] MEDS: 0.9 % Sodium Chloride Flush 10 ML SYRINGE IVFLUSH (16:03)
[2025-06-08 17:26] LABS: Glucose, Whole Blood 127 mg/dL (60-115)
--- NOTE | 2025-06-08 19:30 | PC.NURSE ---
Pt had sips of gingerale and one bite of ice cream with dinner, endorsing pain and nausea, zofran given at 1800, per Covering Dawkins ok to give PRN dilaudid early. Pending effectiveness. Abd semi-firm, hypoactive BS, passing stool and gas.
[2025-06-08] MEDS: Parenteral Nutrition 1,680 ML 70 ML IV (21:31)
--- NOTE | 2025-06-08 23:26 | PC.NURSE ---
Pt c/o increased nausea. Not due for Zofran until approx 0200. Dr. López paged to request PRN intervention. Awaiting orders.
[2025-06-08 23:40] LABS: Glucose, Whole Blood 148 mg/dL (60-115)
[2025-06-09 03:58] VITALS: BP 137/74; PULSE 64; RESP 18; TEMP 36.9; O2SAT 92
[2025-06-09 05:48] VITALS: BMI 33.7
[2025-06-09] MEDS: 0.9 % Sodium Chloride Flush 10 ML SYRINGE IVFLUSH (05:55)
[2025-06-09 05:58] LABS: Glucose, Whole Blood 161 mg/dL (60-115)
--- NOTE | 2025-06-09 06:01 | PC.NURSE ---
Dr Dawkins paged and notified pt c/o 03/13 RLQ pain. Dilaudid not due. Unable to take PO. Awaiting orders.
--- NOTE | 2025-06-09 06:39 | PM.EVENT ---
Event Note Date of Service: 06/09/25 Event Note: 6:30 am - patient persists with abdominal pain 03/13 and continue to experiences nausea. On evaluation, patient looks uncomfortable due to abdominal pain. Abdominal exam: Distended abdomen, auscultation: Decreased decreased bowel sounds were lower quadrants; RUQ increased bowel sounds, LUQ high pitched sounds. Patient said he does not want NG tube placement unless evidence of obstruction. We will obtain abdominal pelvis CT scan stat and surgical consult. Time Spent With Patient Time: Total time managing care of this patient today ____ minutes.
--- NOTE | 2025-06-09 07:13 | HO.PM.IMPN ---
Subjective Subjective Date of Service: 06/09/25 Interval History: patient had a CT scan, it was negative for distention Surgery consulted overnight- no acute intervention indicated GI consulted - challenging with clear liquid diet need to have PTOT eval, likely rehab placement DEB drain in left upper quadrant draining minimal serous fluid Review of Systems Review of Systems: Yes all other systems are reviewed and are negative Physical Exam Exam: Exam: General: AOx3, no acute distress Resp: CTA bilaterally CVS: S1, S2, RRR GI: +BS, NT, no distention Skin: Warm, dry Neuro: Cranial nerves II-XII grossly intact bilaterally. Motor grossly intact bilaterally Extremities: No edema Psych: Appropriate affect Vital Signs: Vital Signs: Last Vital Signs Temp 98.4 F 06/09/25 03:58 Pulse 64 06/09/25 03:58 Resp 18 06/09/25 03:58 BP 137/74 06/09/25 03:58 Pulse Ox 92 06/09/25 03:58 O2 Del Method Nasal Cannula 06/09/25 03:58 O2 Flow Rate 2 06/09/25 03:58 FiO2 40 06/07/25 10:51 BMI result Body Mass Index 33.7 Objective Data Active Medications Acetaminophen (Acetaminophen 325 Mg Tablet) 975 mg PO Q6H PRN PRN Reason: Pain, Mild 1-3,fever,headache Last Admin: 06/08/25 11:13 Dose: 975 mg Documented By: JAILYN Dextrose (Dextrose 50 % 25 Gm/50 Ml Syringe) 25 gm IVPUSH Q15M PRN; Protocol PRN Reason: per Hypoglycemia Standing Ord. Docusate Sodium (Docusate Sodium 100 Mg Capsule) 100 mg PO BID PRN PRN Reason: Constipation Last Admin: 06/08/25 03:47 Dose: 100 mg Documented By: VANCE Glucose (Glucose Gel 15 Gm Gel..Gram.) 15 gm PO Q15M PRN; Protocol PRN Reason: per Hypoglycemia Standing Ord. Heparin Sodium (Porcine) (Heparin Sodium,Porcine 5,000 Unit/Ml Vial) 5,000 unit SUBCUT Q8H AGUEDA Last Admin: 06/09/25 05:52 Dose: 5,000 unit Documented By: NIMA Hydromorphone HCl (Hydromorphone Hcl 0.5 Mg/0.5 Ml Syringe) 0.5 mg IVPUSH Q4H PRN; Protocol PRN Reason: Pain, Moderate(Pain Scale 4-6) Last Admin: 06/09/25 03:38 Dose: 0.5 mg Documented By: RAE Nutrition (Parenteral) (Parenteral Nutrition) 1,680 mls @ 70 mls/hr IV .Q24H [facility]; Protocol Stop: 06/09/25 20:59 Last Admin: 06/08/25 21:31 Dose: 70 mls/hr Documented By: CHRISTAL Piperacillin Sod/Tazobactam (Sod 4.5 gm/ Sodium Chloride) 100 mls @ 200 mls/hr IV Q6H [facility] Last Infusion: 06/09/25 01:43 Dose: Infused Documented By: NIMA Insulin Human Lispro (Insulin Lispro 100 Unit/Ml 3 Ml Vial) 0 unit SUBCUT Q6H [facility]; Protocol Last Admin: 06/09/25 06:12 Dose: 2 unit Documented By: NIMA Melatonin (Melatonin 3 Mg Tablet) 6 mg PO BEDTIME PRN PRN Reason: Insomnia Last Admin: 06/08/25 22:51 Dose: 6 mg Documented By: NIMA Ondansetron HCl (Ondansetron Hcl 4 Mg/2 Ml Vial) 4 mg IVPUSH Q8H PRN PRN Reason: Nausea and Vomiting Last Admin: 06/08/25 18:06 Dose: 4 mg Documented By: CHRISTAL Pantoprazole Sodium (Pantoprazole Sodium 40 Mg/10 Ml Vial) 40 mg IVPUSH DAILY@0630 [facility] Last Admin: 06/09/25 05:52 Dose: 40 mg Documented By: NIMA Pharmacy Consult (Consult Rx Parenteral Nutrition Ordering) 1 each MISCELLANE DAILY PRN PRN Reason: Consult order Polyethylene Glycol (Polyethylene Glycol 3350 17 Gm Powd.Pack) 17 gm PO DAILY PRN PRN Reason: Constipation Sodium Chloride (0.9 % Sodium Chloride Flush 10 Ml Syringe) 10 ml IVFLUSH QSHIFT [facility] Last Admin: 06/09/25 05:55 Dose: 10 ml Documented By: NIMA Labs 06/08/25 04:52 06/09/25 09:00 Labs: Laboratory Results - last 24 hr 06/08/25 06/08/25 06/08/25 12:19 17:22 23:37 POC Glucose 177 H 127 H 148 H 06/09/25 05:55 POC Glucose 161 H Microbiology Microbiology Results: Microbiology 06/06/25 15:56 Gram Stain - Final Abscess Intra-abdominal Routine Culture - Final No growth after 2 days Anaerobic Culture - Preliminary No growth to date. 06/05/25 20:20 Gram Stain - Final Sputum - Induced Sputum Culture - Final Assessment and Plan (1) Gastric outlet obstruction: Status: Acute Plan 64 year old male with a complicated hospital course who initially presented with vomiting found to have malignant gastric outlet obstruction. Underwent EGD which showed gastric adenocarcinoma. He had a stent placement for this gastric outlet obstruction on 06/05/2025 however developed hypoxia in recovery and was thought to have aspirated and required intubation and was transferred to ICU. He also underwent IR drainage of the perigastric collection on 06/06. He was eventually extubated and downgraded to the med/surg floor yesterday. GOO --> resolved s/p stent Overnight Abd distension - surgery consulted - benign exam - nos surgical intervention NPO midnight for possible DEB drain removal He is clinically not obstructed and has good GI function. Abdomen is protuberant but I think this is his baseline. CT scan shows stent in place, no dilated bowel loops however it does show the IR drain within the lumen of the stomach. It has bilious fluid on exam. This was reviewed with radiology and drain goes through the stomach to the collection. We will therefore have to remove this drain. He unfortunately just ate solid food. Will put back on clear liquids and attempt to remove the drain tomorrow. On TPN for PCM 2/2 cachexia - cont and slowly shallenge with liquid diet as tolerated Metastatic gastric adeno-carcinoma: Past patient was admitted with nausea and vomiting found to have severe gastric outlet obstruction with thickening of the fink and his tumor markers are positive suggestive of malignancy as well as the biopsy showing adenocarcinoma. Patient underwent metallic stent placement for gastric outlet obstruction on 06/05/2025. Oncology on board, possibly wants to be treated at [facility] once he is discharged from hospital. Has a 8x 7cms fluid collection which might be paramalignant vs abscess collection, status post IR about drainage on 06/06/2025. Sent for cultures and cytology On TPN, we will advance diet to liquid diet, if eventually the calorie requirements are met can discontinue TPN Underwent for a liver biopsy on 06/06/2025, results pending [facility] asp Asp Pna s/p GI stent - jessica ugmentin for asp pna - complete 7 day course DM2 ISS Lines: peripheral port in left subclavian Has a right-sided PICC Prophylaxis: Lovenox, pantoprazole .Pt's clinical status needs close monitoring given complicated medical course till date. TPN and electrolytes need to be monitored, DEB drain removed and challenged with food. .This note is constructed using voice recognition software. While every effort has been made to ensure accuracy, rn dialysis errors may have been included. Quality Stroke Does the patient have a stroke diagnosis?: No VTE Prior VTE?: No VTE Risk Level:: Medical - moderate - high VTE Device Contraindication: N/A - Device Ordered VTE Drug Contraindication: Treatment Not Indicated
--- NOTE | 2025-06-09 07:45 | PC.NURSE ---
Dr Juancho Rawls notified that pt is having increased pain to the RLQ not relieved by medications that had been helping prior. Abdomen is noted to be more distended and firm. On assessment by this film writer BS are noted to be Hyperactive to RUQ/LUQ, decreased in the LLQ and close to absent in the RLQ. Provider beside and agrees with assessment. Pt down to CT for STAT Scan. Pt educated on concerns and need for intervention depending on results of scan. Per Dr Dawkins pt to be started on IV APAP to avoid opioids with the current concern of obstruction.
[2025-06-09 08:00] VITALS: BP 138/85; PULSE 68; RESP 16; TEMP 36.8; O2SAT 95
[2025-06-09 09:43] LABS: Albumin Level 3.1 g/dL (3.5-5.0); Anion Gap 11 (12-20); Blood Urea Nitrogen 16 mg/dL (9-16); Calcium 9.0 mg/dL (8.4-10.2); Carbon Dioxide 29 mmol/L (22-29); Chloride 107 mmol/L (96-108); Creatinine Clr Calc Pharmacy 134.2; Estimated Glomerular Filt Rate > 60; Magnesium 2.0 mg/dL (1.6-2.6); Potassium 4.7 mmol/L (3.3-5.1); Sodium 142 mmol/L (135-145)
--- NOTE | 2025-06-09 10:13 | MHC.CLN ---
F/U DIET RX: FULL LIQUIDS. PATIENT WITH INCREASED ABD PAIN AND LIMITED PO INTAKE. CONTINUES WITH TPN. REVIEWED LABS. COMMUNICATED WITH PHARMACY. RECOMMEND CONTINUE TPN AT MAX GOAL RATE: TPN AT 70ML/HR WITH 77G LIPIDS TO PROVIDE 1963 TOTAL KCALS (28KCALS/KG IBW), 84G PROTEIN (1.2G/KG IBW), 252G DEXTROSE. REPLETE LYTES NEEDED. FOLLOW FOR TPN TOLERANCE AND PO INTAKE. ADJUST TPN PO INTAKE IMPROVES.
--- NOTE | 2025-06-09 10:21 | PM.PNGS ---
Subjective Subjective Date of Service: 06/09/25 <Sarita Pinzon PA-C - Last Filed: 06/09/25 10:37> 06/09/25 <Son Frazier MD - Last Filed: 06/09/25 12:33> Interval history: Asked to reevaluate for possible obstruction. Patient apparently began to c/o abdominal pain and was thought to be distended this am. He reports no abdominal pain currently or nausea. He had a bowel movement this morning. <Sarita Pinzon PA-C - Last Filed: 06/09/25 10:37> Physical Exam Vital Signs: Vital Signs: Last Vital Signs Temp 98.3 F 06/09/25 08:00 Pulse 68 06/09/25 08:00 Resp 16 06/09/25 08:00 BP 138/85 06/09/25 08:00 Pulse Ox 95 06/09/25 08:00 O2 Del Method Room Air 06/09/25 08:00 O2 Flow Rate 2 06/09/25 03:58 FiO2 40 06/07/25 10:51 BMI result Body Mass Index 33.7 <Sarita Pinzon PA-C - Last Filed: 06/09/25 10:37> Const: General: comfortable, no acute distress and alert <CARLOS Wilder Last Filed: 06/09/25 10:37> Resp: Effort & Inspection: normal respiratory effort <CARLOS Wilder Last Filed: 06/09/25 10:37> GI: Other: protuberant abdomen drain bulb in place with bilious output <CRALOS Wilder Last Filed: 06/09/25 10:37> Palpation (GI): Soft to palpation, nontender and no guarding <CARLOS Wilder Last Filed: 06/09/25 10:37> Percussion: Yes normal to percussion <CARLOS Wilder Last Filed: 06/09/25 10:37> Skin: General skin exam: no rashes or lesions noted <CARLOS Wilder Last Filed: 06/09/25 10:37> Objective Data Active Medications Acetaminophen (Acetaminophen 325 Mg Tablet) 975 mg PO Q6H PRN PRN Reason: Pain, Mild 1-3,fever,headache Last Admin: 06/08/25 11:13 Dose: 975 mg Documented By: JAILYN Dextrose (Dextrose 50 % 25 Gm/50 Ml Syringe) 25 gm IVPUSH Q15M PRN; Protocol PRN Reason: per Hypoglycemia Standing Ord. Docusate Sodium (Docusate Sodium 100 Mg Capsule) 100 mg PO BID PRN PRN Reason: Constipation Last Admin: 06/08/25 03:47 Dose: 100 mg Documented By: VANCE Glucose (Glucose Gel 15 Gm Gel..Gram.) 15 gm PO Q15M PRN; Protocol PRN Reason: per Hypoglycemia Standing Ord. Heparin Sodium (Porcine) (Heparin Sodium,Porcine 5,000 Unit/Ml Vial) 5,000 unit SUBCUT Q8H [facility] Last Admin: 06/09/25 05:52 Dose: 5,000 unit Documented By: NIMA Hydromorphone HCl (Hydromorphone Hcl 0.5 Mg/0.5 Ml Syringe) 0.5 mg IVPUSH Q4H PRN; Protocol PRN Reason: Pain, Moderate(Pain Scale 4-6) Last Admin: 06/09/25 03:38 Dose: 0.5 mg Documented By: RAE Nutrition (Parenteral) (Parenteral Nutrition) 1,680 mls @ 70 mls/hr IV .Q24H [facility]; Protocol Stop: 06/09/25 20:59 Last Admin: 06/08/25 21:31 Dose: 70 mls/hr Documented By: CHRISTAL Piperacillin Sod/Tazobactam (Sod 4.5 gm/ Sodium Chloride) 100 mls @ 200 mls/hr IV Q6H [facility] Last Infusion: 06/09/25 09:33 Dose: Infused Documented By: LITZY Insulin Human Lispro (Insulin Lispro 100 Unit/Ml 3 Ml Vial) 0 unit SUBCUT Q6H [facility]; Protocol Last Admin: 06/09/25 06:12 Dose: 2 unit Documented By: NIMA Melatonin (Melatonin 3 Mg Tablet) 6 mg PO BEDTIME PRN PRN Reason: Insomnia Last Admin: 06/08/25 22:51 Dose: 6 mg Documented By: NIMA Ondansetron HCl (Ondansetron Hcl 4 Mg/2 Ml Vial) 4 mg IVPUSH Q8H PRN PRN Reason: Nausea and Vomiting Last Admin: 06/08/25 18:06 Dose: 4 mg Documented By: CHRISTAL Pantoprazole Sodium (Pantoprazole Sodium 40 Mg/10 Ml Vial) 40 mg IVPUSH DAILY@0630 [facility] Last Admin: 06/09/25 05:52 Dose: 40 mg Documented By: NIMA Pharmacy Consult (Consult Rx Parenteral Nutrition Ordering) 1 each MISCELLANE DAILY PRN PRN Reason: Consult order Polyethylene Glycol (Polyethylene Glycol 3350 17 Gm Powd.Pack) 17 gm PO DAILY PRN PRN Reason: Constipation Sodium Chloride (0.9 % Sodium Chloride Flush 10 Ml Syringe) 10 ml IVFLUSH QSHIFT [facility] Last Admin: 06/09/25 05:55 Dose: 10 ml Documented By: NIMA <Sarita Pinzon PA-C - Last Filed: 06/09/25 10:37> Labs CBC & Chem 7: 06/08/25 04:52 06/09/25 09:00 <Sarita Pinzon PA-C - Last Filed: 06/09/25 10:37> Labs: Laboratory Results - last 24 hr 06/08/25 06/08/25 06/08/25 12:19 17:22 23:37 Anion Gap Estim Creat Clear Calc Estimated GFR POC Glucose 177 H 127 H 148 H Random Glucose Calcium Phosphorus Magnesium Albumin 06/09/25 06/09/25 05:55 09:00 Anion Gap 11 L Estim Creat Clear Calc 134.2 Estimated GFR > 60 POC Glucose 161 H Random Glucose 159 H Calcium 9.0 D Phosphorus 3.1 Magnesium 2.0 Albumin 3.1 L <CARLOS Wilder Last Filed: 06/09/25 10:37> Microbiology Microbiology Results: Microbiology 06/06/25 15:56 Gram Stain - Final Abscess Intra-abdominal Routine Culture - Final No growth after 2 days Anaerobic Culture - Preliminary No growth to date. 06/05/25 20:20 Gram Stain - Final Sputum - Induced Sputum Culture - Final <CARLOS Wilder Last Filed: 06/09/25 10:37> Procedures Date of Service Date of Service: 06/09/25 <Sarita Pinzon PA-C - Last Filed: 06/09/25 10:37> 06/09/25 <Son Frazier MD - Last Filed: 06/09/25 12:33> Progress Note: A&P Assessment and plan (1) Gastric outlet obstruction: Status: Acute <Sarita Pinzon PA-C - Last Filed: 06/09/25 10:37> Assessment and Plan: Denies abdominal pain No fever Abdomen is soft and benign IR drain in place I have reviewed his CAT scan films with the radiologist - the drain appears to go through the stomach wall He just had food earlier so I will remove this tomorrow He looks well overall Seen and examined independently <Son Frazier MD - Last Filed: 06/09/25 12:33> Assessment and Plan: 64 year old male with a complicated hospital course who initially presented with vomiting found to have malignant gastric outlet obstruction. Underwent EGD which showed gastric adenocarcinoma. He had a stent placement for this gastric outlet obstruction on 06/05/2025 however developed hypoxia in recovery and was thought to have aspirated and required intubation and was transferred to ICU. He also underwent IR drainage of the perigastric collection on 06/06. He was eventually extubated and downgraded to the med/surg floor yesterday. He is clinically not obstructed and has good GI function. Abdomen is protuberant but I think this is his baseline. CT scan shows stent in place, no dilated bowel loops however it does show the IR drain within the lumen of the stomach. It has bilious fluid on exam. This was reviewed with radiology and drain goes through the stomach to the collection. We will therefore have to remove this drain. He unfortunately just ate solid food. Will put back on clear liquids and attempt to remove the drain tomorrow. <Sarita Pinzon PA-C - Last Filed: 06/09/25 10:37> Time Spent With Patient Time: Total time managing care of this patient today ____ minutes. <Sarita Pinzon PA-C - Last Filed: 06/09/25 10:37> Quality Stroke Does the patient have a stroke diagnosis?: No <CARLOS Wilder Last Filed: 06/09/25 10:37> VTE Prior VTE?: No <Sraita Pinzon PA-C - Last Filed: 06/09/25 10:37> VTE Risk Level:: Medical - moderate - high <CARLOS Wilder Last Filed: 06/09/25 10:37> VTE Device Contraindication: N/A - Device Ordered <CARLOS Wilder Last Filed: 06/09/25 10:37> VTE Drug Contraindication: Treatment Not Indicated <Sarita Pinzon PA-C - Last Filed: 06/09/25 10:37>
[2025-06-09 11:52] VITALS: BP 138/62; PULSE 57; RESP 16; TEMP 36.8; O2SAT 95
[2025-06-09 12:07] LABS: Glucose, Whole Blood 163 mg/dL (60-115)
--- NOTE | 2025-06-09 14:02 | P.PNGI_ITS ---
Subjective Subjective Date of Service: 06/09/25 Interval History: doing much better no abdominal pain managing clears ok, passing gas and stool m Critical Care Time (minutes): 0 Physical Exam 2 Exam: Exam: EXAM: GENERAL: The patient is well developed and nontoxic. VITAL SIGNS:see workflow HEENT: Nonicteric sclerae, PERRLA, EOMI. Oropharynx clear. Moist mucous membranes. Conjunctivae appear well perfused. No thyroid mass. CHEST: Chest wall is nontender. HEART: Regular rate and rhythm without murmurs. LUNGS: Clear to auscultation bilaterally. ABDOMEN: Soft, positive bowel sounds, nontender, no organomegaly.no flank tenderness SKIN: No rash, no excessive bruising, petechiae, or purpura. NEUROLOGIC: Cranial nerves II-XII intact without motor/sensory deficit. Psych: normal affect Vital Signs: Vital Signs: Last Vital Signs Temp 98.3 F 06/09/25 11:52 Pulse 57 06/09/25 11:52 Resp 16 06/09/25 11:52 BP 138/62 06/09/25 11:52 Pulse Ox 95 06/09/25 11:52 O2 Del Method Nasal Cannula 06/09/25 11:52 O2 Flow Rate 2.0 06/09/25 11:52 FiO2 40 06/07/25 10:51 BMI result Body Mass Index 33.7 Objective Data Labs 06/08/25 04:52 06/09/25 09:00 Labs: Laboratory Results - last 24 hr 06/08/25 06/08/25 06/09/25 17:22 23:37 05:55 Sodium Potassium Chloride Carbon Dioxide Anion Gap BUN Creatinine Estim Creat Clear Calc Estimated GFR POC Glucose 127 H 148 H 161 H Random Glucose Calcium Phosphorus Magnesium Albumin 06/09/25 06/09/25 09:00 12:03 Sodium 142 Potassium 4.7 D Chloride 107 Carbon Dioxide 29 Anion Gap 11 L BUN 16 Creatinine 0.63 Estim Creat Clear Calc 134.2 Estimated GFR > 60 POC Glucose 163 H Random Glucose 159 H Calcium 9.0 D Phosphorus 3.1 Magnesium 2.0 Albumin 3.1 L Microbiology Microbiology Results: Microbiology 06/06/25 15:56 Abscess Intra-abdominal Gram Stain - Final 06/06/25 15:56 Abscess Intra-abdominal Routine Culture - Final No growth after 2 days 06/06/25 15:56 Abscess Intra-abdominal Anaerobic Culture - Preliminary No growth to date. 06/05/25 20:20 Sputum - Induced Gram Stain - Final 06/05/25 20:20 Sputum - Induced Sputum Culture - Final 06/05/25 20:10 Blood - Venous Blood Culture - Preliminary No growth after 48 hours. 06/05/25 20:10 Blood - Venous Blood Culture - Preliminary No growth after 48 hours. Procedures Date of Service Date of Service: 06/09/25 Progress Note: A&P Assessment and plan (1) Gastric outlet obstruction: Status: Acute Plan 1/ GOO from neoplasia and external fluid collection, ?panc psuedocyst PLAN: 1/ advance diet as tolerated, reviewed with him and what diet he can have with stent and given leaflet, can change stent as clinically indicated, right now he has covered stent, can be changed to same but larger one, or uncovered depending on clinical course Time Spent With Patient Time: Total time managing care of this patient today ____ minutes. Quality Stroke Does the patient have a stroke diagnosis?: No VTE Prior VTE?: No VTE Risk Level:: Medical - moderate - high VTE Device Contraindication: N/A - Device Ordered VTE Drug Contraindication: Treatment Not Indicated
--- NOTE | 2025-06-09 14:04 | MHC.CM.PN ---
Patient not medically cleared for dc. CM will continue to follow.
[2025-06-09 16:00] VITALS: BP 154/73; PULSE 62; RESP 18; TEMP 36.8; O2SAT 94
[2025-06-09 18:28] LABS: Glucose, Whole Blood 173 mg/dL (60-115)
[2025-06-09 20:00] VITALS: BP 158/86; PULSE 62; RESP 18; TEMP 36.1; O2SAT 94
[2025-06-09] MEDS: Parenteral Nutrition 1,680 ML 70 ML IV (21:39)
--- NOTE | 2025-06-09 23:28 | PM.HEMONCPN ---
Medical Summary - Medical Summary Date of Service: 06/09/25 Chief complaint: Follow-up for: Adenocarcinoma of stomach. Primary Care Provider: EVER Segundo- Medical Summary: DIAGNOSIS: GASTRIC OUTLET OBSTRUCTION. Adenocarcinoma of stomach, with liver lesion and peritoneal disease. 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 Patient underwent gastric stent placement on 06/06. Course was complicated with development of respiratory failure. Requiring intubation. He stayed in the ICU over the weekend. Fortunately he got extubated, then transferred to regular floor. He is up and about. He complains of easy fatiguability. He is only getting clear liquids, in view of the drain.(solid food may block it.) No fever, chills not night sweats. Apetite is down, he has lost weight. Denies chest pain, Denies shortness of breath He has had nausea and vomiting, heartburn and indigestion. No diarrhea No dysuria. PRESENTING HISTORY: He presented with approximately 2 weeks of worsening bloating and nonstop vomiting over the past several days of dark vomitus. He had black stools but no heather bleeding. He was on Ozempic for approximately 4 weeks but discontinued 2 weeks ago secondary to side effects. Workup in the emergency room including CAT scan is consistent with gastric outlet obstruction PMFSH Medical History: hypertension, diabetes type 2. Osteoarthritis of right knee Osteoarthritis Bursitis of right hip Right tennis elbow PTSD (post-traumatic stress disorder) HURTADO (nonalcoholic steatohepatitis). Surgical History:) History of meniscectomy of left knee History of repair of rotator cuff. Family History:) Father from cancer of pancreas Mother Cancer of pancreas Sister No problems noted. Daughter No problems noted. Son No problems noted. Son No problems noted. 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 He is . Has 3 kids. Housing: House Patient Tobacco Use Status: Never used Tobacco Smoked in Last 30 Days: No e-Cigarette/Vaping Use: Never Used Second Hand Smoke Exposure: No Alcohol intake: current Alcohol intake frequency: a few times a month Use of substances other than those prescribed or required for medical reasons: No. Review of Systems - Constitutional Reports system reviewed and no additional complaints, except as documented, Reports fatigue, Reports lack of energy, Reports weakness, Reports weight loss, Denies chills, Denies fever(s), Denies increased appetite - Eyes Reports system reviewed and no additional complaints, except as documented - ENT Reports system reviewed and no additional complaints, except as documented - Cardiovascular Reports system reviewed and no additional complaints, except as documented - Respiratory Reports no additional respiratory complaints - Gastrointestinal Reports system reviewed and no additional complaints, except as documented - Genitourinary Genitourinary: Reports no additional male genitourinary complaints - Musculoskeletal Reports system reviewed and no additional complaints, except as documented - Integumentary/Breasts Skin/Breast: Reports no additional skin complaints - Neurologic Reports system reviewed and no additional complaints, except as documented - Psychiatric Reports system reviewed and no additional complaints, except as documented - Endocrine Reports no additional endocrine complaints - Hematologic/Lymphatic Reports system reviewed and no additional complaints, except as documented - Allergic/Immunologic Reports system reviewed and no additional complaints, except as documented PMFSH Medical History: Medical History (Last Reviewed 06/17/25 @ 00:22 by Zandra Benz RN) Borderline diabetes mellitus Bursitis of right hip Gastric adenocarcinoma HTN (hypertension) HURTADO (nonalcoholic steatohepatitis) Osteoarthritis Osteoarthritis of right knee PTSD (post-traumatic stress disorder) Right tennis elbow Sleep apnea Functional capacity: independent ambulation Patient : No Family History: Family History (Last Reviewed 06/16/25 @ 14:19 by Nito Estevez MD) Father Cancer of pancreas Mother Cancer of pancreas Sister No problems noted. Daughter No problems noted. Son No problems noted. Son No problems noted. Surgical History: Surgical History (Last Reviewed 06/17/25 @ 00:22 by Zandra Benz RN) H/O total knee replacement History of meniscectomy of left knee History of repair of rotator cuff Social History: Social History (Last Reviewed 06/16/25 @ 14:19 by Nito Estevez MD) Living Situation History: Household Members: Spouse Household Members: Children Housing: House Are you a primary healthcare corporate account director to a significant other at home: No Do you presently have visiting nurse or other home services: No Alcohol History Details: 1. How often do you have a drink containing alcohol?: b. Monthly or less 2. How many drinks containing alcohol do you have on a typical day when you are drinking?: a. 1 or 2 3. How often do you have six or more drinks on one occasion?: a. Never AUDIT-C Alcohol total score: 1 Currently Displaying Signs/Symptoms of Alcohol Withdrawal: No Tobacco History: Patient Tobacco Use Status: Never used Tobacco Smoked in Last 30 Days: No e-Cigarette/Vaping Use: Never Used Second Hand Smoke Exposure: No Substance Use History: Use of substances other than those prescribed or required for medical reasons: No Currently Displaying Signs/Symptoms of Drug Intoxication Withdrawal: No Domestic Abuse History: Have you been hit, kicked, punched, or otherwise hurt by someone within the past year? If so, by whom?: No Do you feel safe in your current relationship?: Yes Is there a partner from a previous relationship who is making you feel unsafe now?: No Are you made to feel afraid or neglected: No Advance Directives: Advance Directives: No Advance Directives Information Provided: Yes Homicidal Assessment: Do you have a plan to hurt others: No Plan Nutrition Assessment: Recently lost weight without trying: No Nutrition Risks: No Nutritional Risk Poor oral hygiene: No Occupation Assessmet: service: No Current occupational status: retired Oncology Screenings - ECOG Performance Status ECOG Performance Status: 0 Home Medications and Allergies Current Medications: Current Medications Acetaminophen (Acetaminophen 325 Mg Tablet) 975 mg PO Q6H PRN PRN Reason: Pain, Mild 1-3,fever,headache Last Admin: 06/09/25 13:39 Dose: 975 mg Dextrose (Dextrose 50 % 25 Gm/50 Ml Syringe) 25 gm IVPUSH Q15M PRN; Protocol PRN Reason: per Hypoglycemia Standing Ord. Docusate Sodium (Docusate Sodium 100 Mg Capsule) 100 mg PO BID PRN PRN Reason: Constipation Last Admin: 06/08/25 03:47 Dose: 100 mg Glucose (Glucose Gel 15 Gm Gel..Gram.) 15 gm PO Q15M PRN; Protocol PRN Reason: per Hypoglycemia Standing Ord. Heparin Sodium (Porcine) (Heparin Sodium,Porcine 5,000 Unit/Ml Vial) 5,000 unit SUBCUT Q8H AGUEDA Last Admin: 06/09/25 21:38 Dose: 5,000 unit Hydromorphone HCl (Hydromorphone Hcl 0.5 Mg/0.5 Ml Syringe) 0.5 mg IVPUSH Q4H PRN; Protocol PRN Reason: Pain, Moderate(Pain Scale 4-6) Last Admin: 06/09/25 19:33 Dose: 0.5 mg Piperacillin Sod/Tazobactam (Sod 4.5 gm/ Sodium Chloride) 100 mls @ 200 mls/hr IV Q6H [facility] Last Infusion: 06/09/25 20:49 Dose: Infused Nutrition (Parenteral) (Parenteral Nutrition) 1,680 mls @ 70 mls/hr IV .Q24H [facility]; Protocol Stop: 06/10/25 20:59 Last Admin: 06/09/25 21:39 Dose: 70 mls/hr Insulin Human Lispro (Insulin Lispro 100 Unit/Ml 3 Ml Vial) 0 unit SUBCUT Q6H [facility]; Protocol Last Admin: 06/09/25 18:32 Dose: 2 unit Melatonin (Melatonin 3 Mg Tablet) 6 mg PO BEDTIME PRN PRN Reason: Insomnia Last Admin: 06/08/25 22:51 Dose: 6 mg Ondansetron HCl (Ondansetron Hcl 4 Mg/2 Ml Vial) 4 mg IVPUSH Q8H PRN PRN Reason: Nausea and Vomiting Last Admin: 06/09/25 19:33 Dose: 4 mg Pantoprazole Sodium (Pantoprazole Sodium 40 Mg/10 Ml Vial) 40 mg IVPUSH DAILY@0630 [facility] Last Admin: 06/09/25 05:52 Dose: 40 mg Pharmacy Consult (Consult Rx Parenteral Nutrition Ordering) 1 each MISCELLANE DAILY PRN PRN Reason: Consult order Polyethylene Glycol (Polyethylene Glycol 3350 17 Gm Powd.Pack) 17 gm PO DAILY PRN PRN Reason: Constipation Sodium Chloride (0.9 % Sodium Chloride Flush 10 Ml Syringe) [facility] Last Admin: 06/09/25 16:06 Dose: Not Given Home Medications ?Medication ?Instructions ?Recorded ?Confirmed ?Type omeprazole 20 mg capsule,delayed 20 mg PO DAILY@0630 05/28/25 06/16/25 History release Allergies Allergy/AdvReac Type Severity Reaction Status Date / Time erythromycin base Allergy Mild RAH,ITCH Verified 06/16/25 13:03 (Erythromycin Base) oxycodone (From Percocet) Allergy Mild NAUSEA,DIZZ Verified 06/16/25 13:03 INESS semaglutide (From Ozempic) AdvReac Severe Nausea and Verified 06/16/25 13:03 Vomiting Exam Vital signs: Vital Signs Temp 96.9 F 06/09/25 20:00 Pulse 62 06/09/25 20:00 Resp 18 06/09/25 20:00 BP 158/86 H 06/09/25 20:00 Pulse Ox 94 06/09/25 20:00 O2 Del Method Nasal Cannula 06/09/25 20:00 O2 Flow Rate 2 06/09/25 20:00 FiO2 40 06/07/25 10:51 Intake & Output 06/09/25 06/09/25 06/10/25 06:59 18:59 06:59 Intake Total 2107 / 2597 900 / 2920 2020 / 2920 Output Total 530 / 530 5 / 5 Balance 1577 / 2067 900 / 2915 2014 / 2915 Urine Output (Average ml/kg/hr) 0.42 0.42 0.42 Intake: Intake, Oral Amount 480 / 720 600 / 840 240 / 840 Intake, IV Amount 1627 / 1877 300 / 2080 1780 / 2080 Acetaminophen 1,000 mg In 100 100 / 100 ml @ 400 mls/hr IV ONCE ONE Rx# :[id number] Parenteral Nutrition 1,680 ml @ 1427 / 1427 1680 / 1680 70 mls/hr IV .Q24H [facility] Rx#: [id number] Piperacillin Sodium/Tazobactam 200 / 300 200 / 300 100 / 300 4.5 gm In 0.9 % Sodium Chloride 100 ml @ 200 mls/hr IV Q6H [facility] Rx#:[id number] Output: Output, Urine Amount 500 / 500 Output, Drainage Amount 30 / 30 5 / 5 Left Upper Abdomen 30 / 30 5 / 5 Other: Breakfast % Eaten 25% Eating (Feeding) Ability Independent Number of Unmeasured Voids 1 1 Urine Urinal Bathroom Urine Color Yellow Last Bowel Movement 06/08/25 06/08/25 Stool Bathroom Bathroom Stool Amount Small Moderate Stool Color Brown Brown Stool Consistency Semi Formed Weight 100.4 kg Weight 100.4 kg BMI result Body Mass Index 33.7 - Constitutional Present: mild distress, moderate distress - Routine HEENT Exam Head: Present: normal inspection, normocephalic Eye: Present: normal appearance ENT: Present: mucous membranes moist - Routine Neck Exam Present: full ROM - Routine Respiratory Exam Present: CTAB - Routine Cardiovascular Exam Cardiovascular: Present: RRR, S1, S2 - Routine Abdominal Exam Present: soft, nontender - Routine Extremities Exam Present: nontender - Routine Back/Spine/Pelvis Exam Back/Spine: Present: full ROM - Routine Skin Exam Present: intact - Routine Neurological Exam Present: alert, oriented X3 - Detailed Neurological Exam: Coma Scale Eye Opening: Spontaneous (4) - Routine Psychiatric Exam Present: normal affect Data - Labs CBC & Chem 7: 06/11/25 05:48 06/11/25 05:48 - Imaging Radiologist's impression: ITS Impressions Abdomen/Pelvis CT 05/29/25 13:05 IMPRESSION: 1. Gastric outlet obstruction, with severe wall thickening, inflammation and edema of the distal antrum and pylorus. Given the appearance, neoplasm is suspected. This could potentially also represent localized inflammation from peptic disease although this is considered less likely. 2. Small volume ascites surrounding the liver, spleen, and abutting the lesser curvature of the stomach. 3. There are mild infiltrative changes in the anterior omentum just inferior to the stomach, with minimal nodularity. Early carcinomatosis is a consideration. 4. Indeterminate 1.5 cm lesion in segment 8 of the liver, and in segment 2 of the liver. 5. Ancillary findings as discussed. Electronically signed by: Michael Armenta MD 05/29/2025 01:46 PM EDT Chest X-Ray 06/03/25 15:42 IMPRESSION: New right PICC line tip is coiled in the brachiocephalic vein but can be used. The enteric tube tip is in the stomach. Electronically signed by: Claudio Romero MD 06/03/2025 04:16 PM EDT Guidance Fluoroscopy 06/05/25 14:53 IMPRESSION: Fluoroscopy during procedure. Please see procedure report for additional information. Electronically signed by: Augie Nguyen MD 06/06/2025 07:[address] 06/06/25 11:02 IMPRESSION: 1. Lines and tubes in satisfactory position as detailed. 2. Small bilateral pleural effusions with associated consolidations of the majority of both lower lobes. Cannot exclude pneumonia, versus atelectasis. 3. In the superior segment of the left lower lobe, there is a 1.3 cm nodule or nodular consolidation abutting the pleura. Cannot exclude a pulmonary metastasis given the appearance. Alternatively, this could be part of the consolidative process in the lower lobes. 4. No definite additional pulmonary nodule or metastasis in the aerated lungs. 5. No mediastinal lymphadenopathy or mass. 6. Mild cardiac enlargement. Prominence of the main pulmonary artery, could suggest elevated pulmonary pressures. 7. Upper abdominal findings unchanged from CT abdomen pelvis of prior day. 8. Additional findings as discussed in the body of the report. Electronically signed by: Michael Armenta MD 06/06/2025 11:54 AM EDT RP Abdomen/Pelvis CT 06/09/25 07:22 IMPRESSION: 1. Pyloric stent in place. Interval placement of a drainage catheter in the previously noted perigastric collection. Minimal residual fluid is seen around the catheter tip. 2. Again seen is a small amount of ascites in the abdomen and pelvis. Infiltration of the omental fat in the upper abdomen is highly suspicious for peritoneal carcinomatosis. 3. 1.7 cm hypodensity in the right lobe of the liver suspicious for metastatic disease. Electronically signed by: Augie Nguyen MD 06/09/2025 08:11 AM EDT RP Assessment and Plan Patient Active problem list reviewed?: Yes (1) Gastric outlet obstruction Status: Acute Assessment and plan: 64-year-old gentleman admitted to [facility] on 05/29 with symptoms of 2 weeks of worsening bloating and persistent vomiting of dark vomitus. CAT scan of the abdomen pelvis from 05/29 revealed: 1. Gastric outlet obstruction, with severe wall thickening, inflammation and edema of the distal antrum and pylorus. Given the appearance, neoplasm is suspected. This could potentially also represent localized inflammation from peptic disease although this is considered less likely. 2. Small volume ascites surrounding the liver, spleen, and abutting the lesser curvature of the stomach. 3. There are mild infiltrative changes in the anterior omentum just inferior to the stomach, with minimal nodularity. Early carcinomatosis is a consideration. 4. Indeterminate 1.5 cm lesion in segment 8 of the liver, and in segment 2 of the liver. Upper endoscopy from 05/30 revealed: ESOPHAGUS: Focal esophagitis at the GE junction. 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 Extrinsic compression of the stomach along the lesser curvature Small amount of retained food noted in the stomach. A mid-size upper endoscope was passed through the mass into the duodenum with moderate resistance. CEA level: 2.60. CA 19-9: 166. LDH: 172. Differential diagnosis: 1. Concern is Metastatic Gastric Cancer. 2. Other possibility is for pancreatic cancer given his strong family history. 3. Differential diagnosis included lymphoproliferative disorder IE lymphoma. Pathology revealed: Adenocarcinoma of stomach origin. Impression: Patient has metastatic gastric carcinoma. 06/06 CAT scan of the chest, abdomen revealed: 1. Lines and tubes in satisfactory position as detailed. 2. Small bilateral pleural effusions with associated consolidations of the majority of both lower lobes. Cannot exclude pneumonia, versus atelectasis. 3. In the superior segment of the left lower lobe, there is a 1.3 cm nodule or nodular consolidation abutting the pleura. Cannot exclude a pulmonary metastasis given the appearance. Alternatively, this could be part of the consolidative process in the lower lobes. 4. No definite additional pulmonary nodule or metastasis in the aerated lungs. 5. No mediastinal lymphadenopathy or mass. 6. Mild cardiac enlargement. Prominence of the main pulmonary artery, could suggest elevated pulmonary pressures. 7. Upper abdominal findings unchanged from CT abdomen pelvis of prior day. 1. Pyloric stent in place. Interval placement of a drainage catheter in the previously noted perigastric collection. Minimal residual fluid is seen around the catheter tip. 2. Again seen is a small amount of ascites in the abdomen and pelvis. Infiltration of the omental fat in the upper abdomen is highly suspicious for peritoneal carcinomatosis. 3. 1.7 cm hypodensity in the right lobe of the liver suspicious for metastatic disease. He had biopsy of the liver lesion taken on 06/06. PLAN: He had a drainage catheter placed in the perigastric collection. Cultures are negative. The plan is to have the catheter removed tomorrow morning. His diet can then be advanced to soft. Will wait for the final pathology results, from the liver biopsy. Then make further treatment decisions. One option would be FOLFOX plus nivolumab, based upon the immunostains. I will get a PET scan for staging, as an outpatient. In regards to the MRCP of the pancreas, the patient should have information on the defibrillator. That can be shared with the radiologist and decide if the MRCP would be feasible. Will continue morphine for pain and Zofran for nausea/vomiting. All this was explained to the patient and his . Their questions were answered. Thank you for the consult, CC: Dr. Hal Chacon. - Time Spent With Patient Time Spent with Patient (in minutes): 25
[2025-06-09 23:49] VITALS: BP 160/89; PULSE 69; RESP 19; TEMP 36.2; O2SAT 93
[2025-06-09 23:56] LABS: Glucose, Whole Blood 181 mg/dL (60-115)
[2025-06-10] MEDS: 0.9 % Sodium Chloride Flush 10 ML SYRINGE IVFLUSH (00:03)
--- NOTE | 2025-06-10 03:23 | PC.NURSE ---
2:45 am, pt was complaining of 8/10 pain after receiving Dilaudid 0.5 mg at midnight, Dr Gifford made aware and approved to administer Dilaudid earlier than ordered. Pt medicated at 0300
[2025-06-10 04:00] VITALS: BP 161/89; PULSE 65; RESP 20; TEMP 36.3; O2SAT 93
[2025-06-10 05:12] LABS: Glucose, Whole Blood 189 mg/dL (60-115)
[2025-06-10 06:43] LABS: Albumin Level 3.0 g/dL (3.5-5.0); Anion Gap 12 (12-20); Blood Urea Nitrogen 13 mg/dL (9-16); Calcium 8.6 mg/dL (8.4-10.2); Carbon Dioxide 28 mmol/L (22-29); Chloride 104 mmol/L (96-108); Creatinine Clr Calc Pharmacy 136.4; Estimated Glomerular Filt Rate > 60; Magnesium 2.1 mg/dL (1.6-2.6); Potassium 4.5 mmol/L (3.3-5.1); Sodium 139 mmol/L (135-145)
[2025-06-10 07:38] VITALS: BP 146/83; PULSE 68; RESP 18; TEMP 36.7; O2SAT 94
--- NOTE | 2025-06-10 08:31 | P.PNGS_ITS ---
Subjective Subjective Date of Service: 06/10/25 <Sarita Pinzon PA-C - Last Filed: 06/10/25 08:34> 06/10/25 <Son Frazier MD - Last Filed: 06/10/25 10:06> Interval history: Was deescalated back to clear liquids for plan for drain removal today. Denies nausea, pain. <Sarita Pinzon PA-C - Last Filed: 06/10/25 08:34> Physical Exam 2 Vital Signs: Vital Signs: Last Vital Signs Temp 98.0 F 06/10/25 07:38 Pulse 68 06/10/25 07:38 Resp 18 06/10/25 07:38 BP 146/83 H 06/10/25 07:38 Pulse Ox 94 06/10/25 07:38 O2 Del Method Room Air 06/10/25 07:38 O2 Flow Rate 2 06/10/25 04:00 FiO2 40 06/07/25 10:51 BMI result Body Mass Index 33.7 <Sarita Pinzon PA-C - Last Filed: 06/10/25 08:34> Const: General: comfortable, no acute distress and alert <Sarita Pinzon PA-C - Last Filed: 06/10/25 08:34> Orientation/consciousness: patient oriented x3 <CARLOS Wilder Last Filed: 06/10/25 08:34> Resp: Other: on nasal cannula <Sarita Pinzon PA-C - Last Filed: 06/10/25 08:34> Effort & Inspection: normal respiratory effort and able to speak in complete sentences <Sarita Pinzon PA-C - Last Filed: 06/10/25 08:34> GI: Other: protuberant abdomen pigtail drain anterior abdomen- serobilious appearing drainage - removed uneventfully and dry dressing placed <CARLOS Wilder Last Filed: 06/10/25 08:34> Skin: General skin exam: no rashes or lesions noted <CARLOS Wilder Last Filed: 06/10/25 08:34> Neuro: General: patient oriented x3 <CARLOS Wilder Last Filed: 06/10/25 08:34> Objective Data Active Medications Acetaminophen (Acetaminophen 325 Mg Tablet) 975 mg PO Q6H PRN PRN Reason: Pain, Mild 1-3,fever,headache Last Admin: 06/09/25 13:39 Dose: 975 mg Documented By: LITZY Dextrose (Dextrose 50 % 25 Gm/50 Ml Syringe) 25 gm IVPUSH Q15M PRN; Protocol PRN Reason: per Hypoglycemia Standing Ord. Docusate Sodium (Docusate Sodium 100 Mg Capsule) 100 mg PO BID PRN PRN Reason: Constipation Last Admin: 06/08/25 03:47 Dose: 100 mg Documented By: VANCE Glucose (Glucose Gel 15 Gm Gel..Gram.) 15 gm PO Q15M PRN; Protocol PRN Reason: per Hypoglycemia Standing Ord. Heparin Sodium (Porcine) (Heparin Sodium,Porcine 5,000 Unit/Ml Vial) 5,000 unit SUBCUT Q8H [facility] Last Admin: 06/10/25 05:17 Dose: 5,000 unit Documented By: VANESSA Hydromorphone HCl (Hydromorphone Hcl 0.5 Mg/0.5 Ml Syringe) 0.5 mg IVPUSH Q4H PRN; Protocol PRN Reason: Pain, Moderate(Pain Scale 4-6) Last Admin: 06/10/25 07:25 Dose: 0.5 mg Documented By: JASKARAN Piperacillin Sod/Tazobactam (Sod 4.5 gm/ Sodium Chloride) 100 mls @ 200 mls/hr IV Q6H [facility] Last Infusion: 06/10/25 08:18 Dose: Infused Documented By: JASKARAN Nutrition (Parenteral) (Parenteral Nutrition) 1,680 mls @ 70 mls/hr IV .Q24H [facility]; Protocol Stop: 06/10/25 20:59 Last Admin: 06/09/25 21:39 Dose: 70 mls/hr Documented By: VANESSA Insulin Human Lispro (Insulin Lispro 100 Unit/Ml 3 Ml Vial) 0 unit SUBCUT Q6H [facility]; Protocol Last Admin: 06/10/25 05:17 Dose: 2 unit Documented By: VANESSA Melatonin (Melatonin 3 Mg Tablet) 6 mg PO BEDTIME PRN PRN Reason: Insomnia Last Admin: 06/08/25 22:51 Dose: 6 mg Ondansetron HCl (Ondansetron Hcl 4 Mg/2 Ml Vial) 4 mg IVPUSH Q8H PRN PRN Reason: Nausea and Vomiting Last Admin: 06/10/25 02:55 Dose: 4 mg Documented By: VANESSA Pantoprazole Sodium (Pantoprazole Sodium 40 Mg/10 Ml Vial) 40 mg IVPUSH DAILY@0630 [facility] Last Admin: 06/10/25 05:25 Dose: 40 mg Documented By: VANESSA Pharmacy Consult (Consult Rx Parenteral Nutrition Ordering) 1 each MISCELLANE DAILY PRN PRN Reason: Consult order Polyethylene Glycol (Polyethylene Glycol 3350 17 Gm Powd.Pack) 17 gm PO DAILY PRN PRN Reason: Constipation Sodium Chloride (0.9 % Sodium Chloride Flush 10 Ml Syringe) 10 ml IVFLUSH QSHIFT [facility] Last Admin: 06/10/25 07:25 Dose: Not Given Documented By: JASKARAN Non-Admin Reason: IV Running <Sarita Pinzon PA-C - Last Filed: 06/10/25 08:34> Labs CBC & Chem 7: 06/08/25 04:52 06/10/25 05:33 <Sarita Pinzon PA-C - Last Filed: 06/10/25 08:34> Labs: Laboratory Results - last 24 hr 06/09/25 06/09/25 06/09/25 09:00 12:03 18:23 Hold Purple Top Anion Gap 11 L Estim Creat Clear Calc 134.2 Estimated GFR > 60 POC Glucose 163 H 173 H Random Glucose 159 H Calcium 9.0 D Phosphorus 3.1 Magnesium 2.0 Albumin 3.1 L 06/09/25 06/10/25 06/10/25 23:52 05:09 05:33 Hold Purple Top SEE NOTE Anion Gap 12 Estim Creat Clear Calc 136.4 Estimated GFR > 60 POC Glucose 181 H 189 H Random Glucose 165 H Calcium 8.6 Phosphorus 2.7 Magnesium 2.1 Albumin 3.0 L <Sarita Pinzon PA-C - Last Filed: 06/10/25 08:34> Microbiology Microbiology Results: Microbiology 06/06/25 15:56 Gram Stain - Final Abscess Intra-abdominal Routine Culture - Final No growth after 2 days Anaerobic Culture - Preliminary No growth to date. <Sarita Pinzon PA-C - Last Filed: 06/10/25 08:34> Procedures Date of Service Date of Service: 06/10/25 <Sarita Pinzon PA-C - Last Filed: 06/10/25 08:34> 06/10/25 <Son Frazier MD - Last Filed: 06/10/25 10:06> Progress Note: A&P Assessment and plan (1) Gastric outlet obstruction: Status: Acute <Sarita Pinzon PA-C - Last Filed: 06/10/25 08:34> Assessment and Plan: Pigtail drain was removed as CAT scan showed that this was in the stomach lumen Anticipate soaking of dressings because of patent tract Abdomen is soft and benign We will keep on clear liquids for now Seen and examined independently <Son Frazier MD - Last Filed: 06/10/25 10:06> Assessment and Plan: Anterior abdomen pigtail drain removed uneventfully at bedside. Site will continue to drain extraperitoneally until it hopefully seals. Change dressing as needed. Cont clear liquids for now. <Sarita Pinzon PA-C - Last Filed: 06/10/25 08:34> Time Spent With Patient Time: Total time managing care of this patient today ____ minutes. <Sarita Pinzon PA-C - Last Filed: 06/10/25 08:34> Quality Stroke Does the patient have a stroke diagnosis?: No <Sarita Pinzon PA-C - Last Filed: 06/10/25 08:34> VTE Prior VTE?: No <Sarita Pinzon PA-C - Last Filed: 06/10/25 08:34> VTE Risk Level:: Medical - moderate - high <Sarita Pinzon PA-C - Last Filed: 06/10/25 08:34> VTE Device Contraindication: N/A - Device Ordered <Sarita Pinzon PA-C - Last Filed: 06/10/25 08:34> VTE Drug Contraindication: Treatment Not Indicated <Sarita Pinzon PA-C - Last Filed: 06/10/25 08:34>
--- NOTE | 2025-06-10 10:16 | MHC.CLN ---
F/U DIET RX: NPO. CONTINUES WITH TPN. REVIEWED LABS. COMMUNICATED WITH PHARMACY. RECOMMEND CONTINUE TPN AT MAX GOAL RATE: TPN AT 70ML/HR WITH 77G LIPIDS TO PROVIDE 1963 TOTAL KCALS (28KCALS/KG IBW), 84G PROTEIN (1.2G/KG IBW), 252G DEXTROSE. REPLETE LYTES NEEDED. FOLLOW FOR TPN TOLERANCE AND DIET ADVANCEMENT.
[2025-06-10 12:00] VITALS: BP 149/81; PULSE 66; RESP 18; TEMP 36.3; O2SAT 93
[2025-06-10 12:13] LABS: Glucose, Whole Blood 174 mg/dL (60-115)
--- NOTE | 2025-06-10 15:08 | PM.EVENT ---
Event Note Date of Service: 06/10/25 Event Note: Pigtail catheter drain pulled out earlier Has a large amounts of leakage of what appears to be ascitic fluid from the catheter tract Stoma appliance therefore applied Abdomen is soft and benign Okay to have to clear liquids possibly advance tomorrow Looks well overall Time Spent With Patient Time: Total time managing care of this patient today ____ minutes.
--- NOTE | 2025-06-10 15:14 | MHC.CM.PN ---
PT REC STR. DISCUSSED W/ PATIENT WHO ADAMANTLY DECLINES. ALSO PRESENT FOR CONVERSATION. PATIENT ACCEPTING OF HOME SERVICES VIA [facility]. CM WILL CONTINUE TO FOLLOW.
[2025-06-10 15:42] VITALS: BP 156/79; PULSE 68; RESP 16; TEMP 36.7; O2SAT 92
--- NOTE | 2025-06-10 16:39 | HO.PM.IMPN ---
Subjective Subjective Date of Service: 06/10/25 Interval History: IR drain to paragastric fluid collection removed by Surgery today as it was draining bile, not pus copious drainage from wound, now has stoma bag pain controlled NPO feels weak Review of Systems Review of Systems: Yes all other systems are reviewed and are negative Physical Exam Vital Signs: Vital Signs: Last Vital Signs Temp 98.0 F 06/10/25 15:42 Pulse 68 06/10/25 15:42 Resp 16 06/10/25 15:42 BP 156/79 H 06/10/25 15:42 Pulse Ox 92 06/10/25 15:42 O2 Del Method Room Air 06/10/25 15:42 O2 Flow Rate 2.0 06/10/25 07:38 FiO2 40 06/07/25 10:51 BMI result Body Mass Index 33.7 Gen: in no acute distress HEENT: sclera anicteric, moist mucus membranes Neck: supple Lungs: clear to auscultation bilaterally, L chest wall port Heart: regular rate and rhythm, no murmurs Abd: distended, anterior abdominal wound with stoma leaking ascitic-appearing fluid Ext: no edema, RUE PICC Skin: warm/well-perfused Neuro: alert and oriented x3, no focal findings Psych: appropriate affect Objective Data Active Medications Acetaminophen (Acetaminophen 325 Mg Tablet) 975 mg PO Q6H PRN PRN Reason: Pain, Mild 1-3,fever,headache Last Admin: 06/09/25 13:39 Dose: 975 mg Documented By: LITZY Dextrose (Dextrose 50 % 25 Gm/50 Ml Syringe) 25 gm IVPUSH Q15M PRN; Protocol PRN Reason: per Hypoglycemia Standing Ord. Docusate Sodium (Docusate Sodium 100 Mg Capsule) 100 mg PO BID PRN PRN Reason: Constipation Last Admin: 06/08/25 03:47 Dose: 100 mg Documented By: VANCE Glucose (Glucose Gel 15 Gm Gel..Gram.) 15 gm PO Q15M PRN; Protocol PRN Reason: per Hypoglycemia Standing Ord. Heparin Sodium (Porcine) (Heparin Sodium,Porcine 5,000 Unit/Ml Vial) 5,000 unit SUBCUT Q8H [facility] Last Admin: 06/10/25 13:57 Dose: 5,000 unit Documented By: JASKARAN Hydromorphone HCl (Hydromorphone Hcl 0.5 Mg/0.5 Ml Syringe) 0.5 mg IVPUSH Q4H PRN; Protocol PRN Reason: Pain, Moderate(Pain Scale 4-6) Last Admin: 06/10/25 16:16 Dose: 0.5 mg Documented By: JASKARAN Piperacillin Sod/Tazobactam (Sod 4.5 gm/ Sodium Chloride) 100 mls @ 200 mls/hr IV Q6H [facility] Last Infusion: 06/10/25 14:47 Dose: Infused Documented By: JASKARAN Nutrition (Parenteral) (Parenteral Nutrition) 1,680 mls @ 70 mls/hr IV .Q24H [facility]; Protocol Stop: 06/10/25 20:59 Last Admin: 06/09/25 21:39 Dose: 70 mls/hr Documented By: VANESSA Nutrition (Parenteral) (Parenteral Nutrition) 1,680 mls @ 70 mls/hr IV .Q24H [facility]; Protocol Stop: 06/11/25 20:59 Insulin Human Lispro (Insulin Lispro 100 Unit/Ml 3 Ml Vial) 0 unit SUBCUT Q6H [facility]; Protocol Last Admin: 06/10/25 12:18 Dose: 2 unit Documented By: JASKARAN Melatonin (Melatonin 3 Mg Tablet) 6 mg PO BEDTIME PRN PRN Reason: Insomnia Last Admin: 06/08/25 22:51 Dose: 6 mg Ondansetron HCl (Ondansetron Hcl 4 Mg/2 Ml Vial) 4 mg IVPUSH Q8H PRN PRN Reason: Nausea and Vomiting Last Admin: 06/10/25 14:58 Dose: 4 mg Documented By: JASKARAN Pantoprazole Sodium (Pantoprazole Sodium 40 Mg/10 Ml Vial) 40 mg IVPUSH DAILY@0630 [facility] Last Admin: 06/10/25 05:25 Dose: 40 mg Documented By: VANESSA Pharmacy Consult (Consult Rx Parenteral Nutrition Ordering) 1 each MISCELLANE DAILY PRN PRN Reason: Consult order Polyethylene Glycol (Polyethylene Glycol 3350 17 Gm Powd.Pack) 17 gm PO DAILY PRN PRN Reason: Constipation Sodium Chloride (0.9 % Sodium Chloride Flush 10 Ml Syringe) 10 ml IVFLUSH QSHIFT [facility] Last Admin: 06/10/25 14:04 Dose: Not Given Documented By: JASKARAN Non-Admin Reason: IV Running Labs 06/08/25 04:52 06/10/25 05:33 Labs: Laboratory Results - last 24 hr 06/09/25 06/09/25 06/10/25 18:23 23:52 05:09 Hold Purple Top Anion Gap Estim Creat Clear Calc Estimated GFR POC Glucose 173 H 181 H 189 H Random Glucose Calcium Phosphorus Magnesium Albumin 06/10/25 06/10/25 05:33 12:07 Hold Purple Top SEE NOTE Anion Gap 12 Estim Creat Clear Calc 136.4 Estimated GFR > 60 POC Glucose 174 H Random Glucose 165 H Calcium 8.6 Phosphorus 2.7 Magnesium 2.1 Albumin 3.0 L Microbiology Microbiology Results: Microbiology 06/06/25 15:56 Gram Stain - Final Abscess Intra-abdominal Routine Culture - Final No growth after 2 days Anaerobic Culture - Preliminary No growth to date. Assessment and Plan (1) Gastric outlet obstruction: Status: Acute Plan d13, 64yo M presenting with vomiting and found to have malignant gastric outlet obstruction. Underwent EGD 05/30; biopsy showed gastric adenocarcinoma. He had a stent placement for this gastric outlet obstruction on 06/05 however developed hypoxia in recovery and was thought to have aspirated and required intubation and was transferred to ICU. He also underwent IR liver biopsy and drainage of the perigastric collection on 06/06. He was eventually extubated 06/07 and downgraded to the med/surg floor 06/08. gastric outlet obstruction perigastric fluid collection - stent placed by Dr Fung 06/05; diet precluded currently by wound from IR drain of perigastric fluid collection which is currently draining extracorporeally and should seal with time; Gen Surg following; also on antibiotic coverge with piperacillin-tazobactam as below - continue TPN via RUE PICC advance diet per Gen Surg recommendations - continue IV PPI metastatic gastric adenocarcinoma - liver biopsy results pending. Heme-Onc consulted and pt will undergo outpt chemotherapy; also pursuing 2nd opinion at [facility] as outpt. - has port in L subclavian; note it was cut slightly short due to pt anatomy and if there are problems in future with drawing back, may need to revise acute hypoxic respiratory failure due to aspiration pneumonia - piperacillin-tazobactam 06/08-; can complete course with amoxicillin-clavulanate eventually - weaned off O2 DM2, A1c 6.5 - correction-dose lipsro VTE ppx: [facility] dispo: PT recommends STR, pt adamant he will go home in which case will arrange VNA In my clinical judgment, the patient requires continued inpatient hospitalization for the following reason: IV ABX, TPN, surgical consultation, NPO Total time managing care of this patient today: 50 minutes. Quality Stroke Does the patient have a stroke diagnosis?: No VTE Prior VTE?: No VTE Risk Level:: Medical - moderate - high VTE Device Contraindication: N/A - Device Ordered VTE Drug Contraindication: Treatment Not Indicated
[2025-06-10 18:19] LABS: Glucose, Whole Blood 183 mg/dL (60-115)
[2025-06-10 20:00] VITALS: BP 169/99; PULSE 71; RESP 17; TEMP 36.8; O2SAT 91
[2025-06-10] MEDS: Parenteral Nutrition 1,680 ML 70 ML IV (22:15)
[2025-06-11] VITALS: BP 143/79; PULSE 65; RESP 14; TEMP 37.1
[2025-06-11 00:26] LABS: Glucose, Whole Blood 155 mg/dL (60-115)
[2025-06-11] MEDS: 0.9 % Sodium Chloride Flush 10 ML SYRINGE IVFLUSH (01:03)
[2025-06-11 04:00] VITALS: BP 154/78; PULSE 64; RESP 17; TEMP 36.8; O2SAT 91
[2025-06-11 05:20] LABS: Glucose, Whole Blood 171 mg/dL (60-115)
[2025-06-11 06:19] LABS: Hematocrit 36.0 % (42.0-52.0); Hemoglobin 12.8 g/dl (14.0-18.0); Mean Corpuscular HGB Conc 35.6 g/dl (31.0-36.0); Mean Corpuscular Hemoglobin 31.6 pg (27.0-33.0); Mean Corpuscular Volume 88.9 fL (80.0-98.0); NRBC Abs Auto 0.000 X10*3/uL (0.0-0.012); NRBC Pct Auto 0.0 /100WBC (0.0-0.2); Platelet Count 176 X10*3/uL (160-400); Red Blood Count 4.05 X10*6/uL (4.60-5.80); White Blood Count 8.7 X10*3/uL (4.8-10.8)
[2025-06-11 06:46] LABS: Albumin Level 3.0 g/dL (3.5-5.0); Anion Gap 11 (12-20); Blood Urea Nitrogen 13 mg/dL (9-16); Calcium 8.5 mg/dL (8.4-10.2); Carbon Dioxide 27 mmol/L (22-29); Chloride 105 mmol/L (96-108); Creatinine Clr Calc Pharmacy 119.1; Estimated Glomerular Filt Rate > 60; Magnesium 2.2 mg/dL (1.6-2.6); Potassium 4.8 mmol/L (3.3-5.1); Sodium 138 mmol/L (135-145)
[2025-06-11 07:45] VITALS: BP 147/75; PULSE 65; RESP 18; TEMP 36.8; O2SAT 93
--- NOTE | 2025-06-11 08:09 | PM.PNGS ---
Subjective Subjective Date of Service: 06/11/25 Interval history: Says he is okay this morning Minimal pain No nausea or vomiting Hungry and wants to eat Drain site with stoma appliance to catch output Output has been serous and appears to be ascites, nonbilious, nonpurulent Physical Exam Vital Signs: Vital Signs: Last Vital Signs Temp 98.2 F 06/11/25 07:45 Pulse 65 06/11/25 07:45 Resp 18 06/11/25 07:45 BP 147/75 H 06/11/25 07:45 Pulse Ox 93 06/11/25 07:45 O2 Del Method Room Air 06/11/25 07:45 O2 Flow Rate 2.0 06/10/25 07:38 FiO2 40 06/07/25 10:51 BMI result Body Mass Index 33.7 Const: General: comfortable and no acute distress Resp: Effort & Inspection: normal respiratory effort Cardio: Rate: regular rate GI: Other: Previous drain site with stoma appliance, output clear, serous Palpation (GI): Soft to palpation, not firm, nontender and no guarding Objective Data Active Medications Acetaminophen (Acetaminophen 325 Mg Tablet) 975 mg PO Q6H PRN PRN Reason: Pain, Mild 1-3,fever,headache Last Admin: 06/09/25 13:39 Dose: 975 mg Documented By: LITZY Dextrose (Dextrose 50 % 25 Gm/50 Ml Syringe) 25 gm IVPUSH Q15M PRN; Protocol PRN Reason: per Hypoglycemia Standing Ord. Docusate Sodium (Docusate Sodium 100 Mg Capsule) 100 mg PO BID PRN PRN Reason: Constipation Last Admin: 06/08/25 03:47 Dose: 100 mg Documented By: VANCE Glucose (Glucose Gel 15 Gm Gel..Gram.) 15 gm PO Q15M PRN; Protocol PRN Reason: per Hypoglycemia Standing Ord. Heparin Sodium (Porcine) (Heparin Sodium,Porcine 5,000 Unit/Ml Vial) 5,000 unit SUBCUT Q8H [facility] Last Admin: 06/11/25 05:17 Dose: 5,000 unit Documented By: VANESSA Hydromorphone HCl (Hydromorphone Hcl 0.5 Mg/0.5 Ml Syringe) 0.5 mg IVPUSH Q4H PRN; Protocol PRN Reason: Pain, Moderate(Pain Scale 4-6) Last Admin: 06/11/25 04:16 Dose: 0.5 mg Documented By: VANESSA Piperacillin Sod/Tazobactam (Sod 4.5 gm/ Sodium Chloride) 100 mls @ 200 mls/hr IV Q6H [facility] Last Infusion: 06/11/25 01:34 Dose: Infused Documented By: VANESSA Nutrition (Parenteral) (Parenteral Nutrition) 1,680 mls @ 70 mls/hr IV .Q24H [facility]; Protocol Stop: 06/11/25 20:59 Last Admin: 06/10/25 22:15 Dose: 70 mls/hr Documented By: VANESSA Nutrition (Parenteral) (Parenteral Nutrition) 1,680 mls @ 70 mls/hr IV .Q24H [facility]; Protocol Stop: 06/12/25 20:59 Insulin Human Lispro (Insulin Lispro 100 Unit/Ml 3 Ml Vial) 0 unit SUBCUT Q6H [facility]; Protocol Last Admin: 06/11/25 05:17 Dose: 2 unit Documented By: VANESSA Melatonin (Melatonin 3 Mg Tablet) 6 mg PO BEDTIME PRN PRN Reason: Insomnia Last Admin: 06/08/25 22:51 Dose: 6 mg Ondansetron HCl (Ondansetron Hcl 4 Mg/2 Ml Vial) 4 mg IVPUSH Q8H PRN PRN Reason: Nausea and Vomiting Last Admin: 06/11/25 00:16 Dose: 4 mg Documented By: VANESSA Pantoprazole Sodium (Pantoprazole Sodium 40 Mg/10 Ml Vial) 40 mg IVPUSH DAILY@0630 [facility] Last Admin: 06/11/25 05:17 Dose: 40 mg Documented By: VANESSA Pharmacy Consult (Consult Rx Parenteral Nutrition Ordering) 1 each MISCELLANE DAILY PRN PRN Reason: Consult order Polyethylene Glycol (Polyethylene Glycol 3350 17 Gm Powd.Pack) 17 gm PO DAILY PRN PRN Reason: Constipation Sodium Chloride (0.9 % Sodium Chloride Flush 10 Ml Syringe) 10 ml IVFLUSH QSHIFT [facility] Last Admin: 06/11/25 01:03 Dose: 10 ml Documented By: VANESSA Labs 06/11/25 05:48 06/11/25 05:48 Labs: Laboratory Results - last 24 hr 06/10/25 06/10/25 06/10/25 12:07 18:15 23:45 MCV MCH MCHC RDW Plt Count MPV Absolute Nucleated RBC Nucleated RBC % (auto) Anion Gap Estim Creat Clear Calc Estimated GFR POC Glucose 174 H 183 H 155 H Random Glucose Calcium Phosphorus Magnesium Albumin 06/11/25 06/11/25 05:03 05:48 MCV 88.9 MCH 31.6 MCHC 35.6 RDW 12.2 Plt Count 176 MPV 10.1 Absolute Nucleated RBC 0.000 Nucleated RBC % (auto) 0.0 Anion Gap 11 L Estim Creat Clear Calc 119.1 Estimated GFR > 60 POC Glucose 171 H Random Glucose 184 H Calcium 8.5 Phosphorus 3.0 Magnesium 2.2 Albumin 3.0 L Microbiology Microbiology Results: Microbiology 06/05/25 20:10 Blood Culture - Final Blood - Venous No growth after 5 days. 06/05/25 20:10 Blood Culture - Final Blood - Venous No growth after 5 days. 06/06/25 15:56 Gram Stain - Final Abscess Intra-abdominal Routine Culture - Final No growth after 2 days Anaerobic Culture - Preliminary No growth to date. Procedures Date of Service Date of Service: 06/11/25 Progress Note: A&P Assessment and plan (1) Gastric adenocarcinoma: Status: Acute Assessment and Plan: Stent in place Drain removed yesterday - this was draining bile from stomach Drain site with serous drainage consistent with ascites Abdomen is soft and benign Diet as tolerated He says he has a an appointment with Dr. Antoine as well as [facility] Shanell to DC home with stoma appliance if tolerating diet Time Spent With Patient Time: Total time managing care of this patient today ____ minutes. Quality Stroke Does the patient have a stroke diagnosis?: No VTE Prior VTE?: No VTE Risk Level:: Medical - moderate - high VTE Device Contraindication: N/A - Device Ordered VTE Drug Contraindication: Treatment Not Indicated
--- NOTE | 2025-06-11 10:45 | MHC.CLN ---
Addendum entered by Naz Barton, HARSHAD 06/11/25 12:08: DIET ADVANCED TO REGULAR. Original Note: F/U DIET RX: CLEAR LIQUIDS. CONTINUES WITH TPN. REVIEWED LABS. COMMUNICATED WITH PHARMACY. RECOMMEND CONTINUE TPN AT MAX GOAL RATE: TPN AT 70ML/HR WITH 77G LIPIDS TO PROVIDE 1963 TOTAL KCALS (28KCALS/KG IBW), 84G PROTEIN (1.2G/KG IBW), 252G DEXTROSE. REPLETE LYTES NEEDED. FOLLOW FOR TPN TOLERANCE AND DIET ADVANCEMENT.
[2025-06-11 12:00] VITALS: BP 168/92; PULSE 64; RESP 16; TEMP 36.3; O2SAT 93
[2025-06-11 12:00] LABS: Glucose, Whole Blood 195 mg/dL (60-115)
--- NOTE | 2025-06-11 13:58 | P.F2F_ITS ---
Service Date Service Date: 06/11/25 Encounter Date of encounter: 06/11/25 Reasons for Services Signs and symptoms assessed: see PT evaluation 06/10/25 Reason for intermediate: wound care and postoperative assessment and/or care Reason for physical therapy: home safety and mobility, therapeutic exercises, gait/transfer training, assess need for DME, ADL training and energy conservation MD Overseeing Care: Hal Chacon Homebound: Leaving the home is medically contraindicated at this time without the asist of a device and/or another person due th the listed conditions above and below. Reason homebound: immunosuppression / infection risk and weakness related to hospital stay Certification: Based on the above findings, I certify that this patient is confined to the home and needs intermittent intermediate care, physical therapy and/or speech therapy, or continues to need occupational therapy. The patient is under my care, and I have initiated the establishment of the plan of care. The patient will be followed by a physician who will periodically review the plan of care. Time Spent With Patient Time: Total time managing care of this patient today ____ minutes.
--- NOTE | 2025-06-11 14:02 | PM.DS ---
DS: Providers Provider Date of Service: 06/11/25 Date of admission: 05/29/25 15:59 Date of discharge: 06/11/25 Primary care physician: LAWSON Segundo Consults: 05/29/25 16:09 Consult to Gastroenterology Routine Consulting Provider: Sofia Easley Reason for consultation: Gastric outlet obstruction Has provider been notified: Yes 05/31/25 07:50 Consult to Hematology / Oncology Routine Consulting Provider: [facility] Oncology/Hematology Reason for consultation: gastric outlet obstruction Has provider been notified: No 06/05/25 19:54 Consult to Critical Care Stat Consulting Provider: Roc Schwarz Reason for consultation: Acute respiratory failure Has provider been notified: Yes 06/09/25 06:35 Consult to General Surgery Routine Consulting Provider: [facility] General Surgeons Reason for consultation: concerned bowel obstruction Has provider been notified: No DS: Diagnosis Discharge Diagnosis (1) Gastric adenocarcinoma: Status: Acute (2) Gastric outlet obstruction: Status: Acute (3) Acute respiratory failure with hypoxia and hypercarbia: Status: Acute (4) Liver neoplasm: Status: Acute (5) Aspiration pneumonia: Status: Acute DS: Summary Hospital Course Hospital Course: From the history and physical by the admitting hospitalist, Neo Swift DO, 05/29/25: 64-year-old male with past medical history significant for hypertension, diabetes type 2 presents with approximately 2 weeks of worsening bloating and nonstop vomiting over the past several days of dark vomitus. He states he has had black stools but no heather bleeding. He also states he was on Ozempic for approximately 4 weeks but DC 2 weeks ago secondary to side effects. Workup in the emergency room including CAT scan is consistent with gastric outlet obstruction 64yo M presenting with vomiting and found to have malignant gastric outlet obstruction. Underwent EGD 05/30; biopsy showed gastric adenocarcinoma. He had a stent placement for this gastric outlet obstruction on 06/05 however developed hypoxia in recovery and was thought to have aspirated and required intubation and was transferred to ICU. He also underwent IR liver biopsy and drainage of the perigastric collection on 06/06. He was eventually extubated 06/07 and downgraded to the med/surg floor 06/08. gastric outlet obstruction perigastric fluid collection - Initially placed on TPN via PICC line. Stent placed by Dr Fung 06/05; IR drain of perigastric fluid collection placed 06/06 and removed 06/10/25; persistent ascites fluid leak, for which ostomy bag was placed and patient was instructed in changing it. Diet advanced to clear liquids then solids. To follow up with General Surgery in 1-2 weeks. PICC line removed on day of discharge. metastatic gastric adenocarcinoma - Liver biopsy results pending. Heme-Onc consulted and pt will undergo outpt chemotherapy; also pursuing 2nd opinion at [facility] as outpt. Port placed in L subclavian; note it was cut slightly short due to pt anatomy and if there are problems in future with drawing back, may need to revise with IR. acute hypoxic respiratory failure due to aspiration pneumonia - Treated with piperacillin-tazobactam 06/08-06/11; can complete course with amoxicillin-clavulanate 06/11-06/15; weaned off O2. Discharged home with [facility]NA services. Follow-up arranged with [facility] Oncology 06/19/25 and will also seek second opnion from [facility]. Time Attestation Discharge Coordination Time (in mins): 45 Quality: Safe Use of Opioids Does Pt have an Active Cancer Diagnosis on the Problem List?: Yes Opioid Measure Date for [facility] Report: 05/12/25 Opioid Measure Time for [facility] Report: 14:06 Quality: Stroke Does the patient have a stroke diagnosis?: No Physical Exam Vital Signs: Vital Signs: Last Vital Signs Temp 97.4 F 06/11/25 12:00 Pulse 64 06/11/25 12:00 Resp 16 06/11/25 12:00 BP 168/92 H 06/11/25 12:00 Pulse Ox 93 06/11/25 12:00 O2 Del Method Room Air 06/11/25 12:00 O2 Flow Rate 2.0 06/10/25 07:38 FiO2 40 06/07/25 10:51 BMI result Body Mass Index 33.7 Gen: in no acute distress HEENT: sclera anicteric, moist mucus membranes Neck: supple Lungs: clear to auscultation bilaterally, L chest wall port Heart: regular rate and rhythm, no murmurs Abd: soft; anterior abdominal wound with stoma leaking ascitic-appearing fluid Ext: no edema Skin: warm/well-perfused Neuro: alert and oriented x3, no focal findings Psych: appropriate affect DS: Data Data Completed and Pending Completed studies during hospitalization [Text1]: Laboratory Results WBC 8.7 X10*3/uL (4.8-10.8) 06/11/25 05:48 RBC 4.05 X10*6/uL (4.60-5.80) L 06/11/25 05:48 Hgb 12.8 g/dl (14.0-18.0) L 06/11/25 05:48 POC Hgb (Calc) 17.0 g/dL (14.0-18.0) 06/05/25 17:54 Hct 36.0 % (42.0-52.0) L 06/11/25 05:48 POC Hct 50 %PCV (42-52) 06/05/25 17:54 MCV 88.9 fL (80.0-98.0) 06/11/25 05:48 MCH 31.6 pg (27.0-33.0) 06/11/25 05:48 MCHC 35.6 g/dl (31.0-36.0) 06/11/25 05:48 RDW 12.2 % (11.0-16.0) 06/11/25 05:48 Plt Count 176 X10*3/uL (160-400) 06/11/25 05:48 MPV 10.1 fL (9.4-12.4) 06/11/25 05:48 Immature Gran % (Auto) 4.9 % (0.0-0.4) H 06/08/25 04:52 Neut % (Auto) 81.2 % (45-73) H 06/08/25 04:52 Lymph % (Auto) 6.4 % (20-40) L 06/08/25 04:52 [place] % (Auto) 6.4 % (2-11) 06/08/25 04:52 Eos % (Auto) 0.7 % (0-4) 06/08/25 04:52 Baso % (Auto) 0.4 % (0-2) 06/08/25 04:52 Lymph # (Auto) 0.8 X10*3/uL (1.2-4.9) L 06/08/25 04:52 [place] # (Auto) 0.8 X10*3/uL (0.1-1.2) 06/08/25 04:52 Eos # (Auto) 0.1 X10*3/uL (0.0-0.4) 06/08/25 04:52 Baso # (Auto) 0.1 X10*3/uL (0.0-0.2) 06/08/25 04:52 Abs Immat Gran (auto) 0.59 X10*3/uL (0.00-0.03) H 06/08/25 04:52 Absolute Neuts (auto) 9.8 x10*3/uL (2.0-8.3) H 06/08/25 04:52 Absolute Nucleated RBC 0.000 X10*3/uL (0.0-0.012) 06/11/25 05:48 Nucleated RBC % (auto) 0.0 /100WBC (0.0-0.2) 06/11/25 05:48 Neutrophils % (Manual) 60 % (45-73) 06/07/25 05:27 Band Neutrophils % 23 % (3-5) H 06/07/25 05:27 Lymphocytes % (Manual) 13 % (20-40) L 06/07/25 05:27 Monocytes % (Manual) 3 % (2-11) 06/07/25 05:27 Eosinophils % (Manual) 1 % (0-4) 06/07/25 05:27 Metamyelocytes % 2 % 06/06/25 04:50 Abs Neuts (Manual) 8.0 X10*3/uL (2.0-8.3) 06/07/25 05:27 Lymphocytes # (Manual) 1.2 X10*3/uL (1.2-4.9) 06/07/25 05:27 Monocytes # (Manual) 0.3 X10*3/uL (0.1-1.2) 06/07/25 05:27 Eosinophils # (Manual) 0.1 X10*3/uL (0.0-0.4) 06/07/25 05:27 Metamyelocytes # 0.2 X10*3/uL 06/06/25 04:50 Toxic Vacuolation PRESENT 06/07/25 05:27 Dohle Bodies PRESENT 06/07/25 05:27 Platelet Estimate SLIGHTLY DECREASED (NORMAL) 06/07/25 05:27 Large Platelets PRESENT 06/07/25 05:27 Plt Morphology Comment NOTED 06/07/25 05:27 RBC Morphology NOTED 06/07/25 05:27 Ovalocytes 1+ (5-14) /OIF 06/07/25 05:27 [place] Cells 3+ (>5) /OIF 06/07/25 05:27 ESR 17 MM/HR (0-15) H 05/29/25 11:50 Hold Purple Top SEE NOTE 06/10/25 05:33 POC Std Base Excess -3 mmol/L (-3-3) 06/05/25 17:54 POC O2 Sat (Calc) < 35 % 06/05/25 17:54 POC ABG pO2 < 50 mmhg (83-108) L* 06/05/25 17:54 POC ABG Total CO2 26 mmol/L (24-29) 06/05/25 17:54 VBG pH 7.55 (7.32-7.43) H 06/07/25 05:30 VBG pCO2 33 mmHg 06/07/25 05:30 VBG pO2 49 mmHg 06/07/25 05:30 VBG HCO3 29 mmol/L (22-26) H 06/07/25 05:30 VBG O2 Saturation 80.0 % 06/07/25 05:30 VBG Base Excess 7.5 mmol/L 06/07/25 05:30 POC Capillary pH 7.21 (7.35-7.45) L 06/05/25 17:54 POC Capillary pCO2 62 mmhg (35-48) H* 06/05/25 17:54 POC Cap HCO3 (Calc) 25 mmol/L (22-26) 06/05/25 17:54 POC Sodium 138 mmol/L (135-145) 06/05/25 17:54 Sodium 138 mmol/L (135-145) 06/11/25 05:48 POC Potassium 4.3 mmol/L (3.3-5.1) 06/05/25 17:54 Potassium 4.8 mmol/L (3.3-5.1) 06/11/25 05:48 Chloride 105 mmol/L (96-108) 06/11/25 05:48 Carbon Dioxide 27 mmol/L (22-29) 06/11/25 05:48 Anion Gap 11 (12-20) L 06/11/25 05:48 BUN 13 mg/dL (9-16) 06/11/25 05:48 Creatinine 0.71 mg/dL (0.5-1.4) 06/11/25 05:48 Estim Creat Clear Calc 119.1 06/11/25 05:48 Estimated GFR > 60 06/11/25 05:48 POC Glucose 195 mg/dL (60-115) H 06/11/25 11:55 Random Glucose 184 mg/dL (60-115) H 06/11/25 05:48 Fasting Glucose 84 mg/dL (60-99) 06/02/25 05:29 Lactic Acid 3.2 mmol/L (0.5-2.0) H* 06/05/25 20:29 Lactic Acid F/U @ 2Hr 2.0 mmol/L (0.5-2.0) 06/05/25 23:32 Calcium 8.5 mg/dL (8.4-10.2) 06/11/25 05:48 Phosphorus 3.0 mg/dL (2.7-4.5) 06/11/25 05:48 Magnesium 2.2 mg/dL (1.6-2.6) 06/11/25 05:48 Total Bilirubin 0.9 mg/dL (0.0-1.0) 06/07/25 05:27 Direct Bilirubin 0.4 mg/dL (0.0-0.5) 05/29/25 11:50 AST 43 U/L (5-37) H 06/07/25 05:27 ALT 17 U/L (0-40) 06/07/25 05:27 Alkaline Phosphatase 41 U/L (39-117) 06/07/25 05:27 Lactate Dehydrogenase 172 U/L (118-273) 05/30/25 05:37 C-Reactive Protein 2.25 mg/dL (< or = 0.50) H 05/29/25 11:50 Total Protein 5.0 g/dL (6.5-8.0) L 06/07/25 05:27 Albumin 3.0 g/dL (3.5-5.0) L 06/11/25 05:48 Triglycerides 102 mg/dL (<150) 06/05/25 05:29 Lipase 34 U/L (8-78) 05/29/25 11:50 Carcinoembryonic Ag 2.60 ng/mL 05/30/25 05:37 CA 19-9 Antigen 166 U/mL (<34) H 05/30/25 05:37 Blood Type A Positive 06/05/25 14:32 Antibody Screen NEGATIVE 06/05/25 14:32 Impressions Guidance Fluoroscopy 06/05/25 14:53 IMPRESSION: Fluoroscopy during procedure. Please see procedure report for additional information. Electronically signed by: Augie Nguyen MD 06/06/2025 07:[address] 06/06/25 11:02 IMPRESSION: 1. Lines and tubes in satisfactory position as detailed. 2. Small bilateral pleural effusions with associated consolidations of the majority of both lower lobes. Cannot exclude pneumonia, versus atelectasis. 3. In the superior segment of the left lower lobe, there is a 1.3 cm nodule or nodular consolidation abutting the pleura. Cannot exclude a pulmonary metastasis given the appearance. Alternatively, this could be part of the consolidative process in the lower lobes. 4. No definite additional pulmonary nodule or metastasis in the aerated lungs. 5. No mediastinal lymphadenopathy or mass. 6. Mild cardiac enlargement. Prominence of the main pulmonary artery, could suggest elevated pulmonary pressures. 7. Upper abdominal findings unchanged from CT abdomen pelvis of prior day. 8. Additional findings as discussed in the body of the report. Electronically signed by: Michael Armenta MD 06/06/2025 11:54 AM EDT Abdomen/Pelvis CT 06/09/25 07:22 IMPRESSION: 1. Pyloric stent in place. Interval placement of a drainage catheter in the previously noted perigastric collection. Minimal residual fluid is seen around the catheter tip. 2. Again seen is a small amount of ascites in the abdomen and pelvis. Infiltration of the omental fat in the upper abdomen is highly suspicious for peritoneal carcinomatosis. 3. 1.7 cm hypodensity in the right lobe of the liver suspicious for metastatic disease. Electronically signed by: Augie Nguyen MD 06/09/2025 08:11 AM EDT Pending studies at discharge: Pending at discharge 06/06/25 17:13 Surgical [PTH] Routine Discharge Plan Discharge Anticipated Discharge Date/Time: 06/11/25 13:45 Patient Disposition: Home Health Service Discharge Diagnosis: gastric adenocarcinoma with malignant gastric outlet obstruction paragastric fluid collection liver neoplasm aspiration pneumonia Referrals: [facility] [Outside] - 3-5 Days Referral Note: [facility] will call you to schedule in home appHal Morris FNP-BC [Primary Care Provider, Internal Medicine] - 1 Week Discharge Medications: New amoxicillin-pot clavulanate 875-125 mg tablet 1 tab PO BID Qty: 8 0RF morphine 15 mg tablet 7.5 - 15 mg PO Q6H PRN (Reason: pain, moderate to severe) Qty: 20 0RF Rx Instructions: Partial Fill upon patient request. Continued (DME) blood-glucose meter [FreeStyle Lite Meter] Kit See Rx Instructions .Route Qty: 1 0RF Rx Instructions: BID (DME) FreeStyle Lite Strips Strip See Rx Instructions .Route Qty: 100 2RF Rx Instructions: BID (DME) lancets 30 gauge misc See Rx Instructions .Route Qty: 200 0RF Rx Instructions: bid testing losartan 50 mg tablet 50 mg PO DAILY Qty: 90 1RF atorvastatin 20 mg tablet 20 mg PO BEDTIME Qty: 90 1RF amlodipine 10 mg tablet 10 mg PO DAILY 90 Days Qty: 90 0RF ondansetron HCl 4 mg tablet 4 mg PO Q8H PRN (Reason: nausea and vomiting) 7 Days Qty: 40 0RF omeprazole 20 mg capsule,delayed release(DR/EC) 20 mg PO DAILY@0630 finasteride 5 mg tablet 5 mg PO DAILY 90 Days Qty: 90 1RF Discontinued ibuprofen 600 mg tablet 600 mg PO Q6H PRN (Reason: Pain) Discharge Orders: Discharge Order (Routine); Ordered 06/11/25 Ordered By: Jean Sue Diet: Advance to usual diet Activity on Discharge: As tolerated Stand Alone Forms: Patient Portal Discharge page Print Language: [place] Care Plan Goals: staging and treatment of cancer Health Concerns: gastric adenocarcinoma with malignant gastric outlet obstruction paragastric fluid collection liver neoplasm aspiration pneumonia Plan of Treatment: follow up with Dr Nitza Koenig at [facility] Oncology on 06/19/25; also 2nd opinion at [facility] for pain, take morphine sulfate tablets, 1/2 to 1 tab every 6 hours needed for moderate-severe pain for nausea/vomiting, take ondansetron, 4 mg every 8 hours as needed liver biopsy results pending for pneumonia, complete amoxicillin-clavulanate twice daily for [address] up [address] Dr Son Frazier at [facility] General Surgery in 1-2 weeks Assessment: See Discharge Summary.
--- NOTE | 2025-06-11 14:29 | MHC.CM.PN ---
Patient dc'd home w/ [facility] services. Private transport.
--- NOTE | 2025-06-17 09:39 | PM.HEMONCCN ---
Subjective - Subjective [facility] Review of Systems - Neurologic Reports no additional neurologic complaints, Reports weakness PMFSH Medical History: Medical History (Last Reviewed 06/17/25 @ 00:22 by Zandra Benz RN) Borderline diabetes mellitus Bursitis of right hip Gastric adenocarcinoma HTN (hypertension) HURTADO (nonalcoholic steatohepatitis) Osteoarthritis Osteoarthritis of right knee PTSD (post-traumatic stress disorder) Right tennis elbow Sleep apnea Functional capacity: independent ambulation Family History: Family History (Last Reviewed 06/16/25 @ 14:19 by Nito Estevez MD) Father Cancer of pancreas Mother Cancer of pancreas Sister No problems noted. Daughter No problems noted. Son No problems noted. Son No problems noted. Surgical History: Surgical History (Last Reviewed 06/17/25 @ 00:22 by Zandra Benz RN) H/O total knee replacement History of meniscectomy of left knee History of repair of rotator cuff Social History: Social History (Last Reviewed 06/16/25 @ 14:19 by Nito Estevez MD) Living Situation History: Household Members: Spouse Household Members: Children Housing: House Are you a primary home care attendant to a significant other at home: No Do you presently have visiting nurse or other home services: No Alcohol History Details: 1. How often do you have a drink containing alcohol?: b. Monthly or less 2. How many drinks containing alcohol do you have on a typical day when you are drinking?: a. 1 or 2 3. How often do you have six or more drinks on one occasion?: a. Never AUDIT-C Alcohol total score: 1 Currently Displaying Signs/Symptoms of Alcohol Withdrawal: No Tobacco History: Patient Tobacco Use Status: Never used Tobacco Smoked in Last 30 Days: No e-Cigarette/Vaping Use: Never Used Second Hand Smoke Exposure: No Substance Use History: Use of substances other than those prescribed or required for medical reasons: No Currently Displaying Signs/Symptoms of Drug Intoxication Withdrawal: No Domestic Abuse History: Have you been hit, kicked, punched, or otherwise hurt by someone within the past year? If so, by whom?: No Do you feel safe in your current relationship?: Yes Is there a partner from a previous relationship who is making you feel unsafe now?: No Are you made to feel afraid or neglected: No Advance Directives: Advance Directives: No Advance Directives Information Provided: Yes Homicidal Assessment: Do you have a plan to hurt others: No Plan Nutrition Assessment: Recently lost weight without trying: No Nutrition Risks: No Nutritional Risk Poor oral hygiene: No Occupation Assessmet: service: No Current occupational status: retired Home Medications and Allergies Home Medications ?Medication ?Instructions ?Recorded ?Confirmed ?Type omeprazole 20 mg capsule,delayed 20 mg PO DAILY@0630 05/28/25 06/16/25 History release Allergies Allergy/AdvReac Type Severity Reaction Status Date / Time erythromycin base Allergy Mild RAH,ITCH Verified 06/16/25 13:03 (Erythromycin Base) oxycodone (From Percocet) Allergy Mild NAUSEA,DIZZ Verified 06/16/25 13:03 INESS semaglutide (From Ozempic) AdvReac Severe Nausea and Verified 06/16/25 13:03 Vomiting Physical Exam Vital signs: Vital Signs Temp 97.4 F 06/11/25 12:00 Pulse 64 06/11/25 12:00 Resp 16 06/11/25 12:00 BP 168/92 H 06/11/25 12:00 Pulse Ox 93 06/11/25 12:00 O2 Del Method Room Air 06/11/25 12:00 O2 Flow Rate 2.0 06/10/25 07:38 FiO2 40 06/07/25 10:51 Weight 100.4 kg Hem/Onc Consult Result - Labs CBC & Chem 7: 06/11/25 05:48 06/11/25 05:48
== END 2025-06-11 14:17 | disposition home health service (06) | DRG 240 ==
LOC: HO.ED 15:39 → HO.EDOVER 15:59 → HO.S3 19:32 → HO.ICU 06-05 18:40 → HO.S3 06-08 12:21
PROVIDERS: Hospitalist; Internal Medicine Critical Care Medicine; Internal Medicine Gastroenterology; Internal Medicine Medical Oncology; Pathology Anatomic Pathology & Clinical Pathology; Physician Assistant Medical; Student in an Organized Health Care Education/Training Program; Admitting Provider Internal Medicine Gastroenterology; Emergency Provider Emergency Medicine; PCP Nurse Practitioner Family; Visit Provider Family Medicine
PROC: 0DJ08ZZ Inspection of Upper Intestinal Tract, Via Natural or Artificial Opening Endoscopic (ICD-10-PCS; CPT 43235; principal; 2025-05-30 15:50)
DX: C16.8 Malignant neoplasm of overlapping sites of stomach (principal); J96.01 Acute respiratory failure with hypoxia; R57.0 Cardiogenic shock; J69.0 Pneumonitis due to inhalation of food and vomit; G93.41 Metabolic encephalopathy; K31.1 Adult hypertrophic pyloric stenosis; K75.81 Nonalcoholic steatohepatitis (NASH); E11.9 Type 2 diabetes mellitus without complications; K22.70 Barrett's esophagus without dysplasia; C78.7 Secondary malignant neoplasm of liver and intrahepatic bile duct; F41.9 Anxiety disorder, unspecified; K21.00 Gastro-esophageal reflux disease with esophagitis, without bleeding; D63.0 Anemia in neoplastic disease; I10 Essential (primary) hypertension; E78.5 Hyperlipidemia, unspecified; E87.6 Hypokalemia; N40.0 Benign prostatic hyperplasia without lower urinary tract symptoms; Z23 Encounter for immunization; Z79.4 Long term (current) use of insulin; Z79.899 Other long term (current) drug therapy
CPT/HCPCS: 36415; 36561; 36573; 47000; 49406; 71045; 71260; 74176; 74177; 76937; 76942; 80048; 80053; 80076; 82040; 82378; 82803; 82947; 83605; 83615; 83690; 83735; 84100; 84478; 85007; 85025; 85027; 85652; 86140; 86301; 86850; 86900; 86901; 87040; 87070; 87073; 87205; 88305; 88307; 88313; 88341; 88342; 88360; 90656; 94002; 94003; 94640; 94799; 97162; 99152; 99153; 99213; 99285; 99499; C1729; C1751; C1769; C1788; C1874; J0131; J0330; J0360; J0690; J0737; J1100; J1171; J1200; J1630; J1642; J1644; J2003; J2250; J2251; J2270; J2405; J2470; J2543; J2704; J2765; J3010; J3480; J7120; P9047; Q9967

== ENCOUNTER → 2025-05-29 11:54 | Outpatient (BNV) | payer BC, SELFPAY | PROVIDERS: Emergency Provider Emergency Medicine; PCP Nurse Practitioner Family; Visit Provider Radiology Diagnostic Radiology | DX: R18.8 Other ascites (principal); R93.2 Abnormal findings on diagnostic imaging of liver and biliary tract; R91.8 Other nonspecific abnormal finding of lung field | CPT/HCPCS: 71045; 74177 ==

== ENCOUNTER 2025-05-29 15:59 | Outpatient (BNV) | payer BC, SELFPAY | END 2025-06-05 17:38 | PROVIDERS: Admitting Provider Internal Medicine Gastroenterology; Emergency Provider Emergency Medicine; PCP Nurse Practitioner Family; Visit Provider Radiology Diagnostic Radiology | DX: R91.8 Other nonspecific abnormal finding of lung field (principal); R19.06 Epigastric swelling, mass or lump | CPT/HCPCS: 71045 ==

== ENCOUNTER 2025-05-29 15:59 | Outpatient (BNV) | payer BC, SELFPAY | END 2025-06-03 15:42 | PROVIDERS: Admitting Provider Internal Medicine Gastroenterology; Emergency Provider Emergency Medicine; PCP Nurse Practitioner Family; Visit Provider Radiology Diagnostic Radiology | DX: Z45.2 Encounter for adjustment and management of vascular access device (principal) | CPT/HCPCS: 71045 ==

== ENCOUNTER 2025-05-29 15:59 | Outpatient (BNV) | payer BC, SELFPAY | END 2025-06-04 14:13 | PROVIDERS: Admitting Provider Internal Medicine Gastroenterology; Emergency Provider Emergency Medicine; PCP Nurse Practitioner Family | DX: Z45.2 Encounter for adjustment and management of vascular access device (principal) | CPT/HCPCS: 36561; 76937; 77001 ==

== ENCOUNTER 2025-05-29 15:59 | Outpatient (BNV) | payer BC, SELFPAY | END 2025-06-09 06:32 | PROVIDERS: Admitting Provider Internal Medicine Gastroenterology; Emergency Provider Emergency Medicine; PCP Nurse Practitioner Family; Visit Provider Radiology Diagnostic Radiology | DX: R18.8 Other ascites (principal); K76.89 Other specified diseases of liver; Z96.89 Presence of other specified functional implants | CPT/HCPCS: 74176 ==

== ENCOUNTER 2025-05-29 15:59 | Outpatient (BNV) | payer BC, SELFPAY | END 2025-06-06 11:02 | PROVIDERS: Admitting Provider Internal Medicine Gastroenterology; Emergency Provider Emergency Medicine; PCP Nurse Practitioner Family; Visit Provider Radiology Diagnostic Radiology | DX: J90 Pleural effusion, not elsewhere classified (principal) | CPT/HCPCS: 71260 ==

== ENCOUNTER → 2025-05-29 15:59 | Outpatient (BNV) | payer BC, SELFPAY | PROVIDERS: Admitting Provider Hospitalist; Emergency Provider Emergency Medicine; PCP Nurse Practitioner Family; Visit Provider Surgery | DX: K31.1 Adult hypertrophic pyloric stenosis (principal) | CPT/HCPCS: 99232; 99254 ==

== ENCOUNTER → 2025-05-29 15:59 | Outpatient (BNV) | payer BC, SELFPAY | PROVIDERS: Admitting Provider Hospitalist; Emergency Provider Emergency Medicine; PCP Nurse Practitioner Family; Visit Provider Hospitalist | DX: K31.1 Adult hypertrophic pyloric stenosis (principal); I10 Essential (primary) hypertension | CPT/HCPCS: 99223; 99232 ==

== ENCOUNTER → 2025-05-29 15:59 | Outpatient (BNV) | payer BC, SELFPAY | PROVIDERS: Admitting Provider Internal Medicine Gastroenterology; Emergency Provider Emergency Medicine; PCP Nurse Practitioner Family; Visit Provider Internal Medicine Medical Oncology | DX: K31.1 Adult hypertrophic pyloric stenosis (principal) | CPT/HCPCS: 99232; 99254 ==

== ENCOUNTER → 2025-05-29 15:59 | Outpatient (BNV) | payer BC, SELFPAY | PROVIDERS: Admitting Provider Internal Medicine Gastroenterology; Emergency Provider Emergency Medicine; PCP Nurse Practitioner Family; Visit Provider Internal Medicine Gastroenterology | DX: K31.1 Adult hypertrophic pyloric stenosis (principal) | CPT/HCPCS: 43266; 99232 ==

== ENCOUNTER → 2025-05-29 15:59 | Outpatient (BNV) | payer BC, SELFPAY | PROVIDERS: Admitting Provider Internal Medicine Gastroenterology; Emergency Provider Emergency Medicine; PCP Nurse Practitioner Family; Visit Provider Physician Assistant Medical | DX: R57.0 Cardiogenic shock (principal); R01.1 Cardiac murmur, unspecified; K31.1 Adult hypertrophic pyloric stenosis | CPT/HCPCS: 99233 ==

== ENCOUNTER 2025-06-13 13:09 | Outpatient (AMB) | payer BC, SELFPAY ==
--- NOTE | 2025-06-13 13:43 | AM.OFFWIN_ITS ---
Intake Vital Signs 06/13/25 13:44 Height 5 ft 8 in Weight 200 lb BMI 30.4 BP 96/68 Blood Pressure Location Lt brachial Position Sitting Pulse 83 Pulse Source Pulse Oximeter Temp 97.4 F Temp Source Oral Pulse Oximetry (%) 94 Oxygen Delivery Method Room Air Intake Visit Reasons: EP Right shoulder pain going into middle of back Intake Note: pt presents with pain from right shoulder pain radiating into middle back. Recent hospitalized at [facility] Patient Tobacco Use Status: Never used Tobacco Allergies erythromycin base (Erythromycin Base) Allergy (Mild, Verified 06/13/25 13:50) RAH,ITCH oxycodone (From Percocet) Allergy (Mild, Verified 06/13/25 13:50) NAUSEA,DIZZINESS semaglutide (From Ozempic) Adverse Reaction (Severe, Verified 06/13/25 13:50) Nausea and Vomiting Do you need a note to return to daycare/school/sports/work: No HPI HPI Comments History of Present Illness Details History of Present Illness - The patient is a 64-year-old male pres enting with severe right arm and shoulder pain following the removal of a PICC line. Denies any swelling of the arm or shoulder. - Hospitalized for 13 days due to a inte stinal blockage and new cancer dx, with a PICC line inserted during this period. - The PICC line was removed two days ago , and the patient has experienced constant shoulder pain since then. - Pain is persistent and does not worsen with movement. - History of rotator cuff surgery in the shoulder. - Is taking amoxicillin, tylenol and mor phine with no improvement in the pain. Physical Exam General: Cooperative, healthy appearing, comfortable, no acute distress and well developed Orientation: Patient oriented x3 Limitations: No limitations Head: Normal to inspection Ears: Hearing grossly normal bilaterally Nose: Normal External nose present Face and sinus: Normal facial exam Eyes: Appearance normal, both eyes and all related structures Neck: Normal visual inspection and Yes full ROM Respiratory: Normal respiratory effort and able to speak in complete sentences. Skin: No rashes or lesions noted Neuro: Patient oriented x3 Extremities: Normal to inspection, no swelling in the arm or shoulder noted, full rom right shoulder, negative inversion lift off, negative empty can, RUE with erythema and ecchymosis where PICC line ran. Review of Systems - Musculoskeletal: Reports constant shou lder pain, denies exacerbation with movement All systems reviewed and are unremarkable except as noted in HPI [facility] Medical History (Updated 06/13/25 @ 14:25 by Carolyn Wu PA-C) Gastric adenocarcinoma Borderline diabetes mellitus Sleep apnea HTN (hypertension) Osteoarthritis of right knee Osteoarthritis Bursitis of right hip Right tennis elbow PTSD (post-traumatic stress disorder) HURTADO (nonalcoholic steatohepatitis) Surgical History H/O total knee replacement History of meniscectomy of left knee History of repair of rotator cuff Family History Father Cancer of pancreas Mother Cancer of pancreas Sister No problems noted. Daughter No problems noted. Son No problems noted. Son No problems noted. Social History Household Members: Family Housing: House Are you a primary emergency care attendant to a significant other at home: No Do you presently have visiting nurse or other home services: No Alcohol intake: current Alcohol intake frequency: 0-2 drinks per day Patient Tobacco Use Status: Never used Tobacco e-Cigarette/Vaping Use: Never Used Second Hand Smoke Exposure: No service: No Current occupational status: retired Cognitive needs: No Hearing needs: No Vision needs: Yes Physical Exam Vital Signs: Last Vital Signs Temp 97.4 F 06/13/25 13:44 Pulse 83 06/13/25 13:44 BP 96/68 06/13/25 13:44 Pulse Ox 94 06/13/25 13:44 Oxygen Delivery Method Room Air 06/13/25 13:44 BMI result Body Mass Index 30.4 Assessment & Plan Assessment & Plan (1) Phlebitis alone: Code(s): I80.9 - Phlebitis and thrombophlebitis of unspecified site Plan: Patient was informed and verbally consented to the use of an ambient scribe for clinic note documentation during this visit. - Suspected inflammation of the blood vessel due to PICC line removal, managed with NSAIDs. - Recommend NSAIDs such as naproxen 440 mg every 12 hours for inflammation and pain management. - Prescribe a backup steroid plan with prednisone 20 mg daily for five days if NSAIDs are ineffective. - Monitor for any signs of worsening or complications, such as swelling or increased pain. Medications: New prednisone 20 mg PO QAM 5 tabs 0RF Coding Level of Care Code Est Pt Level 3 (66227) Diagnoses Phlebitis alone I80.9
[2025-06-13 13:44] VITALS: BP 96/68; PULSE 83; TEMP 36.3; O2SAT 94; BMI 30.4
== END 2025-06-13 14:30 | disposition home or self-care (01) ==
PROVIDERS: PCP Nurse Practitioner Family; Visit Provider Physician Assistant
DX: I80.9 Phlebitis and thrombophlebitis of unspecified site (principal)

== ENCOUNTER 2025-06-16 12:56 | Inpatient (IN) | payer BC, SELFPAY ==
--- NOTE | ~2025-06-16 | XR_ITS ---
EXAMINATION: XR CHEST 1 VIEW HISTORY: NGT placement COMPARISON: Comparison is made to the prior examination dated 06/05/2025. FINDINGS: Two AP portable views of the chest performed at 8:14 AM is submitted. A left-sided port is unchanged in position. There has been interval placement of a nasogastric tube with its tip and sidehole below the diaphragm. Again seen is airspace opacity at the right lung base compatible with atelectasis or pneumonia. There may be a small right pleural effusion. No pneumothorax. The heart is normal in size. There is degenerative disc disease of the spine. XR/XR chest 1V IMPRESSION: 1. The tip and sidehole of the nasogastric tube are below the diaphragm. 2. Airspace opacity at the right lung base compatible with atelectasis or pneumonia. Electronically signed by: Augie Nguyen MD 06/18/2025 08:39 AM EDT
--- NOTE | ~2025-06-16 | US_ITS ---
Ultrasound paracentesis History: Ascites. Risks and benefits and possible complications were discussed with the patient and consent form was signed. A safe pocket of ascitic fluid was identified using ultrasound guidance, and the overlying skin was marked. The abdomen prepped and draped in sterile fashion. 1% lidocaine was used as a local anesthetic. Using ultrasound guidance, a 5 fr catheter was placed into the ascitic pocket. 4.4 liters of yellow fluid was removed passively. The catheter was then removed. A few customer field representative images from before and after the examination were obtained. The procedure was performed by Jeronimo Tristan NP and supervised by Roshan Bashir M.D.. US/US paracentesis abd w/image Impression: Ultrasound-guided paracentesis as described above. No immediate complications Electronically signed by: Roshan Bashir MD 06/18/2025 01:37 PM EDT
--- NOTE | ~2025-06-16 | XR_ITS ---
CLINICAL HISTORY: right shoulder pain 3 view right shoulder Comparison: CR/SR - XR CHEST 1 VIEW - 06/18/25 08:13 EDT Findings: Bones intact. No dislocations. Moderate osteoarthritis of the AC and glenohumeral joints. No erosions. No radiopaque foreign body. Right-sided PICC tip projects over the right atrium. Endotracheal and enteric tubes and left chest port, please see prior chest radiograph. IMPRESSION: 1. No acute findings This document has been electronically signed by: Jairon Park MD on 06/21/2025 18:29:11
--- NOTE | ~2025-06-16 | CT_ITS ---
CLINICAL HISTORY: Gastric outlet obstruction, vomiting CT abdomen and pelvis without contrast Comparison: CT/REG/VT/SR - CT ABDOMEN PELVIS WO IV CON - 06/09/25 07:22 EDT Findings: Moderate right pleural effusion without gross interval change. Small left pleural effusion with improvement. Atelectasis within the posterior inferior aspects of the bilateral lower lobes, similar to the prior study. There is a 2.4 cm low-density lesion within the right lobe of the liver, unchanged by my measurements. Additional 9 mm circumscribed low-density lesion within the left lobe of the liver without change, most likely representing a cyst. There is pancreatic volume loss. Pancreatic calcifications are present. Spleen and adrenal glands are unremarkable. There are a couple of small kidney cysts. The gallbladder is distended. There is probable sludge within the gallbladder. There are no calcified gallstones. There is a moderate amount of ascites with involvement of the pelvis and all 4 quadrants of the abdomen with interval worsening since the prior exam. There is infiltration of portions of the omentum, similar to the prior study There is a stent within the distal body and antrum of the stomach. There is adjacent wall thickening without change. This is confluent with a 4.2 x 3.3 x 2.5 cm mass extending into the mesentery immediately adjacent to the antrum, without change. Additional 3.5 x 2.7 x 2.8 cm mass extending into the mesentery from the midbody of the stomach. No significant gastric distention. No colitis or small bowel obstruction. Unremarkable prostate gland and urinary bladder. Normal appendix containing contrast. No acute fracture. IMPRESSION: 1. Thickening of the antrum of the stomach and 4.2 cm mass extending from the antrum into the adjacent mesentery without change. Additional 3.5 cm mass extending from the midbody of the stomach. There is a stent within the distal stomach without change. There is no significant distention of the stomach. 2. There is a moderate amount of ascites with interval worsening. 3. There is a 2.4 cm low-density lesion within the right lobe of the liver, suspicious for metastatic disease, without significant change. 4. Moderate right pleural effusion without change. Small left pleural effusion with improvement. 5. There is infiltration of portions of the omentum. This may be related to increased fluid status but malignant involvement is also considered. This document has been electronically signed by: Qi Nick MD on 06/16/2025 15:56:31
--- NOTE | ~2025-06-16 | XR_ITS ---
EXAMINATION: XR ABDOMEN COMPLETE CLINICAL INDICATION: rule out constipation COMPARISON: Correlated to CT dated June 16, 2025 TECHNIQUE: AP view of the abdomen. FINDINGS: Increased density throughout the abdomen and pelvis. Few scattered air-fluid levels in the left hemiabdomen. There is gas throughout the intestine without gross dilatation. There is a stent overlapping the T12 vertebra likely related to the stent identified in the stomach. There is an NG tube in the stomach region. Multilevel thoracolumbar spondylosis. Patient's large body habitus. XR/XR abdomen min 2V IMPRESSION: Persistent ascites. Probable ileus versus partial/intermittent small bowel obstruction. Electronically signed by: Tommy Yanez MD 06/19/2025 11:57 AM EDT
--- NOTE | ~2025-06-16 | XR_ITS ---
CLINICAL HISTORY: picc line placement 1 view chest x-ray Comparison: CR/SR - XR CHEST 1 VIEW - 06/18/25 08:[address]/IN/SR - CT CHEST WITH IV CONTRAST - 06/06/25 11:02 EDT Findings: Persistent small right effusion. Similar mild bilateral atelectasis. More conspicuous nodular opacity in the left mid lung, please see prior CT. No pneumothorax. ETT tip terminates 2.5 cm above qi. Right-sided PICC tip projects over the right atrium. Left chest port in similar position. No acute fracture. Enteric tube tip projects over the proximal stomach. Click cardia IMPRESSION: 1. ETT tip terminates 2.5 cm above qi. 2. Right-sided PICC tip projects over the right atrium. 3. Persistent small right effusion. 4. Similar mild bilateral atelectasis. This document has been electronically signed by: Jairon Park MD on 06/21/2025 18:27:56
--- NOTE | ~2025-06-16 | US_ITS ---
EXAMINATION: US ABDOMEN LIMITED HISTORY: ascites TECHNIQUE: Real-time grayscale ultrasound imaging of the 4 quadrants was performed to assess for ascites. COMPARISON: Correlation is made with a CT of the abdomen without contrast dated 06/16/2025. FINDINGS: There is a moderate amount of ascites present in all 4 quadrants. US/US abdomen limited IMPRESSION: Moderate amount of abdominal and pelvic ascites. Electronically signed by: Augie Nguyen MD 06/20/2025 12:26 PM EDT
[2025-06-16 13:01] VITALS: BP 139/89; PULSE 81; RESP 20; TEMP 36.3; O2SAT 94; BMI 30.2
--- NOTE | 2025-06-16 13:01 | ED_ITS ---
HPI - General Adult General Chief complaint: Nausea/Vomiting/Diarrhea Stated complaint: stent blockage ? Time Seen by Provider: 06/16/25 14:02 Source: patient, family and old records reviewed Mode of arrival: ambulatory Limitations: no limitations History of Present Illness ED Provider: DR. Estevez HPI narrative: 64-year-old male history of hypertension, DM T2 was diagnosed with gastric outlet obstruction patient was admitted and had stent placed on 06/05/2025 patient was discharged home returned today for increased nausea, vomiting, burning sensation in the epigastric area, unable to keep p.o. intake due to nausea and vomiting, had small bowel movements with passing flatus from below. Patient feels distended and bloated. Related Data Home Medications ?Medication ?Instructions ?Recorded ?Confirmed omeprazole 20 mg capsule,delayed 20 mg PO DAILY@0630 0 05/28/25 05/29/25 release Previous Rx's ?Medication ?Instructions ?Recorded FreeStyle Lite Meter #1 ea 07/12/22 (blood-glucose meter) FreeStyle Lite Strips (blood sugar #100 ea 07/12/22 diagnostic) lancets 30 gauge #200 ea 07/12/22 losartan 50 mg tablet 50 mg PO DAILY #90 tabs 02/03 12/27 finasteride 5 mg tablet 5 mg PO DAILY 90 days #90 ta bs 04/23/25 atorvastatin 20 mg tablet 20 mg PO BEDTIME #90 tabs amlodipine 10 mg tablet 10 mg PO DAILY 90 days #90 t abs 05/23/25 amoxicillin 875 mg-potassium 1 tab PO BID #8 tabs 1004/28 clavulanate 125 mg tablet morphine 15 mg immediate release 7.5 - 15 mg (0.5 - 1 x 15 mg) PO 06/11/25 tablet Q6H PRN pain, moderate to se paulino #20 tabs ondansetron HCl 4 mg tablet 4 mg PO Q8H PRN nausea and 06/11/25 vomiting 7 days #40 tabs prednisone 20 mg tablet 20 mg PO QAM #5 tabs 5 Allergies Allergy/AdvReac Type Severity Reaction Status Date / Time erythromycin base Allergy Mild RAH,ITCH Verified 06/16/25 13:03 (Erythromycin Base) oxycodone (From Percocet) Allergy Mild NAUSEA,DIZZ Verified 06/16/25 13:03 INESS semaglutide (From Ozempic) AdvReac Severe Nausea and Verified 06/16/25 13:03 Vomiting Review of Systems 2 Review of Systems: All other systems are reviewed and are negative Constitutional: Reports as per HPI and Reports no additional constitutional complaints Eyes: Reports as per HPI and Reports no additional eye complaints Reports system reviewed and no additional complaints, except as documented Cardiovascular: Reports as per HPI and Reports no additional cardiovascular complaints Respiratory: Reports as per HPI and Reports no additional respiratory complaints Gastrointestinal: Reports as per HPI and Reports no additional gastrointestinal complaints Genitourinary: Reports no additional female genitourinary complaints Musculoskeletal: Reports no additional musculoskeletal complaints Skin/Breast: Reports system reviewed and no additional complaints, except as docu Psychiatric: Reports no additional psychiatric complaints Endocrine: Reports no additional endocrine complaints Hematologic/Lymphatic: Reports no additional hematologic/lymphatic complaints Allergic/Immunologic: Reports no additional allergic/immunologic complaints Reports system reviewed and no additional complaints, except as documented and Reports Abnormal speech present [facility] Past Medical History Medical History Gastric adenocarcinoma Borderline diabetes mellitus Sleep apnea HTN (hypertension) Osteoarthritis of right knee Osteoarthritis Bursitis of right hip Right tennis elbow PTSD (post-traumatic stress disorder) HURTADO (nonalcoholic steatohepatitis) Surgical History H/O total knee replacement History of meniscectomy of left knee History of repair of rotator cuff Family History Family History Father Cancer of pancreas Mother Cancer of pancreas Sister No problems noted. Daughter No problems noted. Son No problems noted. Son No problems noted. Social History Social History Household Members: Family Housing: House Are you a primary health care manager to a significant other at home: No Do you presently have visiting nurse or other home services: No Alcohol intake: current Alcohol intake frequency: 0-2 drinks per day Patient Tobacco Use Status: Never used Tobacco Smoked in Last 30 Days: No e-Cigarette/Vaping Use: Never Used Second Hand Smoke Exposure: No Use of substances other than those prescribed or required for medical reasons: No Advance Directives: No Advance Directives Information Provided: Yes Do you have a plan to hurt others: No Plan service: No Current occupational status: retired Cognitive needs: No Hearing needs: No Vision needs: Yes Physical Exam ED Vital Signs: Vital Signs - 24 hr 06/16/25 13:01 06/16/25 13:42 06/16/25 16:03 Temperature 97.3 F 97.6 F Pulse Rate 81 75 77 Respiratory Rate 20 18 16 Blood Pressure 139/89 128/95 H 139/86 Pulse Oximetry 94 95 94 Oxygen Delivery Method Room Air Room Air Room Air BMI result Body Mass Index 30.2 Vital signs have been reviewed and appear to be correct. Blood pressure elevated. Heart rate normal. Respiratory rate normal. Temperature normal. Oxygen saturation normal. Appearance: Alert. Oriented X3. No acute distress. Head: Normal external exam. Normocephalic. Atraumatic. No Lacey signs noted. No raccoon eyes noted Eyes: PERRLA. EOMI. Conjunctiva and sclera normal. Eyelids normal. ENT: TM's Normal. Pharynx normal. Uvula midline. Moist mucous membranes. No trismus noted. No drooling noted. No muffled voice noted. Neck: Normal inspection. Neck supple. FROM. No adenopathy. Thyroid Normal. No meningeal signs. No neck mass noted. CVS: Normal heart rate and rhythm. Heart sound normal. No murmurs noted. Pulses normal throughout. Respiratory: No respiratory distress. Painless inspiration. Breath sounds normal. No wheezes/rales/rhonchi noted. Chest nontender. No accessory muscle usage noted or decreased air movement noted. Abdomen: Soft and nontender. Bowel sounds normal in all 4 quadrants. No distention noted. No organomegaly noted. No visible injury noted. Back: No CVA tenderness. Full range of motion noted. Skin: Skin warm and dry. Normal skin color. Normal skin turgor. No rashes/lesions/lacerations noted. Extremities: No lower extremity edema. Extremities exhibit normal range of motion. Extremities nontender. Neuro: Oriented X 3. Cranial nerve exam: II-XII are grossly intact No motor deficit. No sensory deficit. Reflexes normal. Course Course Course Narrative: Rapid medical examination performed in triage by Nancy Cm PA-C. Patient is a 64 year old assigned male at presenting to the emergency department with increased burping, inability to eat, s/p gastric stent placed. Detailed physical exam and review of systems are deferred to the press loader. Labs ordered. Patient placed back in the waiting room pending room availability and results. Reevaluation(s) Reevaluation #1: 64-year-old male with history of gastric outlet obstruction secondary to GI malignancy, s/p GI stent placement last week, return for abdominal distension, and decreased p.o. intake with nausea and vomiting CT is showing dilatation of the stomach likely incomplete gastric outlet obstruction. Will admit the patient to medical floor and get inpatient GI. Time: 16:41 Medications Administered Discontinued Medications Generic Name Dose Route Start Last Admin Trade Name Freq PRN Reason Stop Dose Admin Al Hydroxide/Mg Hydroxide 30 ml 06/16/25 14:20 06/16/25 14:53 Magnesium Hydrox/Alum Hydrox 30 Ml Oral.Susp PO 06/16/25 14:21 30 ml ONCE ONE Administration Sodium Chloride 1,000 mls @ 999 mls/hr 06/16/25 14:01 06/16/25 16:00 Ns IV 06/16/25 15:01 Infused .Q1H1M ONE Infusion Ondansetron HCl 4 mg 06/16/25 14:01 06/16/25 14:06 Ondansetron Hcl 4 Mg/2 Ml Vial IVPUSH 06/16/25 14:02 4 mg ONCE ONE Administration Pantoprazole Sodium 40 mg 06/16/25 14:20 06/16/25 14:53 Pantoprazole Sodium 40 Mg/10 Ml Vial IVPUSH 06/16/25 14:21 40 mg ONCE ONE Administration Sucralfate 1 gm 06/16/25 14:20 06/16/25 14:53 Sucralfate Oral Suspension 1 Gm/10 Ml Oral.Susp PO 06/16/25 14:21 1 gm ONCE ONE Administration Medical Decision Making Differential Diagnosis Differential Diagnoses: The differential diagnosis associated with the presentation includes (Small-bowel obstruction, gastric outlet obstruction with stent failure, electrolyte derangement, severe anemia.) Admission/Observation Consideration of admission/observation: Escalation of care including admission/observation considered Lab Data MDM Lab Attestation statement: I reviewed the patient's lab results. 06/16/25 13:12 06/16/25 13:12 Labs: Lab Results 06/16/25 Range/Units 13:12 WBC 26.7 H (4.8-10.8) X10*3/uL RBC 4.96 D (4.60-5.80) X10*6/uL Hgb 15.0 (14.0-18.0) g/dl Hct 45.1 D (42.0-52.0) % MCV 90.9 (80.0-98.0) fL MCH 30.2 (27.0-33.0) pg MCHC 33.3 (31.0-36.0) g/dl RDW 12.5 (11.0-16.0) % Plt Count 508 H D (160-400) X10*3/uL MPV 9.4 (9.4-12.4) fL Immature Gran % (Auto) 2.0 H (0.0-0.4) % Neut % (Auto) 86.0 H (45-73) % Lymph % (Auto) 5.2 L (20-40) % Bee % (Auto) 6.2 (2-11) % Eos % (Auto) 0.3 (0-4) % Baso % (Auto) 0.3 (0-2) % Lymph # (Auto) 1.4 (1.2-4.9) X10*3/uL Bee # (Auto) 1.7 H (0.1-1.2) X10*3/uL Eos # (Auto) 0.1 (0.0-0.4) X10*3/uL Baso # (Auto) 0.1 (0.0-0.2) X10*3/uL Abs Immat Gran (auto) 0.54 H (0.00-0.03) X10*3/uL Absolute Neuts (auto) 23.0 H (2.0-8.3) x10*3/uL Absolute Nucleated RBC 0.000 (0.0-0.012) X10*3/uL Nucleated RBC % (auto) 0.0 (0.0-0.2) /100WBC Smear Tech's Comments VERIFIED Sodium 133 L (135-145) mmol/L Potassium 5.2 H (3.3-5.1) mmol/L Chloride 100 (96-108) mmol/L Carbon Dioxide 24 (22-29) mmol/L Anion Gap 14 (12-20) BUN 24 H (9-16) mg/dL Creatinine 0.95 (0.5-1.4) mg/dL Estim Creat Clear Calc 84.5 Estimated GFR > 60 Random Glucose 144 H (60-115) mg/dL Calcium 9.3 D (8.4-10.2) mg/dL Magnesium 2.4 (1.6-2.6) mg/dL Total Bilirubin 0.8 (0.0-1.0) mg/dL AST 33 (5-37) U/L ALT 40 (0-40) U/L Alkaline Phosphatase 158 H (39-117) U/L Total Protein 6.9 (6.5-8.0) g/dL Albumin 3.5 (3.5-5.0) g/dL Independent Interpretation I performed an independent interpretation of an: CT Scan (Abdomen pelvis:1. Thickening of the antrum of the stomach and 4.2 cm mass extending from the antrum into the adjacent mesentery without change. Additional 3.5 cm mass extending from the midbody of the stomach. There is a stent within the distal stomach without change. There is no significant dist) Radiology Impression Discussion of test interpretation with radiology: I have reviewed the radiologist's reading. Chronic Conditions Patient?s care impacted by: Cancer Discharge Plan Discharge Clinical Impression: Gastric outlet obstruction Patient Disposition: Admitted As Inpatient Print Language: Egyptian
[2025-06-16 13:18] LABS: Hematocrit 45.1 % (42.0-52.0); Hemoglobin 15.0 g/dl (14.0-18.0); Imm Gran Abs Auto 0.54 X10*3/uL (0.00-0.03); Imm Gran Pct Auto 2.0 % (0.0-0.4); Lymphocytes Absolute Auto 1.4 X10*3/uL (1.2-4.9); MANUAL DIFF FLAG SCAN; Mean Corpuscular HGB Conc 33.3 g/dl (31.0-36.0); Mean Corpuscular Hemoglobin 30.2 pg (27.0-33.0); Mean Corpuscular Volume 90.9 fL (80.0-98.0); NRBC Abs Auto 0.000 X10*3/uL (0.0-0.012); NRBC Pct Auto 0.0 /100WBC (0.0-0.2); Platelet Count 508 X10*3/uL (160-400); Red Blood Count 4.96 X10*6/uL (4.60-5.80); SCAN SMEAR FLAG 1; White Blood Count 26.7 X10*3/uL (4.8-10.8)
[2025-06-16 13:32] LABS: Alanine Aminotransferase 40 U/L (0-40); Albumin Level 3.5 g/dL (3.5-5.0); Alkaline Phosphatase 158 U/L (39-117); Anion Gap 14 (12-20); Aspartate Amino Transferase 33 U/L (5-37); Blood Urea Nitrogen 24 mg/dL (9-16); Calcium 9.3 mg/dL (8.4-10.2); Carbon Dioxide 24 mmol/L (22-29); Chloride 100 mmol/L (96-108); Creatinine Clr Calc Pharmacy 84.5; Estimated Glomerular Filt Rate > 60; Magnesium 2.4 mg/dL (1.6-2.6); Potassium 5.2 mmol/L (3.3-5.1); Sodium 133 mmol/L (135-145); Total Protein 6.9 g/dL (6.5-8.0)
[2025-06-16 13:42] VITALS: BP 128/95; PULSE 75; RESP 18; O2SAT 95
--- NOTE | 2025-06-16 13:45 | PC.NURSE ---
64 M presents to ED with abdominal pain, n/v, weakness since d/c on 06/11. Pt sts he has cancer and had a shunt placed between abdomen and intestines, pt sts he doesn't feel it is draining, n/v and no appetite. A+ox4, calm, cooperative. Pt sts he walks but feels weak. Pt c/o distention of abdomen , 5/10 discomfort. RR even and unlabored, denies CP or SOB.
--- OUTSIDE RECORDS SUMMARY | 2025-06-16 13:48 | XMS_ITS | Patient Health Record ---
Author Organization [facility] Address [address] [place] [address] Care Team Providers Care Marketing And Public Relations Manager Name Role Phone Augie Toussaint Unavailable [phone] Reason For Referral No Information Plan Of Treatment No Information
--- OUTSIDE RECORDS SUMMARY | 2025-06-16 13:48 | XMS_ITS | Clinical Summary ---
Author Organization [facility] Address [address] [place] [address] [place] [phone] Phone Care Team Providers Care Grave Cleaner Name Role Phone Hal Chacon NP Primary Care Provider + Self-Referred, Patient Unavailable Unavailab Carloz Matos MD Unavailable Sotero Jackson MD Unavailable Encounters Date Type Department Care Team Description 06/13/2025 Orders Only [facility], [facility] [place] [address], [address] [place] [address] Sotero Jackson MD Malignant neoplasm of stomach, unspecified location (Primary Dx) from Last 3 Months Social History Tobacco Use Types Packs/Day Years Used Date Smoking Tobacco: Never Assessed Education Answer Date Recorded Are you interested in more education? Not on bryan e 06/13/2025 Are you concerned about learning? Not on file 06/13/2025 No 06/13/2025 No 06/13/2025 Digital Access Answer Date Recorded No 06/13/2025 No 06/13/2025 Reliable internet access at home? Not on file 06/13/2025 Device with a working camera? Not on file Sex and Gender Information Value Date Recorded Sex Assigned at Male 06/05/2025 4:16 PM EDT Legal Sex Male 4:14 PM EDT Gender Identity Male 06/05/2025 4:16 PM EDT Sexual Orientation Straight 06/05/2025 4: 16 PM EDT Plan of Treatment Upcoming Encounters Date Type Department Care Team (Latest Contact Info) Description 06/25/2025 8:45 AM EDT Administrative Encounter Central Registration, [address], [address] [place] [address] Sotero Jackson MD [address] [place] [phone] [email or web address] 06/25/2025 9:30 AM EDT Office Visit [facility], [address], [address] [place] [address] Carloz Caldwell MD [address] [place] [phone] [email or web address] 06/30/2025 1:00 PM EDT Office Visit [facility], [address], [address] [place] [address] oStero Jackson MD [address] [place] [phone] [email or web address] Health Maintenance Due Date Last Done Comments Adult Td,Tdap Booster 1959 LIPID PANEL 1959 DEPRESSION SCREENING 1971 SMOKING Hx and SMOKELESS TOB ACCO SCREENING 1972 HEPATITIS C SCREENING 1977 HIV ONE-TIME SCREENING (18-6 5 YEARS) 1977 COLOGUARD 2004 COLONOSCOPY 2004 COLORECTAL CANCER SCREENING 2004 FIT TEST 2004 FOBT 2004 SIGMOIDOSCOPY 2004 VIRTUAL COLONOSCOPY 2004 PNEUMOCOCCAL VACCINES (50+ y ears) (1 of 1 - PCV) 2009 ZOSTER VACCINES (1 of 2) 2009 INFLUENZA VACCINE (#1) 2025 COVID-19 VACCINE ( - 2024-2 6 season) 2025 RSV VACCINE (1 - 1-dose 75+ series) 2034 HEPATITIS A VACCINES Aged Out No long er eligible based on patient's age to complete this topic HIB VACCINES Aged Out No longer eligi ble based on patient's age to complete this topic MENINGOCOCCAL VACCINES (ACWY) Aged Out No longer eligible based on patient's age to complete this topic MENINGOCOCCAL VACCINES (B) Aged Out N o longer eligible based on patient's age to complete this topic Medical Devices Not on file Procedures Procedure Name Priority Date/Time Associated Diagnosis Comments OUTSIDE IMAGING 06/05/2025 OUTSIDE IMAGING 06/05/2025 OUTSIDE PROCEDURE 06/05/2025 OUTSIDE PATHOLOGY 05/30/2025 OUTSIDE LAB 04/30/2025 OUTSIDE IMAGING 03/26/2025 from Last 3 Months Results * Outside Imaging Report Only (06/05/2025) us Scanning Interface Provider IMG XR CHEST Olivia l Result * Outside Imaging Report Only (06/05/2025) us Scanning Interface Provider IMG XR CHEST Olivia l Result * Outside Procedure (06/05/2025) us Scanning Interface Provider PROCEDURE/MINOR SURG ICAL PERFORMABLES Final Result * Outside Pathology (05/30/2025) us Scanning Interface Provider PATHOLOGY ORDERABLES Final Result * Outside Lab (04/30/2025) us Scanning Interface Provider LAB BLOOD ORDERABLES Final Result * Outside Imaging Report Only (03/26/2025) us Scanning Interface Provider IMG XR CHEST Olivia l Result from Last 3 Months Insurance Goldie [place] [facility] PPO EPO Goldie [place] [facility] PPO EPO [facility] PPO EPO Care Teams Grave Cleaner Relationship Specialty Start Date End Date Hal Chacon NP [address] [place] [address] PCP - General Nurse Practitioner 06/05/25 Self-Referred, Patient Referring Physician 06/05/25 Carloz Caldwell MD [address] [place] [phone] [email or web address] General Surgery 06/13/25 Sotero Jackson MD [address] [place] [address] [place] [address] [email or web address] Medical [email or web address] 06/13/25 Additional Source Comments The information contained in this document represents components of the legal health record. It is not the complete legal health record.[facility]
--- OUTSIDE RECORDS SUMMARY | 2025-06-16 13:48 | XMS_ITS | Encounter Summary ---
Author Organization [facility] Address [address] [place] [address] [place] [phone] Phone Care Team Providers Care Paper Mill Supervisor Name Role Phone Hal Chacon NP Primary Care Provider + Self-Referred, Patient Unavailable Unavailab Carloz Matos MD Unavailable Sotero Jackson MD Unavailable Encounter Details Date Type Department Care Team (Late st Contact Info) Description 06/13/2025 Orders Only [facility], [facility] [address], [address] [place] [address] Sotero Jackson MD [address] [place] [phone] [email or web address] Malignant neoplasm of stomach, unspecified location (Primary Dx) Social History Tobacco Use Types Packs/Day Years [...] Orientation Straight 06/05/2025 4: 16 PM EDT documented as of this encounter Plan of Treatment Upcoming Encounters Date Type Department Care Team (Latest Contact Info) Description 06/25/2025 8:45 AM EDT Administrative Encounter Central Registration, [address] [place] [address] Sotero Jackson MD [address] [place] [phone] [email or web address] 06/25/2025 9:30 AM EDT Office Visit [facility], [address] [place] [address] Carloz Caldwell MD [address] [place] [phone] [email or web address] 06/30/2025 1:00 PM EDT Office Visit [facility], [address] [place] [address] Sotero Jackson MD [address] [place] [phone] [email or web address] Scheduled Orders Name Type Priority Associated Diagnoses Orde r Schedule Outside Pathology Review Pathology and Cytology Routine Malignant neoplasm of stomach, unspecified location Expected: 06/13/2025, Expires: 06/13/2026 documented as of this encounter Visit Diagnoses Diagnosis Malignant neoplasm of stomach, unspecified location- Primary documented in this encounter Care Teams Paper Mill Supervisor Relationship Specialty Start Date End Date Hal Chacon NP [address] [place] [address] Dr [place] SHIVANI [id number] PCP - General Nurse Practitioner 06/05/25 Self-Referred, Patient Referring Physician 06/05/25 Carloz Caldwell MD [address] [place] [phone] [email or web address] General Surgery 06/13/25 Sotero Jackson MD [address] [place] [address] [place] [address] [email or web address] Medical Oncology 06/13/25 documented as of this encounter Additional Source Comments The information contained in this document represents components of the legal health record. It is not the complete legal health record.[facility]
--- OUTSIDE RECORDS SUMMARY | 2025-06-16 13:48 | XMS_ITS | Clinical Summary ---
Author Organization [facility] Address [address] [place] [address] Phone Care Team Providers Care Chocolate Maker Name Role Phone Unavailable Primary Care Provider Unavailabl e Social History Tobacco Use Types Packs/Day Years Used Date Smoking Tobacco: Never Assessed Sex and Gender Information Value Date Recorded Sex Assigned at Not on file Legal Sex Male 5:28 AM EST Gender Identity Not on file Sexual Orientation Not on file Plan of Treatment Upcoming Encounters Date Type Department Care Team (Late st Contact Info) Description 06/17/2025 10:00 AM EDT Appointment [facility] PET Scan [address] [place] [address] Health Maintenance Due Date Last Done Comments DTaP,Tdap,and Td Vaccines (1 - Tdap) 1978 Pneumococcal Vaccine: 50+ Ye ars (1 of 1 - PCV) 2009 Zoster Vaccines (1 of 2) 2009 Depression Screening 09/04/2024 COVID-19 Vaccine (1 - 2023-2 5 season) 2025 Influenza Vaccine (#1) 2025 RSV Immunization Adult Patie nts (1 - 1-dose 75+ series) 2034 HIB Vaccines Aged Out No longer eligi ble based on patient's age to complete this topic HPV Vaccines Aged Out No longer eligi ble based on patient's age to complete this topic Hepatitis A Vaccines Aged Out No long er eligible based on patient's age to complete this topic Hepatitis B Vaccines Aged Out No long er eligible based on patient's age to complete this topic IPV Vaccines Aged Out No longer eligi ble based on patient's age to complete this topic MMR Vaccines Aged Out No longer eligi ble based on patient's age to complete this topic Meningococcal ACWY Vaccine Aged Out N o longer eligible based on patient's age to complete this topic Meningococcal B Vaccine Aged Out No l onger eligible based on patient's age to complete this topic RSV Immunization Patients Un shakeel 20 months Aged Out No longer eligible b ased on patient's age to complete this topic Varicella Vaccines Aged Out No longer eligible based on patient's age to complete this topic Insurance MEDICARE [facility]
[2025-06-16] MEDS: Magnesium Hydrox/Alum Hydrox 30 ML ORAL.SUSP PO (14:53)
[2025-06-16] MEDS: Sucralfate Oral Suspension 1 GM/10 ML ORAL.SUSP PO (14:53)
[2025-06-16 16:03] VITALS: BP 139/86; PULSE 77; RESP 16; TEMP 36.4; O2SAT 94
--- NOTE | 2025-06-16 17:04 | PHA.MEDREC ---
Pharmacy Consult ? Medication Reconciliation Pharmacy has completed the medication reconciliation. Patient recently discharged 06/11/25
--- NOTE | 2025-06-16 17:06 | HO.NURTONUR ---
64 M presents to ED with incresed nausea, vomitting, burning sensation in epigastric area, unable to keep food/drinks down, feeling distended and bloated. Hx: hypertension, DM T2 was diagnosed with gastric outlet obstruction patient was admitted and had stent placed on 06/05/2025 patient was discharged home. A+Ox4, calm, cooperative, ambualtory. 20G IV to LAC. Labs: wbc 26.7, platelet count 508, sodium 133, potassium 5.2, BUN 24, alkaline phophatase 158 Abd/Pelvis CT: 1. Thickening of the antrum of the stomach and 4.2 cm mass extending from the antrum into the adjacent mesentery without change. Additional 3.5 cm mass extending from the midbody of the stomach. There is a stent within the distal stomach without change. There is no significant distention of the stomach. 2. There is a moderate amount of ascites with interval worsening. 3. There is a 2.4 cm low-density lesion within the right lobe of the liver, suspicious for metastatic disease, without significant change. 4. Moderate right pleural effusion without change. Small left pleural effusion with improvement. 5. There is infiltration of portions of the omentum. This may be related to increased fluid status but malignant involvement is also considered. Pending Admission for: Gastric outlet obstruction
[2025-06-16 18:00] VITALS: BP 139/89; PULSE 72; RESP 18; TEMP 36.6; O2SAT 95
--- NOTE | 2025-06-16 20:01 | PM.IMHP ---
History of Present Illness Date of Service: 06/16/25 Attending physician on admission: Codey Rawls Chief Complaint: Pain, nausea and vomiting Joe Hampton is a very pleasant 64 y/o man with past medical history significant for metastatic gastric adenocarcinoma, recent hospitalization due to gastric outlet obstruction status post stenting *by Dr. Fung complicated with aspiration pneumonia requiring mechanical ventilation, type 2 diabetes mellitus and essential hypertension presents to the emergency department complaining of multiple events of dark emesis, abdominal pain and distention over the last 2 days. He has not been a drink or eat well. He did not report any acute cardiopulmonary symptoms. He did not report any acute urinary symptoms. Last bowel movement was yesterday. During his last hospitalization he was treated with TPN via PICC line which was removed upon discharge. He took a course of Augmentin which was prescribed upon discharge on 06/11/2025. He also underwent drainage of perigastric fluid by IR on June 06. A chemo port was placed for planned chemotherapy. The patient has a scheduled appointment with Dr. Antoine and [facility]. He was also evaluated by the surgical service. In the ED today, he was found to have stable vital signs. Blood workup was remarkable for WBC of 26.7, hemoglobin 15 and hematocrit 45.1. Platelets 508. Sodium is 133, potassium 5.3, chloride 100, CO2 24, BUN 24 and creatinine 0.95. LFTs are normal, except alk-phos is 158. Albumin is 3.5. Abdominal pelvis CT scan today showed the followin. Thickening of the antrum of the stomach and 4.2 cm mass extending from the antrum into the adjacent mesentery without change. Additional 3.5 cm mass extending from the midbody of the stomach. There is a stent within the distal stomach without change. There is no significant distention of the stomach. 2. There is a moderate amount of ascites with interval worsening. 3. There is a 2.4 cm low-density lesion within the right lobe of the liver, suspicious for metastatic disease, without significant change. 4. Moderate right pleural effusion without change. Small left pleural effusion with improvement. 5. There is infiltration of portions of the omentum. This may be related to increased fluid status but malignant involvement is also considered. ED tx: NS 1 L bolus, Zofran 4 mg IV, Carafate 1 g p.o., Maalox 30 mL p.o., pantoprazole 40 mg IV, Dilaudid 2 mg IV [facility] Medical History Gastric adenocarcinoma Borderline diabetes mellitus Sleep apnea HTN (hypertension) Osteoarthritis of right knee Osteoarthritis Bursitis of right hip Right tennis elbow PTSD (post-traumatic stress disorder) HURTADO (nonalcoholic steatohepatitis) Family History Father Cancer of pancreas Mother Cancer of pancreas Sister No problems noted. Daughter No problems noted. Son No problems noted. Son No problems noted. Surgical History H/O total knee replacement History of meniscectomy of left knee History of repair of rotator cuff Social History Household Members: Spouse and Children Housing: House Are you a primary child day care center worker to a significant other at home: No Do you presently have visiting nurse or other home services: No Alcohol intake: current Alcohol intake frequency: 0-2 drinks per day Patient Tobacco Use Status: Never used Tobacco e-Cigarette/Vaping Use: Never Used Second Hand Smoke Exposure: No service: No Current occupational status: retired Cognitive needs: No Hearing needs: No Vision needs: Yes Meds Allergies Allergy/AdvReac Type Severity Reaction Status Date / Time erythromycin base Allergy Mild RAH,ITCH Verified 06/16/25 13:03 (Erythromycin Base) oxycodone (From Percocet) Allergy Mild NAUSEA,DIZZ Verified 06/16/25 13:03 INESS semaglutide (From Ozempic) AdvReac Severe Nausea and Verified 06/16/25 13:03 Vomiting Active Medications: Current Medications Acetaminophen (Acetaminophen 325 Mg Tablet) 650 mg PO Q6H PRN PRN Reason: Pain, Mild 1-3,fever,headache Heparin Sodium (Porcine) (Heparin Sodium,Porcine 5,000 Unit/Ml Vial) 5,000 unit SUBCUT Q12H AGUEDA Hydromorphone HCl (Hydromorphone Hcl 1 Mg/Ml Syringe) 1 mg IVPUSH Q3H PRN; Protocol PRN Reason: abdominal pain Lactated Ringer's (Lr) 1,000 mls @ 75 mls/hr IVCONT .[id number] [facility] Stop: 06/17/25 09:04 Ondansetron HCl (Ondansetron Hcl 4 Mg/2 Ml Vial) 4 mg IVPUSH Q6H PRN PRN Reason: Nausea and Vomiting Pantoprazole Sodium (Pantoprazole Sodium 40 Mg/10 Ml Vial) 40 mg IVPUSH BID@0630,1630 [facility] Sodium Chloride (0.9 % Sodium Chloride Flush 3 Ml Syringe) 3 ml IVFLUSH QSHIFT [facility] Home Medications ?Medication ?Instructions ?Recorded ?Confirmed ?Last Taken ?Type omeprazole 20 mg capsule,delayed 20 mg PO DAILY@0630 05/28/25 06/16/25 05/29/25 History release Physical Exam Vital Signs and Narrative: Vital Signs: Last Vital Signs Temp 97.9 F 06/16/25 18:00 Pulse 72 06/16/25 18:00 Resp 18 06/16/25 18:00 BP 139/89 06/16/25 18:00 Pulse Ox 95 06/16/25 18:00 O2 Del Method Room Air 06/16/25 18:00 BMI result Body Mass Index 30.2 General: Alert, oriented, in no acute distress. Well nourished and cooperative. Afebrile. HEENT: Head normocephalic, atraumatic. PER, EOMI. Sclerae anicteric, conjunctiva clear. Neck: Supple. Heart: RRR, no murmurs, rubs or gallops. Lungs: Decreased breath sounds at bases, no wheezes, rales, or rhonchi. Normal respiratory effort. Abdomen: Hard, distended, nontenderness, hyperactive bowel sounds in all quadrants. No hepatosplenomegaly, masses, rebound or guarding. Extremities: No calf tenderness bilaterally, no swelling Musculoskeletal: No joint swelling, deformity, or tenderness.. Skin: Warm/Dry. No pallor. No jaundice. Neurologic: Alert & oriented x4. Moving all extremities spontaneously. Normal speech. Psychological: Normal mood and affect. Thought process coherent. Results Labs 06/16/25 13:12 06/16/25 13:12 Labs: Laboratory Results - last 24 hr 06/16/25 13:12 MCV 90.9 MCH 30.2 MCHC 33.3 RDW 12.5 Plt Count 508 H D MPV 9.4 Immature Gran % (Auto) 2.0 H Neut % (Auto) 86.0 H Lymph % (Auto) 5.2 L [place] % (Auto) 6.2 Eos % (Auto) 0.3 Baso % (Auto) 0.3 Lymph # (Auto) 1.4 [place] # (Auto) 1.7 H Eos # (Auto) 0.1 Baso # (Auto) 0.1 Abs Immat Gran (auto) 0.54 H Absolute Neuts (auto) 23.0 H Absolute Nucleated RBC 0.000 Nucleated RBC % (auto) 0.0 Smear Tech's Comments VERIFIED Anion Gap 14 Estim Creat Clear Calc 84.5 Estimated GFR > 60 Random Glucose 144 H Calcium 9.3 D Magnesium 2.4 Total Bilirubin 0.8 AST 33 ALT 40 Alkaline Phosphatase 158 H Total Protein 6.9 Albumin 3.5 Assessment and Plan (1) Gastric outlet obstruction: Status: Acute (2) Gastric adenocarcinoma: Status: Acute Plan Joe Hampton is a 64 y/o man w/ PMHx significant for metastatic gastric adenocarcinoma, recent hospitalization due to gastric outlet obstruction s/p stenting who presents with: Gastric outlet obstruction s/p stenting, recurrent --> abdominal pain, nausea and vomiting. Extract NPO. IVFs. Pain control. Anti-emetics. Surgery and GI consult. Dark emesis, possible coffee-ground. Protonix 40 mg IV b.i.d.. Continue to monitor H&H. Ascites, likely malignant. IR consult for therapeutic paracentesis. Gastric adenocarcinoma, metastatic --> liver and possibly omentum. Heme/oncology consult. Pt has a chemo port; chemotherapy planned. Type 2 diabetes mellitus. BG checks every 6 hours while NPO. Insulin sliding scale. Essential hypertension. Amlodipine on hold due to strict NPO. Continue to monitor. Labetalol IV as needed. Hyperkalemia, very mild. Hold losartan. Continue to monitor for now. Chronic bilateral pleural effusions, likely embolic. No acute respiratory symptoms reported. Oxygen saturation is normal on RA. Recent aspiration pneumonia. No acute respiratory symptoms reported. Completed a course of Augmentin. Hyperlipidemia. Continue statin when able. BPH. Continue finasteride when able. Code status: Full DVT prophylaxis: SCDs (coffee ground emesis). Patient will need hospitalization for at least 2 midnights for gastric outlet obstruction treatment with IV pain meds, IV hydration antiemetics; he will also need evaluation by subspecialties and surgical service. This documentation was generated using dictation software; minor spreading or regenerator operator errors may be present. Quality Stroke Does the patient have a stroke diagnosis?: No VTE Prior VTE?: No VTE Risk Level:: Medical - moderate - high VTE Device Contraindication: N/A - Device Ordered VTE Drug Contraindication: N/A - Med Ordered
[2025-06-16 20:11] VITALS: BMI 31.7
[2025-06-16 20:40] LABS: Glucose, Whole Blood 163 mg/dL (60-115)
[2025-06-16] MEDS: Lactated Ringers 1,000 ML 75 ML IVCONT (20:51)
--- NOTE | 2025-06-17 | ECG_ITS ---
Test Reason : Hyperkalemia Blood Pressure : */* mmHG Vent. Rate : 81 BPM Atrial Rate : 81 BPM P-R Int : 188 ms QRS Dur : 74 ms QT Int : 392 ms P-R-T Axes : 21 -26 4 degrees QTcB Int : 455 ms Normal sinus rhythm Minimal voltage criteria for LVH, may be normal variant ( R in aVL ) Anterolateral infarct , age undetermined Abnormal ECG When compared with ECG of 12-Sep-2005 17:58, Questionable change in QRS duration Anterior infarct is now Present Anterolateral infarct is now Present Referred By: Codey Rawls Electronically Signed By: David Prado
--- NOTE | 2025-06-17 02:47 | PC.NURSE ---
Addendum entered by Zandra Benz RN 06/17/25 02:54: will keep STAT order for suppository active in case pt wants to take it at later time, Dr Dawkins approved. Original Note: 0245, pt complains of constipation with no abdominal discomfort with last BM one day ago. Dr dawkins notifed and suppository was ordered since pt is NPO. When offered to the patient, he verbalizes not wanting a suppository and decided to wait and see if he passes stool naturally. Dr Dawkins updated
[2025-06-17 04:00] VITALS: BP 138/65; PULSE 71; RESP 18; TEMP 36; O2SAT 97
[2025-06-17 05:45] LABS: MANUAL DIFF FLAG NO
[2025-06-17 05:50] LABS: Hematocrit 44.9 % (42.0-52.0); Hemoglobin 15.1 g/dl (14.0-18.0); Imm Gran Abs Auto 0.51 X10*3/uL (0.00-0.03); Imm Gran Pct Auto 2.6 % (0.0-0.4); Lymphocytes Absolute Auto 1.2 X10*3/uL (1.2-4.9); Mean Corpuscular HGB Conc 33.6 g/dl (31.0-36.0); Mean Corpuscular Hemoglobin 30.6 pg (27.0-33.0); Mean Corpuscular Volume 90.9 fL (80.0-98.0); NRBC Abs Auto 0.000 X10*3/uL (0.0-0.012); NRBC Pct Auto 0.0 /100WBC (0.0-0.2); Platelet Count 489 X10*3/uL (160-400); Red Blood Count 4.94 X10*6/uL (4.60-5.80); White Blood Count 19.3 X10*3/uL (4.8-10.8)
[2025-06-17 05:58] LABS: INTERNATIONAL NORM RATIO 1.2 (0.9-1.1); Prothrombin Time 13.5 SEC (10.9-12.4)
[2025-06-17 06:17] LABS: Alanine Aminotransferase 30 U/L (0-40); Albumin Level 3.3 g/dL (3.5-5.0); Alkaline Phosphatase 134 U/L (39-117); Anion Gap 15 (12-20); Aspartate Amino Transferase 27 U/L (5-37); Blood Urea Nitrogen 31 mg/dL (9-16); Calcium 9.3 mg/dL (8.4-10.2); Carbon Dioxide 23 mmol/L (22-29); Chloride 102 mmol/L (96-108); Creatinine Clr Calc Pharmacy 84.7; Estimated Glomerular Filt Rate > 60; Magnesium 2.2 mg/dL (1.6-2.6); Potassium 6.3 mmol/L (3.3-5.1); Sodium 134 mmol/L (135-145); Total Protein 6.7 g/dL (6.5-8.0)
[2025-06-17 06:50] LABS: Glucose, Whole Blood 142 mg/dL (60-115)
[2025-06-17] MEDS: Calcium Gluconate/NaCl,Iso-Osm 2 GM/100 ML PLAST..BAG IV (07:28)
[2025-06-17 07:39] LABS: Glucose, Whole Blood 206 mg/dL (60-115)
[2025-06-17 07:49] VITALS: BP 130/95; PULSE 88; RESP 17; TEMP 36.6; O2SAT 92
--- NOTE | 2025-06-17 09:40 | P.CNHO_ITS ---
Subjective - Subjective Chief complaint: Recurrent nausea/vomiting abdominal distention Patient: known to practice within the last 3 years Consult date: 06/17/25 Primary Care Provider: LAWSON Segundo Rn Relief Charge Utilized?: No - Maldivian Speaking HPI - Consult Narrative Reason for consult: Metastatic gastric cancer Narrative: Joe Hampton is a 64 year old male who was recently diagnosed with metastatic gastric adenocarcinoma presenting with recurrent symptoms of nausea, abdominal pain, distention as dark emesis for the last 2 days. He has not been able to eat or drink. He was recently discharged from the hospital after prolonged hospital stay which was complicated by respiratory failure requiring intubation. CT abdomen performed 05/29/2025 showed gastric outlet obstruction with severe wall thickening, neoplasm was suspected. He had small volume ascites and 1.5 cm lesion in segment 8 of liver. 19-9 elevated at 166. Normal CEA. He underwent endoscopy on 05/30/25 which revealed friable tissue with stricture and severe edema noted at the pre antral area. Scope could not be advanced through alkaline it, balloon dilatation was performed and stent was placed. Biopsy of stomach mass revealed small foci of adenocarcinoma involving gastric mucosa. 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 On 06/06/2025 he underwent biopsy of liver lesion by IR which revealed metastatic poorly differentiated adenocarcinoma. Repeat CT abdomen/pelvis without contrast performed 06/16/2025 shows moderate right pleural effusion, small left pleural effusion, 2.4 cm lesion in the right lobe of liver, unchanged. 9 mm low-density lesion in the left lobe without change most likely representing cyst. Moderate amount of ascites and involvement of pelvis with interval worsening since prior exam. Stent in the distal body and antrum of the stomach, adjacent wall thickening without change. Confluent 4.2 x 3.3 x 2.5 cm mass extending into the mesentery immediately adjacent to antrum without change. Additional 3.5 x 2.7 x 2.8 cm mass extending into mesentery from the midbody of stomach. No significant gastric distention, no colitis or small bowel obstruction. Review of Systems - Constitutional Reports anorexia, Reports malaise - Cardiovascular Reports no additional cardiovascular complaints - Respiratory Reports no additional respiratory complaints [facility] Medical History: Medical History (Last Reviewed 06/17/25 @ 00:22 by Zandra Benz RN) Borderline diabetes mellitus Bursitis of right hip Gastric adenocarcinoma HTN (hypertension) HURTADO (nonalcoholic steatohepatitis) Osteoarthritis Osteoarthritis of right knee PTSD (post-traumatic stress disorder) Right tennis elbow Sleep apnea Family History: Family History (Last Reviewed 06/16/25 @ 14:19 by Nito Estevez MD) Father Cancer of pancreas Mother Cancer of pancreas Sister No problems noted. Daughter No problems noted. Son No problems noted. Son No problems noted. Surgical History: Surgical History (Last Reviewed 06/17/25 @ 00:22 by Zandra Benz RN) H/O total knee replacement History of meniscectomy of left knee History of repair of rotator cuff Social History: Social History (Last Reviewed 06/16/25 @ 14:19 by Nito Estevez MD) Living Situation History: Household Members: Spouse Household Members: Children Housing: House Are you a primary manager medicare marketing to a significant other at home: No Do you presently have visiting nurse or other home services: No Alcohol History Details: 1. How often do you have a drink containing alcohol?: b. Monthly or less 2. How many drinks containing alcohol do you have on a typical day when you are drinking?: a. 1 or 2 3. How often do you have six or more drinks on one occasion?: a. Never AUDIT-C Alcohol total score: 1 Currently Displaying Signs/Symptoms of Alcohol Withdrawal: No Tobacco History: Patient Tobacco Use Status: Never used Tobacco Smoked in Last 30 Days: No e-Cigarette/Vaping Use: Never Used Second Hand Smoke Exposure: No Substance Use History: Use of substances other than those prescribed or required for medical reasons : No Currently Displaying Signs/Symptoms of Drug Intoxication Withdrawal: No Domestic Abuse History: Have you been hit, kicked, punched, or otherwise hurt by someone within the past year? If so, by whom?: No Do you feel safe in your current relationship?: Yes Is there a partner from a previous relationship who is making you feel unsafe now?: No Are you made to feel afraid or neglected: No Advance Directives: Advance Directives: No Advance Directives Information Provided: Yes Homicidal Assessment: Do you have a plan to hurt others: No Plan Nutrition Assessment: Recently lost weight without trying: No Nutrition Risks: No Nutritional Risk Poor oral hygiene: No Occupation Assessmet: service: No Current occupational status: retired Home Medications and Allergies Current Medications: Current Medications Acetaminophen (Acetaminophen 325 Mg Tablet) 650 mg PO Q6H PRN PRN Reason: Pain, Mild 1-3,fever,headache Dexamethasone Sodium Phosphate (Dexamethasone Sod Phosphate 4 Mg/Ml Vial) 2 mg IVPUSH Q8H PRN PRN Reason: Vomiting Last Admin: 06/17/25 09:28 Dose: 2 mg Dextrose (Dextrose 50 % 25 Gm/50 Ml Syringe) 25 gm IVPUSH Q15M PRN; Protocol PRN Reason: per Hypoglycemia Standing Ord. Glucose (Glucose Gel 15 Gm Gel..Gram.) 15 gm PO Q15M PRN; Protocol PRN Reason: per Hypoglycemia Standing Ord. Hydromorphone HCl (Hydromorphone Hcl 1 Mg/Ml Syringe) 1 mg IVPUSH Q3H PRN; Protocol PRN Reason: abdominal pain Last Admin: 06/17/25 06:02 Dose: 1 mg Sodium Chloride (Ns) 1,000 mls @ 100 mls/hr IVCONT .Q10H [facility] Last Admin: 06/17/25 06:24 Dose: 100 mls/hr Insulin Human Lispro (Insulin Lispro 100 Unit/Ml 3 Ml Vial) 0 unit SUBCUT QIDACHS [facility]; Protocol Last Admin: 06/17/25 08:38 Dose: Not Given Labetalol HCl (Labetalol Hcl 100 Mg/20 Ml Vial) 5 mg IVPUSH Q4H PRN PRN Reason: sbp Ondansetron HCl (Ondansetron Hcl 4 Mg/2 Ml Vial) 4 mg IVPUSH Q6H PRN PRN Reason: Nausea and Vomiting Last Admin: 06/17/25 03:51 Dose: 4 mg Pantoprazole Sodium (Pantoprazole Sodium 40 Mg/10 Ml Vial) 40 mg IVPUSH BID@0630,1630 [facility] Last Admin: 06/17/25 06:03 Dose: 40 mg Sodium Chloride (0.9 % Sodium Chloride Flush 3 Ml Syringe) 3 ml IVFLUSH QSHIFT [facility] Last Admin: 06/17/25 06:59 Dose: Not Given Home Medications ?Medication ?Instructions ?Recorded ?Confirmed ?Type omeprazole 20 mg capsule,delayed 20 mg PO DAILY@0630 05/28/25 06/16/25 Hi story release Allergies Allergy/AdvReac Type Severity Reaction Status Date / Time erythromycin base Allergy Mild RAH,ITCH Verified 06/16/25 13:03 (Erythromycin Base) oxycodone (From Percocet) Allergy Mild NAUSEA,DIZZ Verified 06/16/25 13:03 INESS semaglutide (From Ozempic) AdvReac Severe Nausea and Verified 06/16/25 13:03 Vomiting Physical Exam Vital signs: Vital Signs Temp 97.9 F 06/17/25 07:49 Pulse 88 06/17/25 07:49 Resp 17 06/17/25 07:49 BP 130/95 H 06/17/25 07:49 Pulse Ox 92 06/17/25 07:49 O2 Del Method Room Air 06/17/25 07:49 Intake & Output 06/16/25 06/17/25 06/17/25 18:59 06:59 18:59 Intake Total 1000 / 1300 300 / 1300 Balance 1000 / 1300 300 / 1300 Intake: Intake, IV Amount 1000 / 1300 300 / 1300 0.9 % Sodium Chloride 1,000 ml 1000 / 1000 @ 999 mls/hr IV .Q1H1M ONE Rx#: [id number] Lactated Ringers 1,000 ml @ 75 300 / 300 mls/hr IVCONT .[id number] Rx#: [id number] Other: NPO Yes Number of Bowel Movements 1 Last Bowel Movement 06/17/25 Stool Bathroom Stool Amount Small Weight 90.2 kg 94.7 kg Weight 94.7 kg - Constitutional Present: mild distress - Routine HEENT Exam Head: Present: normal inspection Eye: Present: EOMI - Routine Neck Exam Absent: lymphadenopathy - Routine Respiratory Exam Present: CTAB - Routine Cardiovascular Exam Cardiovascular: Present: RRR, S1, S2 - Routine Abdominal Exam Present: distended, rigid - Routine Extremities Exam Absent: calf tenderness - Routine Skin Exam Present: intact - Routine Neurological Exam Present: alert, oriented X3 Hem/Onc Consult Result - Labs CBC & Chem 7: 06/17/25 05:37 06/17/25 05:37 Labs: Short CBC 06/16/25 06/17/25 Range/Units 13:12 05:37 WBC 26.7 H 19.3 H (4.8-10.8) X10*3/uL Hgb 15.0 15.1 (14.0-18.0) g/dl Hct 45.1 D 44.9 (42.0-52.0) % Plt Count 508 H D 489 H (160-400) X10*3/uL BMP 06/16/25 06/17/25 13:12 05:37 Sodium 133 L 134 L Potassium 5.2 H 6.3 H* D Chloride 100 102 Carbon Dioxide 24 23 BUN 24 H 31 H Creatinine 0.95 0.97 Calcium 9.3 D 9.3 Liver Function 06/16/25 06/17/25 Range/Units 13:12 05:37 Total Bilirubin 0.8 0.8 (0.0-1.0) mg/dL AST 33 27 (5-37) U/L ALT 40 30 (0-40) U/L Alkaline Phosphatase 158 H 134 H (39-117) U/L Albumin 3.5 3.3 L (3.5-5.0) g/dL Assessment and Plan Patient Active problem list reviewed?: Yes (1) Gastric adenocarcinoma Status: Acute Assessment and plan: 1. This is a 64-year-old male who has been diagnosed with metastatic gastric adenocarcinoma in May 2025. He presented with symptoms of gastric outlet obstruction in May and underwent workup. He underwent endoscopy on 05/30/25 which revealed friable tissue with stricture and severe edema noted at the pre antral area. Scope could not be advanced through alkaline it, balloon dilatation was performed and stent was placed. Biopsy of stomach mass revealed small foci of adenocarcinoma involving gastric mucosa. 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 On 06/06/2025 he underwent biopsy of liver lesion by IR which revealed metastatic poorly differentiated adenocarcinoma. Repeat CT abdomen/pelvis without contrast performed 06/16/2025 shows moderate right pleural effusion, small left pleural effusion, 2.4 cm lesion in the right lobe of liver, unchanged. 9 mm low-density lesion in the left lobe without change most likely representing cyst. Moderate amount of ascites and involvement of pelvis with interval worsening since prior exam. Stent in the distal body and antrum of the stomach, adjacent wall thickening without change. Confluent 4.2 x 3.3 x 2.5 cm mass extending into the mesentery immediately adjacent to antrum without change. Additional 3.5 x 2.7 x 2.8 cm mass extending into mesentery from the midbody of stomach. No significant gastric distention, no colitis or small bowel obstruction. Unfortunately, there is clear evidence of rapid disease progression. He is awaiting therapeutic paracentesis. Recommend adding cytology as well on the ascitic fluid. For his intractable nausea/vomiting add dexamethasone and metoclopramide to antiemetic regimen. Awaiting molecular studies on liver biopsy to recommend, palliative systemic therapy. Thank you for the consultation, will follow with you. - Time Spent With Patient Time Spent with Patient (in minutes): 20 Additional Coding: - Additional E/M codes Complex E/M visit Add On: CPT G2211
[2025-06-17 10:14] LABS: Anion Gap 16 (12-20); Blood Urea Nitrogen 28 mg/dL (9-16); Calcium 9.7 mg/dL (8.4-10.2); Carbon Dioxide 23 mmol/L (22-29); Chloride 101 mmol/L (96-108); Creatinine Clr Calc Pharmacy 88.3; Estimated Glomerular Filt Rate > 60; Potassium 5.2 mmol/L (3.3-5.1); Sodium 135 mmol/L (135-145)
--- NOTE | 2025-06-17 10:50 | P.CNGI_ITS ---
History of Present Illness Data of Consult Service Date: 06/17/25 Primary Care Provider: Hal Chacon, [facility]- HPI Reason for consult: abdominal pain 64 yr old m with hx of metastatic adenocarcinoma, primary possibly stomach, s/p pyloric stent placement who I am seeing for satiety and nausea He had a stent placed last week due to GOO from infiltrating cancer and also extrinsic compression. Since d/c he has noted pain with nausea and vomiting, but admits he can drink ok but has to drink maybe half a glass at a time other he fills full and has vomiting. He has been passing gas and stools but abdomen feels hard. He has no pain unless he eats too much. He denies fever, SOB, cough. Repeat CT scanning shows stent is in good place but mass adjacent to stomach, moderate ascites and omental mets, liver met. Review of Systems 2 Review of Systems: Constitutional : + Weight loss, No Fever, No Chills ENT/Mouth : No sore throat, No Rhinorrhea Eyes: No Swelling, No Redness Cardiovascular : No Chest Pain, No SOB, No Edema Respiratory : No Cough, No Sputum, No Wheezing Gastrointestinal : see HPI Genitourinary : NO Dysuria, No Urinary Frequency, No Hematuria, No Urgency Musculoskeletal : no joint pain, No Myalgias, No Joint Swelling Skin : No Skin Lesions, No rash Neuro : No Weakness, No Numbness, No Dizziness, No Headache Psych : No Anxiety/Panic, No Depression Heme/Lymph: No Bruising, No Lymphadenopathy Endocrine : No Polyuria, No Polydipsia All other systems reviewed and are negative. [facility] Past Medical History Medical History Gastric adenocarcinoma Borderline diabetes mellitus Sleep apnea HTN (hypertension) Osteoarthritis of right knee Osteoarthritis Bursitis of right hip Right tennis elbow PTSD (post-traumatic stress disorder) HURTADO (nonalcoholic steatohepatitis) Family History Family History Father Cancer of pancreas Mother Cancer of pancreas Sister No problems noted. Daughter No problems noted. Son No problems noted. Son No problems noted. Surgical History Surgical History H/O total knee replacement History of meniscectomy of left knee History of repair of rotator cuff Social History Social History Household Members: Spouse and Children Housing: House Are you a primary manager urgent care to a significant other at home: No Do you presently have visiting nurse or other home services: No Alcohol intake: current Alcohol intake frequency: 0-2 drinks per day Patient Tobacco Use Status: Never used Tobacco Smoked in Last 30 Days: No e-Cigarette/Vaping Use: Never Used Second Hand Smoke Exposure: No Use of substances other than those prescribed or required for medical reasons: No Currently Displaying Signs/Symptoms of Drug Intoxication Withdrawal: No Have you been hit, kicked, punched, or otherwise hurt by someone within the past year? If so, by whom?: No Do you feel safe in your current relationship?: Yes Is there a partner from a previous relationship who is making you feel unsafe now?: No Are you made to feel afraid or neglected: No Advance Directives: No Advance Directives Information Provided: Yes Do you have a plan to hurt others: No Plan Recently lost weight without trying: No Nutrition Risks: No Nutritional Risk Poor oral hygiene: No service: No Current occupational status: retired Cognitive needs: No Hearing needs: No Vision needs: Yes Meds Allergies Allergy/AdvReac Type Severity Reaction Status Date / Time erythromycin base Allergy Mild RAH,ITCH Verified 06/16/25 13:03 (Erythromycin Base) oxycodone (From Percocet) Allergy Mild NAUSEA,DIZZ Verified 06/16/25 13:03 INESS semaglutide (From Ozempic) AdvReac Severe Nausea and Verified 06/16/25 13:03 Vomiting Active Medications: Current Medications Acetaminophen (Acetaminophen 325 Mg Tablet) 650 mg PO Q6H PRN PRN Reason: Pain, Mild 1-3,fever,headache Dexamethasone Sodium Phosphate (Dexamethasone Sod Phosphate 4 Mg/Ml Vial) 2 mg IVPUSH Q8H PRN PRN Reason: Vomiting Last Admin: 06/17/25 09:28 Dose: 2 mg Dextrose (Dextrose 50 % 25 Gm/50 Ml Syringe) 25 gm IVPUSH Q15M PRN; Protocol PRN Reason: per Hypoglycemia Standing Ord. Glucose (Glucose Gel 15 Gm Gel..Gram.) 15 gm PO Q15M PRN; Protocol PRN Reason: per Hypoglycemia Standing Ord. Hydromorphone HCl (Hydromorphone Hcl 1 Mg/Ml Syringe) 1 mg IVPUSH Q3H PRN; Protocol PRN Reason: abdominal pain Last Admin: 06/17/25 10:29 Dose: 1 mg Sodium Chloride (Ns) 1,000 mls @ 100 mls/hr IVCONT .Q10H [facility] Last Admin: 06/17/25 06:24 Dose: 100 mls/hr Insulin Human Lispro (Insulin Lispro 100 Unit/Ml 3 Ml Vial) 0 unit SUBCUT QIDACHS [facility]; Protocol Last Admin: 06/17/25 08:38 Dose: Not Given Labetalol HCl (Labetalol Hcl 100 Mg/20 Ml Vial) 5 mg IVPUSH Q4H PRN PRN Reason: sbp Ondansetron HCl (Ondansetron Hcl 4 Mg/2 Ml Vial) 4 mg IVPUSH Q6H PRN PRN Reason: Nausea and Vomiting Last Admin: 06/17/25 09:56 Dose: 4 mg Pantoprazole Sodium (Pantoprazole Sodium 40 Mg/10 Ml Vial) 40 mg IVPUSH BID@0630,1630 [facility] Last Admin: 06/17/25 06:03 Dose: 40 mg Sodium Chloride (0.9 % Sodium Chloride Flush 3 Ml Syringe) 3 ml IVFLUSH QSHIFT [facility] Last Admin: 06/17/25 06:59 Dose: Not Given Home Medications ?Medication ?Instructions ?Recorded ?Confirmed ?Last Taken ?Type omeprazole 20 mg capsule,delayed 20 mg PO DAILY@0630 0 05/28/25 06/16/25 05/29/25 History release Physical Exam 2 Exam: Exam: EXAM: GENERAL: The patient is well developed and nontoxic. VITAL SIGNS:see workflow HEENT: Nonicteric sclerae, PERRLA, EOMI. Oropharynx clear. Moist mucous membranes. Conjunctivae appear well perfused. No thyroid mass. CHEST: Chest wall is nontender. HEART: Regular rate and rhythm without murmurs. LUNGS: Clear to auscultation bilaterally. ABDOMEN: abdomen is tense and distended , positive bowel sounds, nontender, no organomegaly.no flank tenderness-- SKIN: No rash, no excessive bruising, petechiae, or purpura. NEUROLOGIC: Cranial nerves II-XII intact without motor/sensory deficit. Psych: normal affect Vital Signs: Vital Signs: Last Vital Signs Temp 97.9 F 06/17/25 07:49 Pulse 88 06/17/25 07:49 Resp 17 06/17/25 07:49 BP 130/95 H 06/17/25 07:49 Pulse Ox 92 06/17/25 07:49 O2 Del Method Room Air 06/17/25 07:49 BMI result Body Mass Index 31.7 Results Labs 06/17/25 05:37 06/17/25 09:52 Labs: Short CBC 06/16/25 06/17/25 Range/Units 13:12 05:37 WBC 26.7 H 19.3 H (4.8-10.8) X10*3/uL Hgb 15.0 15.1 (14.0-18.0) g/dl Hct 45.1 D 44.9 (42.0-52.0) % Plt Count 508 H D 489 H (160-400) X10*3/uL BMP 06/16/25 06/17/25 06/17/25 13:12 05:37 09:52 Sodium 133 L 134 L 135 Potassium 5.2 H 6.3 H* D 5.2 H Chloride 100 102 101 Carbon Dioxide 24 23 23 BUN 24 H 31 H 28 H Creatinine 0.95 0.97 0.93 Calcium 9.3 D 9.3 9.7 Liver Function 06/16/25 06/17/25 Range/Units 13:12 05:37 Total Bilirubin 0.8 0.8 (0.0-1.0) mg/dL AST 33 27 (5-37) U/L ALT 40 30 (0-40) U/L Alkaline Phosphatase 158 H 134 H (39-117) U/L Albumin 3.5 3.3 L (3.5-5.0) g/dL Imaging CT scan - abdomen: Attestation: I personally reviewed and interpreted this imaging study as follows: (stent noted, appears patent, omental and stomach thickening with mass noted ) Assessment and Plan (1) Gastric outlet obstruction: Status: Acute Plan 1/ GOO and mechanical obstruction from masses and omental lesions. The stent is in place, but will not address the mechanical issues from the neoplastic process,. PLAN: /1 - cont with PO as tolerated, small amounts, consider ancillary nutrition, TPN or PPn, 2/ f/u with oncology for more targetted therapy 3/ tap ascites-diagniostic and therapeutic and r/o SBP , may also help relive his discomfort to some extent Procedures Date of Service Date of Service: 06/17/25
--- NOTE | 2025-06-17 11:18 | P.CONGS_ITS ---
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 Also during that period he had a gastric stent placement but required intubation and transferred to ICU secondary to aspiration. He was subsequently extubated. He had US guided biopsy of a right liver lesion and IR drainage of posterior wall collection and as well. This drain was subsequently removed during that admission as it was found to be in the stomach. He was eventually discharged to home on 06/11/25 with services and discharged on a soft diet. He was initially tolerating this but had two episodes of vomiting of bilious material. One was following drinking a boost quickly and the second was he felt uncomfortable and like he had food stuck in his stomach. He therefore came back to the ED for evaluation as he also had worsening abdominal pain and distention. He was admitted to the medical servuce. He has a significant leukocytosis as well as multiple metabolic derangements. CT scan abd pelvis on admission showed thickening of the antrum of the stomach and 4.2 cm mass extending from the antrum into the adjacent mesentery without change with additional 3.5 cm mass extending from the midbody of the stomach with a stent within the distal stomach without change without significant distention of the stomach. Large volume ascites increased from prior. He reports the drainage from the prior drain has stopped. The [facility]NA has been placing a dry sponge on this. <Sarita Pinzon PA-C - Last Filed: 06/17/25 11:37> Review of Systems 2 Review of Systems: Yes all other systems are reviewed and are negative < Sarita Pinzon PA-C - Last Filed: 06/17/25 11:37> PMF Past Medical History Medical History: Medical History (Updated 06/17/25 @ 14:19 by Marylin Raymundo MD) HLD (hyperlipidemia) Gastric adenocarcinoma Borderline diabetes mellitus Sleep apnea HTN (hypertension) Osteoarthritis of right knee Osteoarthritis Bursitis of right hip Right tennis elbow PTSD (post-traumatic stress disorder) HURTADO (nonalcoholic steatohepatitis) <Sarita Pinzon PA-C - Last Filed: 06/17/25 11:37> Family History Family History: Family History Father Cancer of pancreas Mother Cancer of pancreas Sister No problems noted. Daughter No problems noted. Son No problems noted. Son No problems noted. <Sarita Pinzon PA-C - Last Filed: 06/17/25 11:37> Surgical History Surgical History: Surgical History H/O total knee replacement History of meniscectomy of left knee History of repair of rotator cuff <Sarita Pinzon PA-C - Last Filed: 06/17/25 11:37> Social History Social History: Social History Household Members: Spouse and Children Housing: House Are you a primary dialysis patient care technician to a significant other at home: No Do you presently have visiting nurse or other home services: No Alcohol intake: current Alcohol intake frequency: 0-2 drinks per day Patient Tobacco Use Status: Never used Tobacco Smoked in Last 30 Days: No e-Cigarette/Vaping Use: Never Used Second Hand Smoke Exposure: No Use of substances other than those prescribed or required for medical reasons: No Currently Displaying Signs/Symptoms of Drug Intoxication Withdrawal: No Have you been hit, kicked, punched, or otherwise hurt by someone within the past year? If so, by whom?: No Do you feel safe in your current relationship?: Yes Is there a partner from a previous relationship who is making you feel unsafe now?: No Are you made to feel afraid or neglected: No Advance Directives: No Advance Directives Information Provided: Yes Do you have a plan to hurt others: No Plan Recently lost weight without trying: No Nutrition Risks: No Nutritional Risk Poor oral hygiene: No service: No Current occupational status: retired Cognitive needs: No Hearing needs: No Vision needs: Yes <CARLOS Wilder Last Filed: 06/17/25 11:37> Meds Allergies/Adverse reactions: Allergies Allergy/AdvReac Type Severity Reaction Status Date / Time erythromycin base Allergy Mild RAH,ITCH Verified 06/16/25 13:03 (Erythromycin Base) oxycodone (From Percocet) Allergy Mild NAUSEA,DIZZ Verified 06/16/25 13:03 INESS semaglutide (From Ozempic) AdvReac Severe Nausea and Verified 06/16/25 13:03 Vomiting <Sarita Pinzon PA-C - Last Filed: 06/17/25 11:37> Active Medications: Current Medications Acetaminophen (Acetaminophen 325 Mg Tablet) 650 mg PO Q6H PRN PRN Reason: Pain, Mild 1-3,fever,headache Dexamethasone Sodium Phosphate (Dexamethasone Sod Phosphate 4 Mg/Ml Vial) 2 mg IVPUSH Q8H PRN PRN Reason: Vomiting Last Admin: 06/17/25 09:28 Dose: 2 mg Dextrose (Dextrose 50 % 25 Gm/50 Ml Syringe) 25 gm IVPUSH Q15M PRN; Protocol PRN Reason: per Hypoglycemia Standing Ord. Glucose (Glucose Gel 15 Gm Gel..Gram.) 15 gm PO Q15M PRN; Protocol PRN Reason: per Hypoglycemia Standing Ord. Hydromorphone HCl (Hydromorphone Hcl 1 Mg/Ml Syringe) 1 mg IVPUSH Q3H PRN; Protocol PRN Reason: abdominal pain Last Admin: 06/17/25 10:29 Dose: 1 mg Sodium Chloride (Ns) 1,000 mls @ 100 mls/hr IVCONT .Q10H [facility] Last Admin: 06/17/25 06:24 Dose: 100 mls/hr Insulin Human Lispro (Insulin Lispro 100 Unit/Ml 3 Ml Vial) 0 unit SUBCUT QIDACHS [facility]; Protocol Last Admin: 06/17/25 08:38 Dose: Not Given Labetalol HCl (Labetalol Hcl 100 Mg/20 Ml Vial) 5 mg IVPUSH Q4H PRN PRN Reason: sbp Ondansetron HCl (Ondansetron Hcl 4 Mg/2 Ml Vial) 4 mg IVPUSH Q6H PRN PRN Reason: Nausea and Vomiting Last Admin: 06/17/25 09:56 Dose: 4 mg Pantoprazole Sodium (Pantoprazole Sodium 40 Mg/10 Ml Vial) 40 mg IVPUSH BID@0630,1630 [facility] Last Admin: 06/17/25 06:03 Dose: 40 mg Sodium Chloride (0.9 % Sodium Chloride Flush 3 Ml Syringe) 3 ml IVFLUSH QSHIFT [facility] Last Admin: 06/17/25 06:59 Dose: Not Given <HOLLY Wilder Mariely Last Filed: 06/17/25 11:37> Home medications: Home Medications ?Medication ?Instructions ?Recorded ?Confirmed ?Last Taken ?Type omeprazole 20 mg capsule,delayed 20 mg PO DAILY@0630 0 05/28/25 06/16/25 05/29/25 History release <CARLOS Wilder Last Filed: 06/17/25 11:37> Physical Exam 2 Vital Signs: Vital Signs: Last Vital Signs Temp 97.9 F 06/17/25 07:49 Pulse 88 06/17/25 07:49 Resp 17 06/17/25 07:49 BP 130/95 H 06/17/25 07:49 Pulse Ox 92 06/17/25 07:49 O2 Del Method Room Air 06/17/25 07:49 BMI result Body Mass Index 31.7 [facility] Last Filed: 06/17/25 11:37> Const: General: comfortable, no acute distress and alert <[facility] Last Filed: 06/17/25 11:37> Orientation/consciousness: patient oriented x3 <[facility] Last Filed: 06/17/25 11:37> Resp: Effort & Inspection: normal respiratory effort <Sarita Pinzon PA-C Last Filed: 06/17/25 11:37> GI: Other: protuberant abdomen with dullness to percussion, no fluid wave dry dressing upper left abd <CARLOS Wilder Last Filed: 06/17/25 11:37> Palpation (GI): Soft to palpation, nontender and no guarding <[facility] Last Filed: 06/17/25 11:37> Skin: General skin exam: no rashes or lesions noted <CARLOS Wilder Last Filed: 06/17/25 11:37> Neuro: General: patient oriented x3 and moves all extremities <Sarita Pinzon PA-C - Last Filed: 06/17/25 11:37> Results Labs Result diagrams: 06/18/25 06:03 06/18/25 06:03 <Sarita Pinzon PA-C - Last Filed: 06/17/25 11:37> Labs: Abnormal lab results 06/16/25 06/16/25 06/17/25 Range/Units 13:12 20:36 05:37 WBC 26.7 H 19.3 H (4.8-10.8) X10*3/uL Plt Count 508 H D 489 H (160-400) X10*3/uL Immature Gran % (Auto) 2.0 H 2.6 H (0.0-0.4) % Neut % (Auto) 86.0 H 83.6 H (45-73) % Lymph % (Auto) 5.2 L 6.1 L (20-40) % [place] # (Auto) 1.7 H 1.4 H (0.1-1.2) X10*3/uL Abs Immat Gran (auto) 0.54 H 0.51 H (0.00-0.03) X10*3/uL Absolute Neuts (auto) 23.0 H 16.2 H (2.0-8.3) x10*3/uL PT 13.5 H (10.9-12.4) SEC INR 1.2 H (0.9-1.1) Sodium 133 L 134 L (135-145) mmol/L Potassium 5.2 H 6.3 H* D (3.3-5.1) mmol/L BUN 24 H 31 H (9-16) mg/dL POC Glucose 163 H (60-115) mg/dL Random Glucose 144 H 139 H (60-115) mg/dL Alkaline Phosphatase 158 H 134 H (39-117) U/L Albumin 3.3 L (3.5-5.0) g/dL 06/17/25 06/17/25 06/17/25 Range/Units 06:39 07:18 09:52 WBC (4.8-10.8) X10*3/uL Plt Count (160-400) X10*3/uL Immature Gran % (Auto) (0.0-0.4) % Neut % (Auto) (45-73) % Lymph % (Auto) (20-40) % [place] # (Auto) (0.1-1.2) X10*3/uL Abs Immat Gran (auto) (0.00-0.03) X10*3/uL Absolute Neuts (auto) (2.0-8.3) x10*3/uL PT (10.9-12.4) SEC INR (0.9-1.1) Sodium (135-145) mmol/L Potassium 5.2 H (3.3-5.1) mmol/L BUN 28 H (9-16) mg/dL POC Glucose 142 H 206 H (60-115) mg/dL Random Glucose 134 H (60-115) mg/dL Alkaline Phosphatase (39-117) U/L Albumin (3.5-5.0) g/dL Short CBC 06/16/25 06/17/25 Range/Units 13:12 05:37 WBC 26.7 H 19.3 H (4.8-10.8) X10*3/uL Hgb 15.0 15.1 (14.0-18.0) g/dl Hct 45.1 D 44.9 (42.0-52.0) % Plt Count 508 H D 489 H (160-400) X10*3/uL BMP 06/16/25 06/17/25 06/17/25 13:12 05:37 09:52 Sodium 133 L 134 L 135 Potassium 5.2 H 6.3 H* D 5.2 H Chloride 100 102 101 Carbon Dioxide 24 23 23 BUN 24 H 31 H 28 H Creatinine 0.95 0.97 0.93 Calcium 9.3 D 9.3 9.7 Liver Function 06/16/25 06/17/25 Range/Units 13:12 05:37 Total Bilirubin 0.8 0.8 (0.0-1.0) mg/dL AST 33 27 (5-37) U/L ALT 40 30 (0-40) U/L Alkaline Phosphatase 158 H 134 H (39-117) U/L Albumin 3.5 3.3 L (3.5-5.0) g/dL All other labs normal. <Sarita Pinzon PA-C - Last Filed: 06/17/25 11:37> Imaging Abdomen CT scan report/results: report reviewed and image reviewed <Sariat Pinzon PA-C - Last Filed: 06/17/25 11:37> Additional studies: labs reviewed <Sarita Pinzon PA-C - Last Filed: 06/17/25 11:37> Assessment and Plan (1) Gastric outlet obstruction: Status: Acute <Sarita Pinzon PA-C - Last Filed: 06/17/25 11:37> Patient known to the service for gastric adenocarcinoma Had stenting done Readmitted for vomiting - he describes this as bilious so this suggest some degree of patency of his duodenum and pylorus to allow reflux of bile into the stomach Also, the stomach distended appeared to be markedly distended Large volume ascites noted on follow up CAT scan he appears to have advanced tumor Oncology consult for chemotherapy earlier to allow shrinkage of tumor Abdomen is soft and benign TPN Seen and examined independently <Son Frazier MD - Last Filed: 06/18/25 13:46> 64 year old male with PMH significant for gastric outlet syndrome secondary to metastatic gastric adenoCA s/p stent placement during his last admission. His stomach is not significantly distended and he has had bilious vomiting which suggests some patency of the area. The vomiting is likely multifactorial. Would recommend heme/onc consult for urgent treatment to try to shrink down the size of the CA. Can continue with antiemetics for now, IV hydration, may benefit from PPN or TPN again until he can increase his PO intake. If he has continued vomiting, may benefit from NGT. Paracentesis to reduce ascites would also allow some symptomatic benefit. Currently no surgical intervention warranted. <Sarita Pinzon PA-C - Last Filed: 06/17/25 11:37> Procedures Date of Service Date of Service: 06/17/25 <Sarita Pinzon PA-C - Last Filed: 06/17/25 11:37> 06/18/25 <Son Frazier MD - Last Filed: 06/18/25 13:46>
[2025-06-17 11:25] LABS: Glucose, Whole Blood 168 mg/dL (60-115)
--- NOTE | 2025-06-17 13:22 | MHC.CM.PN ---
PT LIVES WITHWIFE IS IN DEPENDNT HAS NO SERVICES HAS A RIDE HOM[facility]AN HOME N/S
--- NOTE | 2025-06-17 14:14 | HO.PM.IMPN ---
Subjective Subjective Date of Service: 06/17/25 Interval History: Pt had intractable nausea and vomiting this am, not responding to zofran, unable to keep anything down, dexamethasone IV added, with some improvement in sx, pt seen, family at bedside, appears uncomfortable and sick, states that he feels nauseus but vomiting has improved somewhat after steroids, complains of poor appetite and genelized malaise, Review of Systems -ve except as stated above Physical Exam Exam: Exam: General: Alert, oriented x 3 Well nourished and cooperative. Afebrile. Heart: RRR, Lungs: Decreased breath sounds at bases, no wheezes, rales, or rhonchi. Normal respiratory effort. Abdomen: Hard, distended, nontenderness, hyperactive bowel sounds in all quadrants. Extremities: No calf tenderness bilaterally, no swelling Musculoskeletal: No joint swelling, deformity, or tenderness.. Skin: Warm/Dry. No pallor. No jaundice. Neurologic: Alert & oriented x4. Moving all extremities spontaneously. Normal speech. Psychological: Normal mood and affect. Thought process coherent. Vital Signs: Vital Signs: Last Vital Signs Temp 97.9 F 06/17/25 07:49 Pulse 88 06/17/25 07:49 Resp 17 06/17/25 07:49 BP 130/95 H 06/17/25 07:49 Pulse Ox 92 06/17/25 07:49 O2 Del Method Room Air 06/17/25 07:49 BMI result Body Mass Index 31.7 Objective Data Active Medications Acetaminophen (Acetaminophen 325 Mg Tablet) 650 mg PO Q6H PRN PRN Reason: Pain, Mild 1-3,fever,headache Dexamethasone Sodium Phosphate (Dexamethasone Sod Phosphate 4 Mg/Ml Vial) 2 mg IVPUSH Q8H PRN PRN Reason: Vomiting Last Admin: 06/17/25 09:28 Dose: 2 mg Documented By: DABAgustin Dextrose (Dextrose 50 % 25 Gm/50 Ml Syringe) 25 gm IVPUSH Q15M PRN; Protocol PRN Reason: per Hypoglycemia Standing Ord. Glucose (Glucose Gel 15 Gm Gel..Gram.) 15 gm PO Q15M PRN; Protocol PRN Reason: per Hypoglycemia Standing Ord. Hydromorphone HCl (Hydromorphone Hcl 1 Mg/Ml Syringe) 1 mg IVPUSH Q3H PRN; Protocol PRN Reason: abdominal pain Last Admin: 06/17/25 13:37 Dose: 1 mg Documented By: FAIZA Sodium Chloride (Ns) 1,000 mls @ 100 mls/hr IVCONT .Q10H [facility] Last Admin: 06/17/25 06:24 Dose: 100 mls/hr Documented By: VANESSA Insulin Human Lispro (Insulin Lispro 100 Unit/Ml 3 Ml Vial) 0 unit SUBCUT QIDACHS [facility]; Protocol Last Admin: 06/17/25 11:56 Dose: Not Given Documented By: FAIZA Non-Admin Reason: No Insulin Coverage Labetalol HCl (Labetalol Hcl 100 Mg/20 Ml Vial) 5 mg IVPUSH Q4H PRN PRN Reason: sbp Metoclopramide HCl (Metoclopramide Hcl 10 Mg/2 Ml Vial) 10 mg IVPUSH Q6H PRN PRN Reason: Nausea and Vomiting Last Admin: 06/17/25 11:52 Dose: 10 mg Documented By: FAIZA Ondansetron HCl (Ondansetron Hcl 4 Mg/2 Ml Vial) 4 mg IVPUSH Q6H PRN PRN Reason: Nausea and Vomiting Last Admin: 06/17/25 09:56 Dose: 4 mg Documented By: FAIZA Pantoprazole Sodium (Pantoprazole Sodium 40 Mg/10 Ml Vial) 40 mg IVPUSH BID@0630,1630 [facility] Last Admin: 06/17/25 06:03 Dose: 40 mg Documented By: VANESSA Sodium Chloride (0.9 % Sodium Chloride Flush 3 Ml Syringe) 3 ml IVFLUSH QSHIFT [facility] Last Admin: 06/17/25 13:41 Dose: Not Given Documented By: FAIZA Non-Admin Reason: IV Running Labs 06/17/25 05:37 06/17/25 09:52 Labs: Laboratory Results - last 24 hr 06/16/25 06/17/25 06/17/25 20:36 05:37 06:39 MCV 90.9 MCH 30.6 MCHC 33.6 RDW 12.4 Plt Count 489 H MPV 9.6 Immature Gran % (Auto) 2.6 H Neut % (Auto) 83.6 H Lymph % (Auto) 6.1 L [place] % (Auto) 7.0 Eos % (Auto) 0.2 Baso % (Auto) 0.5 Lymph # (Auto) 1.2 [place] # (Auto) 1.4 H Eos # (Auto) 0.0 Baso # (Auto) 0.1 Abs Immat Gran (auto) 0.51 H Absolute Neuts (auto) 16.2 H Absolute Nucleated RBC 0.000 Nucleated RBC % (auto) 0.0 PT 13.5 H INR 1.2 H Anion Gap 15 Estim Creat Clear Calc 84.7 Estimated GFR > 60 POC Glucose 163 H 142 H Random Glucose 139 H Calcium 9.3 Magnesium 2.2 Total Bilirubin 0.8 AST 27 ALT 30 Alkaline Phosphatase 134 H Total Protein 6.7 Albumin 3.3 L 06/17/25 06/17/25 06/17/25 07:18 09:52 11:07 MCV MCH MCHC RDW Plt Count MPV Immature Gran % (Auto) Neut % (Auto) Lymph % (Auto) [place] % (Auto) Eos % (Auto) Baso % (Auto) Lymph # (Auto) [place] # (Auto) Eos # (Auto) Baso # (Auto) Abs Immat Gran (auto) Absolute Neuts (auto) Absolute Nucleated RBC Nucleated RBC % (auto) PT INR Anion Gap 16 Estim Creat Clear Calc 88.3 Estimated GFR > 60 POC Glucose 206 H 168 H Random Glucose 134 H Calcium 9.7 Magnesium Total Bilirubin AST ALT Alkaline Phosphatase Total Protein Albumin Assessment and Plan (1) HTN (hypertension): Status: Acute (2) Gastric outlet obstruction: Status: Acute (3) Fatty liver: Status: Acute (4) Elevated liver enzymes: Status: Acute (5) Gastric adenocarcinoma: Status: Acute (6) Ascites: Status: Acute (7) Hyperkalemia: Status: Acute (8) BPH (benign prostatic hyperplasia): Status: Acute (9) HLD (hyperlipidemia): Status: Acute Plan Joe Hampton is a 64 y/o man w/ PMHx significant for metastatic gastric adenocarcinoma, recent hospitalization due to gastric outlet obstruction s/p stenting who presents with: Gastric outlet obstruction Nausea/Vomiting cancer related pain s/p stenting, recurrent --> abdominal pain, nausea and vomiting. was made NPO OA. CLD for now, advance as tolerated nausea control with zofran, iv dexamethasone, and if still remains uncontrolled can add metoclopramide IVF pain control with IV dilaudid surgery and GI consulted OA. Dark emesis, possible coffee-ground. Protonix 40 mg IV b.i.d.. Continue to monitor H&H. stable Ascites, likely malignant. IR consult for paracentesis. labs placed Gastric adenocarcinoma, metastatic --> liver and possibly omentum. Heme/oncology consulted. Pt has a chemo port; per oncology Awaiting molecular studies on liver biopsy to recommend, palliative systemic therapy. clear evidence of rapid disease progression. Type 2 diabetes mellitus. pocs, Insulin sliding scale. hypoglycemic measures Essential hypertension. resume amlodipine, hold losartan for now, Hyperkalemia, improving, cont to monitor lokeldc ordered this am Chronic bilateral pleural effusions, likely embolic. No acute respiratory symptoms reported. Oxygen saturation is normal on RA. Recent aspiration pneumonia. No acute respiratory symptoms reported. Completed a course of Augmentin. Hyperlipidemia. Continue statin when at home BPH. Continue finasteride Code status: Full DVT prophylaxis: SCDs (coffee ground emesis). Quality Stroke Does the patient have a stroke diagnosis?: No VTE Prior VTE?: No VTE Risk Level:: Medical - moderate - high VTE Device Contraindication: N/A - Device Ordered VTE Drug Contraindication: N/A - Med Ordered
[2025-06-17 14:41] LABS: Anion Gap 17 (12-20); Carbon Dioxide 17 mmol/L (22-29); Chloride 104 mmol/L (96-108); Potassium 5.3 mmol/L (3.3-5.1); Sodium 133 mmol/L (135-145)
[2025-06-17] MEDS: Lidocaine HCl 1 % MPF 5 ML VIAL SUBCUT (14:49)
[2025-06-17 15:15] LABS: MN% 60.8 %; PMN% 39.2 %; WBC Peritoneal Fluid 2.989 X10*3/uL
[2025-06-17 15:32] VITALS: BP 138/88; PULSE 75; RESP 18; TEMP 36.4; O2SAT 94
[2025-06-17 16:34] LABS: Glucose, Whole Blood 186 mg/dL (60-115)
[2025-06-17 16:44] LABS: Lymphocyte Peritoneal Fl 47 %; Monocytes Peritoneal Fl 22 %; Neutrophils Peritoneal Fluid 31 %
[2025-06-17 16:47] LABS: BF Shift QC OK YES; Man Diluent Bkgrd OK YES
[2025-06-17 19:54] VITALS: BP 147/85; PULSE 79; RESP 18; TEMP 36.6; O2SAT 98
[2025-06-17 20:34] LABS: Glucose, Whole Blood 205 mg/dL (60-115)
[2025-06-17] MEDS: Magnesium Hydrox/Alum Hydrox 30 ML ORAL.SUSP PO (22:35)
[2025-06-18 02:59] VITALS: BP 158/94; PULSE 70; RESP 20; TEMP 36.1; O2SAT 95
[2025-06-18 06:29] LABS: Hematocrit 44.0 % (42.0-52.0); Hemoglobin 14.8 g/dl (14.0-18.0); Mean Corpuscular HGB Conc 33.6 g/dl (31.0-36.0); Mean Corpuscular Hemoglobin 30.4 pg (27.0-33.0); Mean Corpuscular Volume 90.3 fL (80.0-98.0); NRBC Abs Auto 0.000 X10*3/uL (0.0-0.012); NRBC Pct Auto 0.0 /100WBC (0.0-0.2); Platelet Count 439 X10*3/uL (160-400); Red Blood Count 4.87 X10*6/uL (4.60-5.80); White Blood Count 20.6 X10*3/uL (4.8-10.8)
[2025-06-18 06:48] LABS: Alanine Aminotransferase 28 U/L (0-40); Albumin Level 3.0 g/dL (3.5-5.0); Alkaline Phosphatase 103 U/L (39-117); Anion Gap 14 (12-20); Aspartate Amino Transferase 21 U/L (5-37); Blood Urea Nitrogen 30 mg/dL (9-16); Calcium 9.1 mg/dL (8.4-10.2); Carbon Dioxide 23 mmol/L (22-29); Chloride 102 mmol/L (96-108); Creatinine Clr Calc Pharmacy 87.4; Estimated Glomerular Filt Rate > 60; Potassium 5.6 mmol/L (3.3-5.1); Sodium 133 mmol/L (135-145); Total Protein 6.0 g/dL (6.5-8.0)
[2025-06-18 07:44] VITALS: PULSE 78; RESP 18; TEMP 36.4; O2SAT 93
[2025-06-18 07:52] LABS: Glucose, Whole Blood 177 mg/dL (60-115)
--- NOTE | 2025-06-18 08:33 | P.PNGS_ITS ---
Subjective Subjective Date of Service: 06/19/25 Interval history: Had 2 episodes of vomiting overnight Says he did feel better after paracentesis yesterday Physical Exam 2 Vital Signs: Vital Signs: Last Vital Signs Temp 97.5 F 06/18/25 07:44 Pulse 78 06/18/25 07:44 Resp 18 06/18/25 07:44 BP 158/94 H 06/18/25 02:59 Pulse Ox 93 06/18/25 07:44 O2 Del Method Room Air 06/18/25 07:44 BMI result Body Mass Index 31.7 Const: Other: Appears uncomfortable from nausea earlier General: no acute distress Resp: Effort & Inspection: normal respiratory effort Cardio: Rate: regular rate GI: Palpation (GI): Soft to palpation, not firm and no guarding Objective Data Active Medications Acetaminophen (Acetaminophen 325 Mg Tablet) 650 mg PO Q6H PRN PRN Reason: Pain, Mild 1-3,fever,headache Last Admin: 06/17/25 20:06 Dose: 650 mg Documented By: RAE Amlodipine Besylate (Amlodipine Besylate 10 Mg Tablet) 10 mg PO DAILY [facility]; Protocol Last Admin: 06/18/25 08:30 Dose: Not Given Documented By: FAIZA Non-Admin Reason: NPO Dexamethasone Sodium Phosphate (Dexamethasone Sod Phosphate 4 Mg/Ml Vial) 2 mg IVPUSH Q8H PRN PRN Reason: Vomiting Last Admin: 06/18/25 05:32 Dose: 2 mg Documented By: RAE Dextrose (Dextrose 50 % 25 Gm/50 Ml Syringe) 25 gm IVPUSH Q15M PRN; Protocol PRN Reason: per Hypoglycemia Standing Ord. Finasteride (Finasteride 5 Mg Tablet) 5 mg PO DAILY [facility] Last Admin: 06/18/25 08:31 Dose: Not Given Documented By: FAIZA Non-Admin Reason: NPO Glucose (Glucose Gel 15 Gm Gel..Gram.) 15 gm PO Q15M PRN; Protocol PRN Reason: per Hypoglycemia Standing Ord. Hydromorphone HCl (Hydromorphone Hcl 1 Mg/Ml Syringe) 1 mg IVPUSH Q3H PRN; Protocol PRN Reason: abdominal pain Last Admin: 06/18/25 07:31 Dose: 1 mg Documented By: FAIZA Sodium Chloride (Ns) 1,000 mls @ 100 mls/hr IVCONT .Q10H [facility] Last Admin: 06/18/25 05:33 Dose: 100 mls/hr Documented By: RAE Insulin Human Lispro (Insulin Lispro 100 Unit/Ml 3 Ml Vial) 0 unit SUBCUT QIDACHS [facility]; Protocol Last Admin: 06/18/25 08:20 Dose: Not Given Documented By: FAIZA Non-Admin Reason: NPO Labetalol HCl (Labetalol Hcl 100 Mg/20 Ml Vial) 5 mg IVPUSH Q4H PRN PRN Reason: sbp Metoclopramide HCl (Metoclopramide Hcl 10 Mg/2 Ml Vial) 10 mg IVPUSH Q6H PRN PRN Reason: Nausea and Vomiting Last Admin: 06/18/25 02:44 Dose: 10 mg Documented By: RAE Ondansetron HCl (Ondansetron Hcl 4 Mg/2 Ml Vial) 4 mg IVPUSH Q6H PRN PRN Reason: Nausea and Vomiting Last Admin: 06/18/25 07:33 Dose: 4 mg Documented By: FAIZA Pantoprazole Sodium (Pantoprazole Sodium 40 Mg/10 Ml Vial) 40 mg IVPUSH BID@0630,1630 [facility] Last Admin: 06/18/25 05:32 Dose: 40 mg Documented By: RAE Sodium Chloride (0.9 % Sodium Chloride Flush 3 Ml Syringe) 3 ml IVFLUSH QSHIFT [facility] Last Admin: 06/18/25 08:29 Dose: Not Given Documented By: FAIZA Non-Admin Reason: IV Running Labs 06/19/25 06:00 06/19/25 06:00 Labs: Laboratory Results - last 24 hr 06/17/25 06/17/25 06/17/25 09:52 11:07 12:38 MCV MCH MCHC RDW Plt Count MPV Absolute Nucleated RBC Nucleated RBC % (auto) Anion Gap 16 17 Estim Creat Clear Calc 88.3 Estimated GFR > 60 POC Glucose 168 H Random Glucose 134 H Calcium 9.7 Total Bilirubin AST ALT Alkaline Phosphatase Total Protein Albumin Peritoneal WBC Peritoneal RBC Periton Neutrophils Periton Lymphocytes Peritoneal Monocytes 06/17/25 06/17/25 06/17/25 14:10 16:30 20:30 MCV MCH MCHC RDW Plt Count MPV Absolute Nucleated RBC Nucleated RBC % (auto) Anion Gap Estim Creat Clear Calc Estimated GFR POC Glucose 186 H 205 H Random Glucose Calcium Total Bilirubin AST ALT Alkaline Phosphatase Total Protein Albumin Peritoneal WBC 2.989 Peritoneal RBC 0.002 Periton Neutrophils 31 Periton Lymphocytes 47 Peritoneal Monocytes 22 06/18/25 06/18/25 06:03 07:47 MCV 90.3 MCH 30.4 MCHC 33.6 RDW 12.1 Plt Count 439 H MPV 9.7 Absolute Nucleated RBC 0.000 Nucleated RBC % (auto) 0.0 Anion Gap 14 Estim Creat Clear Calc 87.4 Estimated GFR > 60 POC Glucose 177 H Random Glucose 173 H Calcium 9.1 D Total Bilirubin 0.7 AST 21 ALT 28 Alkaline Phosphatase 103 Total Protein 6.0 L Albumin 3.0 L Peritoneal WBC Peritoneal RBC Periton Neutrophils Periton Lymphocytes Peritoneal Monocytes Microbiology Microbiology Results: Microbiology 06/17/25 14:10 Anaerobic Culture - Preliminary Ascites Fluid No growth to date. Body Fluid Culture - Preliminary No growth after 1 day Procedures Date of Service Date of Service: 06/19/25 Progress Note: A&P Assessment and plan (1) Gastric adenocarcinoma: Status: Acute Assessment and Plan: Had vomited multiple times overnight NG tube reinsertion ordered Vomitus is bilious, and CAT scan he had that the stomach was not significantly distended with a stent appearing to be in position Abdomen is soft We will discuss with Oncology with regards to starting chemotherapy Stable otherwise Appears to have advanced disease with ascites Paracentesis done yesterday Time Spent With Patient Time: Total time managing care of this patient today ____ minutes. Quality Stroke Does the patient have a stroke diagnosis?: No VTE Prior VTE?: No VTE Risk Level:: Medical - moderate - high VTE Device Contraindication: N/A - Device Ordered VTE Drug Contraindication: N/A - Med Ordered
[2025-06-18 09:07] LABS: Magnesium 2.2 mg/dL (1.6-2.6); Triglycerides 114 mg/dL (<150)
--- NOTE | 2025-06-18 10:32 | MHC.CM.PN ---
Patient not medically cleared for dc. CM will continue to follow.
[2025-06-18 10:36] VITALS: BMI 31.7
--- NOTE | 2025-06-18 10:46 | MHC.CLN ---
NUTRITION CONSULT FOR TPN SCHEDULED FOR PICC THIS AM. GASTRIC ADENOCARCINOMA, UNABLE TO TAKE ADEQUATE PO, REQUIRES NUTRITION/HYDRATION VIA TPN. REVIEWED LABS. COMMUNICATED WITH PHARMACY. RECOMMEND START TPN AT 40 ML PER HOUR TO PROVIDE 48 G PROTEIN, 144 G DEXTROSE, 682 KCALS. REPLETE LYTES NEEDED. FOLLOW FOR TPN TOLERANCE, LABS AND PO INTAKE. SEE CLINICAL NUTRITION ASSESSMENT 06/18/25.
--- NOTE | 2025-06-18 11:48 | P.PICC_ITS ---
PICC Line Insertion NPICC Diagnosis: Gastric Adenocarcinoma Indication: TPN Pertinent Labs: reviewed Technique: Following informed consent including risks, benefits and alternatives and using sterile technique including cap and mask, sterile gown, glove and drape, the right arm was prepped and draped in the usual sterile fashion of full barrier technique with CHG. Following completion of Conklin Protocol the skin and soft tissues were anesthetized with 1% Lidocaine plain. Using ultrasound guidance, right brachial vein access was obtained. Over an 0.018 wire through peel-away sheath, a 5FR triple lemen PASV PICC line was positioned. Catheter length is 41cm internal length, 0cm external length, for a total trimmed length of 41cm. The procedure was performed in [facility]. Tip verification was performed by Reena Barnhart with Sherlock 3CG. Tip located in SVC. Ultrasound was used to document vein patency and for needle entry. A formal ultrasound picture and cardiac rhythm strip was recorded. Vascular Clinical Safety Specialist has released the line for use and it is currently dressed with a StatLock, Tegaderm, and CHG disc. Verification has been performed for blood return and line patency. Arm Circumference: 29.5cm Equipment: [employer] POWER PICC SOLO HF Catheter with Sherlock 3CG Catheter Type: 5FR triple lumen picc Lot #: [id number]
[2025-06-18 12:02] LABS: Glucose, Whole Blood 178 mg/dL (60-115)
--- NOTE | 2025-06-18 13:02 | PC.NURSE ---
0700 pt vomiting 300mls of bile colored liquid , at bedside states place NGT . NGT placed at 0730 with no difficulty . pt states nasuea improved
--- NOTE | 2025-06-18 13:44 | PM.EVENT ---
Event Note Date of Service: 06/19/25 Event Note: Plan discussed with oncology Will need inpatient chemotherapy Arranging for transferred to [facility] NG tube in place Patient looks more comfortable Abdomen soft and benign Time Spent With Patient Time: Total time managing care of this patient today ____ minutes.
[2025-06-18 15:48] VITALS: BP 157/97; PULSE 75; RESP 18; TEMP 36.6; O2SAT 94
[2025-06-18 16:10] LABS: Glucose, Whole Blood 155 mg/dL (60-115)
--- NOTE | 2025-06-18 16:11 | HO.PM.IMPN ---
Subjective Subjective Date of Service: 06/18/25 Interval History: Pt seen this am, continues to have intractable nausea and vomiting, NGT was placed last night per surg reccs,. Spoke to onc this am, given minimal improvement in pt's clinical condition, despite being on 3 Antiemetics, it would probably be worthwhile to transfer pt to [facility] for inpt chemo. Spoke to Dr Jimenez who is GI onc affiliated with [facility], Pt has been aceepted, but he needs to be initiated on TPN and remain on it for 24 hrs before he can be tranferred. TPN will be initited tonight per pharmacy. cont with antiemetics for now. All records have been faxed to [facility]. Review of Systems -ve except above Physical Exam Exam: Exam: mild distress, NGT in place, abdomen less distended as compared to yesterday, non tender heart RRR resp: on RA, diminished BS moving all extremities, sensations intact, Vital Signs: Vital Signs: Last Vital Signs Temp 97.9 F 06/18/25 15:48 Pulse 75 06/18/25 15:48 Resp 18 06/18/25 15:48 BP 157/97 H 06/18/25 15:48 Pulse Ox 94 06/18/25 15:48 O2 Del Method Room Air 06/18/25 15:48 BMI result Body Mass Index 31.7 Objective Data Active Medications Acetaminophen (Acetaminophen 325 Mg Tablet) 650 mg PO Q6H PRN PRN Reason: Pain, Mild 1-3,fever,headache Last Admin: 06/18/25 12:37 Dose: 650 mg Documented By: FAIZA Amlodipine Besylate (Amlodipine Besylate 10 Mg Tablet) 10 mg PO DAILY [facility]; Protocol Last Admin: 06/18/25 08:30 Dose: Not Given Documented By: FAIZA Non-Admin Reason: NPO Dexamethasone Sodium Phosphate (Dexamethasone Sod Phosphate 4 Mg/Ml Vial) 2 mg IVPUSH Q8H PRN PRN Reason: Vomiting Last Admin: 06/18/25 05:32 Dose: 2 mg Documented By: RAE Dextrose (Dextrose 50 % 25 Gm/50 Ml Syringe) 25 gm IVPUSH Q15M PRN; Protocol PRN Reason: per Hypoglycemia Standing Ord. Finasteride (Finasteride 5 Mg Tablet) 5 mg PO DAILY [facility] Last Admin: 06/18/25 08:31 Dose: Not Given Documented By: FAIZA Non-Admin Reason: NPO Glucose (Glucose Gel 15 Gm Gel..Gram.) 15 gm PO Q15M PRN; Protocol PRN Reason: per Hypoglycemia Standing Ord. Hydromorphone HCl (Hydromorphone Hcl 1 Mg/Ml Syringe) 1 mg IVPUSH Q3H PRN; Protocol PRN Reason: abdominal pain Last Admin: 06/18/25 13:39 Dose: 1 mg Documented By: FAIZA Sodium Chloride (Ns) 1,000 mls @ 100 mls/hr IVCONT .Q10H [facility] Last Admin: 06/18/25 13:42 Dose: Not Given Documented By: FAIZA Non-Admin Reason: IV Running Nutrition (Parenteral) (Parenteral Nutrition) 960 mls @ 40 mls/hr IV .Q24H [facility]; Protocol Stop: 06/19/25 20:59 Insulin Human Lispro (Insulin Lispro 100 Unit/Ml 3 Ml Vial) 0 unit SUBCUT QIDACHS [facility]; Protocol Last Admin: 06/18/25 12:12 Dose: Not Given Documented By: FAIZA Non-Admin Reason: NPO Labetalol HCl (Labetalol Hcl 100 Mg/20 Ml Vial) 5 mg IVPUSH Q4H PRN PRN Reason: sbp Metoclopramide HCl (Metoclopramide Hcl 10 Mg/2 Ml Vial) 10 mg IVPUSH Q6H PRN PRN Reason: Nausea and Vomiting Last Admin: 06/18/25 02:44 Dose: 10 mg Documented By: RAE Ondansetron HCl (Ondansetron Hcl 4 Mg/2 Ml Vial) 4 mg IVPUSH Q6H PRN PRN Reason: Nausea and Vomiting Last Admin: 06/18/25 07:33 Dose: 4 mg Documented By: FAIZA Pantoprazole Sodium (Pantoprazole Sodium 40 Mg/10 Ml Vial) 40 mg IVPUSH BID@0630,1630 [facility] Last Admin: 06/18/25 05:32 Dose: 40 mg Documented By: RAE Pharmacy Consult (Consult Rx Parenteral Nutrition Ordering) 1 each MISCELLANE DAILY PRN PRN Reason: Consult order Sodium Chloride (0.9 % Sodium Chloride Flush 3 Ml Syringe) 3 ml IVFLUSH QSHIFT [facility] Last Admin: 06/18/25 14:39 Dose: Not Given Documented By: FAIZA Non-Admin Reason: IV Running Labs 06/18/25 06:03 06/18/25 06:03 Labs: Laboratory Results - last 24 hr 06/17/25 06/17/25 06/17/25 14:10 16:30 20:30 MCV MCH MCHC RDW Plt Count MPV Absolute Nucleated RBC Nucleated RBC % (auto) Anion Gap Estim Creat Clear Calc Estimated GFR POC Glucose 186 H 205 H Random Glucose Calcium Phosphorus Magnesium Total Bilirubin AST ALT Alkaline Phosphatase Total Protein Albumin Triglycerides Periton Neutrophils 31 Periton Lymphocytes 47 Peritoneal Monocytes 22 06/18/25 06/18/25 06/18/25 06:03 07:47 11:56 MCV 90.3 MCH 30.4 MCHC 33.6 RDW 12.1 Plt Count 439 H MPV 9.7 Absolute Nucleated RBC 0.000 Nucleated RBC % (auto) 0.0 Anion Gap 14 Estim Creat Clear Calc 87.4 Estimated GFR > 60 POC Glucose 177 H 178 H Random Glucose 173 H Calcium 9.1 D Phosphorus 4.2 Magnesium 2.2 Total Bilirubin 0.7 AST 21 ALT 28 Alkaline Phosphatase 103 Total Protein 6.0 L Albumin 3.0 L Triglycerides 114 Periton Neutrophils Periton Lymphocytes Peritoneal Monocytes 06/18/25 16:06 MCV MCH MCHC RDW Plt Count MPV Absolute Nucleated RBC Nucleated RBC % (auto) Anion Gap Estim Creat Clear Calc Estimated GFR POC Glucose 155 H Random Glucose Calcium Phosphorus Magnesium Total Bilirubin AST ALT Alkaline Phosphatase Total Protein Albumin Triglycerides Periton Neutrophils Periton Lymphocytes Peritoneal Monocytes Microbiology Microbiology Results: Microbiology 06/17/25 14:10 Gram Stain - Final Ascites Fluid Anaerobic Culture - Preliminary No growth to date. Body Fluid Culture - Preliminary No growth after 1 day Assessment and Plan (1) HTN (hypertension): Status: Acute (2) HLD (hyperlipidemia): Status: Acute (3) Diabetes: Status: Acute (4) Gastric outlet obstruction: Status: Acute (5) Fatty liver: Status: Acute (6) Ascites: Status: Acute (7) Hyperkalemia: Status: Acute (8) BPH (benign prostatic hyperplasia): Status: Acute (9) Leukocytosis: Status: Acute (10) Gastric adenocarcinoma: Status: Acute (11) Liver neoplasm: Status: Acute (12) Nausea and vomiting: Status: Acute (13) Nasogastric tube present: Status: Acute Plan Joe Hampton is a 64 y/o man w/ PMHx significant for metastatic gastric adenocarcinoma, recent hospitalization due to gastric outlet obstruction s/p stenting who presented with: Gastric outlet obstruction refer to discussion above, pt accepted at [facility] for possible axios stent for gastric outlet obstruction. Nausea/Vomiting cancer related pain s/p stenting, recurrent --> abdominal pain, nausea and vomiting. was made NPO OA. CLD for now, advance as tolerated nausea control with zofran, iv dexamethasone, reglan IVF NGT was placed Overnight for persistent vomiting, per surg reccs pain control with IV dilaudid surgery and GI consult appreciated Dark emesis, possible coffee-ground. Protonix 40 mg IV b.i.d.. Continue to monitor H&H. stable Ascites, likely malignant. 4.4 L removed on 06/17 by IR, labs pending Gastric adenocarcinoma, metastatic --> liver and possibly omentum. Heme/oncology consulted. Pt has a chemo port; persistent leucocytosis, reactive in the setting of cancer related stress per oncology Awaiting molecular studies on liver biopsy to recommend, palliative systemic therapy. clear evidence of rapid disease progression. Type 2 diabetes mellitus. pocs, Insulin sliding scale. hypoglycemic measures Essential hypertension. resume amlodipine, hold losartan for now, Hyperkalemia, improving, cont to monitor lokelma ordered Chronic bilateral pleural effusions, likely embolic. No acute respiratory symptoms reported. Oxygen saturation is normal on RA. Recent aspiration pneumonia. No acute respiratory symptoms reported. Completed a course of Augmentin. Hyperlipidemia. Continue statin when at home BPH. Continue finasteride Code status: Full DVT prophylaxis: SCDs (coffee ground emesis). OMN: TPN for 24 hrs, transfer to [facility], accepted already, Dr Jimenez accepting physician Quality Stroke Does the patient have a stroke diagnosis?: No VTE Prior VTE?: No VTE Risk Level:: Medical - moderate - high VTE Device Contraindication: N/A - Device Ordered VTE Drug Contraindication: N/A - Med Ordered
[2025-06-18 19:15] VITALS: PULSE 84; RESP 18; TEMP 36.6; O2SAT 95
[2025-06-18 20:23] LABS: Glucose, Whole Blood 171 mg/dL (60-115)
[2025-06-18] MEDS: Parenteral Nutrition 960 ML 40 ML IV (20:38)
[2025-06-18 20:39] VITALS: BP 156/94
[2025-06-18] MEDS: diazePAM 10 MG/2 ML CARTRIDGE IVPUSH (21:28)
[2025-06-18] MEDS: 0.9 % Sodium Chloride Flush 3 ML SYRINGE IVFLUSH (22:59)
[2025-06-18 23:01] VITALS: BP 164/98; PULSE 73; RESP 20; TEMP 36.5; O2SAT 94
[2025-06-19] VITALS (10 sets, daily range): BP systolic 150–174; BP diastolic 78–108; PULSE 69–89; RESP 12–20; TEMP 36.2–37; O2SAT 94–95
--- NOTE | 2025-06-19 04:11 | PM.EVENT ---
Event Note Date of Service: 06/19/25 Event Note: Received message from nursing that after initial dose of Valium earlier this evening related to abdominal pain and dealing with a new cancer diagnosis, patient was able to sleep 4-5 hours. Patient did get out of bed to use the bathroom and upon return to his bed again overwhelmed by the thought of dealing with stomach cancer and nursing requesting PRN dosing of Valium which has been very effective for patient's anxiety and pain management. Valium 10 mg q.4 IV PRN ordered but ordered to be held if patient lethargic or respiratory rate less than 12. Time Spent With Patient Time: Total time managing care of this patient today ____ minutes.
[2025-06-19] MEDS: diazePAM 10 MG/2 ML CARTRIDGE IVPUSH ×2 (04:34→23:51)
[2025-06-19 06:13] LABS: Hematocrit 41.2 % (42.0-52.0); Hemoglobin 13.7 g/dl (14.0-18.0); Mean Corpuscular HGB Conc 33.3 g/dl (31.0-36.0); Mean Corpuscular Hemoglobin 29.8 pg (27.0-33.0); Mean Corpuscular Volume 89.8 fL (80.0-98.0); NRBC Abs Auto 0.000 X10*3/uL (0.0-0.012); NRBC Pct Auto 0.0 /100WBC (0.0-0.2); Platelet Count 349 X10*3/uL (160-400); Red Blood Count 4.59 X10*6/uL (4.60-5.80); White Blood Count 14.6 X10*3/uL (4.8-10.8)
[2025-06-19 06:27] LABS: Anion Gap 12 (12-20); Blood Urea Nitrogen 38 mg/dL (9-16); Calcium 8.4 mg/dL (8.4-10.2); Carbon Dioxide 21 mmol/L (22-29); Chloride 106 mmol/L (96-108); Creatinine Clr Calc Pharmacy 94.3; Estimated Glomerular Filt Rate > 60; Magnesium 2.2 mg/dL (1.6-2.6); Potassium 5.2 mmol/L (3.3-5.1); Sodium 134 mmol/L (135-145)
[2025-06-19 06:43] LABS: Alanine Aminotransferase 13 U/L (0-40); Albumin Level 2.7 g/dL (3.5-5.0); Alkaline Phosphatase 79 U/L (39-117); Anion Gap 13 (12-20); Aspartate Amino Transferase 20 U/L (5-37); Blood Urea Nitrogen 43 mg/dL (9-16); Calcium 8.4 mg/dL (8.4-10.2); Carbon Dioxide 20 mmol/L (22-29); Chloride 106 mmol/L (96-108); Creatinine Clr Calc Pharmacy 95.4; Estimated Glomerular Filt Rate > 60; Potassium 5.2 mmol/L (3.3-5.1); Sodium 134 mmol/L (135-145); Total Protein 5.7 g/dL (6.5-8.0)
[2025-06-19 07:50] LABS: Glucose, Whole Blood 218 mg/dL (60-115)
[2025-06-19] MEDS: 0.9 % Sodium Chloride Flush 3 ML SYRINGE IVFLUSH ×3 (07:56→23:51)
--- NOTE | 2025-06-19 09:04 | PC.NURSE ---
Nursing Shift note from 06/18/25 [id number] 06/19/2025. Pt is alert oriented x 4. Patient with ongoing Nausea and abdominal discomfort and distention. NGT to LIS draining brown bilious and patient describes abdominal pain as aching and rates it a 5 on verbal pain score. Pt reports Dilauid helps a little with abdominal pain but feels causes increase nausea when administered. Patient also reporting he has had a difficulties being able to sleep with new cancer diagnosis and upcoming transfer to [facility]. [facility] MEDICARE INSURANCE SPECIALIST updated on patient's condition and patient's request for a different medication besides Dilaudid that as patient reports less harsh in causing nausea. MEDICARE INSURANCE SPECIALIST ordered Pepcid IV and 10mg Valium IV, as ordered and documented in [facility]. Patient reported pain level decreased to 3/4 verbal pain score, less nauseated and was able to sleep 3-4 hours after administration of Valium and per patient request additional dose of Valium 10mg IV provided at 0400 am. Throughout the shift patient verbalizing his concerns over plan of care regarding transfer to [facility] in regards to cancer diagnosis. Compassionate listening to the patients expressed concerns regarding cancer diagnosis provided and provide acknowledgement that this must be such a difficult time for him. Patient appeared more at ease and verbalized the Valium does calm him and provide him with periods of sleep. A [facility] RN authorization representative called and updated on patient's VS, labs and nutrition status with TPN started and infusing. Patient has been accepted and awaiting a bed at [facility].
--- NOTE | 2025-06-19 11:21 | MHC.CLN ---
F/U PICC PLACED YESTERDAY NGT IN PLACE NOTED PT PENDING POSSIBLE TRANSFER TO [facility] DIET IS NPO REVIEWED LABS COMMUNICATED WITH PHARMACY RECOMMEND INCREASING TPN TO MAX GOAL RATE OF 70ML/HR WITH 77G LIPIDS TO PROVIDE 1963 TOTAL KCALS (28KCALS/KG), 84G PROTEIN (1.2G/KG), 252G DEXTROSE REPLETE LYTES NEEDED
[2025-06-19 12:43] LABS: Glucose, Whole Blood 193 mg/dL (60-115)
--- NOTE | 2025-06-19 13:43 | PM.PNGS ---
Subjective Subjective Date of Service: 06/19/25 Interval history: No further vomiting since NG tube had been placed Some abdominal discomfort NG tube output bilious Stable vital signs Physical Exam Vital Signs: Vital Signs: Last Vital Signs Temp 97.7 F 06/19/25 07:59 Pulse 69 06/19/25 07:59 Resp 12 06/19/25 07:59 BP 150/100 H 06/19/25 08:55 Pulse Ox 95 06/19/25 07:59 O2 Del Method Room Air 06/19/25 07:59 BMI result Body Mass Index 31.7 Const: General: comfortable and no acute distress Resp: Effort & Inspection: normal respiratory effort Cardio: Rate: regular rate GI: Palpation (GI): Soft to palpation, not firm and no guarding Objective Data Active Medications Acetaminophen (Acetaminophen 325 Mg Tablet) 650 mg PO Q6H PRN PRN Reason: Pain, Mild 1-3,fever,headache Last Admin: 06/18/25 12:37 Dose: 650 mg Documented By: FAIZA Amlodipine Besylate (Amlodipine Besylate 10 Mg Tablet) 10 mg PO DAILY [facility]; Protocol Last Admin: 06/19/25 07:59 Dose: 10 mg Documented By: FAIZA Dexamethasone Sodium Phosphate (Dexamethasone Sod Phosphate 4 Mg/Ml Vial) 2 mg IVPUSH Q8H PRN PRN Reason: Vomiting Last Admin: 06/18/25 21:23 Dose: 2 mg Documented By: WESTON Dextrose (Dextrose 50 % 25 Gm/50 Ml Syringe) 25 gm IVPUSH Q15M PRN; Protocol PRN Reason: per Hypoglycemia Standing Ord. Diazepam (Diazepam 10 Mg/2 Ml Cartridge) 10 mg IVPUSH Q4H PRN PRN Reason: Anxiety Last Admin: 06/19/25 04:34 Dose: 10 mg Documented By: WESTON Comments: pt requesting for anxiety . RR 20 Famotidine (Famotidine/Pf 20 Mg/2 Ml Vial) 20 mg IVPUSH DAILY [facility] Last Admin: 06/19/25 07:59 Dose: 20 mg Documented By: FAIZA Finasteride (Finasteride 5 Mg Tablet) 5 mg PO DAILY [facility] Last Admin: 06/19/25 08:29 Dose: Not Given Documented By: FAIZA Non-Admin Reason: NPO Glucose (Glucose Gel 15 Gm Gel..Gram.) 15 gm PO Q15M PRN; Protocol PRN Reason: per Hypoglycemia Standing Ord. Hydromorphone HCl (Hydromorphone Hcl 1 Mg/Ml Syringe) 1 mg IVPUSH Q3H PRN; Protocol PRN Reason: abdominal pain Last Admin: 06/19/25 08:30 Dose: 1 mg Documented By: FAIZA Nutrition (Parenteral) (Parenteral Nutrition) 960 mls @ 40 mls/hr IV .Q24H [facility]; Protocol Stop: 06/19/25 20:59 Last Admin: 06/18/25 20:38 Dose: 40 mls/hr Documented By: WESTON Nutrition (Parenteral) (Parenteral Nutrition) 1,680 mls @ 70 mls/hr IV .Q24H [facility]; Protocol Stop: 06/20/25 20:59 Insulin Human Lispro (Insulin Lispro 100 Unit/Ml 3 Ml Vial) 0 unit SUBCUT QIDACHS [facility]; Protocol Last Admin: 06/19/25 12:40 Dose: Not Given Documented By: FAIZA Non-Admin Reason: NPO Labetalol HCl (Labetalol Hcl 100 Mg/20 Ml Vial) 5 mg IVPUSH Q4H PRN PRN Reason: sbp Metoclopramide HCl (Metoclopramide Hcl 10 Mg/2 Ml Vial) 10 mg IVPUSH Q6H PRN PRN Reason: Nausea and Vomiting Last Admin: 06/18/25 02:44 Dose: 10 mg Documented By: RAE Ondansetron HCl (Ondansetron Hcl 4 Mg/2 Ml Vial) 4 mg IVPUSH Q6H PRN PRN Reason: Nausea and Vomiting Last Admin: 06/19/25 08:30 Dose: 4 mg Documented By: FAIZA Pantoprazole Sodium (Pantoprazole Sodium 40 Mg/10 Ml Vial) 40 mg IVPUSH BID@0630,1630 [facility] Last Admin: 06/19/25 06:33 Dose: 40 mg Documented By: WESTON Pharmacy Consult (Consult Rx Parenteral Nutrition Ordering) 1 each MISCELLANE DAILY PRN PRN Reason: Consult order Sodium Chloride (0.9 % Sodium Chloride Flush 3 Ml Syringe) [address] [facility] Last Admin: 06/19/25 07:56 Dose: 3 ml Documented By: FAIZA Labs 06/19/25 06:00 06/19/25 06:00 Labs: Laboratory Results - last 24 hr 06/18/25 06/18/25 06/19/25 16:06 20:19 06:00 MCV 89.8 MCH 29.8 MCHC 33.3 RDW 12.2 Plt Count 349 MPV 9.2 L Absolute Nucleated RBC 0.000 Nucleated RBC % (auto) 0.0 Anion Gap 13 Estim Creat Clear Calc Estimated GFR POC Glucose 155 H 171 H Random Glucose Calcium Phosphorus Magnesium Total Bilirubin AST ALT Alkaline Phosphatase Total Protein Albumin 06/19/25 06/19/25 06/19/25 06:00 06:00 06:00 MCV MCH MCHC RDW Plt Count MPV Absolute Nucleated RBC Nucleated RBC % (auto) Anion Gap 12 Estim Creat Clear Calc 95.4 94.3 Estimated GFR > 60 > 60 POC Glucose Random Glucose 217 H Calcium Phosphorus Magnesium Total Bilirubin AST ALT Alkaline Phosphatase Total Protein Albumin 06/19/25 06/19/25 06/19/25 06:00 06:00 07:45 MCV MCH MCHC RDW Plt Count MPV Absolute Nucleated RBC Nucleated RBC % (auto) Anion Gap Estim Creat Clear Calc Estimated GFR POC Glucose 218 H Random Glucose 212 H Calcium 8.4 D 8.4 Phosphorus 3.9 Magnesium 2.2 Total Bilirubin 0.5 AST 20 ALT 13 Alkaline Phosphatase 79 Total Protein 5.7 L Albumin 2.7 L 06/19/25 12:39 MCV MCH MCHC RDW Plt Count MPV Absolute Nucleated RBC Nucleated RBC % (auto) Anion Gap Estim Creat Clear Calc Estimated GFR POC Glucose 193 H Random Glucose Calcium Phosphorus Magnesium Total Bilirubin AST ALT Alkaline Phosphatase Total Protein Albumin Microbiology Microbiology Results: Microbiology 06/17/25 14:10 Gram Stain - Final Ascites Fluid Anaerobic Culture - Preliminary No growth to date. Body Fluid Culture - Final No growth after 2 days Procedures Date of Service Date of Service: 06/19/25 Progress Note: A&P Assessment and plan (1) Gastric adenocarcinoma: Status: Acute Assessment and Plan: Locally advanced, with ascites He has had no vomiting with the NG tube in place Awaiting transfer to [facility] for inpatient chemotherapy Abdomen is soft and benign NG-tube in place Time Spent With Patient Time: Total time managing care of this patient today ____ minutes. Quality Stroke Does the patient have a stroke diagnosis?: No VTE Prior VTE?: No VTE Risk Level:: Medical - moderate - high VTE Device Contraindication: N/A - Device Ordered VTE Drug Contraindication: N/A - Med Ordered
--- NOTE | 2025-06-19 14:41 | P.PNIM_ITS ---
Subjective Subjective Date of Service: 06/19/25 Interval History: Patient seen and examined at bedside this morning, patient states that he is feeling so-so , continues on TPN, with NG tube in place, awaiting bed at [facility] for transfer. Physical Exam 2 Exam: Exam: General: AxOx3, mild distress Head: AT/NC ENT: Moist mucous membranes, NG tube in place Neck: supple CVS; RRR, S1 S2 normal Lungs: Clear bilateral breath sounds, no wheezes or crackles Abd: distended w/ edema, non tender Ext: No edema and no calf tenderness MSK: moving all 4 limbs Skin: No cyanosis or edema Psych: Cooperative with exam Neurology: no focal deficit Vital Signs: Vital Signs: Last Vital Signs Temp 97.7 F 06/19/25 07:59 Pulse 69 06/19/25 07:59 Resp 12 06/19/25 07:59 BP 150/100 H 06/19/25 08:55 Pulse Ox 95 06/19/25 07:59 O2 Del Method Room Air 06/19/25 07:59 BMI result Body Mass Index 31.7 Objective Data Active Medications Acetaminophen (Acetaminophen 325 Mg Tablet) 650 mg PO Q6H PRN PRN Reason: Pain, Mild 1-3,fever,headache Last Admin: 06/18/25 12:37 Dose: 650 mg Documented By: FAIZA Amlodipine Besylate (Amlodipine Besylate 10 Mg Tablet) 10 mg PO DAILY [facility]; Protocol Last Admin: 06/19/25 07:59 Dose: 10 mg Documented By: FAIZA Dexamethasone Sodium Phosphate (Dexamethasone Sod Phosphate 4 Mg/Ml Vial) 2 mg IVPUSH Q8H PRN PRN Reason: Vomiting Last Admin: 06/19/25 14:14 Dose: 2 mg Documented By: FAIZA Dextrose (Dextrose 50 % 25 Gm/50 Ml Syringe) 25 gm IVPUSH Q15M PRN; Protocol PRN Reason: per Hypoglycemia Standing Ord. Diazepam (Diazepam 10 Mg/2 Ml Cartridge) 10 mg IVPUSH Q4H PRN PRN Reason: Anxiety Last Admin: 06/19/25 04:34 Dose: 10 mg Documented By: WESTON Comments: pt requesting for anxiety . RR 20 Famotidine (Famotidine/Pf 20 Mg/2 Ml Vial) 20 mg IVPUSH DAILY [facility] Last Admin: 06/19/25 07:59 Dose: 20 mg Documented By: FAIZA Finasteride (Finasteride 5 Mg Tablet) 5 mg PO DAILY [facility] Last Admin: 06/19/25 08:29 Dose: Not Given Documented By: FAIZA Non-Admin Reason: NPO Glucose (Glucose Gel 15 Gm Gel..Gram.) 15 gm PO Q15M PRN; Protocol PRN Reason: per Hypoglycemia Standing Ord. Hydromorphone HCl (Hydromorphone Hcl 1 Mg/Ml Syringe) 1 mg IVPUSH Q3H PRN; Protocol PRN Reason: abdominal pain Last Admin: 06/19/25 08:30 Dose: 1 mg Documented By: FAIZA Nutrition (Parenteral) (Parenteral Nutrition) 960 mls @ 40 mls/hr IV .Q24H [facility]; Protocol Stop: 06/19/25 20:59 Last Admin: 06/18/25 20:38 Dose: 40 mls/hr Documented By: WESTON Nutrition (Parenteral) (Parenteral Nutrition) 1,680 mls @ 70 mls/hr IV .Q24H [facility]; Protocol Stop: 06/20/25 20:59 Insulin Human Lispro (Insulin Lispro 100 Unit/Ml 3 Ml Vial) 0 unit SUBCUT QIDACHS [facility]; Protocol Last Admin: 06/19/25 12:40 Dose: Not Given Documented By: FAIZA Non-Admin Reason: NPO Labetalol HCl (Labetalol Hcl 100 Mg/20 Ml Vial) 5 mg IVPUSH Q4H PRN PRN Reason: sbp Metoclopramide HCl (Metoclopramide Hcl 10 Mg/2 Ml Vial) 10 mg IVPUSH Q6H PRN PRN Reason: Nausea and Vomiting Last Admin: 06/18/25 02:44 Dose: 10 mg Documented By: RAE Ondansetron HCl (Ondansetron Hcl 4 Mg/2 Ml Vial) 4 mg IVPUSH Q6H PRN PRN Reason: Nausea and Vomiting Last Admin: 06/19/25 08:30 Dose: 4 mg Documented By: FAIZA Pantoprazole Sodium (Pantoprazole Sodium 40 Mg/10 Ml Vial) 40 mg IVPUSH BID@0630,1630 [facility] Last Admin: 06/19/25 06:33 Dose: 40 mg Documented By: WESTON Pharmacy Consult (Consult Rx Parenteral Nutrition Ordering) 1 each MISCELLANE DAILY PRN PRN Reason: Consult order Sodium Chloride (0.9 % Sodium Chloride Flush 3 Ml Syringe) 3 ml IVFLUSH QSHIFT [facility] Last Admin: 06/19/25 14:20 Dose: 3 ml Documented By: FAIZA Labs 06/19/25 06:00 06/19/25 06:00 Labs: Laboratory Results - last 24 hr 06/18/25 06/18/25 06/19/25 16:06 20:19 06:00 MCV 89.8 MCH 29.8 MCHC 33.3 RDW 12.2 Plt Count 349 MPV 9.2 L Absolute Nucleated RBC 0.000 Nucleated RBC % (auto) 0.0 Anion Gap 13 Estim Creat Clear Calc Estimated GFR POC Glucose 155 H 171 H Random Glucose Calcium Phosphorus Magnesium Total Bilirubin AST ALT Alkaline Phosphatase Total Protein Albumin 06/19/25 06/19/25 06/19/25 06:00 06:00 06:00 MCV MCH MCHC RDW Plt Count MPV Absolute Nucleated RBC Nucleated RBC % (auto) Anion Gap 12 Estim Creat Clear Calc 95.4 94.3 Estimated GFR > 60 > 60 POC Glucose Random Glucose 217 H Calcium Phosphorus Magnesium Total Bilirubin AST ALT Alkaline Phosphatase Total Protein Albumin 06/19/25 06/19/25 06/19/25 06:00 06:00 07:45 MCV MCH MCHC RDW Plt Count MPV Absolute Nucleated RBC Nucleated RBC % (auto) Anion Gap Estim Creat Clear Calc Estimated GFR POC Glucose 218 H Random Glucose 212 H Calcium 8.4 D 8.4 Phosphorus 3.9 Magnesium 2.2 Total Bilirubin 0.5 AST 20 ALT 13 Alkaline Phosphatase 79 Total Protein 5.7 L Albumin 2.7 L 06/19/25 12:39 MCV MCH MCHC RDW Plt Count MPV Absolute Nucleated RBC Nucleated RBC % (auto) Anion Gap Estim Creat Clear Calc Estimated GFR POC Glucose 193 H Random Glucose Calcium Phosphorus Magnesium Total Bilirubin AST ALT Alkaline Phosphatase Total Protein Albumin Microbiology Microbiology Results: Microbiology 06/17/25 14:10 Gram Stain - Final Ascites Fluid Anaerobic Culture - Preliminary No growth to date. Body Fluid Culture - Final No growth after 2 days Assessment and Plan (1) Diabetes: Status: Acute (2) Gastric outlet obstruction: Status: Acute (3) Nausea and vomiting: Status: Acute (4) Ascites: Status: Acute (5) Leukocytosis: Status: Acute (6) Gastric adenocarcinoma: Status: Acute Plan Assessment: 64-year-old male with past medical history significant for metastatic gastric adenocarcinoma, recent hospitalization due to gastric outlet obstruction status post stenting, awaiting transfer to [facility] for possible axial stent for gastric outlet obstruction. Gastric outlet obstruction Metastatic adenocarcinoma involving liver and possibly omentum status post stenting Leukocytosis, improving -TPN for 24 hours, we will need to be transferred to [facility] Continue with NG tube placement per surgery recs Continue with IV Dilaudid Continue with IV fluids Continue with Zofran, IV dexamethasone and Reglan for nausea control T2 dm We will continue with insulin sliding scale and hypoxemic measures Hypertension, chronic -we will continue with amlodipine, will monitor vitals and adjust accordingly Chronic bilateral pleural effusions Will monitor for any hypoxia, we will titrate for SpO2 greater than 92% Hyperlipidemia -continue with home medication BPH Continue finasteride Quality Stroke Does the patient have a stroke diagnosis?: No VTE Prior VTE?: No VTE Risk Level:: Medical - moderate - high VTE Device Contraindication: N/A - Device Ordered VTE Drug Contraindication: N/A - Med Ordered
[2025-06-19 18:02] LABS: Glucose, Whole Blood 216 mg/dL (60-115)
[2025-06-19 20:38] LABS: Glucose, Whole Blood 192 mg/dL (60-115)
[2025-06-19] MEDS: Parenteral Nutrition 1,680 ML 70 ML IV (20:41)
[2025-06-20 03:29] VITALS: BP 151/82; PULSE 87; RESP 18; TEMP 36.2; O2SAT 95
--- NOTE | 2025-06-20 05:00 | PC.NURSE ---
1900 change of shift bp elevated 171/108, hr 71, rechecked manual 163/78, hr 81. Patient reporting mild abdominal pain and intermittent nausea, hospitalist notified of elevated bp. New order for PRN hydralazine. Blood pressure post hydralazine 158/82, hr 89. At about 2330, patient reporting nausea, feeling lightheaded reporting feels like he's going to faint. Patient requesting to ask hospitalist if he can eat something, patient is currently NPO with NGT, asking if he could have something like czech ice or jello, feels it's going to help with the nausea. Hospitalist notified, per [place], patient can only have few ice chips. Patient educated, provided patient with some ice chips.
[2025-06-20 06:48] LABS: Anion Gap 15 (12-20); Blood Urea Nitrogen 42 mg/dL (9-16); Calcium 8.8 mg/dL (8.4-10.2); Carbon Dioxide 19 mmol/L (22-29); Chloride 106 mmol/L (96-108); Creatinine Clr Calc Pharmacy 108.1; Estimated Glomerular Filt Rate > 60; Magnesium 2.4 mg/dL (1.6-2.6); Potassium 4.5 mmol/L (3.3-5.1); Sodium 135 mmol/L (135-145)
[2025-06-20 07:31] LABS: Glucose, Whole Blood 251 mg/dL (60-115)
[2025-06-20 08:00] VITALS: BP 160/110; PULSE 93; RESP 15; TEMP 36.3; O2SAT 96
[2025-06-20] MEDS: 0.9 % Sodium Chloride Flush 3 ML SYRINGE IVFLUSH ×3 (08:49→23:25)
--- NOTE | 2025-06-20 09:32 | MHC.CLN ---
F/U NGT REMAINS IN PLACE AWAITING PT PENDING TRANSFER TO [facility] REMAINS NPO REVIEWED LABS DISCUSSED WITH PHARMACY CONTINUE TPN AT MAX GOAL RATE OF 70ML/HR WITH 77G LIPIDS PROVIDES 1964 TOTAL KCALS (28KCALS/KG), 84G PROTEIN (1.2G/KG), 252G DEXTROSE REPLETE LYTES NEEDED RD CAN BE REACHED VIA TIGER CONNECT DURING OFF HOURS IF NEEDED
[2025-06-20 10:58] LABS: Ammonia 34 umol/L (13-55)
[2025-06-20 11:18] LABS: Glucose, Whole Blood 225 mg/dL (60-115)
[2025-06-20 13:16] VITALS: BP 172/104
--- NOTE | 2025-06-20 14:33 | P.PNIM_ITS ---
Subjective Subjective Date of Service: 06/20/25 Interval History: Patient seen examined at bedside this morning, per family members, patient encephalopathic during the night, calling them. Patient today states that he is not feeling well, has not had a bowel movement, ultrasound order that shows ascites. Reached out to [facility] at [phone] option 1 to see if patient could be transferred sooner. Patient is still awaiting bed. Physical Exam 2 Exam: Exam: General: AxOx3, ill appearing Head: AT/NC ENT: Moist mucous membranes, NG tube in place Neck: supple CVS; RRR, S1 S2 normal Lungs: Clear bilateral breath sounds, no wheezes or crackles Abd: distended w/ edema, non tender Ext: LE edema MSK: moving all 4 limbs Skin: No cyanosis or edema Psych: Cooperative with exam Neurology: no focal deficit Vital Signs: Vital Signs: Last Vital Signs Temp 97.3 F 06/20/25 08:00 Pulse 93 06/20/25 08:00 Resp 15 06/20/25 08:00 BP 172/104 H 06/20/25 13:16 Pulse Ox 96 06/20/25 08:00 O2 Del Method Room Air 06/20/25 08:00 BMI result Body Mass Index 31.7 Objective Data Active Medications Acetaminophen (Acetaminophen 325 Mg Tablet) 650 mg PO Q6H PRN PRN Reason: Pain, Mild 1-3,fever,headache Last Admin: 06/18/25 12:37 Dose: 650 mg Documented By: FAIZA Amlodipine Besylate (Amlodipine Besylate 10 Mg Tablet) 10 mg PO DAILY [facility]; Protocol Last Admin: 06/20/25 08:36 Dose: Not Given Documented By: ASHLEY Non-Admin Reason: NPO Dexamethasone Sodium Phosphate (Dexamethasone Sod Phosphate 4 Mg/Ml Vial) 2 mg IVPUSH Q8H PRN PRN Reason: Vomiting Last Admin: 06/19/25 14:14 Dose: 2 mg Documented By: FAIZA Dextrose (Dextrose 50 % 25 Gm/50 Ml Syringe) 25 gm IVPUSH Q15M PRN; Protocol PRN Reason: per Hypoglycemia Standing Ord. Diazepam (Diazepam 10 Mg/2 Ml Cartridge) 10 mg IVPUSH Q4H PRN PRN Reason: Anxiety Last Admin: 06/19/25 23:51 Dose: 10 mg Documented By: ATIYA Famotidine (Famotidine/Pf 20 Mg/2 Ml Vial) 20 mg IVPUSH DAILY [facility] Last Admin: 06/20/25 08:49 Dose: 20 mg Documented By: ASHLEY Finasteride (Finasteride 5 Mg Tablet) 5 mg PO DAILY [facility] Last Admin: 06/20/25 08:36 Dose: Not Given Documented By: ASHLEY Non-Admin Reason: NPO Glucose (Glucose Gel 15 Gm Gel..Gram.) 15 gm PO Q15M PRN; Protocol PRN Reason: per Hypoglycemia Standing Ord. Hydralazine HCl (Hydralazine Hcl 20 Mg/Ml Vial) 10 mg IVPUSH Q6H PRN; Protocol PRN Reason: SBP > 160 Last Admin: 06/20/25 13:16 Dose: 10 mg Documented By: ASHLEY Hydromorphone HCl (Hydromorphone Hcl 1 Mg/Ml Syringe) 1 mg IVPUSH Q3H PRN; Protocol PRN Reason: abdominal pain Last Admin: 06/19/25 20:38 Dose: 1 mg Documented By: ATIYA Hydromorphone HCl (Hydromorphone Hcl 0.5 Mg/0.5 Ml Syringe) 0.5 mg IVPUSH Q3H PRN; Protocol PRN Reason: Pain, Moderate(Pain Scale 4-6) Last Admin: 06/20/25 12:01 Dose: 0.5 mg Documented By: ASHLEY Nutrition (Parenteral) (Parenteral Nutrition) 1,680 mls @ 70 mls/hr IV .Q24H [facility]; Protocol Stop: 06/20/25 20:59 Last Admin: 06/19/25 20:41 Dose: 70 mls/hr Documented By: ATIYA Nutrition (Parenteral) (Parenteral Nutrition) 1,680 mls @ 70 mls/hr IV .Q24H [facility]; Protocol Stop: 06/21/25 20:59 Insulin Human Lispro (Insulin Lispro 100 Unit/Ml 3 Ml Vial) 0 unit SUBCUT QIDACHS [facility]; Protocol Last Admin: 06/20/25 13:16 Dose: 4 unit Documented By: ASHLEY Labetalol HCl (Labetalol Hcl 100 Mg/20 Ml Vial) 5 mg IVPUSH Q4H PRN PRN Reason: sbp Metoclopramide HCl (Metoclopramide Hcl 10 Mg/2 Ml Vial) 10 mg IVPUSH Q6H PRN PRN Reason: Nausea and Vomiting Last Admin: 06/20/25 02:56 Dose: 10 mg Documented By: ATIYA Ondansetron HCl (Ondansetron Hcl 4 Mg/2 Ml Vial) 4 mg IVPUSH Q6H PRN PRN Reason: Nausea and Vomiting Last Admin: 06/19/25 23:27 Dose: 4 mg Documented By: ATIYA Pharmacy Consult (Consult Rx Parenteral Nutrition Ordering) 1 each MISCELLANE DAILY PRN PRN Reason: Consult order Sodium Chloride (0.9 % Sodium Chloride Flush 3 Ml Syringe) 3 ml IVFLUSH QSHIFT [facility] Last Admin: 06/20/25 12:00 Dose: 3 ml Documented By: ASHLEY Labs 06/19/25 06:00 06/20/25 06:12 Labs: Laboratory Results - last 24 hr 06/19/25 06/19/25 06/20/25 17:53 20:26 06:12 Anion Gap 15 Estim Creat Clear Calc 108.1 Estimated GFR > 60 POC Glucose 216 H 192 H Random Glucose 252 H Calcium 8.8 Phosphorus 2.8 Magnesium 2.4 Ammonia 06/20/25 06/20/25 06/20/25 07:26 10:43 11:12 Anion Gap Estim Creat Clear Calc Estimated GFR POC Glucose 251 H 225 H Random Glucose Calcium Phosphorus Magnesium Ammonia 34 Microbiology Microbiology Results: Microbiology 06/17/25 14:10 Gram Stain - Final Ascites Fluid Anaerobic Culture - Preliminary No growth to date. Body Fluid Culture - Final No growth after 2 days Assessment and Plan (1) Gastric outlet obstruction: Status: Acute (2) Gastric adenocarcinoma: Status: Acute (3) Encephalopathy: Status: Acute (4) Leukocytosis: Status: Acute Plan Assessment: 64-year-old male with past medical history significant for metastatic gastric adenocarcinoma, recent hospitalization due to gastric outlet obstruction status post stenting, awaiting transfer to [facility] for possible axial stent for gastric outlet obstruction. Gastric outlet obstruction Metastatic adenocarcinoma involving liver and possibly omentum status post stenting Leukocytosis Toxic metabolic encephalopathy -Continue TPN until able to be transferred to [facility] Continue with NG tube placement per surgery recs Continue with IV Dilaudid Continue with IV fluids Continue with Zofran, IV dexamethasone and Reglan for nausea control will give suppository, repeat abd us showing moderate ascites. T2 dm We will continue with insulin sliding scale and hypoxemic measures Hypertension, chronic -we will continue with amlodipine, will monitor vitals and adjust accordingly Chronic bilateral pleural effusions Will monitor for any hypoxia, we will titrate for SpO2 greater than 92% Hyperlipidemia -continue with home medication BPH Continue finasteride Quality Stroke Does the patient have a stroke diagnosis?: No VTE Prior VTE?: No VTE Risk Level:: Medical - moderate - high VTE Device Contraindication: N/A - Device Ordered VTE Drug Contraindication: N/A - Med Ordered
--- NOTE | 2025-06-20 14:36 | MHC.CM.PN ---
Patient is planned for Acute Hospital transfer to [facility]. There is no bed available today. Per MD rounds patient is more confused today. An abdominal U.S. has been ordered. DP transfer to [facility], via BLS.
--- NOTE | 2025-06-20 15:24 | PC.NURSE ---
Per Freddie. Pt ok to have small sips of clear liquids. Freddie advised him to take it slow
--- NOTE | 2025-06-20 15:47 | P.EN_ITS ---
Event Note Date of Service: 06/20/25 Event Note: Still awaiting transfer to [facility] for inpatient chemotherapy He appears comfortable NG tube in place Abdomen is soft, benign, although with obvious ascites He can have small sips of Gatorade as he had requested Time Spent With Patient Time: Total time managing care of this patient today ____ minutes.
[2025-06-20 16:00] VITALS: BP 150/110; PULSE 95; RESP 18; TEMP 36.1; O2SAT 94
[2025-06-20 17:54] LABS: Glucose, Whole Blood 260 mg/dL (60-115)
[2025-06-20 19:31] VITALS: BP 129/76; PULSE 76; RESP 18; TEMP 36.3; O2SAT 98
[2025-06-20] MEDS: Parenteral Nutrition 1,680 ML 70 ML IV (21:07)
[2025-06-20 21:35] LABS: Glucose, Whole Blood 231 mg/dL (60-115)
[2025-06-21] VITALS (11 sets, daily range): BP systolic 104–160; BP diastolic 97–120; PULSE 76–99; RESP 16–20; TEMP 36.1–36.7; O2SAT 94–96
--- NOTE | 2025-06-21 05:18 | P.EN_ITS ---
Event Note Date of Service: 06/21/25 Event Note: Nursing notified this fha underwriter pt is experiencing 6/10 every 2 to 2.5 hours rating pain 6/10 and has 0.5 Dilaudid Q3H prn. Giving pt dose now one time and retimed 0.5 Q3H prn to 0730 but not comfortable ordering 0.5 Q2H as requested prn. Pt will not take the 1 mg due to potency and side effects (too strong). Time Spent With Patient Time: Total time managing care of this patient today ____ minutes.
[2025-06-21 06:39] LABS: Anion Gap 17 (12-20); Blood Urea Nitrogen 46 mg/dL (9-16); Calcium 9.3 mg/dL (8.4-10.2); Carbon Dioxide 14 mmol/L (22-29); Chloride 106 mmol/L (96-108); Creatinine Clr Calc Pharmacy 97.7; Estimated Glomerular Filt Rate > 60; Magnesium 2.6 mg/dL (1.6-2.6); Potassium 4.8 mmol/L (3.3-5.1); Sodium 132 mmol/L (135-145)
[2025-06-21 09:11] LABS: Glucose, Whole Blood 273 mg/dL (60-115)
--- NOTE | 2025-06-21 11:56 | P.PNIM_ITS ---
Subjective Subjective Date of Service: 06/21/25 Interval History: Patient seen examined at bedside this morning, patient states that he is experiencing abdominal pain, suppository relieved some pain. Abdominal US w/ moderate amount of abdominal and pelvic ascites, with Paracentesis done on 06/17 w/ removal of 4.4Lts. Spoke with family at bedside, agree having paracentesis done. Review of Systems 14 point ROS obtained, negative except as stated above. Physical Exam 2 Exam: Exam: General: AxOx3, ill appearing Head: AT/NC ENT: Moist mucous membranes, NG tube in place Neck: supple CVS; RRR, S1 S2 normal Lungs: Clear bilateral breath sounds, no wheezes or crackles Abd: distended w/ edema, tender Ext: LE edema MSK: moving all 4 limbs Skin: No cyanosis or edema Psych: Cooperative with exam Neurology: no focal deficit Vital Signs: Vital Signs: Last Vital Signs Temp 97 F 06/21/25 08:00 Pulse 76 06/21/25 09:08 Resp 16 06/21/25 08:00 BP 160/120 H 06/21/25 09:08 Pulse Ox 94 06/21/25 08:00 O2 Del Method Room Air 06/21/25 08:00 BMI result Body Mass Index 31.7 Objective Data Active Medications Acetaminophen (Acetaminophen 325 Mg Tablet) 650 mg PO Q6H PRN PRN Reason: Pain, Mild 1-3,fever,headache Last Admin: 06/18/25 12:37 Dose: 650 mg Documented By: FAIZA Amlodipine Besylate (Amlodipine Besylate 10 Mg Tablet) 10 mg PO DAILY [facility]; Protocol Last Admin: 06/21/25 09:00 Dose: Not Given Documented By: JOSELUIS Non-Admin Reason: NPO Dexamethasone Sodium Phosphate (Dexamethasone Sod Phosphate 4 Mg/Ml Vial) 2 mg IVPUSH Q8H PRN PRN Reason: Vomiting Last Admin: 06/19/25 14:14 Dose: 2 mg Documented By: FAIZA Dextrose (Dextrose 50 % 25 Gm/50 Ml Syringe) 25 gm IVPUSH Q15M PRN; Protocol PRN Reason: per Hypoglycemia Standing Ord. Diazepam (Diazepam 10 Mg/2 Ml Cartridge) 10 mg IVPUSH Q4H PRN PRN Reason: Anxiety Last Admin: 06/19/25 23:51 Dose: 10 mg Documented By: HO.TUMASY Famotidine (Famotidine/Pf 20 Mg/2 Ml Vial) 20 mg IVPUSH DAILY [facility] Last Admin: 06/21/25 08:41 Dose: 20 mg Documented By: JOSELUIS Finasteride (Finasteride 5 Mg Tablet) 5 mg PO DAILY [facility] Last Admin: 06/21/25 09:00 Dose: Not Given Documented By: JOSELUIS Non-Admin Reason: NPO Glucose (Glucose Gel 15 Gm Gel..Gram.) 15 gm PO Q15M PRN; Protocol PRN Reason: per Hypoglycemia Standing Ord. Hydralazine HCl (Hydralazine Hcl 20 Mg/Ml Vial) 10 mg IVPUSH Q6H PRN; Protocol PRN Reason: SBP > 160 Last Admin: 06/20/25 13:16 Dose: 10 mg Documented By: ASHLEY Hydromorphone HCl (Hydromorphone Hcl 1 Mg/Ml Syringe) 1 mg IVPUSH Q3H PRN; Protocol PRN Reason: abdominal pain Last Admin: 06/19/25 20:38 Dose: 1 mg Documented By: ATIYA Hydromorphone HCl (Hydromorphone Hcl 0.5 Mg/0.5 Ml Syringe) 0.5 mg IVPUSH Q3H PRN; Protocol PRN Reason: Pain, Moderate(Pain Scale 4-6) Last Admin: 06/21/25 08:41 Dose: 0.5 mg Documented By: JOSELUIS Nutrition (Parenteral) (Parenteral Nutrition) 1,680 mls @ 70 mls/hr IV .Q24H [facility]; Protocol Stop: 06/21/25 20:59 Last Admin: 06/20/25 21:07 Dose: 70 mls/hr Documented By: NAVA Nutrition (Parenteral) (Parenteral Nutrition) 1,680 mls @ 70 mls/hr IV .Q24H [facility]; Protocol Stop: 06/22/25 20:59 Insulin Human Lispro (Insulin Lispro 100 Unit/Ml 3 Ml Vial) 0 unit SUBCUT QIDACHS [facility]; Protocol Last Admin: 06/21/25 09:36 Dose: 6 unit Documented By: JOSELUIS Labetalol HCl (Labetalol Hcl 100 Mg/20 Ml Vial) 5 mg IVPUSH Q4H PRN PRN Reason: sbp Metoclopramide HCl (Metoclopramide Hcl 10 Mg/2 Ml Vial) 10 mg IVPUSH Q6H PRN PRN Reason: Nausea and Vomiting Last Admin: 06/21/25 08:41 Dose: 10 mg Documented By: JOSELUIS Ondansetron HCl (Ondansetron Hcl 4 Mg/2 Ml Vial) 4 mg IVPUSH Q6H PRN PRN Reason: Nausea and Vomiting Last Admin: 06/20/25 15:18 Dose: 4 mg Documented By: NEHEMIAS Pharmacy Consult (Consult Rx Parenteral Nutrition Ordering) 1 each MISCELLANE DAILY PRN PRN Reason: Consult order Sodium Chloride (0.9 % Sodium Chloride Flush 3 Ml Syringe) 3 ml IVFLUSH QSHIFT [facility] Last Admin: 06/21/25 08:47 Dose: Not Given Documented By: JOSELUIS Non-Admin Reason: 10 mL syringe used for PICC Labs 06/19/25 06:00 06/21/25 06:03 Labs: Laboratory Results - last 24 hr 06/20/25 06/20/25 06/21/25 17:44 21:31 06:03 Hold Purple Top Anion Gap 17 Estim Creat Clear Calc 97.7 Estimated GFR > 60 POC Glucose 260 H 231 H Random Glucose 265 H Calcium 9.3 Phosphorus 4.2 Magnesium 2.6 06/21/25 06/21/25 06:10 08:57 Hold Purple Top SEE NOTE Anion Gap Estim Creat Clear Calc Estimated GFR POC Glucose 273 H Random Glucose Calcium Phosphorus Magnesium Microbiology Microbiology Results: Microbiology 06/17/25 14:10 Gram Stain - Final Ascites Fluid Anaerobic Culture - Preliminary No growth to date. Body Fluid Culture - Final No growth after 2 days Assessment and Plan (1) Gastric adenocarcinoma: Status: Acute (2) Gastric outlet obstruction: Status: Acute (3) On total parenteral nutrition (TPN): Status: Acute (4) Diabetes: Status: Acute Plan Assessment: 64-year-old male with past medical history significant for metastatic gastric adenocarcinoma, recent hospitalization due to gastric outlet obstruction status post stenting, awaiting transfer to [facility] for possible axial stent for gastric outlet obstruction. w/ repeat US showing moderate ascites. Gastric outlet obstruction Metastatic adenocarcinoma involving liver and possibly omentum status post stenting Leukocytosis Toxic metabolic encephalopathy, stable -Continue TPN until able to be transferred to [facility] Continue with NG tube placement per surgery recs Continue with IV Dilaudid Continue with IV fluids Continue with Zofran, IV dexamethasone and Reglan for nausea control will plan for paracentesis, stat PT/INR ordered. Continue w/ PRN pain meds T2DM We will continue with insulin sliding scale and hypoxemic measures Hypertension, chronic -we will continue with amlodipine, will monitor vitals and adjust accordingly Chronic bilateral pleural effusions Will monitor for any hypoxia, we will titrate for SpO2 greater than 92% Hyperlipidemia -continue with home medication BPH Continue finasteride Quality Stroke Does the patient have a stroke diagnosis?: No VTE Prior VTE?: No VTE Risk Level:: Medical - moderate - high VTE Device Contraindication: N/A - Device Ordered VTE Drug Contraindication: N/A - Med Ordered
[2025-06-21 12:07] LABS: Glucose, Whole Blood 265 mg/dL (60-115)
[2025-06-21 12:51] LABS: INTERNATIONAL NORM RATIO 1.2 (0.9-1.1); Prothrombin Time 13.2 SEC (10.9-12.4)
[2025-06-21] MEDS: Albumin Human 25 % 100 ML 133.33 ML IV (14:36)
--- NOTE | 2025-06-21 14:50 | PC.NURSE ---
Paracentesis performed at bedside with ER provider and Hospitalist Vivek Guadalupe. Catheter removed by hospitalist. 3.1 L removed. Vital signs as charted.
--- NOTE | 2025-06-21 15:01 | W.ED.CONS.HO ---
Consult Details Consult Details: 06/21/2025 15:00 DR. Estevez's: Was consulted to preformed paracentesis of severe ascites with severe abdominal distention and discomfort affecting patient is breathing for therapeutic purpose. Please refer to procedure note. Procedures Paracentesis Time Out Performed: Yes Indication: Ascites Procedure: therapeutic paracentesis Location: [facility] Bedside Ultrasound Used: yes, Ascites confirmed and location marked Preparation: sterile prep and drape Amount of fluid obtained (mL): 3 Fluid: clear Size of Needle Used: 18 Post Procedure Exam: awake, alert Patient Tolerated Procedure: well and no complications Complications: none
[2025-06-21 16:00] LABS: Glucose, Whole Blood 226 mg/dL (60-115)
[2025-06-21 16:13] LABS: MN% 74.2 %; PMN% 25.8 %; WBC Peritoneal Fluid 0.352 X10*3/uL
[2025-06-21] MEDS: Lidocaine 4 % Patch ADH..PATCH 1 PATCH TRANSDERMA ×2 (16:16→16:56)
--- NOTE | 2025-06-21 17:12 | PC.NURSE ---
Patient complain of right shoulder pain, expressed how this happened at home and they went to urgent care and urgent care prescribed prednisone incase it was related to inflammation from the PICC . Hospitalist Josiah Guadalupe notified, lidocaine patch and Xrays ordered.
[2025-06-21 17:13] LABS: BF Shift QC OK YES; Lymphocyte Peritoneal Fl 55 %; Man Diluent Bkgrd OK YES; Neutrophils Peritoneal Fluid 21 %; Other Peritioneal Fl 24 %
--- NOTE | 2025-06-21 17:45 | PC.NURSE ---
17:45- report called to nurse Chan at [facility] and [facility]' 6 D unit.
[2025-06-21 18:49] LABS: Total Protein 5.9 g/dL (6.5-8.0)
--- NOTE | 2025-06-21 19:42 | PM.DS ---
DS: Providers Provider Date of Service: 06/21/25 Date of admission: 06/16/25 18:52 Date of discharge: 06/21/25 Primary care physician: LAWSON Segundo Consults: 06/16/25 19:19 Consult to Gastroenterology Routine Consulting Provider: [facility] Reason for consultation: Recurrent gastric outlet obstruction Has provider been notified: No 06/16/25 19:35 Consult to General Surgery Routine Consulting Provider: [facility] Reason for consultation: gastric outlet obstruction Has provider been notified: Yes 06/16/25 20:31 Consult to Hematology / Oncology Routine Consulting Provider: [facility] Reason for consultation: Metastatic gastric adenocarcinoma, gastric outlet obstruction Has provider been notified: No Attending physician on discharge: Beto Guadalupe Discharging clinician: Beto Guadalupe DS: Diagnosis Discharge Diagnosis (1) Gastric adenocarcinoma: Status: Acute (2) Gastric outlet obstruction: Status: Acute (3) On total parenteral nutrition (TPN): Status: Acute (4) Diabetes: Status: Acute DS: Summary Hospital Course Hospital Course: 64-year-old male with past medical history significant for metastatic gastric adenocarcinoma, recent hospitalization for gastric outlet obstruction status post stenting by Dr. Kaiser. Who presented to the hospital for on 06/16 for inability to tolerate p.o. CT scan revealed 4.2 cm mass extending from antrum into the adjacent mesentery, 3.5 cm mass extending from mid body of stomach (Pap smear showing adenocarcinoma),. Moderate amount of ascites with interval worsening, 2.4 cm low-density lesion in right lobe of the liver suspicious for metastatic disease (liver biopsy done on 06/06 showed metastatic poorly differentiated adenocarcinoma). Moderate right pleural effusion. On admission patient had therapeutic paracentesis with removal of 4.4 L. Hematology and oncology consulted, suggested on initiating dexamethasone, metoclopramide and Zofran. NG tube was placed. Given patient's poor improvement, per hematology oncology given patient's worsening clinical condition, suggested on transferring patient to [facility] has he may benefit from inpatient chemotherapy. Patient was started on TPN on 06/18. On day of discharge on 06/21, patient was complaining of worsening abdominal pain, paracentesis was done at bedside, with removal of 3.1 L. Of note, patient was recently on p.o. antibiotics for aspiration pneumonia on recent admission to the hospital. Gastric outlet obstruction Metastatic adenocarcinoma involving liver and possibly omentum status post stenting -Continue TPN until able to be transferred to [facility] Continue with NG tube placement per surgery recs Continue with IV Dilaudid Continue with IV fluids Continue with Zofran, IV dexamethasone and Reglan for nausea control will plan for paracentesis, stat PT/INR ordered. Continue w/ PRN pain meds T2DM We will continue with insulin sliding scale and hypoxemic measures Hypertension, chronic -we will continue with IV PRN meds Hydralazine and labetalol, will restart amlodipine once able to tolerate PO will monitor vitals and adjust accordingly Chronic bilateral pleural effusions Will monitor for any hypoxia, we will titrate for SpO2 greater than 92% Hyperlipidemia to continue once able to tolerate PO BPH finasteride to continue once able to tolerate PO Time Attestation Total time managing care of this patient today: 40 mintues. Discharge Coordination Time (in mins): greater than 40 minutes Quality: Safe Use of Opioids Does Pt have an Active Cancer Diagnosis on the Problem List?: Yes Opioid Measure Date for [facility] Report: 05/22/25 Opioid Measure Time for [facility] Report: 19:45 Quality: Stroke Does the patient have a stroke diagnosis?: No Physical Exam Exam: Exam: General: AxOx3, ill appearing Head: AT/NC ENT: Moist mucous membranes, NG tube in place Neck: supple CVS; RRR, S1 S2 normal Lungs: Clear bilateral breath sounds, no wheezes or crackles Abd: distended w/ edema, tender Ext: LE edema MSK: moving all 4 limbs Skin: No cyanosis or edema Psych: Cooperative with exam Neurology: no focal deficit Vital Signs: Vital Signs: Last Vital Signs Temp 97.6 F 06/21/25 15:08 Pulse 90 06/21/25 15:08 Resp 16 06/21/25 15:08 BP 146/101 H 06/21/25 15:08 Pulse Ox 96 06/21/25 15:08 O2 Del Method Room Air 06/21/25 15:08 BMI result Body Mass Index 31.7 DS: Data Data Completed and Pending Labs on day of discharge: Laboratory Results - last 24 hr 06/20/25 06/21/25 06/21/25 21:31 06:03 06:10 Hold Purple Top SEE NOTE PT INR Sodium 132 L Potassium 4.8 Chloride 106 Carbon Dioxide 14 L Anion Gap 17 BUN 46 H Creatinine 0.83 Estim Creat Clear Calc 97.7 Estimated GFR > 60 POC Glucose 231 H Random Glucose 265 H Calcium 9.3 Phosphorus 4.2 Magnesium 2.6 Lactate Dehydrogenase Total Protein Peritoneal WBC Peritoneal RBC Periton Neutrophils Periton Lymphocytes Peritoneal Other Cells 06/21/25 06/21/25 06/21/25 08:57 12:03 12:31 Hold Purple Top PT 13.2 H INR 1.2 H Sodium Potassium Chloride Carbon Dioxide Anion Gap BUN Creatinine Estim Creat Clear Calc Estimated GFR POC Glucose 273 H 265 H Random Glucose Calcium Phosphorus Magnesium Lactate Dehydrogenase Total Protein Peritoneal WBC Peritoneal RBC Periton Neutrophils Periton Lymphocytes Peritoneal Other Cells 06/21/25 06/21/25 06/21/25 14:38 15:57 16:20 Hold Purple Top SEE NOTE PT INR Sodium Potassium Chloride Carbon Dioxide Anion Gap BUN Creatinine Estim Creat Clear Calc Estimated GFR POC Glucose 226 H Random Glucose Calcium Phosphorus Magnesium Lactate Dehydrogenase Total Protein Peritoneal WBC 0.352 Peritoneal RBC 0.002 Periton Neutrophils 21 Periton Lymphocytes 55 Peritoneal Other Cells 24 06/21/25 17:58 Hold Purple Top PT INR Sodium Potassium Chloride Carbon Dioxide Anion Gap BUN Creatinine Estim Creat Clear Calc Estimated GFR POC Glucose Random Glucose Calcium Phosphorus Magnesium Lactate Dehydrogenase 229 Total Protein 5.9 L Peritoneal WBC Peritoneal RBC Periton Neutrophils Periton Lymphocytes Peritoneal Other Cells Preliminary micro results at discharge 06/17/25 14:10 Anaerobic Culture - Preliminary Ascites Fluid No growth to date. Discharge Plan Discharge Anticipated Discharge Date/Time: 06/21/25 19:31 Patient Disposition: [facility] Discharge Diagnosis: Gastric outlet obstruction, metastatic adenocarcinoma Referrals: Hal Chacon FNP-BC [Primary Care Provider, Internal Medicine] - 1 Week Discharge Medications: New hydralazine 20 mg/mL Solution 10 mg IVPUSH Q6H PRN (Reason: Sbp > 160) Qty: 25 0RF Protocol: Hold for SBP< HOLD for SBP < : 90 labetalol 5 mg/mL Solution 5 mg IVPUSH Q4H PRN (Reason: sbp) Qty: 20 0RF hydromorphone 0.5 mg/0.5 mL Syringe 0.5 mg IVPUSH Q3H PRN (Reason: Pain, Moderate(Pain Scale 4-6)) Qty: 5 0RF Protocol: Hold for RR < HOLD and contact provider for RR < (bpm): 12 Rx Instructions: Partial Fill upon patient request. diazepam 5 mg/mL Syringe 10 mg IVPUSH Q4H PRN (Reason: Anxiety) Qty: 20 0RF dexamethasone sodium phosphate 4 mg/mL Solution 2 mg IVPUSH Q8H PRN (Reason: Vomiting) Qty: 25 0RF insulin lispro [Admelog U-100 Insulin lispro] 100 unit/mL Solution See Protocol subcut QIOSS HEALTH Qty: 3 1RF Protocol: Insulin Correction Scale Less than or equal to 110 ---- Give (units): 0 111 to 150 Give (units): 0 151 to 200 Give (units): 2 201 to 250 Give (units): 4 251 to 300 Give (units): 6 301 to 350 Give (units): 8 Greater than 350 Give (units): 10 Call MD if Blood Glucose > : 350 ondansetron HCl (PF) 4 mg/2 mL Solution 4 mg IVPUSH Q6H PRN (Reason: Nausea And Vomiting) Qty: 20 0RF Continued amlodipine 10 mg tablet 10 mg PO DAILY 90 Days Qty: 90 0RF finasteride 5 mg tablet 5 mg PO DAILY 90 Days Qty: 90 1RF Held losartan 50 mg tablet 50 mg PO DAILY Qty: 90 1RF Hold Instructions: Resume on 07/03/25. once able to tolerate PO Discontinued (DME) blood-glucose meter [FreeStyle Lite Meter] Kit See Rx Instructions .Route Qty: 1 0RF Rx Instructions: BID (DME) FreeStyle Lite Strips Strip See Rx Instructions .Route Qty: 100 2RF Rx Instructions: BID (DME) lancets 30 gauge misc See Rx Instructions .Route Qty: 200 0RF Rx Instructions: bid testing atorvastatin 20 mg tablet 20 mg PO BEDTIME Qty: 90 1RF amoxicillin-pot clavulanate 875-125 mg tablet 1 tab PO BID Qty: 8 0RF ondansetron HCl 4 mg tablet 4 mg PO Q8H PRN (Reason: nausea and vomiting) 7 Days Qty: 40 0RF morphine 15 mg tablet 7.5 - 15 mg PO Q6H PRN (Reason: pain, moderate to severe) Qty: 20 0RF Rx Instructions: Partial Fill upon patient request. omeprazole 20 mg capsule,delayed release(DR/EC) 20 mg PO DAILY@0630 Discharge Orders: Discharge Order (Routine); Ordered 06/21/25 Ordered By: Beto Guadalupe Activity on Discharge: As tolerated Stand Alone Forms: Patient Portal Discharge page Print Language: Greek Care Plan Goals: transfer to [facility] for in patient chemo Health Concerns: gastric outlet obstruction Plan of Treatment: in patient chemo Assessment: 64-year-old male with past medical history significant for metastatic gastric adenocarcinoma, recent hospitalization for gastric outlet obstruction status post stenting by Dr. Kaiser. Who presented to the hospital for on 06/16 for inability to tolerate p.o. CT scan revealed 4.2 cm mass extending from antrum into the adjacent mesentery, 3.5 cm mass extending from mid body of stomach (Pap smear showing adenocarcinoma),. Moderate amount of ascites with interval worsening, 2.4 cm low-density lesion in right lobe of the liver suspicious for metastatic disease (liver biopsy done on 06/06 showed metastatic poorly differentiated adenocarcinoma). Moderate right pleural effusion. On admission patient had therapeutic paracentesis with removal of 4.4 L. Hematology and oncology consulted, suggested on initiating dexamethasone, metoclopramide and Zofran. NG tube was placed. Given patient's poor improvement, per hematology oncology given patient's worsening clinical condition, suggested on transferring patient to [facility] has he may benefit from inpatient chemotherapy. Patient was started on TPN on 06/18. On day of discharge on 06/21, patient was complaining of worsening abdominal pain, paracentesis was done at bedside, with removal of 3.1 L. Of note, patient was recently on p.o. antibiotics for aspiration pneumonia on recent admission to the hospital. Gastric outlet obstruction Metastatic adenocarcinoma involving liver and possibly omentum status post stenting -Continue TPN until able to be transferred to [facility] Continue with NG tube placement per surgery recs Continue with IV Dilaudid Continue with IV fluids Continue with Zofran, IV dexamethasone and Reglan for nausea control will plan for paracentesis, stat PT/INR ordered. Continue w/ PRN pain meds T2DM We will continue with insulin sliding scale and hypoxemic measures Hypertension, chronic -we will continue with IV PRN meds Hydralazine and labetalol, will restart amlodipine once able to tolerate PO will monitor vitals and adjust accordingly Chronic bilateral pleural effusions Will monitor for any hypoxia, we will titrate for SpO2 greater than 92% Hyperlipidemia to continue once able to tolerate PO BPH finasteride to continue once able to tolerate PO
[2025-06-21] MEDS: Parenteral Nutrition 1,680 ML 70 ML IV (19:58)
[2025-06-21 20:02] LABS: Glucose, Whole Blood 194 mg/dL (60-115)
[2025-06-23 07:23] LABS: Albumin Peritoneal Fluid 1.5
[2025-06-23 07:24] LABS: pH Peritoneal Fluid 7.19
== END 2025-06-21 20:30 | disposition short-term general hospital (02) | DRG 240 ==
LOC: HO.ED 16:43 → HO.EDOVER 18:55 → HO.S3 19:35
PROVIDERS: Hospitalist; Physician Assistant Medical; Admitting Provider Internal Medicine; Emergency Provider Emergency Medicine; PCP Nurse Practitioner Family; Visit Provider Student in an Organized Health Care Education/Training Program
DX: C16.9 Malignant neoplasm of stomach, unspecified (principal); R18.0 Malignant ascites; G92.8 Other toxic encephalopathy; K31.1 Adult hypertrophic pyloric stenosis; C78.7 Secondary malignant neoplasm of liver and intrahepatic bile duct; C78.6 Secondary malignant neoplasm of retroperitoneum and peritoneum; J90 Pleural effusion, not elsewhere classified; E11.9 Type 2 diabetes mellitus without complications; I10 Essential (primary) hypertension; E87.5 Hyperkalemia; E78.5 Hyperlipidemia, unspecified; N40.0 Benign prostatic hyperplasia without lower urinary tract symptoms; Z79.4 Long term (current) use of insulin; Z79.899 Other long term (current) drug therapy
CPT/HCPCS: 36415; 36573; 49083; 71045; 73030; 74019; 74176; 76705; 80048; 80051; 80053; 82042; 82140; 82945; 82947; 83615; 83735; 83986; 84100; 84155; 84157; 84478; 85025; 85027; 85610; 87070; 87073; 87116; 87205; 87206; 88112; 88305; 88341; 88342; 89051; 93005; 99285; C1751; J0360; J0613; J1100; J1171; J1308; J2003; J2405; J2470; J2765; J3360; J7120; P9047

== ENCOUNTER → 2025-06-16 14:19 | Outpatient (BNV) | payer BC, SELFPAY | PROVIDERS: Emergency Provider Emergency Medicine; PCP Nurse Practitioner Family; Visit Provider Radiology Diagnostic Radiology | DX: K76.89 Other specified diseases of liver (principal); K31.89 Other diseases of stomach and duodenum; R18.8 Other ascites; J90 Pleural effusion, not elsewhere classified | CPT/HCPCS: 74176 ==

== ENCOUNTER 2025-06-16 18:52 | Outpatient (BNV) | payer BC, SELFPAY | END 2025-06-18 08:01 | PROVIDERS: Admitting Provider Internal Medicine; Emergency Provider Emergency Medicine; PCP Nurse Practitioner Family; Visit Provider Radiology Diagnostic Radiology | DX: R91.8 Other nonspecific abnormal finding of lung field (principal) | CPT/HCPCS: 71045 ==

== ENCOUNTER 2025-06-16 18:52 | Outpatient (BNV) | payer BC, SELFPAY | END 2025-06-20 12:06 | PROVIDERS: Admitting Provider Internal Medicine; Emergency Provider Emergency Medicine; PCP Nurse Practitioner Family; Visit Provider Radiology Diagnostic Radiology | DX: R18.8 Other ascites (principal) | CPT/HCPCS: 76705 ==

== ENCOUNTER 2025-06-16 18:52 | Outpatient (BNV) | payer BC, SELFPAY | END 2025-06-21 17:20 | PROVIDERS: Admitting Provider Internal Medicine; Emergency Provider Emergency Medicine; PCP Nurse Practitioner Family; Visit Provider Radiology Diagnostic Radiology | DX: M25.511 Pain in right shoulder (principal); Z45.2 Encounter for adjustment and management of vascular access device; J90 Pleural effusion, not elsewhere classified; J98.11 Atelectasis | CPT/HCPCS: 71045; 73030 ==

== ENCOUNTER 2025-06-16 18:52 | Outpatient (BNV) | payer BC, SELFPAY | END 2025-06-19 11:48 | PROVIDERS: Admitting Provider Internal Medicine; Emergency Provider Emergency Medicine; PCP Nurse Practitioner Family; Visit Provider Radiology Diagnostic Radiology | DX: R18.8 Other ascites (principal) | CPT/HCPCS: 74019 ==

== ENCOUNTER 2025-06-16 18:52 | Outpatient (BNV) | payer BC, SELFPAY | END 2025-06-17 06:29 | PROVIDERS: Admitting Provider Internal Medicine; Emergency Provider Emergency Medicine; PCP Nurse Practitioner Family; Visit Provider Internal Medicine Cardiovascular Disease | DX: R94.31 Abnormal electrocardiogram [ECG] [EKG] (principal); E87.5 Hyperkalemia | CPT/HCPCS: 93010 ==

== ENCOUNTER 2025-06-16 18:52 | Outpatient (BNV) | payer BC, SELFPAY | END 2025-06-17 13:36 | PROVIDERS: Admitting Provider Internal Medicine; Emergency Provider Emergency Medicine; PCP Nurse Practitioner Family | DX: R18.8 Other ascites (principal) | CPT/HCPCS: 49083 ==

== ENCOUNTER → 2025-06-16 18:52 | Outpatient (BNV) | payer BC, SELFPAY | PROVIDERS: Admitting Provider Internal Medicine; Emergency Provider Emergency Medicine; PCP Nurse Practitioner Family; Visit Provider Internal Medicine Gastroenterology | DX: K31.1 Adult hypertrophic pyloric stenosis (principal) | CPT/HCPCS: 99255 ==

== ENCOUNTER → 2025-06-16 18:52 | Outpatient (BNV) | payer BC, SELFPAY | PROVIDERS: Admitting Provider Internal Medicine; Emergency Provider Emergency Medicine; PCP Nurse Practitioner Family; Visit Provider Internal Medicine | DX: K31.1 Adult hypertrophic pyloric stenosis (principal); C16.9 Malignant neoplasm of stomach, unspecified | CPT/HCPCS: 99223; 99232 ==

== ENCOUNTER → 2025-06-16 18:52 | Outpatient (BNV) | payer BC, SELFPAY | PROVIDERS: Admitting Provider Internal Medicine; Emergency Provider Emergency Medicine; PCP Nurse Practitioner Family; Visit Provider Internal Medicine | DX: C16.9 Malignant neoplasm of stomach, unspecified (principal); C78.7 Secondary malignant neoplasm of liver and intrahepatic bile duct; K22.70 Barrett's esophagus without dysplasia; R11.2 Nausea with vomiting, unspecified | CPT/HCPCS: 99254 ==

== ENCOUNTER → 2025-06-16 18:52 | Outpatient (BNV) | payer BC, SELFPAY | PROVIDERS: Admitting Provider Internal Medicine; Emergency Provider Emergency Medicine; PCP Nurse Practitioner Family; Visit Provider Physician Assistant Surgical | DX: C16.9 Malignant neoplasm of stomach, unspecified (principal) | CPT/HCPCS: 99232; 99254; 99499 ==